=== PATIENT | female | born 1950 | race Caucasian/White ===

== ENCOUNTER → 2016-11-25 | Outpatient (REF) | payer MEDICARE, OTHER ==
[~2016-11-25] MED LIST: ASPI1TAB24 PO; CEFT500T PO; CELE20TA PO; COUM2.5T11 PO; DULC10SU2 PR; FLEEENE4 PR; GLIM2TAB PO; HYDR25TAB PO; INSUH10VL SC; LIPI20TA PO; LISI-538 PO; METRONIDAZOLE; MILKSUS PO; MIRA3350 PO; SENO8.6T10 PO; TRAM50TA2 PO; TYLE325T5 PO; VIMP200T PO; ZOFR20TA PO; acetaminophen OR; lotrimin TOP; multivitamin OR; mycostatin powder TOP
[2016-11-25 13:06] LABS: MEAN CORPUSCULAR HEMOGLOBIN 31.1 pg (27.0-33.0); MEAN CORPUSCULAR HGB CONC 34.8 g/dl (32.0-36.5); MEAN CORPUSCULAR VOLUME 89.2 fl (80.0-96.0); RED CELL DISTRIBUTION WIDTH 13.8 % (11.5-14.5); WHITE BLOOD COUNT 8.5 K/mm3 (4.0-10.0)
[2016-11-25 13:30] LABS: CALCIUM LEVEL 9.2 MG/DL (8.8-10.2); CREATININE FOR GFR 1.47 MG/DL (0.55-1.02); GLOMERULAR FILTRATION RATE 37.7 (>45); POTASSIUM SERUM 5.1 MEQ/L (3.5-5.1)
== END ==
LOC: SKLAB2 11:48
PROVIDERS: ATTEND Family Medicine
DX: F22 Delusional disorders (principal); Z79.899 Other long term (current) drug therapy

== ENCOUNTER → 2016-12-04 | Outpatient (REF) | payer MEDICARE, OTHER ==
[~2016-12-04] MED LIST changes: -CEFT500T PO; +CEFT500T3 PO
[2016-12-04 08:46] LABS: CALCIUM LEVEL 9.6 MG/DL (8.8-10.2); CREATININE FOR GFR 1.96 MG/DL (0.55-1.02); GLOMERULAR FILTRATION RATE 27.1 (>45)
== END ==
LOC: SKLAB2 09:37
PROVIDERS: ATTEND Family Medicine
DX: N39.0 Urinary tract infection, site not specified (principal)

== ENCOUNTER → 2016-12-05 | Outpatient (REF) | payer MEDICARE, OTHER ==
[2016-12-05 12:57] LABS: CALCIUM LEVEL 9.1 MG/DL (8.8-10.2); CREATININE FOR GFR 2.16 MG/DL (0.55-1.02); GLOMERULAR FILTRATION RATE 24.2 (>45)
[2016-12-05 13:00] LABS: POTASSIUM SERUM 5.5 MEQ/L (3.5-5.1)
== END | disposition home or self-care (01) ==
LOC: SKLAB2 08:00
PROVIDERS: ATTEND Family Medicine
DX: E87.5 Hyperkalemia (principal)

== ENCOUNTER → 2016-12-06 | Outpatient (REF) | payer MEDICARE, OTHER ==
[2016-12-06 09:43] LABS: CALCIUM LEVEL 9.2 MG/DL (8.8-10.2); CREATININE FOR GFR 2.6 MG/DL (0.55-1.02); GLOMERULAR FILTRATION RATE 19.5 (>45)
== END ==
LOC: SKLAB2 07:00
PROVIDERS: ATTEND Family Medicine
DX: E87.5 Hyperkalemia (principal)

== ENCOUNTER → 2016-12-28 | Outpatient (REF) | payer MEDICARE, OTHER ==
[2016-12-28 09:29] LABS: ALBUMIN 3.4 GM/DL (3.2-5.2); ALBUMIN/GLOBULIN RATIO 0.81 (1.00-1.93); BILIRUBIN,TOTAL 0.5 MG/DL (0.2-1.0); CALCIUM LEVEL 9.3 MG/DL (8.8-10.2); CREATININE FOR GFR 1.49 MG/DL (0.55-1.02); GLOMERULAR FILTRATION RATE 37.2 (>45); POTASSIUM SERUM 5.1 MEQ/L (3.5-5.1); TOTAL PROTEIN 7.6 GM/DL (6.4-8.2)
== END | disposition home or self-care (01) ==
LOC: SKLAB2 07:00
PROVIDERS: ATTEND Family Medicine
DX: E11.9 Type 2 diabetes mellitus without complications (principal); E78.00 Pure hypercholesterolemia, unspecified; I10 Essential (primary) hypertension

== ENCOUNTER → 2016-12-28 | Outpatient (REF) | payer MEDICARE, OTHER | END | disposition home or self-care (01) | LOC: SKLAB2 08:33 | PROVIDERS: ATTEND Family Medicine | DX: R09.89 Other specified symptoms and signs involving the circulatory and respiratory systems (principal); E11.9 Type 2 diabetes mellitus without complications; E78.00 Pure hypercholesterolemia, unspecified; I10 Essential (primary) hypertension ==

== ENCOUNTER → 2017-01-06 | Outpatient (REF) | payer MEDICARE, OTHER ==
[2017-01-06 15:27] LABS: BASO % 0.7 % (0.0-1.0); EOS # 0.6 K/mm3 (0.0-0.50); EOS % 7.6 % (0.0-3.0); LARGE UNSTAINED CELL # 0.2 K/mm3 (0.0-0.4); LARGE UNSTAINED CELL % 1.9 % (0.0-4.0); LYMPH # 1.8 K/mm3 (1.5-4.5); LYMPH % 22.4 % (24.0-44.0); MEAN CORPUSCULAR HEMOGLOBIN 29.5 pg (27.0-33.0); MEAN CORPUSCULAR HGB CONC 33.7 g/dl (32.0-36.5); MEAN CORPUSCULAR VOLUME 87.6 fl (80.0-96.0); MONO # 0.3 K/mm3 (0.0-0.8); MONO % 3.3 % (0.0-5.0); NEUTROPHILS # 5.1 K/mm3 (1.8-7.7); PLATELET COUNT, AUTOMATED 329 k/mm3 (150-450); RED CELL DISTRIBUTION WIDTH 13.1 % (11.5-14.5); WHITE BLOOD COUNT 7.9 K/mm3 (4.0-10.0)
[2017-01-06 16:03] LABS: ALBUMIN 3.2 GM/DL (3.2-5.2); ALBUMIN/GLOBULIN RATIO 0.84 (1.00-1.93); BILIRUBIN,TOTAL 0.3 MG/DL (0.2-1.0); CALCIUM LEVEL 8.9 MG/DL (8.8-10.2); CREATININE FOR GFR 1.44 MG/DL (0.55-1.02); GLOMERULAR FILTRATION RATE 38.7 (>45); POTASSIUM SERUM 4.6 MEQ/L (3.5-5.1)
== END ==
LOC: SKLAB2 14:56
PROVIDERS: ATTEND Family Medicine
DX: F29 Unspecified psychosis not due to a substance or known physiological condition (principal); Z79.899 Other long term (current) drug therapy

== ENCOUNTER → 2017-01-25 | Outpatient (REF) | payer MEDICARE, OTHER ==
[2017-01-25 09:04] LABS: ALBUMIN 3.4 GM/DL (3.2-5.2); ALBUMIN/GLOBULIN RATIO 0.92 (1.00-1.93); BILIRUBIN,TOTAL 0.4 MG/DL (0.2-1.0); CREATININE FOR GFR 1.39 MG/DL (0.55-1.02); GLOMERULAR FILTRATION RATE 40.3 (>45); POTASSIUM SERUM 4.8 MEQ/L (3.5-5.1); TOTAL PROTEIN 7.1 GM/DL (6.4-8.2)
== END ==
LOC: SKLAB2 07:30
PROVIDERS: ATTEND Family Medicine
DX: E11.9 Type 2 diabetes mellitus without complications (principal); E78.00 Pure hypercholesterolemia, unspecified; I10 Essential (primary) hypertension

== ENCOUNTER → 2017-02-11 | Outpatient (CLI) | payer MEDICARE, OTHER ==
[~2017-02-11] MED LIST changes: +ALBU83IN INH; +ARIC5TAB PO; +ARTI99.0 OU; +BUSP5TA PO; +CUTI0.05 TOP; +FURO20TA2 PO; +GLIM2TA PO; +GLUC1INJ11 SC; +GLUC4CHW PO; +HYDR10T PO; +LEXA1TAB2 PO; +MULT1TAB9 PO; +NYST100024 TOP; +VITATAB11 PO; +ZEST1TAB7 PO
[2017-02-11 12:36] LABS: INR 1.04
--- NOTE | 2017-02-11 12:37 | REP ---
Clinical: Hypertension. Technique: PA and lateral. Comparison: 11/05/2016. Findings: Stable cardiomegaly and chronic left lower lobe changes again noted. No acute consolidation, effusion, or pneumothorax. Skeletal structures demonstrate age-related degenerative change. Impression: Chronic stable changes. No acute cardiopulmonary process. Signed by Srinath Rain MD 02/11/2017 12:28 P
[2017-02-11 12:54] LABS: MEAN CORPUSCULAR HEMOGLOBIN 30.6 pg (27.0-33.0); MEAN CORPUSCULAR HGB CONC 33.4 g/dl (32.0-36.5); MEAN CORPUSCULAR VOLUME 91.4 fl (80.0-96.0); RED CELL DISTRIBUTION WIDTH 13.6 % (11.5-14.5)
[2017-02-11 12:59] LABS: ALBUMIN 3.7 GM/DL (3.2-5.2); ALBUMIN/GLOBULIN RATIO 0.86 (1.00-1.93); BILIRUBIN,TOTAL 0.3 MG/DL (0.2-1.0); CALCIUM LEVEL 9.7 MG/DL (8.8-10.2); CREATININE FOR GFR 1.48 MG/DL (0.55-1.02); GLOMERULAR FILTRATION RATE 37.4 (>45); POTASSIUM SERUM 4.3 MEQ/L (3.5-5.1)
--- NOTE | 2017-02-12 22:15 | ECGEPIP ---
Stationary ECG Study [facility] Test Date: 2017-02-11 Pat Name: ROBINA DYE Department: Room: - Gender: F Viscosity Inspector: YENI : 1950 Requested By: Jane Barnes Order Number: [id number] Reading MD: Prosper Roland Measurements Intervals [place] Rate: 57 P: 52 WY: 193 QRS: -15 QRSD: 90 T: 70 QT: 435 QTc: 424 Interpretive Statements Sinus bradycardia Leftward axis Low QRS complex voltage in the limb leads Compared to prior tracing of 12/24/2015, precordial voltage and anterior R wave progression have improved Electronically Signed On 02-12-2017 22:14:44 EDT by Prosper Roland
--- NOTE | 2017-02-17 16:36 | HPE ---
DATE OF ADMISSION: 02/24/2017 CHIEF COMPLAINT: Left knee pain and stiffness. HISTORY OF PRESENT ILLNESS: This Is a pleasant 66-year-old female who suffers from progressively worsening left knee pain and stiffness. It should be noted she also has some mild dementia. She has failed to improve with conservative treatment. She has elected for surgery for her continued symptoms. She has pain with weightbearing activities and her activities of daily living. X-rays of her knee are notable for advanced osteoarthritis of the left knee joint. She has consented for a left total knee arthroplasty by Dr. Cameron Meléndez. Medical optimization was performed by Dr. Sagastume. ALLERGIES: MORPHINE CURRENT MEDICATIONS: - Tylenol Arthritis 650 mg as needed - baby aspirin once a day - Celexa 20 mg a day - Dulcolax [address] of rectum every morning as needed - glimepiride 2 mg every day - glucagon emergency 1 mg as needed - hydrochlorothiazide 25 mg a day - Lipitor 40 mg a day - lisinopril 20 mg a day - Lotrimin AF 1%, apply to affected area twice a day - metronidazole 0.75% - milk of magnesia concentrate 2400 mg/10 mL as needed - multivitamin and mineral supplement - nystatin statin powder, apply twice a day as needed to affected areas - tramadol HCL 50 mg every 4-6 hours as needed - Vimpat 200 mg - Tylenol 325 mg one or two every 4 hours as needed for pain PAST MEDICAL HISTORY: Includes: 1. Diabetes. 2. High blood pressure. 3. History of stroke. 4. Mild dementia. 5. Constipation. PAST SURGICAL HISTORY: Includes: 1. Hysterectomy. 2. Cholecystectomy. 3. Right total knee arthroplasty. SOCIAL HISTORY: This patient is retired. She does not smoke or drink alcohol. FAMILY HISTORY: Noncontributory. REVIEW OF SYSTEMS: She denies chest pain, heart palpitations, cough, wheezing, difficulty breathing, and shortness of breath. She denies abdominal pain, nausea, vomiting, diarrhea, or constipation. She denies recent upper respiratory infection or urinary tract infection symptoms. She does complain of persistent pain in her left knee and pain with weightbearing activities in her left knee. PHYSICAL EXAMINATION: GENERAL: She is well-nourished, well-developed in no acute distress, alert female patient. She ambulates with a significant limp, favoring the left lower extremity. She uses a walker. VITAL SIGNS: She is 5 feet 8 inches, weighs 305 pounds with a temperature of 97.4, blood pressure 138/76, respirations of 17, and pulse of 88. NECK: Supple without adenopathy or jugular venous distension. There were no carotid bruits appreciated upon auscultation. LUNGS: Clear to auscultation without rales or wheeze throughout. HEART: Regular rate and rhythm. ABDOMEN: Bowel sounds were present. EXTREMITIES: Examination of the knee revealed intact skin. She had decreased range of motion secondary to pain and stiffness. The limb is neurovascularly intact. LABORATORY DATA: Chest x-ray showed chronic stable changes. No acute cardiopulmonary disease processes. EKG showed sinus bradycardia at 57 beats per minute. UA was within normal limits with a specific gravity of 1.004. Urine culture showed no growth. Nasal and sinus culture showed normal seema. Protime was 13.7, INR 1.04. Glucose 85, BUN 39, creatinine 1.48 for a GFR 37.4, sodium 141, potassium 4.3. CBC showed a red count of 3.99, otherwise within normal limits. Sedimentation rate was 86. IMPRESSION: Symptomatic osteoarthritis of the left knee joint. PLAN: Consented for a left total knee arthroplasty by Dr. Cameron Meléndez.
== END ==
LOC: M ADMPAT 10:15
PROVIDERS: ATTEND Orthopaedic Surgery
DX: Z01.818 Encounter for other preprocedural examination (principal); M25.562 Pain in left knee; E11.9 Type 2 diabetes mellitus without complications; I10 Essential (primary) hypertension; Z86.73 Personal history of transient ischemic attack (TIA), and cerebral infarction without residual deficits; F03.90 Unspecified dementia, unspecified severity, without behavioral disturbance, psychotic disturbance, mood disturbance, and anxiety; Z79.899 Other long term (current) drug therapy

== ENCOUNTER → 2017-02-24 | Outpatient (CLI) | payer MEDICARE, OTHER ==
--- NOTE | 2017-02-23 10:26 | CR ---
DATE OF VISIT: 02/23/2017 The resident is seen today for preoperative medical assessment prior to planned knee surgery on 02/24/2017 at [facility]. The patient had a right knee replacement 14 months ago and seems to have done pretty well with that. Her major clinical problems during the last year have been some depressive symptoms which seem to have responded well to treatment and also a problem with persistent dermatitis on her lower extremities which also seems to have responded to the treatment that she is on. She is anxious to have the left knee surgery because pain in her knee interferes with her ambulation. PAST HISTORY: She had a stroke in April 2015 with right middle cerebral artery territory infarction. She did have some carotid stenosis noted on the opposite carotid artery. Persistent issues seem to be with her speech and perhaps her cognition. She has good arm strength and good leg strength. She has hypertension, hypercholesterolemia, seizure prophylaxis, depression, diabetes, obstructive sleep apnea, osteoarthritis. She has not had any evidence of symptomatic cardiac disease, tachyarrhythmia, heart failure. The current medication regimen: aspirin 81 mg daily which was stopped on 02/16/2017, hydroxyzine 10 mg at bedtime, Aricept 5 mg in the evening, multivitamin with minerals daily, glimepiride 2 mg daily, artificial tears one drop four times a day in both eyes, lisinopril 20 mg daily, tramadol 50 mg three times a day, Lipitor 40 mg daily, Vimpat 200 mg twice a day, Lexapro 20 mg daily , vitamin B complex daily, Nystatin powder in skin folds for intertriginous rashes , furosemide 20 mg daily, buspirone 5 mg twice a day. She has as needed acetaminophen for pain, as needed Dulcolax enemas and milk of magnesia for bowel care. She also has a as needed dose of MiraLAX for bowel care and tramadol for pain. She has as needed fluticasone ointment to red itchy areas and a as needed albuterol for pain. She also has scheduled betamethasone cream to her right leg. She is also using janice wraps to her legs in lieu of thromboembolic deterrent (MELLO ) hose for control of edema. Allergies are noted to METFORMIN and MORPHINE. FAMILY HISTORY: Is not obtainable from the resident. SOCIAL HISTORY: Prior to her entering [facility], where she has been residing since 2014, she lived in [place] with her . Her children live in [place]. She is a nonsmoker and a nondrinker. I am her regular medical physician. REVIEW OF SYSTEMS: No fevers, chills, sweats, or weight loss. No headache or dizziness. She has some blurry vision but no double vision. She thinks that some cataract surgery may be in her future. Denies chewing or swallowing problems. Denies cough, shortness of breath, chest pains, palpitations. Denies nausea, vomiting, abdominal pains, diarrhea, constipation, or blood in the stool. Denies dysuria or incontinence. Denies back pain. She has pain in the left knee. The right knee is doing good after her surgery last year. Not having any edema problems at this time. Does have itching at times. Not having any rashes at times. No focal weakness. No paresthesias. Has anxiety and depression, which seems to be well controlled at this time. No bruising or bleeding problems. On examination, her weight is 300 pounds, which is down 4 pounds from the previous week. Blood pressure 128/84. Pulse is 62 and regular. Oxygen (O2) saturation on room air is 96%. Fasting blood sugar yesterday morning was 110. She is alert, pleasant, and cooperative. Not in any distress. Her eyes are clear. Pupils are equal, round, regular, and react to light and accommodation. Extraocular movements are full. She has minimal facial weakness. She does have partial expressive aphasia. Mouth and throat are unremarkable. Tongue is midline and without any deviation. There are no neck masses, tenderness, or adenopathy. There are no carotid bruits. Her lungs are clear. Heart: Has a regular rhythm. There is no murmur, click, or gallop. Abdomen is soft, obese, and nontender without any masses or organomegaly. Bowel sounds are active. There is no edema. No calf tenderness. She has good pedal pulses. Her legs are wrapped with janice wraps, but looking underneath, I am not seeing any erythema, scaling, open areas. Knees are hypertrophic. There is some stiffness and crepitus on the left, as well as discomfort on extension. She has a scar over her right knee. Cranial nerves III-XII show some mild left facial weakness. 3Rd Mate are symmetric. Deep tendon reflexes are diminished. Babinski signs are negative. She seems to be in good spirits. Her recent laboratory work showed a hemoglobin of 12.2, hematocrit 36.5, WBC is 10,000, platelet count 377,000, BUN of 39, creatinine 1.5, hemoglobin A1c 7%, cholesterol of 110, potassium 4.2, blood sugar of 85. Urine culture was negative. Nose and sinus culture was negative. Electrocardiogram (EKG) done on 02/11/2017 showed sinus bradycardia, rate of 57, left axis deviation with axis of minus 15 degrees. Low voltage in the limb leads. Unremarkable precordial leads and ST-T segments. Chest x-ray showed chronic stable changes with stable cardiomegaly, clear lung oconnor. ASSESSMENT: This is a 66-year-old woman with symptomatic arthritis of left knee. She has had previous right knee arthroplasty 14 months ago. The left knee pain interferes with her ambulation. She is diabetic, hypertensive. Has depression. Has obstructive sleep apnea. Has chronic renal insufficiency. Her medical problems are certainly stable at this time. PLAN: The resident has stable risks that unlikely to be altered by additional testing. She is diabetic and hypertensive. Had a stroke in the past. She has obstructive sleep apnea. Her aspirin has been held. She will be going on Coumadin prophylaxis, although I think her aspirin should be resumed when it seems to be safe to do so. On the morning of her surgery, she is going to take buspirone, donepezil, tramadol, Lexapro, Lipitor with a small sip of water. There is an order for her to bring her continuous positive airway pressure (CPAP ) with her and to receive Coumadin for deep venous thrombosis (DVT) prophylaxis with her first dose the night before surgery. [facility] physicians will follow her medically in the hospital, and I will resume her care along with the [facility] nurse practitioner when she returns. . NILTON
[~2017-02-24] VITALS: Ht 172.7 cm; Wt 138.3 kg
[~2017-02-24] MED LIST changes: +ACETAMINOPHEN 500 MG TAB PO ONE; +BUPIVACAINE HCL 0.5% 10 ML VIAL As Ordered ONE; +EPINEPHrine INJ 1 MG/ML 1ML VIAL/AMP As Ordered ONE; +LIDOCAINE 2% INJ 100 MG/5 ML SDV (FOR ANES.) As Ordered ONE; +LR 1,000 ML IV SCH; +MIDAZOLAM INJ 2 MG/2 ML VIAL (J2250) As Ordered ONE; +MIDAZOLAM INJ 2 MG/2 ML VIAL (J2250) IV ONE; +PROPOFOL 200 MG/20 ML VIAL As Ordered ONE; +ROPIvacaine 0.5% 30 ML INJECTION (J2795) As Ordered ONE; +TRANEXAMIC ACID 100 MG/ML 10ML VIAL As Ordered ONE; +ceFAZolin 1GM INJ (J0690) As Ordered ONE; +fentaNYL 100 MCG/2 ML INJECTION (J3010) As Ordered ONE; +fentaNYL 100 MCG/2 ML INJECTION (J3010) IV ONE
[2017-02-24 12:46] VITALS: BP 100/52
== END ==
LOC: M LAB 08:00 → UNDOADMIN 09:17 → M OR 09:17 → EDSTATUS 15:30
PROVIDERS: ATTEND Orthopaedic Surgery
DX: M25.562 Pain in left knee (principal); I10 Essential (primary) hypertension; E11.9 Type 2 diabetes mellitus without complications
CPT/HCPCS: 36415; 82947; 86850; 86900; 86901; J0690; J2250; J3010

== ENCOUNTER → 2017-04-02 | Outpatient (REF) | payer MEDICARE, OTHER ==
[~2017-04-02] MED LIST changes: -ACETAMINOPHEN 500 MG TAB PO ONE; +ARIC1TAB PO; -ARIC5TAB PO; +ASPI-161 PO; -ASPI1TAB24 PO; +ATOR40TA75 PO; -BUPIVACAINE HCL 0.5% 10 ML VIAL As Ordered ONE; -COUM2.5T11 PO; +COUM2.5T17 PO; -EPINEPHrine INJ 1 MG/ML 1ML VIAL/AMP As Ordered ONE; +HYDR-643 PO; -HYDR10T PO; -LIDOCAINE 2% INJ 100 MG/5 ML SDV (FOR ANES.) As Ordered ONE; -LR 1,000 ML IV SCH; -MIDAZOLAM INJ 2 MG/2 ML VIAL (J2250) As Ordered ONE; -MIDAZOLAM INJ 2 MG/2 ML VIAL (J2250) IV ONE; -NYST100024 TOP; +NYST1POW9 TOP; +ONDA4TAB5 PO; -PROPOFOL 200 MG/20 ML VIAL As Ordered ONE; -ROPIvacaine 0.5% 30 ML INJECTION (J2795) As Ordered ONE; +SENN8.6T7 PO; -TRANEXAMIC ACID 100 MG/ML 10ML VIAL As Ordered ONE; +TYLE325C PO; -ceFAZolin 1GM INJ (J0690) As Ordered ONE; -fentaNYL 100 MCG/2 ML INJECTION (J3010) As Ordered ONE; -fentaNYL 100 MCG/2 ML INJECTION (J3010) IV ONE
--- NOTE | 2017-04-02 14:54 | ECGEPIP ---
Stationary ECG Study [facility] Test Date: 2017-04-02 Pat Name: ROBINA DYE Department: Room: - Gender: F Manager Revenue: LUANN : 1950 Requested By: Jaylan Sagastume Order Number: [id number] Reading MD: Martha Read Measurements Intervals [place] Rate: 63 P: 79 [place]: 206 QRS: -28 QRSD: 100 T: 75 QT: 422 QTc: 434 Interpretive Statements SINUS RHYTHM FIRST DEGREE BLOCK NEW POSSIBLE SEPTAL MYOCARDIAL INFARCTION IMPLIED BY WORSENING R WAVE PROGRESSION C/W 02/11/17 NEW LOW VOLTAGE nonspecific t abn Electronically Signed On 04-02-2017 14:54:45 EDT by Martha Read
== END ==
LOC: SKLAB2 10:47
PROVIDERS: ATTEND Family Medicine
DX: Z01.818 Encounter for other preprocedural examination (principal); Z13.9 Encounter for screening, unspecified

== ENCOUNTER → 2017-04-06 | Outpatient (REF) | payer MEDICARE, OTHER ==
[~2017-04-06] MED LIST changes: -ARIC1TAB PO; +ARIC5TAB PO; -ASPI-161 PO; +ASPI1TAB24 PO; +ATOR40TA PO; -ATOR40TA75 PO; +COUM2.5T11 PO; -COUM2.5T17 PO; -HYDR-643 PO; +HYDR10T PO; +NYST100024 TOP; -NYST1POW9 TOP; -ONDA4TAB5 PO; -SENN8.6T7 PO; -TYLE325C PO
[2017-04-06 10:49] LABS: BASO % 0.5 % (0.0-1.0); EOS # 0.3 K/mm3 (0.0-0.50); EOS % 3.3 % (0.0-3.0); LARGE UNSTAINED CELL # 0.1 K/mm3 (0.0-0.4); LARGE UNSTAINED CELL % 1.1 % (0.0-4.0); LYMPH # 2.3 K/mm3 (1.5-4.5); LYMPH % 22.2 % (24.0-44.0); MEAN CORPUSCULAR HEMOGLOBIN 30.9 pg (27.0-33.0); MEAN CORPUSCULAR VOLUME 90.8 fl (80.0-96.0); MONO # 0.3 K/mm3 (0.0-0.8); MONO % 3.5 % (0.0-5.0); NEUTROPHILS # 6.8 K/mm3 (1.8-7.7); NEUTROPHILS % 69.5 % (36.0-66.0); PLATELET COUNT, AUTOMATED 401 k/mm3 (150-450); RED CELL DISTRIBUTION WIDTH 13.3 % (11.5-14.5); WHITE BLOOD COUNT 9.8 K/mm3 (4.0-10.0)
[2017-04-06 11:05] LABS: CREATININE FOR GFR 1.49 MG/DL (0.55-1.02); GLOMERULAR FILTRATION RATE 37.2 (>45); POTASSIUM SERUM 4.5 MEQ/L (3.5-5.1)
== END ==
LOC: SKLAB2 10:21
PROVIDERS: ATTEND Family Medicine
DX: Z01.818 Encounter for other preprocedural examination (principal)

== ENCOUNTER → 2017-04-26 | Outpatient (REF) | payer MEDICARE, OTHER ==
[2017-04-26 08:54] LABS: ALBUMIN 3.2 GM/DL (3.2-5.2); ALBUMIN/GLOBULIN RATIO 0.73 (1.00-1.93); BILIRUBIN,TOTAL 0.4 MG/DL (0.2-1.0); CALCIUM LEVEL 9.6 MG/DL (8.8-10.2); CREATININE FOR GFR 1.51 MG/DL (0.55-1.02); GLOMERULAR FILTRATION RATE 36.6 (>45); TOTAL PROTEIN 7.6 GM/DL (6.4-8.2)
[2017-04-26 09:02] LABS: POTASSIUM SERUM 5.2 MEQ/L (3.5-5.1)
== END ==
LOC: SKLAB2 07:00
PROVIDERS: ATTEND Family Medicine
DX: E78.00 Pure hypercholesterolemia, unspecified (principal); I10 Essential (primary) hypertension; E11.9 Type 2 diabetes mellitus without complications

== ENCOUNTER → 2017-05-03 | Outpatient (REF) | payer MEDICARE, OTHER | LOC: SKLAB2 08:00 | PROVIDERS: ATTEND Family Medicine | DX: E05.90 Thyrotoxicosis, unspecified without thyrotoxic crisis or storm (principal) ==

== ENCOUNTER → 2017-05-20 | Outpatient (CLI) | payer MEDICARE, OTHER ==
[~2017-05-20] MED LIST changes: +ARIC1TAB PO; -ARIC5TAB PO; +ASPI-161 PO; -ASPI1TAB24 PO; -ATOR40TA PO; +ATOR40TA75 PO; -COUM2.5T11 PO; +COUM2.5T17 PO; +HYDR-643 PO; -HYDR10T PO; -NYST100024 TOP; +NYST1POW9 TOP; +ONDA4TAB5 PO; +SENN8.6T7 PO; +TYLE325C PO
--- NOTE | 2017-05-20 11:20 | REP ---
Thyroid ultrasound: The right and left lobes are enlarged. The right lobe measures 5.9 x 2.1 x 2.2 cm. Left lobe measures 5.0 x 1.7 x 2.3 cm. The isthmus is thickened measuring up to 9 mm. The thyroid parenchyma is mildly heterogeneous diffusely. No focal nodules, cysts or masses are identified. Impression: Diffusely enlarged thyroid with mildly heterogeneous parenchymal echotexture. No focal masses or nodules or cysts are identified. Signed by Melchor Garcia MD 05/20/2017 11:11 A
== END ==
LOC: M RAD 10:13
PROVIDERS: ATTEND Nurse Practitioner Adult Health
DX: E04.9 Nontoxic goiter, unspecified (principal)

== ENCOUNTER → 2017-05-31 | Outpatient (REF) | payer MEDICARE, OTHER ==
[2017-05-31 08:58] LABS: MEAN CORPUSCULAR HEMOGLOBIN 31.3 pg (27.0-33.0); MEAN CORPUSCULAR HGB CONC 33.8 g/dl (32.0-36.5); MEAN CORPUSCULAR VOLUME 92.7 fl (80.0-96.0); RED CELL DISTRIBUTION WIDTH 13.5 % (11.5-14.5); WHITE BLOOD COUNT 21.1 K/mm3 (4.0-10.0)
[2017-05-31 09:11] LABS: INR 1.04
== END ==
LOC: SKLAB2 07:00
PROVIDERS: ATTEND Family Medicine
DX: Z01.818 Encounter for other preprocedural examination (principal); Z79.899 Other long term (current) drug therapy; Z79.01 Long term (current) use of anticoagulants

== ENCOUNTER → 2017-06-02 | Outpatient (REF) | payer MEDICARE, OTHER ==
[2017-06-02 07:01] LABS: BASO # 0.1 K/mm3 (0.0-0.2); BASO % 0.7 % (0.0-1.0); EOS # 0.4 K/mm3 (0.0-0.50); EOS % 5.3 % (0.0-3.0); LARGE UNSTAINED CELL # 0.1 K/mm3 (0.0-0.4); LARGE UNSTAINED CELL % 1.5 % (0.0-4.0); LYMPH # 2.4 K/mm3 (1.5-4.5); LYMPH % 27.5 % (24.0-44.0); MEAN CORPUSCULAR VOLUME 91.1 fl (80.0-96.0); MONO # 0.4 K/mm3 (0.0-0.8); MONO % 4.2 % (0.0-5.0); NEUTROPHILS # 5.1 K/mm3 (1.8-7.7); NEUTROPHILS % 60.7 % (36.0-66.0); PLATELET COUNT, AUTOMATED 371 k/mm3 (150-450); RED CELL DISTRIBUTION WIDTH 13.8 % (11.5-14.5); WHITE BLOOD COUNT 8.4 K/mm3 (4.0-10.0)
[2017-06-02 07:56] LABS: ERYTHROCYTE SEDIMENTATION RATE 70 mm/hr (0-30)
== END ==
LOC: SKLAB2 07:00
PROVIDERS: ATTEND Family Medicine
DX: R50.9 Fever, unspecified (principal)

== ENCOUNTER → 2017-06-03 | Outpatient (REF) | payer MEDICARE, OTHER ==
--- NOTE | 2017-06-03 11:25 | REP ---
CHEST, TWO VIEWS: HISTORY: Leukocytosis. COMPARISON: 02/11/2017. There is elevation of the right hemidiaphragm. Linear density is present in the left lower lobe consistent with scar. The right lung is clear. The cardiac silhouette is enlarged. The pulmonary vasculature is normal in appearance. Degenerative change is present in the thoracic spine. IMPRESSION: 1. Left lower lobe scarring. 2. Cardiomegaly. Signed by Juan Carlos Dukes MD 06/03/2017 11:27 A
== END ==
LOC: SKLAB2 10:01
PROVIDERS: ATTEND Family Medicine
DX: D72.829 Elevated white blood cell count, unspecified (principal)

== ENCOUNTER → 2017-06-03 | Outpatient (REF) | payer MEDICARE, OTHER | LOC: SKLAB2 09:39 | PROVIDERS: ATTEND Family Medicine | DX: D72.829 Elevated white blood cell count, unspecified (principal) ==

== ENCOUNTER → 2017-06-03 | Outpatient (REF) | payer MEDICARE, OTHER ==
[2017-06-03 08:35] LABS: BASO # 0.1 K/mm3 (0.0-0.2); BASO % 0.7 % (0.0-1.0); EOS # 0.4 K/mm3 (0.0-0.50); EOS % 4.8 % (0.0-3.0); LARGE UNSTAINED CELL # 0.1 K/mm3 (0.0-0.4); LARGE UNSTAINED CELL % 1.6 % (0.0-4.0); LYMPH # 2.2 K/mm3 (1.5-4.5); LYMPH % 23.3 % (24.0-44.0); MEAN CORPUSCULAR HEMOGLOBIN 32.3 pg (27.0-33.0); MEAN CORPUSCULAR HGB CONC 35.4 g/dl (32.0-36.5); MEAN CORPUSCULAR VOLUME 91.4 fl (80.0-96.0); MONO # 0.4 K/mm3 (0.0-0.8); MONO % 4.1 % (0.0-5.0); NEUTROPHILS # 5.9 K/mm3 (1.8-7.7); NEUTROPHILS % 65.5 % (36.0-66.0); PLATELET COUNT, AUTOMATED 335 k/mm3 (150-450); RED CELL DISTRIBUTION WIDTH 13.8 % (11.5-14.5)
[2017-06-03 13:58] LABS: CALCIUM LEVEL 9.8 MG/DL (8.8-10.2); CREATININE FOR GFR 1.49 MG/DL (0.55-1.02); GLOMERULAR FILTRATION RATE 37.2 (>45); POTASSIUM SERUM 4.5 MEQ/L (3.5-5.1)
== END ==
LOC: SKLAB2 07:00
PROVIDERS: ATTEND Family Medicine
DX: Z01.818 Encounter for other preprocedural examination (principal); Z12.11 Encounter for screening for malignant neoplasm of colon; D72.829 Elevated white blood cell count, unspecified

== ENCOUNTER → 2017-06-04 | Outpatient (REF) | payer MEDICARE, OTHER | LOC: SKLAB2 15:12 | PROVIDERS: ATTEND Family Medicine | DX: D72.829 Elevated white blood cell count, unspecified (principal); Z11.2 Encounter for screening for other bacterial diseases ==

== ENCOUNTER 2017-06-07 11:58 | Inpatient (IN) | payer MEDICARE, OTHER ==
--- NOTE | 2017-06-03 21:39 | CR ---
DATE: 06/03/2017 Resident is seen today for preoperative medical assessment prior to planned left total knee arthroplasty on 06/06/2017, at [facility]. She has had this scheduled twice before, it was postponed in February because of a candidal rash in the right groin and under her abdominal pannus. When she was rescheduled it was again postponed because of poor R-wave progression on her EKG across the precordium. I had indicated in my preoperative evaluation that in the absence of cardiac symptoms that this was not a concern, however she was referred to maintenance welder for assessment and after their assessment they feel that she can successfully undergo the planned surgery from a cardiac point of view. She underwent a stress nuclear heart scan and an echocardiogram as well as a history and clinical examination. This week on the patient's preoperative evaluation, she had an elevated white count 21,100. She had no fever and no symptoms. We checked her urine and it was completely normal. We looked at her legs and skin and found no issues. When the white count was repeated it was approximately 8600 and when it was checked today it was 9000. We did monitor her for temperatures the last few days and these were negative. PAST HISTORY: The most important past history is a stroke occurring in April 2015 with right middle cerebral artery occlusion. She has been in the longterm ever since her discharge from hospital. She does have good arm and leg strength but does have some issues with her speech and somewhat with her cognition. She is being treated for hypertension, hypercholesterolemia, seizure prophylaxis , depression, diabetes, obstructive sleep apnea, and osteoarthritis. She had a successful right total knee replacement last year due to symptomatic degenerative joint disease and the knee. She has not had any history of cardiac disease. Has not had any chest pains, palpitations. No known tachyarrhythmias or episodes of heart failure. CURRENT MEDICATIONS: Include a multivitamin with minerals, glimepiride 2 mg daily, artificial tears one drop four times a day, Zestril 20 mg daily, tramadol 50 mg scheduled three times a day, Lexapro 20 mg daily, vitamin B complex one daily, furosemide 20 mg daily, buspirone 5 mg daily, hydroxyzine 10 mg daily, Vimpat 100 mg twice a day, Lipitor 40 mg Wednesday, Wednesday, Wednesday, Aricept 5 mg daily. She has as needed medications for bowel care and for skin care, for nausea and does take as needed tramadol additionally for pain. ALLERGIES: Are stated to METFORMIN and MORPHINE. FAMILY HISTORY: Is not obtainable from the patient. SOCIAL HISTORY: She has been a resident of [facility] since May 2015. Prior to that she lived in [place] with her . She has children who live in [place]. She is a nonsmoker and a nondrinker. I have been her regular medical physician since she has come to [facility]. REVIEW OF SYSTEMS: She has not had any fevers, chills, sweats or weight loss. She denies headache or dizziness. She says she has blurry vision at times. Denies double vision. Cataract surgery has been talked about in the past for her. She denies any chewing or swallowing issues. She has an occasional dry cough. Denies shortness of breath, chest pains or palpitations. Has had some edema issues in the past, but under control. She has no nausea, vomiting, abdominal pain, no diarrhea or constipation or blood in the stool currently. She denies dysuria or urinary incontinence. She denies back pain. She has pain in both knees but more so on the left and her left leg may even throb at rest. Overall she is happy with the result that she got after her right knee replacement last year. She does have itching at times. No rashes currently. No focal weakness. No paresthesias. She is treated for anxiety and depression and this seems to be under good control at this time. Not having any bruising or bleeding issues. On examination, her will weight currently is 312 pounds, blood pressure 120/70, pulse 61 and regular. Last temperature recorded was 98. Most recent blood sugar was 146. She is alert, pleasant and cooperative, not in any distress. Her eyes are clear. Pupils equal, round, regular and react to light and accommodation. Extraocular movements are full. She has some minimal facial weakness. She has a partial expressive aphasia. Mouth and throat are unremarkable other than for some missing teeth. Tongue is midline without any deviation. There is no neck masses, tenderness or adenopathy. No carotid bruits. Her lungs are clear. Heart has a regular rhythm. There is no murmur, click or gallop. Abdomen is soft, obese and nontender without any masses or organomegaly. Bowel sounds are active. There is no edema. No calf tenderness. She has good pedal pulses. She has a surgical scar over the right knee which is well-healed. She has good range of motion of her right knee, lacking perhaps a few degrees of flexion. No evidence of any erythema, tenderness or effusion. Her left knee shows fairly good range of motion without any crepitus but it is uncomfortable and she does have tenderness across the front of the knee, again no evidence of effusion or erythema. Cranial nerves III-XII, she has some mild left facial weakness. Breastfeeding Peer Counselor are symmetric. Deep tendon reflexes are diminished. Babinski signs are negative. She is in good spirits. Labs today shows a white count of 9000, hemoglobin of 12, platelet count of 335,000. Urinalysis done this week was completely negative with a negative urine culture. TSH last month was 2.31. Her chemistry profile done last month showed BUN of 33 , creatinine 1.5, which is her baseline, potassium was 5.2. Liver functions were normal. Cholesterol was 156. ASSESSMENT: 1. Preoperative medical assessment. 2. Symptomatic osteoarthritis in the left knee. 3. History of stroke with minimal left hemiparesis and expressive aphasia. 4. Diabetes, well-controlled. 5. Hypertension, well-controlled. Recent cardiac evaluation negative. 6. Obesity. 7. Depression. 8. Obstructive sleep apnea. 9. Chronic renal insufficiency. PLAN: I am going to order a repeat chemistry profile just to bring us up to date and am going to order a chest x-ray given her recent leukocytosis, although her lungs are perfectly clear and she is not having any pulmonary symptoms, I would just like not to be second guessed and have her surgery postponed again. She will be going on Coumadin prophylaxis. Note should be made of her MORPHINE allergies so that she gets an alternative pain medication postoperatively. Her regular medications can be given with a small sip of water with the exception of the glimepiride, Zestril and Lasix. She is compliant with her CPAP management and she should be using this in the hospital. The [facility] physicians will follow her medically in the hospital and I will be resuming her care when she returns to the [facility] along with the [facility] nurse practitioner. Please contact me if you have any questions regarding this resident. I should note that last month even prior to her cardiac evaluation, we put her data into the [employer] Surgical Risk Calculator and they found that she had a slightly increased risk of serious complications, or any complication, and slightly increased risk of readmission to the hospital after surgery, above average risk of being discharged to nursing rehabilitation facility which is somewhat moot since she already resides at the long term facility. NOTE: x-ray shows some LLL scarring only. Repeat BMP is stable. Patient may proceed with planned surgery without further workup. CC: [facility] surgical intake [facility] MTDD
[~2017-06-07] VITALS: Ht 147.3 cm; Wt 142.0 kg
[~2017-06-07 11:58] MED LIST changes: +BUPIVACAINE LIPOSOME/PF 1.3% 20 ML VIAL (13.3MG/ML)(EXPAREL) As Ordered ONE; +EPINEPHrine INJ 1 MG/ML 1ML AMP As Ordered ONE; -ONDA4TAB5 PO; -SENN8.6T7 PO; +TRANEXAMIC ACID 100 MG/ML 10ML VIAL As Ordered ONE; -TYLE325C PO; +ceFAZolin 1GM INJ (J0690) As Ordered ONE
[2017-06-07] MEDS ORDERED: LR 1,000 ML IV SCH ×3 (12:15→17:15)
[2017-06-07] MEDS ORDERED: ACETAMINOPHEN 500 MG TAB PO ONE (12:15)
[2017-06-07] MEDS ORDERED: fentaNYL 100 MCG/2 ML INJECTION (J3010) As Ordered ONE ×2 (13:45→15:47)
[2017-06-07] MEDS ORDERED: MIDAZOLAM INJ 2 MG/2 ML VIAL (J2250) As Ordered ONE ×2 (13:45→15:47)
[2017-06-07] MEDS ORDERED: fentaNYL 100 MCG/2 ML INJECTION (J3010) IV PRN ×2 (14:30→17:15)
[2017-06-07] MEDS ORDERED: fentaNYL 100 MCG/2 ML INJECTION (J3010) IV ONE (14:30)
[2017-06-07] MEDS ORDERED: MIDAZOLAM INJ 2 MG/2 ML VIAL (J2250) IV ONE (14:30)
[2017-06-07] MEDS ORDERED: MIDAZOLAM INJ 2 MG/2 ML VIAL (J2250) IV PRN (14:30)
[2017-06-07] MEDS ORDERED: EPINEPHrine 1MG/10ML SYRINGE 1.5IN ONE (14:45)
[2017-06-07] MEDS ORDERED: ROPIvacaine 0.5% 30 ML INJECTION (J2795) ONE (14:45)
[2017-06-07] MEDS ORDERED: PROPOFOL 500 MG/50 ML VIAL As Ordered ONE (15:47)
[2017-06-07] MEDS ORDERED: LIDOCAINE 2% INJ 100 MG/5 ML SDV (FOR ANES.) As Ordered ONE ×2 (15:47→16:34)
[2017-06-07] MEDS ORDERED: ONDANSETRON 4MG/2ML VIAL (J2405) As Ordered ONE (15:53)
[2017-06-07] MEDS ORDERED: ePHEDrine SULFATE 25 MG/5 ML(5MG/ML) SYRINGE As Ordered ONE (15:53)
[2017-06-07] MEDS ORDERED: PHENYLephrine HCL 500 MCG/5 ML (100MCG/ML) SYRINGE (J2370) As Ordered ONE ×2 (15:53→16:36)
[2017-06-07] MEDS ORDERED: WARFARIN SOD 5 MG TAB PO SCH (17:00)
[2017-06-07] MEDS ORDERED: MORPHINE 1MG/ML IN 0.9% NACL 100ML IV BAG As Ordered ONE (17:08)
[2017-06-07] MEDS ORDERED: ONDANSETRON 4MG/2ML VIAL (J2405) IV PRN ×2 (17:15→17:30)
[2017-06-07] MEDS ORDERED: NALOXONE INJ 0.4 MG/1 ML VIAL (J2310) IV PRN (17:30)
[2017-06-07] MEDS ORDERED: EPIDURAL/PCA KEYS XX PRN (17:30)
[2017-06-07] MEDS ORDERED: NALBUPHINE HCL 10 MG/ML AMP (J2300) IV PRN (17:30)
[2017-06-07] MEDS ORDERED: diphenhydrAMINE INJ 50MG/ML VIAL (J1200) IV PRN (17:30)
[2017-06-07] MEDS ORDERED: MORPHINE 1MG/ML IN 0.9% NACL 100ML IV BAG IV PRN (17:30)
[2017-06-07] MEDS ORDERED: FLEET ENEMA PR PRN (17:30)
--- NOTE | 2017-06-07 18:19 | HPE ---
DATE OF ADMISSION: 06/07/2017 PREOPERATIVE DIAGNOSIS: Osteoarthritis of the left knee. HISTORY OF THE PRESENT ILLNESS: She is a 66-year-old female with end-stage arthritis of the left knee secondary to osteoarthritis and here now to have her left total knee arthroplasty performed. The initial history and physical was outdated by a few days, so I had to redictate this. She has been seen by Dr. Sagastume, her regular medical doctor, has felt to be cleared and optimized for surgery. She has undergone right total knee arthroplasty successfully in the past with Dr. Fleming, but her symptoms on the left knee are persisting and now desires the same for the left side. Other past medical history is significant for a history of stroke with peripheral vascular disease, early dementia, diabetes, hypertension, hypercholesterolemia, depression, sleep apnea. MEDICATIONS: - glimepiride - multivitamin - artificial tears - Zestril - Lexapro - vitamin B - furosemide - buspirone - hydroxyzine - Vimpat - Lipitor - Aricept ALLERGIES: METFORMIN and MORPHINE. SOCIAL HISTORY: She does not smoke or drink alcohol excessively. She is . She is here with her , who now resides at the [facility]. She has children who live out in [place]. Dr. Sagastume saw her and reviewed her notes. REVIEW OF SYSTEMS: Per his note. She has seen Dr. Griffith also recently who felt that she is optimized for this procedure. PHYSICAL EXAMINATION: She is an alert, pleasant female lying on a stretcher. She is moderately obese. VITAL SIGNS: Temperature is 98, her blood pressure is 101/56, pulse is 69, respirations 18. HEENT Exam: Benign. LUNGS: Clear. HEART: Regular. EXTREMITIES: Her right knee has a healed scar, left knee has good extension and flexes easily to 120 degrees. It is mild basically anatomic valgus alignment. She has a good pulse in her foot distally. Distal neurovascular exam is grossly unremarkable. She has good stability to the knee to varus/valgus, abduction (AB) stress testing. LABORATORY STUDIES: Urine culture is no growth. Nasal sinus cultures were normal. Chest x-ray: No acute disease was seen. Some cardiomegaly noted. Some left lower lobe scarring was noted. EKG: Sinus bradycardia with a left axis with a low QRS complex. Hematocrit is 33.9, white count 9, platelets of 335, sedimentation rate of 70. Sodium 139, potassium 4.5, chloride 103, bicarbonate 30, BUN 34, creatinine 1.49. Uric acid 6.8. GGT was 283, AST 21, ALT 37, alkaline phosphatase was 93. CRP was 1.1. Beta natriuretic peptide was 96.5. X-rays show arthritis of the left knee. IMPRESSION: End-stage osteoarthritis of the left knee. She has been optimized. According to Dr. Sagastume and Dr. Griffith, her assembler surgical garment, they feel that she is okay to proceed with knee replacement, which the patient desires. The risks have been discussed in the office, the risk of infection, damage to nerves, blood vessels, anesthetic complications, phlebitis, embolism, heart attack, , amongst others. They understand this and so she updated the consent today here in the preoperative holding area, and we plan to proceed to the operating room this afternoon.
[2017-06-07] MEDS ORDERED: METOCLOPRAMIDE INJ 10MG/2ML VIAL (J2765) As Ordered ONE (18:44)
[2017-06-07] MEDS ORDERED: METOCLOPRAMIDE INJ 10MG/2ML VIAL (J2765) IV ONE (19:00)
[2017-06-07] MEDS ORDERED: KETOROLAC 30 MG/ML VIAL (J1885) As Ordered ONE (19:25)
[2017-06-07] MEDS ORDERED: PERCOCET 5MG/325MG TAB PO PRN (19:45)
[2017-06-07] MEDS: LR 1,000 ML IV SCH (20:22)
[2017-06-07 20:30] VITALS: BP 126/60
[2017-06-07 21:00] VITALS: BP 137/63
[2017-06-07] MEDS ORDERED: WARFARIN SOD 5 MG TAB PO ONE (21:00)
[2017-06-07 22:00] VITALS: BP 138/64
[2017-06-07 23:00] VITALS: BP 124/62
[2017-06-08] VITALS: BP 112/56
[2017-06-08 01:00] VITALS: BP 117/55
[2017-06-08] MEDS ORDERED: KETOROLAC 30 MG/ML VIAL (J1885) IV SCH (04:00)
[2017-06-08 05:00] VITALS: BP 147/71
[2017-06-08] MEDS: PERCOCET 5MG/325MG TAB PO PRN ×3 (05:19→10:58)
[2017-06-08] MEDS: LR 1,000 ML IV SCH (05:43)
[2017-06-08] MEDS ORDERED: ONDANSETRON 4 MG TAB (S0181) PO PRN (06:45)
[2017-06-08 07:08] LABS: MEAN CORPUSCULAR HEMOGLOBIN 31.7 pg (27.0-33.0); MEAN CORPUSCULAR HGB CONC 33.9 g/dl (32.0-36.5); MEAN CORPUSCULAR VOLUME 93.5 fl (80.0-96.0); RED CELL DISTRIBUTION WIDTH 13.9 % (11.5-14.5); WHITE BLOOD COUNT 8.1 K/mm3 (4.0-10.0)
[2017-06-08 07:10] LABS: INR 1.15
[2017-06-08 07:32] LABS: CALCIUM LEVEL 8.9 MG/DL (8.8-10.2); CREATININE FOR GFR 1.74 MG/DL (0.55-1.02); GLOMERULAR FILTRATION RATE 31.1 (>45)
[2017-06-08] MEDS: MOM 30ML SUSPENSION UDC PO SCH (08:38)
[2017-06-08] MEDS: MIRALAX *UNIT DOSE* 17GM PACKET PO SCH (08:39)
[2017-06-08] MEDS: SENOKOT S TAB PO SCH ×2 (08:39→19:37)
[2017-06-08 10:00] VITALS: BP 152/69
--- NOTE | 2017-06-08 11:37 | REP ---
Left hip two views postoperative study: There is a total hip arthroplasty with the components tightly applied and in satisfactory positions alignment. Skin jaison are incidentally noted. Signed by Melchor Garcia MD 06/08/2017 11:29 A
--- NOTE | 2017-06-08 12:48 | RO ---
DATE OF PROCEDURE: 06/07/2017 PREPROCEDURE DIAGNOSIS: Left knee degenerative arthritis. POSTPROCEDURE DIAGNOSIS: Left knee degenerative arthritis. PROCEDURE: Left total knee arthroplasty using a size 4 narrow cruciate retaining femoral component with a size 3 tibial tray with a 10 mm rotating platform polyethylene insert and a 35 mm patellar button. All components were cemented. Prosthesis was made by [employer]. It was a PFC knee. SURGEON: Jane Meléndez MD MOBILE BATTERY TECHNICIAN: Junior Melissa PA-C ANESTHESIA: Spinal with left femoral nerve block. COMPLICATIONS: None. ESTIMATED BLOOD LOSS: Less than 20 mL. SPECIMENS: Joint surface. DESCRIPTION OF PROCEDURE: Antibiotics were given intravenously preoperatively successfully, and then a spinal and left femoral nerve block anesthetic had been established. The tourniquet was placed on the left upper thigh and not inflated. The left lower extremity was then prepped and draped in the usual sterile fashion. The leg was elevated. Then, after the appropriate time-out, the tourniquet was inflated. A longitudinal incision was made for a medial parapatellar approach to the knee. Bovie cautery was used to coagulate the crossing vessels. The medial parapatellar arthrotomy was then performed. Subperiosteal dissected along the proximal medial portion of the tibia and the proximal lateral portion of the tibia was performed, and then we everted the patella and flexed the knee. The drill was then placed down the center of the femoral canal, followed by the intramedullary lisa with the distal femoral jig set at 10-mm resection level at 5 degree valgus cut for a left knee. The jig was pinned into position. Distal femoral cut performed. The AP sizing jig measured for a size 4. The 3-degree external rotation block was pinned into position and then the 4-in-1 block applied and the anterior and posterior chamfer cuts were then performed, taking great care to protect the surrounding soft tissues. We then placed the laminar lighting technician laterally and performed a completion medial meniscectomy and debridement of the posterior medial osteophytes and placed a laminar lighting technician medially and performed a completion lateral meniscectomy with debridement of posterior lateral osteophytes. Then we placed the spacer blocks and a 10 mm actually fit very well with good symmetry between flexion and extension gaps and there is good stability of varus and valgus stress testing, both in flexion and extension. Then we exposed the proximal tibial, sized for a #3 tibial tray, which was pinned, reamed and broached into position, followed by the polyethylene trial and then the trial femoral narrow component, which fit the best. The normal #4 was a bit too wide. We then brought the knee out into extension and everted the patella, performed patellar osteotomy, sized for a #35 mm button. The lug holes were drilled. The trial was placed and patellofemoral tracking was anatomic. We drilled the lug holes for the femur, removed the trial components. We copiously pulsatile lavage irrigated out the bony surfaces and I then instilled some Exparel into the posterior capsule in the periosteum as well as the capsular edges. Mr. Junior Melissa then mixed the cement on the back table, as I further prepared the bony surfaces for cementing. Mr. Melissa was also critical to the success of the procedure by helping to manipulate the knee, helping with appropriate soft tissue retraction, helping to close the wound, helping to prepare the patient for surgery, amongst many other tasks. Once all the bony surfaces were thoroughly dried, we cemented the tibial tray, removed excess cement, placed the polyethylene and then cemented the femoral component, removed excess cement, brought the knee into extension, cemented the patellar button in position and removed the excess cement and held it in position in extension until the cement had hardened with the clamp in place. While we were waiting, we copiously lavage irrigated out the knee joint once again and placed the remaining Exparel in the capsular tissues. We then placed the tranexamic acid and then began closing the arthrotomy at the apex with two #1 polydioxanone suture (PDS) sutures, and then a medial parapatellar was closed with a single #1 PDS stitch and then the double armed #1 PDS Stratafix was used to close the capsule and then the tourniquet was released. We irrigated again and closed the deep subdermal tissues with interrupted #2-0 PDS sutures. The skin was closed with jaison covered by Adaptic dry sterile bulky dressing. She was then transferred to the recovery room in stable condition. There were no intraoperative complications.
[2017-06-08 14:00] VITALS: BP 145/74
[2017-06-08] MEDS ORDERED: WARFARIN SOD 5 MG TAB PO ONE (17:00)
[2017-06-08] MEDS: ACETAMINOPHEN TAB 650MG DOSE (2X325MG) PO PRN (17:52)
--- NOTE | 2017-06-08 17:57 | REP ---
A CT of the brain without IV contrast: Comparisons are 06/08/2079 01/08/2016. There is no hemorrhage, edema, mass effect or midline shift. There is an old left basal ganglia infarct, unchanged. The cortical stripe is unremarkable. There are focal zones of decreased attenuation in the subcortical white matter compatible with chronic microvascular ischemia, unchanged. Impression: There is no hemorrhage, acute infarct or mass. There is an old left basal ganglia infarct, unchanged. Signed by Melchor Garcia MD 06/08/2017 05:48 P
--- NOTE | 2017-06-08 18:22 | IPNPDOC ---
Subjective Date Seen The patient was seen on 06/08/17. Subjective Chief Complaint/HPI The patient is a 66-year-old female admitted with a reason for visit of Left Knee Arthritis. General: Denies: Chills, Fatigue ENT: Denies: Head Aches, Dysphagia Pulmonary: Denies: Dyspnea, Pleuritic Chest Pain Cardiovascular: Denies: Chest Pain, Orthopnea Gastrointestinal: Denies: Nausea, Vomiting, Abdominal Pain Genitourinary: Denies: Dysuria Neurological: Reports: Confusion (after getting up with PT this afternoon, she experienced a change in alertness, she was flushed transiently then was not oriented to place or name. no weakness or change in speech) Objective Physical Examination General Exam: Positive: Alert Eye Exam: Positive: PERRLA, Negative: Ptosis ENT Exam: Positive: Tongue Midline Neck Exam: Positive: Supple, Negative: thyromegaly, Lymphadenopathy Chest Exam: Positive: Clear to auscultation, Normal air movement, Negative: Rales, Rhonchi Heart Exam: Positive: Rate Normal, Regular Rhythm, Negative: Murmurs Abdomen Exam: Positive: Normal bowel sounds, Soft, Negative: Tenderness Extremity Exam: Negative: Clubbing, Edema Skin Exam: Positive: Nl turgor and temperature, Negative: Rash Neuro Exam: Positive: Normal Speech, Strength at 5/5 X4 ext, Normal Tone, Other (not able to state her name. not able to state that she is in hospital. speech is clear. no facial asymmetry. moves all extremities spontaneously and on command.) Assessment /Plan Problems (1) Osteoarthritis of right knee Status: Chronic Response to Treatment: Improving Problem Text: s/p left Total knee replacement. (2) CVA (cerebrovascular accident) Status: Chronic Response to Treatment: Stable Problem Text: patient with history of CVA with some residual speech difficulties and weakness per Dr. Sagastume's preop note. notes that this afternoon's difficulties are worse than her usual state. Not clear at this point whether this phenomenon is a residual of narcotic effect or perhaps represents new UNDERWRITING SPECIALIST insult. CT ordered. May need additional investigations (3) Diabetes mellitus type 2 in obese Status: Chronic Problem Specific Plan: Monitor Clinically Plan/VTE VTE Prophylaxis Ordered?: Yes Plan Diagnostics: CT VS, I&O, 24H, Fishbone Vital Signs/I&O Vital Signs Date Time Temp Pulse Resp B/P (MAP) Pulse Ox O2 Delivery O2 Flow Rate FiO2 06/08/17 14:00 97.5 98 16 145/74 (97) 92 Nasal Cannula 1.5 I&O- Last 24 Hours up to 6 AM 06/08/17 06:00 Intake Total 2450 ml Output Total 575 ml Balance 1875 ml Laboratory Data 24H LABS Laboratory Tests 2 06/08/17 06:44: Prothrombin Time 14.9H, Prothromb Time International Ratio 1.15, Anion Gap 6L, Glomerular Filtration Rate 31.1L, Blood Urea Nitrogen 39H, Creatinine 1.74H, Sodium Level 136, Potassium Level 5.0, Chloride Level 101, Carbon Dioxide Level 29, Calcium Level 8.9 06/08/17 16:53: Bedside Glucose (Misc Panel) 212H CBC/BMP Laboratory Tests 06/08/17 06:44 Red Blood Count 3.42 L, Mean Corpuscular Volume 93.5, Mean Corpuscular Hemoglobin 31.7, Mean Corpuscular Hemoglobin Concent 33.9, Red Cell Distribution Width 13.9, Calcium Level 8.9 Vladimir Botello MD Jun 08, 2017 18:22
[2017-06-08] MEDS: traMADol 50 MG TAB PO PRN (19:38)
[2017-06-08 22:00] VITALS: BP 161/76
[2017-06-09] MEDS: traMADol 50 MG TAB PO PRN (01:23)
[2017-06-09] MEDS: ACETAMINOPHEN TAB 650MG DOSE (2X325MG) PO PRN ×2 (01:24→05:03)
[2017-06-09 06:00] VITALS: BP 170/85
[2017-06-09 06:42] LABS: MEAN CORPUSCULAR HEMOGLOBIN 31.5 pg (27.0-33.0); MEAN CORPUSCULAR VOLUME 92.7 fl (80.0-96.0); RED CELL DISTRIBUTION WIDTH 13.9 % (11.5-14.5); WHITE BLOOD COUNT 10.3 K/mm3 (4.0-10.0)
[2017-06-09 06:45] LABS: INR 1.34
[2017-06-09] MEDS ORDERED: traMADol 50 MG TAB PO PRN (06:45)
[2017-06-09 07:03] LABS: CREATININE FOR GFR 1.29 MG/DL (0.55-1.02); GLOMERULAR FILTRATION RATE 43.9 (>45); POTASSIUM SERUM 4.5 MEQ/L (3.5-5.1)
--- NOTE | 2017-06-09 08:10 | IPNPDOC ---
Subjective Date Seen The patient was seen on 06/09/17. Subjective Chief Complaint/HPI The patient is a 66-year-old female admitted with a reason for visit of Left Knee Arthritis. Events since last encounter speech and mental status seem back to baseline this am per nursing. Constitutional: Denies: Chills, Fever Pulmonary: Denies: Dyspnea, Cough Cardiovascular: Denies: Chest Pain, Palpitations, Orthopnea Gastrointestinal: Denies: Nausea, Vomiting, Abdominal Pain, Diarrhea, Constipation Objective Physical Examination General Exam: Positive: Alert (speech clear, bright and alert.), No Acute Distress Chest Exam: Positive: Clear to auscultation, Normal air movement Heart Exam: Positive: Rate Normal, Regular Rhythm, Negative: Murmurs Abdomen Exam: Positive: Normal bowel sounds, Soft, Negative: Tenderness Extremity Exam: Negative: Clubbing, Edema Skin Exam: Positive: Nl turgor and temperature, Negative: Rash Neuro Exam: Positive: Normal Speech, Strength at 5/5 X4 ext, Normal Tone, Other (not able to state her name. not able to state that she is in hospital. speech is clear. no facial asymmetry. moves all extremities spontaneously and on command.) Assessment /Plan Problems (1) Osteoarthritis of right knee Status: Chronic Response to Treatment: Improving Problem Text: s/p left Total knee replacement. Per ortho (2) CVA (cerebrovascular accident) Status: Chronic Response to Treatment: Stable Problem Text: patient with history of CVA with some residual speech difficulties and weakness per Dr. Sagastume's preop note. Seems to be at baseline this am CT without acute findings. stable for transfer back to [facility] today (3) Diabetes mellitus type 2 in obese Status: Chronic Problem Specific Plan: Monitor Clinically Plan/VTE VTE Prophylaxis Ordered?: Yes Plan Diagnostics: CT Disposition stable for d/c back to [facility] from medical perspective on usual meds. VS, I&O, 24H, Fishbone Vital Signs/I&O Vital Signs Date Time Temp Pulse Resp B/P (MAP) Pulse Ox O2 Delivery O2 Flow Rate FiO2 06/09/17 06:00 97.8 83 16 170/85 (113) 95 Nasal Cannula 2.0 I&O- Last 24 Hours up to 6 AM 06/09/17 06:00 Intake Total 780 ml Output Total 350 ml Balance 430 ml Laboratory Data 24H LABS Laboratory Tests 2 06/08/17 12:23: Bedside Glucose (Misc Panel) 142H 06/08/17 16:53: Bedside Glucose (Misc Panel) 212H 06/08/17 20:16: Bedside Glucose (Misc Panel) 177H 06/09/17 06:17: Prothrombin Time 16.9H, Prothromb Time International Ratio 1.34, Anion Gap 7L, Glomerular Filtration Rate 43.9L, Blood Urea Nitrogen 26H, Creatinine 1.29H, Sodium Level 138, Potassium Level 4.5, Chloride Level 102, Carbon Dioxide Level 29, Calcium Level 9.0 CBC/BMP Laboratory Tests 06/09/17 06:17 Red Blood Count 3.62 L, Mean Corpuscular Volume 92.7, Mean Corpuscular Hemoglobin 31.5, Mean Corpuscular Hemoglobin Concent 34.0, Red Cell Distribution Width 13.9, Calcium Level 9.0 MAHAD JARA PA-C Jun 09, 2017 08:10
[2017-06-09] MEDS: SENOKOT S TAB PO SCH (09:41)
[2017-06-09] MEDS: MOM 30ML SUSPENSION UDC PO SCH (09:41)
[2017-06-09] MEDS: MIRALAX *UNIT DOSE* 17GM PACKET PO SCH (09:42)
[2017-06-09] MEDS ORDERED: WARFARIN SOD 7.5 MG TAB PO ONE (17:00)
--- NOTE | 2017-06-15 11:11 | DSES ---
DATE OF ADMISSION: 06/07/2017 DATE OF DISCHARGE: 06/09/2017 ATTENDING PHYSICIAN: Cameron Meléndez M.D. ADMISSION DIAGNOSIS: 1. Osteoarthritis left knee. OTHER DIAGNOSES: 1. History of a cerebrovascular accident (CVA) 2. Diabetes type 2. DISCHARGE DIAGNOSIS: 1. Osteoarthritis left knee status post left total knee arthroplasty. HISTORY: This is a pleasant 67-year-old female with progressively worsening left knee pain and stiffness. She failed to improve with conservative management. She was admitted for elective knee replacement on the left side. OPERATION PERFORMED: Left total knee arthroplasty. HOSPITAL COURSE: The patient was admitted on day of surgery underwent a left total knee arthroplasty which was uneventful. She did well in the postoperative period and hospital course was without complications. She was up with therapy per their protocol and her pain was controlled on day of discharge. She was moved to a assisted facility for further rehabilitation and she is weightbearing as tolerated on her left lower extremity. She is to move her left knee to prevent stiffness. She will use adjusted-dose Coumadin and MELLO stockings for 30 days postoperative for deep vein thrombosis (DVT) prophylaxis. She will resume her preoperative medications and diet. She was given instructions to include but not limited to wound monitoring and activity limitations. She will follow up in our office 10-14 days. She will use oral pain medications for pain control. Please refer to the medical record for further details.
[2017-08-05] MEDS ORDERED: TYLE325C PO (09:41)
[2017-08-05] MEDS ORDERED: SENN8.6T7 PO (09:41)
[2017-08-05] MEDS ORDERED: ONDA4TAB5 PO (09:41)
== END 2017-06-09 13:00 | DRG 470 ==
LOC: M OR 11:58 → M MS5PR 19:45
PROVIDERS: ADMIT Orthopaedic Surgery; ATTEND Orthopaedic Surgery
PROC: 0SRD0J9 Replacement of Left Knee Joint with Synthetic Substitute, Cemented, Open Approach (ICD-10-PCS; principal; 2017-06-07 16:15)
DX: M17.12 Unilateral primary osteoarthritis, left knee (principal); I69.352 Hemiplegia and hemiparesis following cerebral infarction affecting left dominant side; Z68.44 Body mass index [BMI] 60.0-69.9, adult; E11.9 Type 2 diabetes mellitus without complications; I12.9 Hypertensive chronic kidney disease with stage 1 through stage 4 chronic kidney disease, or unspecified chronic kidney disease; E66.9 Obesity, unspecified; F32.9 Major depressive disorder, single episode, unspecified; R41.82 Altered mental status, unspecified; G47.33 Obstructive sleep apnea (adult) (pediatric); N18.9 Chronic kidney disease, unspecified; I69.320 Aphasia following cerebral infarction; Z79.84 Long term (current) use of oral hypoglycemic drugs; Z79.891 Long term (current) use of opiate analgesic; Z96.651 Presence of right artificial knee joint

== ENCOUNTER → 2017-06-11 | Outpatient (REF) | payer MEDICARE, OTHER ==
[~2017-06-11] MED LIST changes: -BUPIVACAINE LIPOSOME/PF 1.3% 20 ML VIAL (13.3MG/ML)(EXPAREL) As Ordered ONE; -EPINEPHrine INJ 1 MG/ML 1ML AMP As Ordered ONE; +ONDA4TAB5 PO; +SENN8.6T7 PO; -TRANEXAMIC ACID 100 MG/ML 10ML VIAL As Ordered ONE; +TYLE325C PO; -ceFAZolin 1GM INJ (J0690) As Ordered ONE
[2017-06-11 07:11] LABS: INR 1.57
== END ==
LOC: SKLAB2 09:37
PROVIDERS: ATTEND Family Medicine
DX: I48.91 Unspecified atrial fibrillation (principal)

== ENCOUNTER → 2017-06-14 | Outpatient (REF) | payer MEDICARE, OTHER ==
[2017-06-14 07:49] LABS: MEAN CORPUSCULAR HEMOGLOBIN 31.7 pg (27.0-33.0); MEAN CORPUSCULAR HGB CONC 34.6 g/dl (32.0-36.5); MEAN CORPUSCULAR VOLUME 91.7 fl (80.0-96.0); RED CELL DISTRIBUTION WIDTH 13.9 % (11.5-14.5); WHITE BLOOD COUNT 8.9 K/mm3 (4.0-10.0)
[2017-06-14 07:55] LABS: INR 1.96
[2017-06-14 08:12] LABS: CALCIUM LEVEL 8.9 MG/DL (8.8-10.2); CREATININE FOR GFR 1.21 MG/DL (0.55-1.02); GLOMERULAR FILTRATION RATE 47.1 (>45); POTASSIUM SERUM 4.5 MEQ/L (3.5-5.1)
== END ==
LOC: SKLAB2 07:00
PROVIDERS: ATTEND Family Medicine
DX: Z79.01 Long term (current) use of anticoagulants (principal)

== ENCOUNTER → 2017-06-17 | Outpatient (REF) | payer MEDICARE, OTHER ==
[2017-06-17 08:44] LABS: INR 1.82
== END ==
LOC: SKLAB2 07:00
PROVIDERS: ATTEND Family Medicine
DX: Z01.818 Encounter for other preprocedural examination (principal); Z79.01 Long term (current) use of anticoagulants

== ENCOUNTER → 2017-06-21 | Outpatient (REF) | payer MEDICARE, OTHER ==
[2017-06-21 08:44] LABS: INR 2.29
== END ==
LOC: SKLAB2 07:00
PROVIDERS: ATTEND Family Medicine
DX: Z79.01 Long term (current) use of anticoagulants (principal)

== ENCOUNTER → 2017-06-28 | Outpatient (REF) | payer MEDICARE, OTHER ==
[2017-06-28 10:27] LABS: INR 4.03
== END ==
LOC: SKLAB2 07:00
PROVIDERS: ATTEND Family Medicine
DX: Z79.01 Long term (current) use of anticoagulants (principal)

== ENCOUNTER → 2017-07-01 | Outpatient (REF) | payer MEDICARE, OTHER ==
[2017-07-01 09:20] LABS: INR 2.15
== END ==
LOC: SKLAB2 08:00
PROVIDERS: ATTEND Family Medicine
DX: I48.91 Unspecified atrial fibrillation (principal)

== ENCOUNTER → 2017-07-05 | Outpatient (REF) | payer MEDICARE, OTHER ==
[2017-07-05 08:58] LABS: INR 2.37
== END ==
LOC: SKLAB2 07:30
PROVIDERS: ATTEND Family Medicine
DX: I82.91 Chronic embolism and thrombosis of unspecified vein (principal)

== ENCOUNTER → 2017-07-12 | Outpatient (REF) | payer MEDICARE, OTHER ==
[2017-07-12 09:04] LABS: INR 2.55
== END ==
LOC: SKLAB2 09:00
PROVIDERS: ATTEND Family Medicine
DX: Z79.01 Long term (current) use of anticoagulants (principal)

== ENCOUNTER → 2017-07-12 | Outpatient (CLI) | payer MEDICARE, OTHER ==
--- NOTE | 2017-07-12 15:41 | REP ---
Duplex extremity venous ultrasound: Left lower extremity. History: Status post total knee replacement with edema. Findings: The deep veins are anechoic and fully compressible from the groin to the popliteal fossa in the left lower extremity. Color flow imaging is homogeneous. Spectral Doppler interrogation demonstrates intact respiratory variation in flow and normal manual augmentation of flow. There is no evidence of deep vein thrombosis. There is a Aleman's cyst in the left posterior popliteal soft tissues measuring 2.8 x 1.6 x 2.5 cm. Impression: Negative left lower extremity duplex venous ultrasound. No evidence of deep vein thrombosis. 2.8 cm Aleman's cyst. Signed by Reginald Lira MD 07/12/2017 03:32 P
== END ==
LOC: M RAD 14:20
PROVIDERS: ATTEND Family Medicine
DX: R60.0 Localized edema (principal)

== ENCOUNTER → 2017-07-26 | Outpatient (REF) | payer MEDICARE, OTHER ==
[2017-07-26 08:47] LABS: MEAN CORPUSCULAR HEMOGLOBIN 30.9 pg (27.0-33.0); MEAN CORPUSCULAR VOLUME 93.6 fl (80.0-96.0); RED CELL DISTRIBUTION WIDTH 13.7 % (11.5-14.5); WHITE BLOOD COUNT 10.6 K/mm3 (4.0-10.0)
[2017-07-26 09:15] LABS: ALBUMIN 3.2 GM/DL (3.2-5.2); ALBUMIN/GLOBULIN RATIO 0.71 (1.00-1.93); BILIRUBIN,TOTAL 0.2 MG/DL (0.2-1.0); CALCIUM LEVEL 9.4 MG/DL (8.8-10.2); CREATININE FOR GFR 1.5 MG/DL (0.55-1.02); GLOMERULAR FILTRATION RATE 36.8 (>45); POTASSIUM SERUM 4.8 MEQ/L (3.5-5.1); TOTAL PROTEIN 7.7 GM/DL (6.4-8.2)
== END ==
LOC: SKLAB2 07:30
PROVIDERS: ATTEND Family Medicine
DX: E78.00 Pure hypercholesterolemia, unspecified (principal); I10 Essential (primary) hypertension; E11.9 Type 2 diabetes mellitus without complications

== ENCOUNTER → 2017-08-02 | Outpatient (CLI) | payer MEDICARE, OTHER ==
--- NOTE | 2017-08-02 15:31 | REP ---
Left knee four views: Comparison 06/08/2017. There is a total knee arthroplasty with the components tightly applied and in satisfactory positions alignment on all views, unchanged. There is no acute fracture or dislocation. There is no effusion. No foreign bodies or calcifications. Signed by Melchor Garcia MD 08/02/2017 03:23 P
--- NOTE | 2017-08-02 15:32 | REP ---
Left femur five views: Comparison is a left knee study dated 08/02/2017. There is a total left knee arthroplasty. There is no acute fracture or dislocation. Mineralization joint spaces are otherwise unremarkable. There are no calcifications or foreign bodies. Impression: Left knee arthroplasty, otherwise negative left femur Signed by Melchor Garcia MD 08/02/2017 03:24 P
== END ==
LOC: M RAD 13:47
PROVIDERS: ATTEND Nurse Practitioner Adult Health
DX: M79.605 Pain in left leg (principal); Z91.81 History of falling

== ENCOUNTER → 2017-08-02 | Outpatient (REF) | payer MEDICARE, OTHER | LOC: SKLAB2 10:45 | PROVIDERS: ATTEND Family Medicine | DX: M79.605 Pain in left leg (principal); Z91.81 History of falling ==

== ENCOUNTER → 2017-08-03 | Outpatient (REF) | payer MEDICARE, OTHER ==
[2017-08-03 13:09] LABS: MEAN CORPUSCULAR HGB CONC 33.9 g/dl (32.0-36.5); MEAN CORPUSCULAR VOLUME 91.4 fl (80.0-96.0); RED CELL DISTRIBUTION WIDTH 13.5 % (11.5-14.5); WHITE BLOOD COUNT 16.2 K/mm3 (4.0-10.0)
[2017-08-03 13:32] LABS: CALCIUM LEVEL 9.2 MG/DL (8.8-10.2); CREATININE FOR GFR 1.72 MG/DL (0.55-1.02); GLOMERULAR FILTRATION RATE 31.4 (>45); POTASSIUM SERUM 3.9 MEQ/L (3.5-5.1)
== END ==
LOC: SKLAB2 10:38
PROVIDERS: ATTEND Family Medicine
DX: Z01.818 Encounter for other preprocedural examination (principal)

== ENCOUNTER 2017-08-12 11:34 | Day surgery (SDC) | payer MEDICARE, OTHER ==
[~2017-08-12] VITALS: Ht 172.7 cm; Wt 141.1 kg
[~2017-08-12 11:34] MED LIST changes: +ACETYLCHOLINE OPHTH SOLN 1% 2ML (MIOCHOL-E) As Ordered ONE; +BALANCED SALT IRRIGATION SOLUTION 500ML BAG (FOR OR EYE MACHINE) As Ordered ONE; +CEFUROXIME 1MG/0.1ML INTRACAMERAL INJ As Ordered ONE; +DUOVISC (0.50ML VISCOAT/0.55ML PROVISC) OPHTH KIT As Ordered ONE; +LIDOCAINE 0.75%/EPINEPHRINE 0.025% IN BSS 1ML SYR INTRACAMERAL (OR ONLY) As Ordered ONE; +OFLOXACIN 0.3 % (OCUFLOX) OPTH SOL 5ML OS ONE; +PHENYLEPHRINE 2.5% OPHTH SOL 2ML OS ONE; +POVIDONE-IODINE 5% OPHTH PREP SOL 30ML As Ordered ONE; +PROPARACAINE 0.5% OPHTH SOL 15ML OS ONE; +TROPICAMIDE 1% OPHTH SOLN 2ML OS ONE
[2017-08-12] MEDS ORDERED: MIDAZOLAM INJ 2 MG/2 ML VIAL (J2250) As Ordered ONE (12:25)
[2017-08-12] MEDS ORDERED: fentaNYL 100 MCG/2 ML INJECTION (J3010) As Ordered ONE (12:26)
[2017-08-12] MEDS ORDERED: LR 1,000 ML IV ONE (12:30)
[2017-08-12] MEDS ORDERED: LIDOCAINE 1% MDV 20ML VIAL SC PRN (12:30)
[2017-08-12 14:30] VITALS: BP 114/65
--- NOTE | 2017-08-12 15:39 | RO ---
DATE OF SURGERY: 08/12/2017 PREOPERATIVE DIAGNOSIS: Visually significant nuclear sclerotic cataract. POSTOPERATIVE DIAGNOSIS: Visually significant nuclear sclerotic cataract. PROCEDURE: Cataract extraction with use of phacoemulsification, and placement of intraocular lens, AU00T0 19.5 SURGEON: Maxwell Montgomery DO STEAMING MACHINE OPERATOR: ANESTHESIA: Local with monitored anesthesia care (MAC). COMPLICATIONS: None. POSTOPERATIVE CONDITION: Stable. INDICATION FOR SURGERY: Blurred vision, right eye, affecting patient's activities of daily living. DESCRIPTION OF PROCEDURE: The patient was seen in the preoperative area and properly identified. The correct operative eye was identified and marked. Attention was turned to that eye. The patient received topical antibiotics in the preoperative area. The patient then received topical dilating drops consisting of Tropicamide and Phenylephrine. The patient was then transferred to the operating room. The correct side was re-identified. The patient received topical anesthetics and antibiotics on the surface of the eye. The eye was prepped and draped in a sterile fashion. The upper and lower eyelids were isolated with Tegaderm tape, and the lids were held open with an adjustable speculum. Using a sideport blade, a paracentesis incision was made. Intraocular preservative-free lidocaine was then injected into the anterior chamber. Viscoelastic was then injected into the anterior chamber through the paracentesis. Using a 2.4 mm sharp-tipped keratome, the anterior chamber was entered via a temporal clear corneal incision. A continuous curvilinear capsulorrhexis was created with the aid of a 26g cystotome and Utrata forceps. Hydrodissection was performed with balanced salt solution (BSS) on a blunt cannula until the nucleus was freely mobile. The crystalline lens was phacoemulsified and aspirated. Additional cohesive viscoelastic was placed into the capsular bag to deepen it. AU00T0, 19.5 lens D was placed into the capsular bag and confirmed by visualizing the continuous curvilinear capsulorrhexis. Additional irrigation and aspiration was used to remove cortical material and remaining viscoelastic. The clear corneal incision was hydrated with BSS on a blunt cannula. The lens was well positioned. The incisions were then tested for leaks and found to be negative. The eye was then palpated for appropriate pressure and adjusted accordingly with BSS. The eyelid speculum was carefully removed. A shield was placed. The patient tolerated the procedure well and was discharged to the recovery unit in a stable condition. [facility] H[facility]PITALSivakumar
== END 2017-08-12 14:47 | disposition home or self-care (01) ==
LOC: M SDC 11:34
PROVIDERS: ATTEND Ophthalmology
DX: H25.11 Age-related nuclear cataract, right eye (principal); I69.954 Hemiplegia and hemiparesis following unspecified cerebrovascular disease affecting left non-dominant side; I69.920 Aphasia following unspecified cerebrovascular disease; E11.9 Type 2 diabetes mellitus without complications; I11.9 Hypertensive heart disease without heart failure; N18.9 Chronic kidney disease, unspecified; E66.9 Obesity, unspecified; F32.9 Major depressive disorder, single episode, unspecified; G47.33 Obstructive sleep apnea (adult) (pediatric); I25.10 Atherosclerotic heart disease of native coronary artery without angina pectoris; E78.00 Pure hypercholesterolemia, unspecified; E03.9 Hypothyroidism, unspecified; M06.9 Rheumatoid arthritis, unspecified; I69.911 Memory deficit following unspecified cerebrovascular disease; G43.909 Migraine, unspecified, not intractable, without status migrainosus; Z88.5 Allergy status to narcotic agent; Z88.8 Allergy status to other drugs, medicaments and biological substances; Z79.899 Other long term (current) drug therapy; Z96.653 Presence of artificial knee joint, bilateral; Z90.710 Acquired absence of both cervix and uterus
CPT/HCPCS: 66984; J2250; J3010; V2632

== ENCOUNTER → 2017-08-17 | Outpatient (REF) | payer MEDICARE, OTHER ==
[~2017-08-17] MED LIST changes: -ACETYLCHOLINE OPHTH SOLN 1% 2ML (MIOCHOL-E) As Ordered ONE; -BALANCED SALT IRRIGATION SOLUTION 500ML BAG (FOR OR EYE MACHINE) As Ordered ONE; -CEFUROXIME 1MG/0.1ML INTRACAMERAL INJ As Ordered ONE; -DUOVISC (0.50ML VISCOAT/0.55ML PROVISC) OPHTH KIT As Ordered ONE; -LIDOCAINE 0.75%/EPINEPHRINE 0.025% IN BSS 1ML SYR INTRACAMERAL (OR ONLY) As Ordered ONE; -OFLOXACIN 0.3 % (OCUFLOX) OPTH SOL 5ML OS ONE; -PHENYLEPHRINE 2.5% OPHTH SOL 2ML OS ONE; -POVIDONE-IODINE 5% OPHTH PREP SOL 30ML As Ordered ONE; -PROPARACAINE 0.5% OPHTH SOL 15ML OS ONE; -TROPICAMIDE 1% OPHTH SOLN 2ML OS ONE
[2017-08-17 15:51] LABS: MEAN CORPUSCULAR HEMOGLOBIN 30.1 pg (27.0-33.0); MEAN CORPUSCULAR HGB CONC 32.2 g/dl (32.0-36.5); MEAN CORPUSCULAR VOLUME 93.5 fl (80.0-96.0); PLATELET COUNT, AUTOMATED 292 10^3/uL (150-450); RED CELL DISTRIBUTION WIDTH 13.8 % (11.5-14.5)
[2017-08-17 16:12] LABS: CALCIUM LEVEL 8.6 MG/DL (8.8-10.2); CREATININE FOR GFR 1.3 MG/DL (0.55-1.02); GLOMERULAR FILTRATION RATE 43.4 (>45); POTASSIUM SERUM 4.8 MEQ/L (3.5-5.1)
[2017-08-18 13:01] LABS: BANDS 1 % (< 11); EOSINOPHILS 2 % (0-5)
[2017-08-18 13:03] LABS: DIFF SLIDE NUMBER 294
== END ==
LOC: SKLAB2 14:15
PROVIDERS: ATTEND Family Medicine
DX: R22.1 Localized swelling, mass and lump, neck (principal)

== ENCOUNTER → 2017-08-18 | Outpatient (CLI) | payer MEDICARE, OTHER ==
[~2017-08-18] MED LIST changes: +ISOVUE-370 76% 100ML VIAL (Q9967) As Ordered ONE
--- NOTE | 2017-08-18 12:17 | REP ---
CT NECK WITH CONTRAST: HISTORY: Edema. CONTRAST: Isovue 370, 100 mL. There is minimal prominence of the tonsils with minimal mass effect on the upper oropharynx. The naso-, hardeep- and hypopharynx, larynx and subglottic trachea are otherwise normal in appearance. The salivary and thyroid glands are normal in size and density. Small lymph nodes less than 1 cm in size are present in the internal jugular chains, posterior triangles and submandibular areas. Atherosclerotic calcification is present at the carotid bifurcations. Degenerative change is present in the cervical spine. The lung apices are clear. The visualized sinuses are clear. A 6 mm calcification is present in the subcutaneous tissue anterior to the right parotid gland. IMPRESSION: There is minimal prominence of the tonsils with minimal mass effect on the upper oropharynx. Signed by Juan Carlos Dukes MD 08/18/2017 12:20 P
--- NOTE | 2017-08-18 12:19 | REP ---
CT of the chest with IV contrast: There are no comparison studies. There is no mediastinal mass or adenopathy. The superior vena cava is patent. There are no intraluminal filling defects. There is no hilar or axillary adenopathy or mass. The thoracic aorta is unremarkable. Cardiac size is normal. There is no pericardial effusion. There is no pleural effusion. There is a subpleural fat deposition posteriorly in the left kevin thoraces. There is dependent atelectasis in the posterior lung oconnor with the patient supine on the scanning table. Respiratory motion artifact is also noted. There are no infiltrates, otherwise. There are no masses. Impression: There is no mediastinal mass or adenopathy. There are no filling defects in the superior vena cava. No hilar mass. No lung masses. No pleural effusions. There are subpleural fat deposition. No pericardial effusion. There is dependent atelectasis in the posterior lung oconnor. Signed by Melchor Garcia MD 08/18/2017 12:11 P
== END ==
LOC: M RAD 11:01
PROVIDERS: ATTEND Nurse Practitioner Adult Health
DX: R22.1 Localized swelling, mass and lump, neck (principal); R07.0 Pain in throat; J98.11 Atelectasis
CPT/HCPCS: 70491; 71260; 87070; 87077; Q9967

== ENCOUNTER → 2017-08-18 | Outpatient (REF) | payer MEDICARE, OTHER ==
[~2017-08-18] MED LIST changes: -ISOVUE-370 76% 100ML VIAL (Q9967) As Ordered ONE
== END ==
LOC: SKLAB2 10:38
PROVIDERS: ATTEND Family Medicine
DX: R07.0 Pain in throat (principal)

== ENCOUNTER → 2017-10-03 | Outpatient (REF) | payer MEDICARE, OTHER ==
[2017-10-03 21:17] LABS: BASO # 0.1 10^3/uL (0.0-0.2); BASO % 0.6 % (0.0-1.0); EOS # 0.4 10^3/uL (0.0-0.50); IMMATURE GRANULOCYTE % 0.4 % (0-0); LYMPH # 3.1 10^3/uL (1.5-4.5); LYMPH % 32.7 % (24.0-44.0); MEAN CORPUSCULAR HEMOGLOBIN 30.8 pg (27.0-33.0); MEAN CORPUSCULAR HGB CONC 33.4 g/dl (32.0-36.5); MEAN CORPUSCULAR VOLUME 92.1 fl (80.0-96.0); MONO # 0.6 10^3/uL (0.0-0.8); MONO % 6.6 % (0.0-5.0); NEUTROPHILS # 5.3 10^3/uL (1.8-7.7); NEUTROPHILS % 55.7 % (36.0-66.0); PLATELET COUNT, AUTOMATED 343 10^3/uL (150-450); RED CELL DISTRIBUTION WIDTH 14.4 % (11.5-14.5); WHITE BLOOD COUNT 9.5 10^3/uL (4.0-10.0)
[2017-10-03 21:43] LABS: ANION GAP 7 MEQ/L (8-16); BLOOD UREA NITROGEN 23 MG/DL (7-18); CALCIUM LEVEL 8.7 MG/DL (8.8-10.2); CARBON DIOXIDE LEVEL 27 MEQ/L (21-32); CHLORIDE LEVEL 107 MEQ/L (98-107); CREATININE FOR GFR 1.24 MG/DL (0.55-1.02); GLOMERULAR FILTRATION RATE 45.8 (>45); GLUCOSE, FASTING 166 MG/DL (80-110); POTASSIUM SERUM 4.3 MEQ/L (3.5-5.1); SODIUM LEVEL 141 MEQ/L (136-145)
== END ==
LOC: SKLAB3 20:58
PROVIDERS: ATTEND Family Medicine
DX: R07.9 Chest pain, unspecified (principal)

== ENCOUNTER → 2017-10-03 | Outpatient (REF) | payer MEDICARE, OTHER ==
--- NOTE | 2017-10-03 22:20 | REPUSA ---
Clinical history: Shortness of breath. Comparison: None. Findings: The mediastinum is within normal limits. The heart is enlarged. The lungs are clear. No ple ural effusion or pneumothorax is seen. The osseous structures and soft tissues are unremarkable. Impression: No acute disease. Cardiomegaly.
== END ==
LOC: SKLAB3 21:02
PROVIDERS: ATTEND Family Medicine
DX: R07.9 Chest pain, unspecified (principal); I51.7 Cardiomegaly

== ENCOUNTER → 2017-10-04 | Outpatient (REF) | payer MEDICARE, OTHER ==
--- NOTE | 2017-10-04 21:08 | ECGEPIP ---
Stationary ECG Study [facility] Test Date: 2017-10-04 Pat Name: ROBINA DYE Department: Room: - Gender: F Orderlies Teacher: JARED : 1950 Requested By: Jaylan Sagastume Order Number: [id number] Reading MD: Prosper Roland Measurements Intervals [place] Rate: 75 P: 29 TN: 206 QRS: -34 QRSD: 81 T: 64 QT: 381 QTc: 428 Interpretive Statements Normal sinus rhythm with first degree AV block Diffusely low QRS voltage Inferior wall OH, age indeterminate Anterior OH, age indeterminate Further delay in anterior R wave progression, otherwise no significant change when compared to prior tracing of 04/02/2017 Electronically Signed On 10-04-2017 21:08:22 EST by Prosper Roland
== END ==
LOC: SKLAB2 06:58
PROVIDERS: ATTEND Family Medicine
DX: R07.89 Other chest pain (principal)

== ENCOUNTER → 2017-10-11 | Outpatient (REF) | payer MEDICARE, OTHER ==
[2017-10-11 10:18] LABS: FERRITIN 265 NG/ML (8-252); PERCENT SATURATION 23.4 % (13.2-45.0); TOTAL IRON BINDING CAPACITY 214 UG/DL (250-450)
[2017-10-11 13:16] LABS: VITAMIN B12 LEVEL 728 PG/ML (247-911)
[2017-10-11 13:17] LABS: FOLATE > 24.0 NG/ML (>5.4)
== END ==
LOC: SKLAB2 08:00
PROVIDERS: ATTEND Family Medicine
DX: D64.9 Anemia, unspecified (principal)

== ENCOUNTER → 2017-10-25 | Outpatient (REF) | payer MEDICARE, OTHER ==
[~2017-10-25] MED LIST changes: +ACET50TAOT PO; +MULT1TAB10 PO; +PRIL20CA9 PO
[2017-10-25 08:48] LABS: MEAN CORPUSCULAR HEMOGLOBIN 30.8 pg (27.0-33.0); MEAN CORPUSCULAR HGB CONC 32.5 g/dl (32.0-36.5); MEAN CORPUSCULAR VOLUME 94.7 fl (80.0-96.0); PLATELET COUNT, AUTOMATED 347 10^3/uL (150-450); RED CELL DISTRIBUTION WIDTH 14.1 % (11.5-14.5); WHITE BLOOD COUNT 8.1 10^3/uL (4.0-10.0)
[2017-10-25 09:17] LABS: ALBUMIN/GLOBULIN RATIO 0.67 (1.00-1.93); BILIRUBIN,TOTAL 0.3 MG/DL (0.2-1.0); CREATININE FOR GFR 1.2 MG/DL (0.55-1.02); GLOMERULAR FILTRATION RATE 47.6 (>45); POTASSIUM SERUM 4.9 MEQ/L (3.5-5.1); TOTAL PROTEIN 7.5 GM/DL (6.4-8.2)
== END ==
LOC: SKLAB2 07:30
PROVIDERS: ATTEND Family Medicine
DX: E07.9 Disorder of thyroid, unspecified (principal); I10 Essential (primary) hypertension; E11.9 Type 2 diabetes mellitus without complications; E78.00 Pure hypercholesterolemia, unspecified

== ENCOUNTER → 2017-11-04 | Day surgery (SDC) | payer MEDICARE, OTHER ==
[~2017-11-04] VITALS: Ht 172.7 cm; Wt 144.2 kg
[~2017-11-04] MED LIST changes: +ACETYLCHOLINE OPHTH SOLN 1% 2ML (MIOCHOL-E) As Ordered ONE; +BALANCED SALT IRRIGATION SOLUTION 500ML BAG (FOR OR EYE MACHINE) As Ordered ONE; +CEFUROXIME 1MG/0.1ML INTRACAMERAL INJ As Ordered ONE; +DUOVISC (0.50ML VISCOAT/0.55ML PROVISC) OPHTH KIT As Ordered ONE; +LIDOCAINE 0.75%/EPINEPHRINE 0.025% IN BSS 1ML SYR INTRACAMERAL (OR ONLY) As Ordered ONE; +LIDOCAINE 1% SDV 5 ML VIAL As Ordered ONE; +MIDAZOLAM INJ 2 MG/2 ML VIAL (J2250) As Ordered ONE; +OFLOXACIN 0.3 % (OCUFLOX) OPTH SOL 5ML OD ONE; +ONDANSETRON 4MG/2ML VIAL (J2405) IV PRN; +PHENYLEPHRINE 2.5% OPHTH SOL 2ML OD ONE; +POVIDONE-IODINE 5% OPHTH PREP SOL 30ML As Ordered ONE; +PROPARACAINE 0.5% OPHTH SOL 15ML OD ONE; +TROPICAMIDE 1% OPHTH SOLN 2ML OD ONE; +fentaNYL 100 MCG/2 ML INJECTION (J3010) As Ordered ONE
[2017-11-04 09:45] VITALS: BP 119/59
--- NOTE | 2017-11-09 14:00 | RO ---
DATE OF PROCEDURE: 11/04/2017 PREOPERATIVE DIAGNOSIS: Visually significant nuclear sclerotic cataract right eye. POSTOPERATIVE DIAGNOSIS: Visually significant nuclear sclerotic cataract right eye. PROCEDURE: Cataract extraction with use of phacoemulsification and placement of intraocular lens, AU00T0 20.5, right eye. SURGEON: Maxwell Montgomery DO TELEPHONE RECORDER: ANESTHESIA: Local with monitored anesthesia care (MAC). COMPLICATIONS: None. POSTOPERATIVE CONDITION: Stable. INDICATION FOR SURGERY: Blurred vision right eye affecting patient's activities of daily living. DESCRIPTION OF PROCEDURE: The patient was seen in the preoperative area and properly identified. The correct operative eye was identified and marked. Attention was turned to that eye. The patient received topical antibiotics in the preoperative area. The patient then received topical dilating drops consisting of tropicamide and phenylephrine. The patient was then transferred to the operating room. The correct side was re-identified. The patient received topical anesthetics and antibiotics on the surface of the eye. The eye was prepped and draped in a sterile fashion. The upper and lower eyelids were isolated with Tegaderm tape, and the lids were held open with an adjustable speculum. Using a sideport blade, a paracentesis incision was made. Intraocular preservative-free lidocaine was then injected into the anterior chamber. Viscoelastic was then injected into the anterior chamber through the paracentesis. Using a 2.4 mm sharp-tipped keratome, the anterior chamber was entered via a temporal clear corneal incision. A continuous curvilinear capsulorrhexis was created with the aid of a 26-gauge cystotome and Utrata forceps. Hydrodissection was performed with balanced salt solution (BSS) on a blunt cannula until the nucleus was freely mobile. The crystalline lens was phacoemulsified and aspirated. Additional cohesive viscoelastic was placed into the capsular bag to deepen it. An AU00T0 20.5 lens was placed into the capsular bag and confirmed by visualizing the continuous curvilinear capsulorrhexis. Additional irrigation and aspiration was used to remove cortical material and remaining viscoelastic. The clear corneal incision was hydrated with BSS on a blunt cannula. The lens was well positioned. The incisions were then tested for leaks and found to be negative. The eye was then palpated for appropriate pressure and adjusted accordingly with BSS. The eyelid speculum was carefully removed. A shield was placed over the eye. The patient tolerated the procedure well and was discharged to the recovery unit in a stable condition. [facility]
== END | disposition home or self-care (01) ==
LOC: M SDC 07:01
PROVIDERS: ATTEND Ophthalmology
DX: H25.11 Age-related nuclear cataract, right eye (principal); I11.9 Hypertensive heart disease without heart failure; M06.9 Rheumatoid arthritis, unspecified; J45.909 Unspecified asthma, uncomplicated; I25.10 Atherosclerotic heart disease of native coronary artery without angina pectoris; E78.00 Pure hypercholesterolemia, unspecified; E11.9 Type 2 diabetes mellitus without complications; E03.9 Hypothyroidism, unspecified; I51.7 Cardiomegaly; F41.9 Anxiety disorder, unspecified; I69.311 Memory deficit following cerebral infarction; I69.318 Other symptoms and signs involving cognitive functions following cerebral infarction; F32.9 Major depressive disorder, single episode, unspecified; G43.909 Migraine, unspecified, not intractable, without status migrainosus; R06.83 Snoring; G47.33 Obstructive sleep apnea (adult) (pediatric); R32 Unspecified urinary incontinence; Z88.5 Allergy status to narcotic agent; Z88.8 Allergy status to other drugs, medicaments and biological substances; Z79.899 Other long term (current) drug therapy; Z79.82 Long term (current) use of aspirin; Z90.710 Acquired absence of both cervix and uterus; Z78.0 Asymptomatic menopausal state; Z96.653 Presence of artificial knee joint, bilateral
CPT/HCPCS: 66984; J2250; J3010; V2632

== ENCOUNTER → 2017-11-19 | Outpatient (REF) | payer MEDICARE, OTHER ==
[2017-11-19 09:11] LABS: APPEARANCE, URINE CLEAR (CLEAR); BACTERIA, URINE AUTO NEGATIVE (NEGATIVE); BILIRUBIN, URINE AUTO NEGATIVE (NEGATIVE); BLOOD, URINE BLOOD NEGATIVE (NEGATIVE); COLOR, URINE YELLOW (YELLOW); GLUCOSE, URINE (UA) AUTO NEGATIVE (NEGATIVE); KETONE, URINE AUTO NEGATIVE (NEGATIVE); LEUKOCYTE ESTERASE, URINE AUTO NEGATIVE (NEGATIVE); MUCUS, URINE SMALL (NEGATIVE); NITRITE, URINE AUTO NEGATIVE (NEGATIVE); PROTEIN, URINE AUTO NEGATIVE (NEGATIVE); RBC, URINE AUTO 0 /HPF (0-3); SPECIFIC GRAVITY URINE AUTO 1.012 (1.002-1.035); SQUAMOUS EPITHELIAL CELL UR AU 0 /HPF (0-6); UROBILINOGEN, URINE AUTO 0.2 mg/dL (0.0-2.0); WBC, URINE AUTO 1 /HPF (0-3)
== END ==
LOC: SKLAB2 08:36
DX: R41.82 Altered mental status, unspecified (principal); I10 Essential (primary) hypertension
CPT/HCPCS: 36415

== ENCOUNTER → 2017-11-19 | Outpatient (REF) | payer MEDICARE, OTHER ==
[2017-11-19 07:57] LABS: ANION GAP 7 MEQ/L (8-16); BLOOD UREA NITROGEN 35 MG/DL (7-18); CARBON DIOXIDE LEVEL 30 MEQ/L (21-32); CHLORIDE LEVEL 105 MEQ/L (98-107); CREATININE FOR GFR 1.41 MG/DL (0.55-1.02); GLOMERULAR FILTRATION RATE 39.5 (>45); GLUCOSE, FASTING 118 MG/DL (80-110); POTASSIUM SERUM 4.5 MEQ/L (3.5-5.1); SODIUM LEVEL 142 MEQ/L (136-145)
== END ==
LOC: SKLAB2 08:00
DX: I10 Essential (primary) hypertension (principal)

== ENCOUNTER → 2017-11-22 | Outpatient (REF) | payer MEDICARE, OTHER | LOC: SKLAB2 13:59 | DX: R10.9 Unspecified abdominal pain (principal) | CPT/HCPCS: 74018 ==

== ENCOUNTER → 2017-11-23 | Outpatient (REF) | payer MEDICARE, OTHER ==
[2017-11-23 08:23] LABS: ANION GAP 9 MEQ/L (8-16); BLOOD UREA NITROGEN 43 MG/DL (7-18); CARBON DIOXIDE LEVEL 28 MEQ/L (21-32); CHLORIDE LEVEL 104 MEQ/L (98-107); GLOMERULAR FILTRATION RATE 26.4 (>45); GLUCOSE, FASTING 150 MG/DL (80-110); POTASSIUM SERUM 4.8 MEQ/L (3.5-5.1); SODIUM LEVEL 141 MEQ/L (136-145)
== END ==
LOC: SKLAB2 08:00
DX: I10 Essential (primary) hypertension (principal)
CPT/HCPCS: 36415

== ENCOUNTER → 2017-11-25 | Outpatient (REF) | payer MEDICARE, OTHER ==
[2017-11-25 09:42] LABS: HEMATOCRIT 34.1 % (36.0-47.0); MEAN CORPUSCULAR HEMOGLOBIN 30.6 pg (27.0-33.0); MEAN CORPUSCULAR HGB CONC 32.3 g/dl (32.0-36.5); PLATELET COUNT, AUTOMATED 341 10^3/uL (150-450); RED BLOOD COUNT 3.59 10^6/uL (4.00-5.40); RED CELL DISTRIBUTION WIDTH 13.1 % (11.5-14.5); WHITE BLOOD COUNT 8.2 10^3/uL (4.0-10.0)
[2017-11-25 10:23] LABS: ALBUMIN 3.2 GM/DL (3.2-5.2); ALBUMIN/GLOBULIN RATIO 0.89 (1.00-1.93); ALKALINE PHOSPHATASE 83 U/L (45-117); ALT/SGPT 22 U/L (12-78); ANION GAP 8 MEQ/L (8-16); AST/SGOT 18 U/L (7-37); BILIRUBIN,TOTAL 0.3 MG/DL (0.2-1.0); BLOOD UREA NITROGEN 45 MG/DL (7-18); CALCIUM LEVEL 8.9 MG/DL (8.8-10.2); CARBON DIOXIDE LEVEL 28 MEQ/L (21-32); CHLORIDE LEVEL 105 MEQ/L (98-107); CREATININE FOR GFR 1.89 MG/DL (0.55-1.02); GLOMERULAR FILTRATION RATE 28.2 (>45); GLUCOSE, FASTING 198 MG/DL (80-110); SODIUM LEVEL 141 MEQ/L (136-145); TOTAL PROTEIN 6.8 GM/DL (6.4-8.2)
== END ==
LOC: SKLAB2 09:00
DX: I10 Essential (primary) hypertension (principal)
CPT/HCPCS: 80053

== ENCOUNTER → 2017-12-02 | Outpatient (REF) | payer MEDICARE, OTHER ==
[2017-12-02 09:59] LABS: HEMATOCRIT 36.3 % (36.0-47.0); HEMOGLOBIN 11.7 g/dl (12.0-16.0); MEAN CORPUSCULAR HEMOGLOBIN 30.5 pg (27.0-33.0); MEAN CORPUSCULAR HGB CONC 32.2 g/dl (32.0-36.5); MEAN CORPUSCULAR VOLUME 94.5 fl (80.0-96.0); PLATELET COUNT, AUTOMATED 346 10^3/uL (150-450); RED BLOOD COUNT 3.84 10^6/uL (4.00-5.40); RED CELL DISTRIBUTION WIDTH 12.9 % (11.5-14.5); WHITE BLOOD COUNT 8.8 10^3/uL (4.0-10.0)
[2017-12-02 10:27] LABS: ANION GAP 6 MEQ/L (8-16); BLOOD UREA NITROGEN 31 MG/DL (7-18); CALCIUM LEVEL 9.2 MG/DL (8.8-10.2); CARBON DIOXIDE LEVEL 30 MEQ/L (21-32); CHLORIDE LEVEL 103 MEQ/L (98-107); CREATININE FOR GFR 1.68 MG/DL (0.55-1.02); GLOMERULAR FILTRATION RATE 32.3 (>45); GLUCOSE, FASTING 131 MG/DL (80-110); SODIUM LEVEL 139 MEQ/L (136-145)
== END ==
LOC: SKLAB2 07:30
DX: I10 Essential (primary) hypertension (principal)
CPT/HCPCS: 36415

== ENCOUNTER → 2017-12-27 | Outpatient (REF) | payer MEDICARE, OTHER ==
[2017-12-27 15:38] LABS: NT-PRO BNP 114 PG/ML (<125)
== END ==
LOC: SKLAB2 13:08
DX: R60.9 Edema, unspecified (principal); R06.09 Other forms of dyspnea
CPT/HCPCS: 83880

== ENCOUNTER → 2017-12-29 | Outpatient (REF) | payer MEDICARE, OTHER ==
[2017-12-29 12:36] LABS: INFLUENZA A AMPLIFICATION NEGATIVE (NEGATIVE); INFLUENZA B AMPLIFICATION NEGATIVE (NEGATIVE)
== END ==
LOC: SKLAB2 11:38
DX: R05 Cough (principal); R06.02 Shortness of breath; I51.7 Cardiomegaly
CPT/HCPCS: 71045

== ENCOUNTER → 2017-12-31 | Outpatient (REF) | payer MEDICARE, OTHER ==
[2017-12-31 07:46] LABS: ANION GAP 7 MEQ/L (8-16); BLOOD UREA NITROGEN 35 MG/DL (7-18); CALCIUM LEVEL 8.9 MG/DL (8.8-10.2); CARBON DIOXIDE LEVEL 30 MEQ/L (21-32); CHLORIDE LEVEL 107 MEQ/L (98-107); GLOMERULAR FILTRATION RATE 34.1 (>45); GLUCOSE, FASTING 114 MG/DL (70-100); POTASSIUM SERUM 4.8 MEQ/L (3.5-5.1); SODIUM LEVEL 144 MEQ/L (136-145)
== END ==
LOC: SKLAB2 07:00
DX: R60.9 Edema, unspecified (principal)
CPT/HCPCS: 83735

== ENCOUNTER → 2018-01-24 | Outpatient (REF) | payer MEDICARE, OTHER ==
[2018-01-24 08:21] LABS: HEMATOCRIT 34.5 % (36.0-47.0); HEMOGLOBIN 11.2 g/dl (12.0-16.0); MEAN CORPUSCULAR HEMOGLOBIN 29.8 pg (27.0-33.0); MEAN CORPUSCULAR HGB CONC 32.5 g/dl (32.0-36.5); MEAN CORPUSCULAR VOLUME 91.8 fl (80.0-96.0); PLATELET COUNT, AUTOMATED 327 10^3/uL (150-450); RED BLOOD COUNT 3.76 10^6/uL (4.00-5.40); RED CELL DISTRIBUTION WIDTH 13.3 % (11.5-14.5); WHITE BLOOD COUNT 11.6 10^3/uL (4.0-10.0)
[2018-01-24 08:56] LABS: ALKALINE PHOSPHATASE 96 U/L (45-117); ALT/SGPT 22 U/L (12-78); ANION GAP 7 MEQ/L (8-16); AST/SGOT 15 U/L (7-37); BLOOD UREA NITROGEN 48 MG/DL (7-18); CALCIUM LEVEL 8.9 MG/DL (8.8-10.2); CARBON DIOXIDE LEVEL 29 MEQ/L (21-32); CHLORIDE LEVEL 105 MEQ/L (98-107); CREATININE FOR GFR 1.94 MG/DL (0.55-1.30); GLOMERULAR FILTRATION RATE 27.3 (>45); GLUCOSE, FASTING 171 MG/DL (70-100); POTASSIUM SERUM 4.8 MEQ/L (3.5-5.1); SODIUM LEVEL 141 MEQ/L (136-145)
[2018-01-24 08:57] LABS: ALBUMIN 3.3 GM/DL (3.2-5.2); ALBUMIN/GLOBULIN RATIO 0.83 (1.00-1.93); BILIRUBIN,TOTAL 0.4 MG/DL (0.2-1.0); CHOLESTEROL LEVEL 129 MG/DL (<200); CHOLESTEROL RISK RATIO 3.225 (<5); HDL CHOLESTEROL 40 MG/DL (>40); LDL CHOLESTEROL 60.6 MG/DL (<100); NON-HDL-C 89 MG/DL; TOTAL PROTEIN 7.3 GM/DL (6.4-8.2); TRIGLYCERIDES LEVEL 142 MG/DL (<150)
[2018-01-24 11:12] LABS: ESTIMATED AVERAGE GLUCOSE 154 MG/DL (60-110)
== END ==
LOC: SKLAB2 07:30
DX: E78.00 Pure hypercholesterolemia, unspecified (principal); I10 Essential (primary) hypertension; E11.9 Type 2 diabetes mellitus without complications
CPT/HCPCS: 80053

== ENCOUNTER → 2018-01-26 | Outpatient (REF) | payer MEDICARE, OTHER ==
[2018-01-26 07:43] LABS: HEMATOCRIT 33.7 % (36.0-47.0); MEAN CORPUSCULAR HEMOGLOBIN 29.9 pg (27.0-33.0); MEAN CORPUSCULAR HGB CONC 32.6 g/dl (32.0-36.5); MEAN CORPUSCULAR VOLUME 91.6 fl (80.0-96.0); PLATELET COUNT, AUTOMATED 335 10^3/uL (150-450); RED BLOOD COUNT 3.68 10^6/uL (4.00-5.40); RED CELL DISTRIBUTION WIDTH 13.2 % (11.5-14.5); WHITE BLOOD COUNT 9.9 10^3/uL (4.0-10.0)
== END ==
LOC: SKLAB2 08:00
DX: I50.9 Heart failure, unspecified (principal)
CPT/HCPCS: 36415

== ENCOUNTER → 2018-04-20 | Outpatient (REF) | payer MEDICARE, OTHER ==
[2018-04-20 14:37] LABS: ANION GAP 6 MEQ/L (8-16); BLOOD UREA NITROGEN 37 MG/DL (7-18); CARBON DIOXIDE LEVEL 31 MEQ/L (21-32); CHLORIDE LEVEL 105 MEQ/L (98-107); CREATININE FOR GFR 1.69 MG/DL (0.55-1.30); GLUCOSE, FASTING 142 MG/DL (70-100); PHOSPHORUS LEVEL 3.6 MG/DL (2.5-4.9); POTASSIUM SERUM 4.5 MEQ/L (3.5-5.1); SODIUM LEVEL 142 MEQ/L (136-145)
[2018-04-20 14:42] LABS: TOTAL 25(OH) VITAMIN D 14.5 NG/ML (30.0-100.0)
== END ==
LOC: SKLAB2 12:16
DX: E55.9 Vitamin D deficiency, unspecified (principal)
CPT/HCPCS: 84100

== ENCOUNTER → 2018-04-25 | Outpatient (REF) | payer MEDICARE, OTHER ==
[2018-04-25 08:54] LABS: HEMOGLOBIN 11.2 g/dl (12.0-15.5); MEAN CORPUSCULAR HEMOGLOBIN 30.5 pg (27.0-33.0); MEAN CORPUSCULAR HGB CONC 32.9 g/dl (32.0-36.5); MEAN CORPUSCULAR VOLUME 92.6 fl (80.0-96.0); PLATELET COUNT, AUTOMATED 332 10^3/uL (150-450); RED BLOOD COUNT 3.67 10^6/uL (4.00-5.40); RED CELL DISTRIBUTION WIDTH 13.3 % (11.5-14.5)
[2018-04-25 09:08] LABS: ESTIMATED AVERAGE GLUCOSE 126 MG/DL (60-110)
[2018-04-25 09:22] LABS: ALBUMIN 3.2 GM/DL (3.2-5.2); ALBUMIN/GLOBULIN RATIO 0.71 (1.00-1.93); ALKALINE PHOSPHATASE 93 U/L (45-117); ALT/SGPT 23 U/L (12-78); ANION GAP 8 MEQ/L (8-16); AST/SGOT 16 U/L (7-37); BILIRUBIN,TOTAL 0.3 MG/DL (0.2-1.0); BLOOD UREA NITROGEN 41 MG/DL (7-18); CALCIUM LEVEL 8.7 MG/DL (8.8-10.2); CARBON DIOXIDE LEVEL 29 MEQ/L (21-32); CHLORIDE LEVEL 103 MEQ/L (98-107); CHOLESTEROL LEVEL 125 MG/DL (<200); CHOLESTEROL RISK RATIO 3.048 (<5); CREATININE FOR GFR 1.64 MG/DL (0.55-1.30); GLOMERULAR FILTRATION RATE 33.2 (>45); GLUCOSE, FASTING 121 MG/DL (70-100); HDL CHOLESTEROL 41 MG/DL (>40); LDL CHOLESTEROL 54.6 MG/DL (<100); NON-HDL-C 84 MG/DL; POTASSIUM SERUM 4.7 MEQ/L (3.5-5.1); SODIUM LEVEL 140 MEQ/L (136-145); TOTAL PROTEIN 7.7 GM/DL (6.4-8.2); TRIGLYCERIDES LEVEL 147 MG/DL (<150)
== END ==
LOC: SKLAB2 07:30
DX: E07.9 Disorder of thyroid, unspecified (principal); Z79.899 Other long term (current) drug therapy
CPT/HCPCS: 84443

== ENCOUNTER → 2018-06-22 | Outpatient (REF) | payer MEDICARE, OTHER ==
[2018-06-22 07:43] LABS: BASO % 0.5 % (0.0-1.0); EOS # 0.3 10^3/uL (0.0-0.50); EOS % 3.6 % (0.0-3.0); HEMATOCRIT 37.7 % (36.0-47.0); HEMOGLOBIN 12.3 g/dl (12.0-15.5); IMMATURE GRANULOCYTE % 0.2 % (0-3.0); LYMPH # 2.7 10^3/uL (1.5-4.5); LYMPH % 32.5 % (24.0-44.0); MEAN CORPUSCULAR HEMOGLOBIN 30.2 pg (27.0-33.0); MEAN CORPUSCULAR HGB CONC 32.6 g/dl (32.0-36.5); MEAN CORPUSCULAR VOLUME 92.6 fl (80.0-96.0); MONO # 0.7 10^3/uL (0.0-0.8); NEUTROPHILS # 4.5 10^3/uL (1.8-7.7); NEUTROPHILS % 55.2 % (36.0-66.0); PLATELET COUNT, AUTOMATED 340 10^3/uL (150-450); RED BLOOD COUNT 4.07 10^6/uL (4.00-5.40); RED CELL DISTRIBUTION WIDTH 13.2 % (11.5-14.5); WHITE BLOOD COUNT 8.2 10^3/uL (4.0-10.0)
[2018-06-22 07:58] LABS: ANION GAP 5 MEQ/L (8-16); BLOOD UREA NITROGEN 38 MG/DL (7-18); CALCIUM LEVEL 9.2 MG/DL (8.8-10.2); CARBON DIOXIDE LEVEL 32 MEQ/L (21-32); CHLORIDE LEVEL 105 MEQ/L (98-107); CREATININE FOR GFR 1.67 MG/DL (0.55-1.30); GLOMERULAR FILTRATION RATE 32.4 (>45); GLUCOSE, FASTING 118 MG/DL (70-100); POTASSIUM SERUM 4.7 MEQ/L (3.5-5.1); SODIUM LEVEL 142 MEQ/L (136-145)
== END ==
LOC: SKLAB2 07:00
DX: B00.9 Herpesviral infection, unspecified (principal)
CPT/HCPCS: 36415

== ENCOUNTER → 2018-07-06 | Outpatient (REF) | payer MEDICARE, OTHER ==
[2018-07-06 09:41] LABS: BASO # 0.1 10^3/uL (0.0-0.2); BASO % 0.5 % (0.0-1.0); EOS # 0.4 10^3/uL (0.0-0.50); EOS % 3.9 % (0.0-3.0); HEMATOCRIT 36.1 % (36.0-47.0); HEMOGLOBIN 11.7 g/dl (12.0-15.5); IMMATURE GRANULOCYTE % 0.4 % (0-3.0); LYMPH # 2.3 10^3/uL (1.5-4.5); LYMPH % 25.3 % (24.0-44.0); MEAN CORPUSCULAR HEMOGLOBIN 30.2 pg (27.0-33.0); MEAN CORPUSCULAR HGB CONC 32.4 g/dl (32.0-36.5); MEAN CORPUSCULAR VOLUME 93.3 fl (80.0-96.0); MONO # 0.5 10^3/uL (0.0-0.8); MONO % 5.9 % (0.0-5.0); NEUTROPHILS # 5.8 10^3/uL (1.8-7.7); PLATELET COUNT, AUTOMATED 323 10^3/uL (150-450); RED BLOOD COUNT 3.87 10^6/uL (4.00-5.40); RED CELL DISTRIBUTION WIDTH 13.6 % (11.5-14.5); WHITE BLOOD COUNT 9.1 10^3/uL (4.0-10.0)
[2018-07-06 10:03] LABS: ERYTHROCYTE SEDIMENTATION RATE 63 mm/hr (0-30)
[2018-07-06 10:06] LABS: C REACTIVE PROTEIN QUANTITATIV 1.24 MG/DL (0.00-0.30)
== END ==
LOC: SKLAB2 07:00
DX: E78.5 Hyperlipidemia, unspecified (principal); E11.9 Type 2 diabetes mellitus without complications; E07.9 Disorder of thyroid, unspecified
CPT/HCPCS: 36415

== ENCOUNTER → 2018-07-21 | Outpatient (CLI) | payer MEDICARE, OTHER | LOC: M RAD 09:37 | DX: M25.562 Pain in left knee (principal) | CPT/HCPCS: 78315 ==

== ENCOUNTER → 2018-08-01 | Outpatient (REF) | payer MEDICARE, OTHER ==
[2018-08-01 15:35] LABS: BASO # 0.1 10^3/uL (0.0-0.2); BASO % 0.5 % (0.0-1.0); EOS # 0.3 10^3/uL (0.0-0.50); EOS % 3.2 % (0.0-3.0); HEMATOCRIT 36.1 % (36.0-47.0); HEMOGLOBIN 11.7 g/dl (12.0-15.5); IMMATURE GRANULOCYTE % 0.3 % (0-3.0); LYMPH # 2.3 10^3/uL (1.5-4.5); LYMPH % 22.7 % (24.0-44.0); MEAN CORPUSCULAR HGB CONC 32.4 g/dl (32.0-36.5); MEAN CORPUSCULAR VOLUME 92.6 fl (80.0-96.0); MONO # 0.7 10^3/uL (0.0-0.8); MONO % 6.5 % (0.0-5.0); NEUTROPHILS # 6.9 10^3/uL (1.8-7.7); NEUTROPHILS % 66.8 % (36.0-66.0); PLATELET COUNT, AUTOMATED 413 10^3/uL (150-450); RED CELL DISTRIBUTION WIDTH 13.7 % (11.5-14.5); WHITE BLOOD COUNT 10.3 10^3/uL (4.0-10.0)
[2018-08-01 15:53] LABS: C REACTIVE PROTEIN QUANTITATIV 1.15 MG/DL (0.00-0.30)
[2018-08-01 16:03] LABS: ERYTHROCYTE SEDIMENTATION RATE 73 mm/hr (0-30)
== END ==
LOC: M LABDRAW1 11:17
DX: M25.562 Pain in left knee (principal)
CPT/HCPCS: 86140

== ENCOUNTER → 2018-08-18 | Outpatient (REF) | payer MEDICARE, OTHER ==
[2018-08-18 13:48] LABS: BASO % 0.4 % (0.0-1.0); EOS # 0.4 10^3/uL (0.0-0.50); EOS % 3.9 % (0.0-3.0); HEMATOCRIT 35.3 % (36.0-47.0); HEMOGLOBIN 11.2 g/dl (12.0-15.5); IMMATURE GRANULOCYTE % 0.5 % (0-3.0); LYMPH # 2.4 10^3/uL (1.5-4.5); LYMPH % 26.2 % (24.0-44.0); MEAN CORPUSCULAR HEMOGLOBIN 29.6 pg (27.0-33.0); MEAN CORPUSCULAR HGB CONC 31.7 g/dl (32.0-36.5); MEAN CORPUSCULAR VOLUME 93.1 fl (80.0-96.0); MONO # 0.9 10^3/uL (0.0-0.8); NEUTROPHILS # 5.5 10^3/uL (1.8-7.7); PLATELET COUNT, AUTOMATED 365 10^3/uL (150-450); RED BLOOD COUNT 3.79 10^6/uL (4.00-5.40); RED CELL DISTRIBUTION WIDTH 13.6 % (11.5-14.5); WHITE BLOOD COUNT 9.2 10^3/uL (4.0-10.0)
[2018-08-18 13:59] LABS: C REACTIVE PROTEIN QUANTITATIV 5.46 MG/DL (0.00-0.30)
[2018-08-18 14:16] LABS: ERYTHROCYTE SEDIMENTATION RATE 86 mm/hr (0-30)
== END ==
LOC: SKLAB2 12:46
DX: Z79.899 Other long term (current) drug therapy (principal)
CPT/HCPCS: 86140

== ENCOUNTER → 2018-08-20 | Outpatient (CLI) | payer MEDICARE, OTHER | LOC: M RAD 11:19 | DX: M51.26 Other intervertebral disc displacement, lumbar region (principal); M51.27 Other intervertebral disc displacement, lumbosacral region; M12.88 Other specific arthropathies, not elsewhere classified, other specified site; M48.061 Spinal stenosis, lumbar region without neurogenic claudication | CPT/HCPCS: 72148 ==

== ENCOUNTER → 2018-09-12 | Outpatient (REF) | payer MEDICARE, OTHER, MEDICAID ==
[2018-09-12 18:34] LABS: C REACTIVE PROTEIN QUANTITATIV 1.17 MG/DL (0.00-0.30)
[2018-09-12 18:43] LABS: BASO # 0.1 10^3/uL (0.0-0.2); BASO % 0.5 % (0.0-1.0); EOS # 0.6 10^3/uL (0.0-0.50); EOS % 5.5 % (0.0-3.0); HEMATOCRIT 34.5 % (36.0-47.0); IMMATURE GRANULOCYTE % 0.3 % (0-3.0); LYMPH # 3.3 10^3/uL (1.5-4.5); LYMPH % 33.5 % (24.0-44.0); MEAN CORPUSCULAR HEMOGLOBIN 29.5 pg (27.0-33.0); MEAN CORPUSCULAR HGB CONC 31.9 g/dl (32.0-36.5); MEAN CORPUSCULAR VOLUME 92.5 fl (80.0-96.0); MONO # 0.7 10^3/uL (0.0-0.8); MONO % 6.7 % (0.0-5.0); NEUTROPHILS # 5.3 10^3/uL (1.8-7.7); NEUTROPHILS % 53.5 % (36.0-66.0); PLATELET COUNT, AUTOMATED 374 10^3/uL (150-450); RED BLOOD COUNT 3.73 10^6/uL (4.00-5.40); RED CELL DISTRIBUTION WIDTH 14.2 % (11.5-14.5)
[2018-09-12 19:23] LABS: ERYTHROCYTE SEDIMENTATION RATE 82 mm/hr (0-30)
== END ==
LOC: M LAB REF 17:13
DX: M47.896 Other spondylosis, lumbar region (principal)
CPT/HCPCS: 86140

== ENCOUNTER → 2018-09-22 | Outpatient (REF) | payer MEDICARE, OTHER, MEDICAID ==
[2018-09-22 09:16] LABS: ANION GAP 6 MEQ/L (8-16); BLOOD UREA NITROGEN 37 MG/DL (7-18); CALCIUM LEVEL 9.3 MG/DL (8.8-10.2); CARBON DIOXIDE LEVEL 27 MEQ/L (21-32); CHLORIDE LEVEL 106 MEQ/L (98-107); CREATININE FOR GFR 1.66 MG/DL (0.55-1.30); GLOMERULAR FILTRATION RATE 32.6 (>45); GLUCOSE, FASTING 224 MG/DL (70-100); POTASSIUM SERUM 4.4 MEQ/L (3.5-5.1); SODIUM LEVEL 139 MEQ/L (136-145)
== END ==
LOC: SKLAB2 08:23
DX: M48.061 Spinal stenosis, lumbar region without neurogenic claudication (principal)
CPT/HCPCS: 80048

== ENCOUNTER → 2018-09-28 | Outpatient (CLI) | payer MEDICARE, OTHER, MEDICAID | LOC: M RAD 08:28 | DX: M19.072 Primary osteoarthritis, left ankle and foot (principal); Z96.653 Presence of artificial knee joint, bilateral; M77.32 Calcaneal spur, left foot | CPT/HCPCS: 73721 ==

== ENCOUNTER → 2018-10-24 | Outpatient (REF) | payer MEDICARE, OTHER, MEDICAID ==
[2018-10-24 08:21] LABS: HEMATOCRIT 35.9 % (36.0-47.0); HEMOGLOBIN 11.8 g/dl (12.0-15.5); MEAN CORPUSCULAR HEMOGLOBIN 30.7 pg (27.0-33.0); MEAN CORPUSCULAR HGB CONC 32.9 g/dl (32.0-36.5); MEAN CORPUSCULAR VOLUME 93.5 fl (80.0-96.0); PLATELET COUNT, AUTOMATED 345 10^3/uL (150-450); RED BLOOD COUNT 3.84 10^6/uL (4.00-5.40); RED CELL DISTRIBUTION WIDTH 14.3 % (11.5-14.5); WHITE BLOOD COUNT 8.6 10^3/uL (4.0-10.0)
[2018-10-24 09:00] LABS: ALBUMIN 3.2 GM/DL (3.2-5.2); ALKALINE PHOSPHATASE 92 U/L (45-117); ALT/SGPT 21 U/L (12-78); ANION GAP 7 MEQ/L (8-16); AST/SGOT 15 U/L (7-37); BILIRUBIN,TOTAL 0.3 MG/DL (0.2-1.0); BLOOD UREA NITROGEN 35 MG/DL (7-18); CARBON DIOXIDE LEVEL 28 MEQ/L (21-32); CHLORIDE LEVEL 104 MEQ/L (98-107); CHOLESTEROL LEVEL 149 MG/DL (<200); CHOLESTEROL RISK RATIO 3.386 (<5); CREATININE FOR GFR 1.58 MG/DL (0.55-1.30); GLOMERULAR FILTRATION RATE 34.5 (>45); GLUCOSE, FASTING 165 MG/DL (70-100); HDL CHOLESTEROL 44 MG/DL (>40); LDL CHOLESTEROL 72 MG/DL (<100); NON-HDL-C 105 MG/DL; POTASSIUM SERUM 5.1 MEQ/L (3.5-5.1); SODIUM LEVEL 139 MEQ/L (136-145); TOTAL PROTEIN 7.2 GM/DL (6.4-8.2); TRIGLYCERIDES LEVEL 163 MG/DL (<150)
[2018-10-24 10:29] LABS: TOTAL 25(OH) VITAMIN D 24.2 NG/ML (30.0-100.0)
[2018-10-24 10:40] LABS: ESTIMATED AVERAGE GLUCOSE 171 MG/DL (60-110); HEMOGLOBIN A1c 7.6 %
== END ==
LOC: SKLAB2 08:00
DX: E78.00 Pure hypercholesterolemia, unspecified (principal); I10 Essential (primary) hypertension; E11.9 Type 2 diabetes mellitus without complications; E07.9 Disorder of thyroid, unspecified
CPT/HCPCS: 84443

== ENCOUNTER → 2018-11-16 | Outpatient (REF) | payer MEDICARE, OTHER, MEDICAID ==
[~2018-11-16] MED LIST changes: +ACET500T15 PO; -ACET50TAOT PO; -ACETYLCHOLINE OPHTH SOLN 1% 2ML (MIOCHOL-E) As Ordered ONE; -BALANCED SALT IRRIGATION SOLUTION 500ML BAG (FOR OR EYE MACHINE) As Ordered ONE; -CEFUROXIME 1MG/0.1ML INTRACAMERAL INJ As Ordered ONE; -DUOVISC (0.50ML VISCOAT/0.55ML PROVISC) OPHTH KIT As Ordered ONE; -GLUC4CHW PO; +GLUC4CHW19 PO; -LIDOCAINE 0.75%/EPINEPHRINE 0.025% IN BSS 1ML SYR INTRACAMERAL (OR ONLY) As Ordered ONE; -LIDOCAINE 1% SDV 5 ML VIAL As Ordered ONE; -MIDAZOLAM INJ 2 MG/2 ML VIAL (J2250) As Ordered ONE; +MILK12002 PO; -MILKSUS PO; -OFLOXACIN 0.3 % (OCUFLOX) OPTH SOL 5ML OD ONE; -ONDANSETRON 4MG/2ML VIAL (J2405) IV PRN; -PHENYLEPHRINE 2.5% OPHTH SOL 2ML OD ONE; -POVIDONE-IODINE 5% OPHTH PREP SOL 30ML As Ordered ONE; -PROPARACAINE 0.5% OPHTH SOL 15ML OD ONE; -TROPICAMIDE 1% OPHTH SOLN 2ML OD ONE; -ZOFR20TA PO; +ZOFR4TAB16 PO; -fentaNYL 100 MCG/2 ML INJECTION (J3010) As Ordered ONE
[2018-11-16 13:56] LABS: HEMATOCRIT 35.5 % (36.0-47.0); HEMOGLOBIN 11.6 g/dl (12.0-15.5); MEAN CORPUSCULAR HEMOGLOBIN 30.4 pg (27.0-33.0); MEAN CORPUSCULAR HGB CONC 32.7 g/dl (32.0-36.5); MEAN CORPUSCULAR VOLUME 92.9 fl (80.0-96.0); PLATELET COUNT, AUTOMATED 327 10^3/uL (150-450); RED BLOOD COUNT 3.82 10^6/uL (4.00-5.40); WHITE BLOOD COUNT 10.2 10^3/uL (4.0-10.0)
== END ==
LOC: SKLAB2 13:13
PROVIDERS: ATTEND Family Medicine
DX: R59.0 Localized enlarged lymph nodes (principal); J02.9 Acute pharyngitis, unspecified

== ENCOUNTER → 2019-01-13 | Outpatient (CLI) | payer MEDICARE, OTHER ==
[~2019-01-13] MED LIST changes: +MILK120011 PO; -MILK12002 PO
--- NOTE | 2019-01-23 00:41 | ECWPNPC ---
PATIENT NAME: ROBINA DYE : 1950 GENDER: FEMALE VISIT DATE: 01/13/2019 DISCHARGE DATE: 01/13/19 1223 VISIT LOCKED DATE TIME: PHYSICIAN: SNEHAL BESS MD PHYSICIAN PAGER NO: [phone] RESOURCE: SNEHAL BESS MD REASON FOR APPOINTMENT 1. STENOSIS/ L.ANKLE AND FOOT HISTORY OF PRESENT ILLNESS FALL RISK SCREENING: SCREENING : NO FALLS IN THE PAST YEAR. PAIN SCREENING: PATIENT HAS A COMPLAINT OF ACUTE OR CHRONIC PAIN :YES 68 YEAR OLD FEMALE PATIENT WITH A HISTORY OF CHRONIC LOW BACK PAIN. THE PATIENT DESCRIBES THE PAIN ACHING AND CONTINUOUS WITH A PAIN SCORE OF 7-10/10 DEPENDING ON PHYSICAL ACTIVITY. THE PATIENT SAYS HER PAIN STARTS IN HER LOW BACK AREA AND RADIATES DOWN INTO HER LEFT LEG. THE PATIENT SAYS THAT SHE HAS LOST HER ABILITY TO AMBULATE DUE TO THE SEVERE PAIN IN HER BACK. THE PATIENT ALSO HAS A HISTORY OF A BILATERAL KNEE REPLACEMENT. PATIENT DENIES UNEXPLAINABLE WEIGHT LOSS, FEVER, CHILLS, NEW CHANGES ON HER URINARY OR BOWEL CONTROL. CURRENT MEDICATIONS TAKING LISINOPRIL 40 MG TABLET 1 TABLET ORALLY ONCE A DAY TAKING GLUCOSTIX -- 1 STRIP CONTOUR NEXT TEST STRIP -- BID TAKING VIMPAT 200 MG TABLET 1 TABLET ORALLY TWICE A DAY, MDD=TWO TAKING NORCO 5-325 MG TABLET 1 TABLET ORALLY Q6H SCHEDULED AND Q3HRS PRN PAIN MDD=8 TAKING ABILIFY 2 MG TABLET 1 TABLET ORALLY ONCE A DAY TAKING VITAMIN D3 400 UNIT TABLET 2 TABLETS ORALLY ONCE A DAY TAKING HYDROXYZINE HCL 10 MG TABLET ORALLY NEEDED FOR ITCHIHNG TAKING TUMS 500 MG TABLET CHEWABLE 1 TABLET ORALLY ONCE A DAY TAKING BENGAY GREASELESS 10-15 % CREAM EXTERNALLY , NOTES: NEEDED FOR BACK PAIN TAKING ZYRTEC 10 MG TABLET 1 TABLET ORALLY ONCE A DAY, NOTES: NEEDED FOR ALLERGIC RHINITIS TAKING FUROSEMIDE 20 MG TABLET 1 TABLET ORALLY ONCE A DAY FOR EDEMA TAKING GABAPENTIN 100 MG TABLET ORALLY BEFORE BEDTIME TAKING NITROGLYCERIN 0.4 MG TABLET SUBLINGUAL SUBLINGUAL TAKING OMEPRAZOLE 40 MG CAPSULE DELAYED RELEASE 1 CAPSULE ORALLY ONCE A DAY TAKING ALBUTEROL SULFATE (5 MG/ML) 0.5% NEBULIZATION SOLUTION 1 ML NEEDED INHALATION EVERY 6 HRS NOT-TAKING LANTUS SOLO STAR PEN NEEDLES /2 IN OR 03/30 IN NEEDLE NEEDLE SQ IN ABD DAILY NOT-TAKING ZEBETA 10 MG TABLET 1 TABLET ORALLY 2 TIMES A DAY NOT-TAKING AMLODIPINE 2.5MG TABLET 1 TAB P.O. DAILY NOT-TAKING HYDROCHLOROTHIAZIDE 25 25 MG TABLET DIRECTED ORAL DAILY NOT-TAKING ASPIR-81 81 MG TABLET DELAYED RELEASE 1 TABLET ORALLY ONCE A DAY NOT-TAKING CRESTOR 40 MG TABLET 1 TABLET ORALLY ONCE A DAY NOT-TAKING LANTUS SOLOSTAR 100 UNIT/ML SOLUTION 40 UNITS SUBCUTANEOUS ONCE A DAYAFTER SUPPER NOT-TAKING HUMALOG KWIKPEN 100 UNIT/ML SOLUTION 20 UNITS AC MEALS SUBCUTANEOUS DAILY(IF NOT EATING DO NOT TAKE) NOT-TAKING PLAQUENIL 200 MG TABLET 2 TABLET WITH FOOD OR MILK ORALLY ONCE A DAY NOT-TAKING MELOXICAM 7.5 MG TABLET 1 TABLET ORALLY BID MEDICATION LIST REVIEWED AND RECONCILED WITH THE PATIENT PAST MEDICAL HISTORY DIABETES HYPERTENSION SLEEP APNEA ELEVATED TRIGLYCERIDES HISTORY OF SEXUAL ABUSE DEPRESSION ALLERGIES ASTHMA (MILD INTERMITTENT) ASTHMA, UNSPECIFIED, UNSPECIFIED STATUS ASTHMA, UNSPECIFIED, UNSPECIFIED STATUS ALLERGIC RHINITIS, CAUSE UNSPECIFIED DEPRESSIVE DISORDER, NOT ELSEWHERE CLASSIFIED SLEEP RELATED HYPOVENTILATION/HYPOXEMIA IN CONDITIONS CLASSIFIABLE ELSEWHERE RASH AND OTHER NONSPECIFIC SKIN ERUPTION UNSPECIFIED DIFFUSE CONNECTIVE TISSUE DISEASE ACUTE SINUSITIS, UNSPECIFIED OTHER AND UNSPECIFIED PERIPHERAL VERTIGO COUGH URGENCY INCONTINENCE STENOSIS ALLERGIES MORPHINE: VOMITING: ALLERGY METFORMIN: ITCHING: ALLERGY TRAZODONE 100: HOSPTIALIZED WITH DELERIUM SURGICAL HISTORY HYSTERECTOMY ABDOMINAL GALL BLADDER REMOVAL RIGHT KNEE REPLACEMENT 2016 LEFT KNEE REPLACEMENT 2016 RIGHT/LEFT CATARACT FAMILY HISTORY FATHER: , DIAGNOSED WITH HYPERTENSION, HEART DISEASE MOTHER: , DIAGNOSED WITH HEART DISEASE SIBLINGS: ALIVE, LEUKEMIA (SISTER 2011, DIAGNOSED WITH HEART DISEASE 2 BROTHER(S) , 1 SISTER(S) . 1 SON(S) , 2 DAUGHTER(S) . ++HEART ISSUES IN FAMILY. SOCIAL HISTORY GENERAL: TOBACCO USE ARE YOU A:: NEVER SMOKER . ALCOHOL SCREENING POINTS: 0, INTERPRETATION: NEGATIVE. RECREATIONAL DRUG USE DENIES. CAFFEINE 1-2/DAY. RESTORATION NO SHINTO BELIEFS THAT WOULD IMPACT HEALTH CARE. LANGUAGE BRAZILIAN. EDUCATION QUIT IN 10TH GRADE. 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 DIET: LOW FAT, LOW CHOLESTEROL. EXERCISE: WALKS. OTHERS AT HOME: SPOUSE. PAIN CLINIC PFS, CLERGY, PUBLIC HEALTH REFERRALS HAS THE PATIENT BEEN EDUCATED REGARDING HIS/HER PLAN OF CARE?YES HAS THE PATIENT BEEN EDUCATED REGARDING PAIN, THE RISK FOR PAIN, THE IMPORTANCE OF EFFECTIVE PAIN MANAGEMENT, AND THE PAIN ASSESSMENT PROCESS?YES ADVANCE DIRECTIVE ADVANCE DIRECTIVE DISCUSSED WITH PATIENT:YES HCP IS KATERIN DYE [phone] REVIEWED WITH PT 01/13/19 1100 BV. HOSPITALIZATION/MAJOR DIAGNOSTIC PROCEDURE ALTERED MENTAL STATUS 05/22/13-05/24/13 REVIEW OF SYSTEMS REVIEWED BY: PROVIDER: SNEHAL BESS MD . CONSTITUTIONAL: ANY CHANGE IN YOUR MEDICAL CONDITION? NO . CHILLS NO . FEVER NO . INFECTION: DO YOU HAVE NEW INFECTIONS? NO . DO YOU HAVE HISTORY OF MRSA? NO . MUSCULOSKELETAL: ANY NEW PATTERNS OF PAIN OR NUMBNESS? NO . SYTEMIC LUPUS NO . GASTROENTEROLOGY: ANY NEW CHANGE IN BOWEL CONTROL? NO . BARRETTS ESOPHAGUS NO . CIRRHOSIS NO . HEPATITIS NO . LIVER FAILURE NO . ACID REFLUX YES, ON MEDICATION . UNEXPLAINED WEIGHT LOSS NO . GENITOURINARY: ANY NEW CHANGE IN BLADDER CONTROL? NO . IS THERE A CHANCE YOU COULD BE ? NO . HEMATOLOGY/LYMPH: DO YOU TAKE ANY BLOOD THINNERS? (FOR EXAMPLE- COUMADIN, PLAVIX, AGGRENOX, PLATEL, PRADAXA, OR XARELTO) NO . WHEN WAS YOUR LAST DOSE? DATE: TIME: . LOW PLATELET COUNT NO . SICKLE CELL DISEASE NO . VON WILLIEBRANDS NO . FACTOR V LEIDEN NO . THALLASEMIA NO . ANEMIA NO . EASY BRUISING NO . NEUROLOGY: HAVE YOU FALLEN IN THE PAST 12 MONTHS? NO . ANY NEW EXTREMITY NUMBNESS OR WEAKNESS? NO . HEAD INJURY NO . DEMENTIA NO . CEREBRAL PALSY NO . MULTIPLE SCLEROSIS NO . DIZZINESS NO . HEADACHE NO . STROKES YES, HISTORY OF STROKE IN April, . VERTIGO NO . CARDIOLOGY: DO YOU HAVE A PACEMAKER OR DEFIBRILLATOR? NO . ANGINA YES . HEART ATTACK NO . HEART SURGERY NO . CONGESTIVE HEART FAILURE/FLUID OVERLOAD NO . CHEST PAIN NO, PATIENT ADMITS, OCCASIONAL . HIGH BLOOD PRESSURE NO . IRREGULAR HEART BEAT NO . RESPIRATORY: HAVE YOU BEEN SICK IN THE PAST WEEK? NO . FEVER NO . FLU LIKE SYMPTOMS? NO . CPAP NO . BYPAP YES . ASTHMA NO . EMPHYSEMA NO . CHRONIC LUNG DISEASES NO . SHORTNESS OF BREATH ON EXERTION NO . COUGH NO . SNORING NO . INTEGUMENTARY: DO YOU HAVE ANY RASHES OR OPEN SORES? YES, UNDER BILATERAL BREASTS. USING NYSTATIN CREME . ALLERGIC/IMMUNO: ARE YOU ALLERGIC TO IV DYE? NO . ANY NEW ALLERGIES? NO . PSYCHIATRIC: DO YOU HAVE THOUGHTS OF HURTING YOURSELF OR SOMEONE ELSE? NO . ARE YOU ABUSED, NEGLECTED, OR IN AN UNSAFE ENVIRONMENT? NO . ENDOCRINOLOGY: ARE YOU DIABETIC? YES . THYROID DISORDER NO . OTHER: DO YOU NEED ANY PRESCRIPTIONS? NO . IF YES, PLEASE LIST: ____ . ANY NEW PROBLEMS WITH YOUR MEDICATIONS? NO . WHEN DID YOU LAST EAT? ____ . WHEN DID YOU LAST DRINK? ____ . WHAT DID YOU LAST DRINK? ____ . NAME OF PERSON DRIVING YOU HOME? ____ . DO YOU HAVE ANY OTHER QUESTIONS OR CONCERNS NO . VITAL SIGNS WT 364 LBS, HT 66 IN, BMI 58.74 INDEX, BP 147/64 MM HG, HR 72 /MIN, RR 20 /MIN, TEMP 97.7 F, OXYGEN SAT % 93%, BLOOD GLUCOSE LEVEL AW 1036, REVIEWED BY: BV. EXAMINATION GENERAL EXAMINATION: PATIENT IS ALERT O X 3 AND COOPERATIVE. LUNGS CLEAR, TO AUSCULTATION. HEART: NO MURMURS OR GALLOPS; FACIAL CRANIAL NERVES ARE GROSSLY NORMAL. GOOD SYMMETRY OF FACIAL MUSCLE MOVEMENT. NORMAL VISUAL MO. PATIENT IS IN A WHEELCHAIR. LEFT LEG IS WEAKER AT EXTENSION AND FLEXION. STRAIGHT LEG RAISE OF THE LEFT LEG IS POSITIVE AT 30 DEGREES FOR RADICULOPATHY. MRI OF THE LUMBAR SPINE DONE ON 08/20/2018 SHOWS BULGING DISCS AT MULTIPLE LEVELS AND SEVERE STENOSIS AT L5-S1. ASSESSMENTS INTERVERTEBRAL DISC DISORDER WITH RADICULOPATHY OF LUMBOSACRAL REGION - M51.17 (PRIMARY) TREATMENT INTERVERTEBRAL DISC DISORDER WITH RADICULOPATHY OF LUMBOSACRAL REGION CLINICAL NOTES: WE DISCUSSED SEVERAL ISSUES WITH MRS. DYE'S PAIN MANAGEMENT CASE. DUE TO THE LUMBOSACRAL RADICULOPATHY, I WOULD LIKE TO MOVE FORWARD WITH A LUMBAR EPIDURAL STEROID INJECTION AT THIS TIME. WE DISCUSSED THE BENEFITS, RISKS, AND ALTERNATIVES OF THE INJECTION AND THE PATIENT WOULD LIKE TO PROCEED. THE PATIENT WILL FOLLOW UP 3 WEEKS AFTER THE INJECTION. INSTRUCTIONS WERE GIVEN, QUESTIONS WERE ANSWERED, PATIENT REPORTS UNDERSTANDING AND AGREES WITH THE PLAN. IGUANAKITO, DOCUMENTED THE ABOVE INFORMATION ACTING A SCRIBE FOR DR. BESS. I HAVE REVIEWED THE ABOVE DOCUMENT, WRITTEN BY GUANAKITO RAMÍREZ AND I VERIFY THAT IT IS ACCURATE. DEAR DR. ALLEN:THANK YOU FOR YOUR KIND REFERRAL OF MRS. DYE. IF YOU WANT TO DISCUSS HER CASE WITH ME PLEASE CALL ME AT THE PAIN CENTER AT [phone]. SINCERELY,SNEHAL BESS, [facility]. OTHERS NOTES: LUMBAR EPIDURAL INJECTION: YOUR PROCEDURE MATERIAL WAS PRINTED. PROCEDURE CODES FA211 ESTABILISHED PATIENT [facility] CHARGE G8427 CURRENT MEDS W/DOSAGES DOCUMENTED G8730 PAIN ASSESS POS TOOL F/U PLAN DOC DISPOSITION & COMMUNICATION FOLLOW UP LESI & F/U 3 WEEKS AFTER ELECTRONICALLY SIGNED BY SNEHAL BESS MD, MD ON 01/22/2019 AT 08:46 AM EDT DISCLAIMER : THIS IS A VISIT SUMMARY EXTRACTED FROM THE [facility] CHART. IT IS NOT A COPY OF THE [employer] PROGRESS NOTE. MTDD
== END ==
LOC: M PAIN 10:45
PROVIDERS: ATTEND Anesthesiology
DX: M51.17 Intervertebral disc disorders with radiculopathy, lumbosacral region (principal); G89.29 Other chronic pain; E11.9 Type 2 diabetes mellitus without complications; I10 Essential (primary) hypertension; G47.30 Sleep apnea, unspecified; E78.00 Pure hypercholesterolemia, unspecified; Z86.59 Personal history of other mental and behavioral disorders; J45.20 Mild intermittent asthma, uncomplicated; E66.01 Morbid (severe) obesity due to excess calories; Z68.43 Body mass index [BMI] 50.0-59.9, adult; Z86.73 Personal history of transient ischemic attack (TIA), and cerebral infarction without residual deficits; Z96.653 Presence of artificial knee joint, bilateral; Z88.5 Allergy status to narcotic agent; Z88.8 Allergy status to other drugs, medicaments and biological substances; Z79.899 Other long term (current) drug therapy

== ENCOUNTER → 2019-01-23 | Outpatient (REF) | payer MEDICARE, OTHER, MEDICAID ==
[2019-01-23 08:59] LABS: HEMATOCRIT 35.9 % (36.0-47.0); HEMOGLOBIN 11.3 g/dl (12.0-15.5); MEAN CORPUSCULAR HEMOGLOBIN 29.6 pg (27.0-33.0); MEAN CORPUSCULAR HGB CONC 31.5 g/dl (32.0-36.5); PLATELET COUNT, AUTOMATED 323 10^3/uL (150-450); RED BLOOD COUNT 3.82 10^6/uL (4.00-5.40); WHITE BLOOD COUNT 7.3 10^3/uL (4.0-10.0)
[2019-01-23 09:25] LABS: ALBUMIN 3.2 GM/DL (3.2-5.2); BILIRUBIN,TOTAL 0.3 MG/DL (0.2-1.0); CALCIUM LEVEL 9.2 MG/DL (8.8-10.2); CHOLESTEROL RISK RATIO 3.534 (<5); CREATININE FOR GFR 1.65 MG/DL (0.55-1.30); GLOMERULAR FILTRATION RATE 32.8 (>45); POTASSIUM SERUM 5.4 MEQ/L (3.5-5.1); TOTAL PROTEIN 7.1 GM/DL (6.4-8.2)
[2019-01-23 10:25] LABS: TOTAL 25(OH) VITAMIN D 24.9 NG/ML (30.0-100.0)
[2019-01-23 12:38] LABS: HEMOGLOBIN A1c 7.6 %
== END ==
LOC: SKLAB2 07:30
PROVIDERS: ATTEND Family Medicine
DX: I10 Essential (primary) hypertension (principal); E11.9 Type 2 diabetes mellitus without complications; E78.5 Hyperlipidemia, unspecified; Z79.899 Other long term (current) drug therapy

== ENCOUNTER → 2019-01-26 | Outpatient (CLI) | payer MEDICARE, OTHER ==
[~2019-01-26] MED LIST changes: +ISOVUE-M 300 61% 15ML VIAL (Q9967) As Ordered ONE; +LIDOCAINE 1% SDV INJ 30 ML VIAL As Ordered ONE; +diazePAM 5 MG TAB As Ordered ONE; +methylPREDNISolone SUSP 40 MG/ML (DEPO-medrol) VIAL (J1030) As Ordered ONE
--- NOTE | 2019-01-26 14:47 | REP ---
FLUOROSCOPIC GUIDANCE FOR LUMBAR EPIDURAL STEROID INJECTION: 01/26/2019 CLINICAL HISTORY: Low back pain. Two images from C-arm fluoroscopy provided to Dr. Arauz of the pain clinic are reviewed. Needle just to the left of midline at L5-S1 shows epidural contrast adjacent to it. The second image shows a needle removed. Fluoroscopy time: 8 seconds. Electronically Signed by Fermín Whyte MD 01/26/2019 07:51 P
--- NOTE | 2019-02-08 00:21 | ECWPNPC ---
PATIENT NAME: ROBINA DYE : 1950 GENDER: FEMALE VISIT DATE: 01/26/2019 DISCHARGE DATE: 01/26/19 1423 VISIT LOCKED DATE TIME: PHYSICIAN: SNEHAL BESS MD PHYSICIAN PAGER NO: [phone] RESOURCE: SNEHAL BESS MD REASON FOR APPOINTMENT 1. LESI HISTORY OF PRESENT ILLNESS HISTORY OF PRESENT ILLNESS: PAIN THE PATIENT DESCRIBES THE PAIN... FALL RISK SCREENING: SCREENING : NO FALLS IN THE PAST YEAR. CURRENT MEDICATIONS TAKING LISINOPRIL 40 MG TABLET 1 TABLET ORALLY ONCE A DAY, NOTES: 01/25 8AM TAKING GLUCOSTIX -- 1 STRIP CONTOUR NEXT TEST STRIP -- BID TAKING VIMPAT 200 MG TABLET 1 TABLET ORALLY TWICE A DAY, MDD=TWO, NOTES: 01/25 8PM TAKING NORCO 5-325 MG TABLET 1 TABLET ORALLY Q6H SCHEDULED AND Q3HRS PRN PAIN MDD=8, NOTES: 01/26 6AM TAKING ABILIFY 2 MG TABLET 1 TABLET ORALLY ONCE A DAY, NOTES: 01/25 8PM TAKING VITAMIN D3 400 UNIT TABLET 2 TABLETS ORALLY ONCE A DAY, NOTES: 01/25 8AM TAKING HYDROXYZINE HCL 10 MG TABLET ORALLY NEEDED FOR ITCHIHNG, NOTES: NONE RECENTLY TAKING TUMS 500 MG TABLET CHEWABLE 1 TABLET ORALLY ONCE A DAY TAKING BENGAY GREASELESS 10-15 % CREAM EXTERNALLY , NOTES: NEEDED FOR BACK PAIN TAKING ZYRTEC 10 MG TABLET 1 TABLET ORALLY ONCE A DAY, NOTES: NEEDED FOR ALLERGIC RHINITIS TAKING FUROSEMIDE 20 MG TABLET 1 TABLET ORALLY ONCE A DAY FOR EDEMA, NOTES: 01/25 8AM, TAKING GABAPENTIN 100 MG TABLET ORALLY BEFORE BEDTIME, NOTES: 01/25 8PM TAKING NITROGLYCERIN 0.4 MG TABLET SUBLINGUAL SUBLINGUAL , NOTES: NONE LATELY TAKING OMEPRAZOLE 40 MG CAPSULE DELAYED RELEASE 1 CAPSULE ORALLY ONCE A DAY, NOTES: 01/26 6AM TAKING ALBUTEROL SULFATE (5 MG/ML) 0.5% NEBULIZATION SOLUTION 1 ML NEEDED INHALATION EVERY 6 HRS, NOTES: NONE LATELY TAKING GLIMEPIRIDE 2 MG TABLET 1 TABLET WITH BREAKFAST OR THE FIRST MAIN MEAL OF THE DAY ORALLY ONCE A DAY, NOTES: 01/25 8AM TAKING LEXAPRO 20 MG TABLET 1 TABLET ORALLY ONCE A DAY, NOTES: 01/25 8PM TAKING ATORVASTATIN CALCIUM 40 MG TABLET 1 TABLET ORALLY ONCE A DAY, NOTES: 01/25 8PM TAKING VITAMIN B1 100 MG TABLET 1 TABLET ORALLY ONCE A DAY, NOTES: 01/25 8AM TAKING CALAZIME SKIN PROTECTANT - PASTE EXTERNALLY , NOTES: 01/26 8AM NOT-TAKING LANTUS SOLO STAR PEN NEEDLES 1/2 IN OR 03/30 IN NEEDLE NEEDLE SQ IN ABD DAILY NOT-TAKING ZEBETA 10 MG TABLET 1 TABLET ORALLY 2 TIMES A DAY NOT-TAKING AMLODIPINE 2.5MG TABLET 1 TAB P.O. DAILY NOT-TAKING HYDROCHLOROTHIAZIDE 25 25 MG TABLET DIRECTED ORAL DAILY NOT-TAKING ASPIR-81 81 MG TABLET DELAYED RELEASE 1 TABLET ORALLY ONCE A DAY NOT-TAKING CRESTOR 40 MG TABLET 1 TABLET ORALLY ONCE A DAY NOT-TAKING LANTUS SOLOSTAR 100 UNIT/ML SOLUTION 40 UNITS SUBCUTANEOUS ONCE A DAYAFTER SUPPER NOT-TAKING HUMALOG KWIKPEN 100 UNIT/ML SOLUTION 20 UNITS AC MEALS SUBCUTANEOUS DAILY(IF NOT EATING DO NOT TAKE) NOT-TAKING PLAQUENIL 200 MG TABLET 2 TABLET WITH FOOD OR MILK ORALLY ONCE A DAY NOT-TAKING MELOXICAM 7.5 MG TABLET 1 TABLET ORALLY BID MEDICATION LIST REVIEWED AND RECONCILED WITH THE PATIENT PAST MEDICAL HISTORY DIABETES HYPERTENSION SLEEP APNEA ELEVATED TRIGLYCERIDES HISTORY OF SEXUAL ABUSE DEPRESSION ALLERGIES ASTHMA (MILD INTERMITTENT) ASTHMA, UNSPECIFIED, UNSPECIFIED STATUS ASTHMA, UNSPECIFIED, UNSPECIFIED STATUS ALLERGIC RHINITIS, CAUSE UNSPECIFIED DEPRESSIVE DISORDER, NOT ELSEWHERE CLASSIFIED SLEEP RELATED HYPOVENTILATION/HYPOXEMIA IN CONDITIONS CLASSIFIABLE ELSEWHERE RASH AND OTHER NONSPECIFIC SKIN ERUPTION UNSPECIFIED DIFFUSE CONNECTIVE TISSUE DISEASE ACUTE SINUSITIS, UNSPECIFIED OTHER AND UNSPECIFIED PERIPHERAL VERTIGO COUGH URGENCY INCONTINENCE STENOSIS ALLERGIES MORPHINE: VOMITING - ALLERGY METFORMIN: ITCHING - ALLERGY TRAZODONE 100: HOSPTIALIZED WITH DELERIUM SURGICAL HISTORY HYSTERECTOMY ABDOMINAL GALL BLADDER REMOVAL RIGHT KNEE REPLACEMENT 2016 LEFT KNEE REPLACEMENT 2016 RIGHT/LEFT CATARACT FAMILY HISTORY FATHER: , DIAGNOSED WITH HYPERTENSION, HEART DISEASE MOTHER: , HEART DISEASE SIBLINGS: ALIVE, LEUKEMIA (SISTER 2012, HEART DISEASE 2 BROTHER(S) , 1 SISTER(S) . 1 SON(S) , 2 DAUGHTER(S) . ++HEART ISSUES IN FAMILY. SOCIAL HISTORY GENERAL: TOBACCO USE ARE YOU A:: NEVER SMOKER . LATEX QUESTIONNAIRE LATEX ALLERGY : HAVE YOU EVER DEVELOPED ANY TYPE OF REACTION AFTER HANDLING LATEX PRODUCTS SUCH RUBBER GLOVES, CONDOMS, DIAPHRAGMS, BALLOONS, SOCKS, OR UNDERWEAR?NO LATEX ALLERGY : HAVE YOU EVER DEVELOPED ANY TYPE OF REACTION DURING OR AFTER DENTAL APPOINTMENT, VAGINAL/RECTAL EXAMINATION, SURGICAL PROCEDURE, OR ANY OTHER EXPOSURE?NO LATEX RISK : HAVE YOU EVER HAD ANY DIFFICULTY BREATHING OR HIVES AFTER EATING OR HANDLING ANY FRUITS, OR VEGETABLES; SUCH KIWI, BANANAS, STONE FRUITS, OR CHESTNUTSNO LATEX RISK : DO YOU HAVE A PREVIOUS PERSONAL HISTORY OF MORE THAN NINE SURGERIES, SPINA BIFIDA, OR REPEATED CATHERTIZATIONS? NO LATEX RISK : ARE YOU FREQUENTLY EXPOSED TO LATEX PRODUCTS IN YOUR OCCUPATION?NO DATE ASKED : 01/26/2019 ALCOHOL SCREENING POINTS: 0, INTERPRETATION: NEGATIVE. RECREATIONAL DRUG USE DENIES. CAFFEINE 1-2/DAY. SABIANISM NO EPISCOPAL BELIEFS THAT WOULD IMPACT HEALTH CARE. LANGUAGE UPPER SORBIAN. EDUCATION QUIT IN 10TH GRADE. 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 DIET: LOW FAT, LOW CHOLESTEROL. EXERCISE: WALKS. OTHERS AT HOME: SPOUSE. PAIN CLINIC PFS, CLERGY, PUBLIC HEALTH REFERRALS WAS THE PROVIDER NOTIFIED OF ANY PERTINENT INFO?YES HAS THE PATIENT BEEN EDUCATED REGARDING HIS/HER PLAN OF CARE?YES HAS THE PATIENT BEEN EDUCATED REGARDING PAIN, THE RISK FOR PAIN, THE IMPORTANCE OF EFFECTIVE PAIN MANAGEMENT, AND THE PAIN ASSESSMENT PROCESS?YES PROCEDURE TEACHING, LUMBAR EPIDURAL ADVANCE DIRECTIVE ADVANCE DIRECTIVE DISCUSSED WITH PATIENT:YES HCP IS KATERIN DYE [phone] REVIEWED WITH PT 01/13/19 1100 BV. HOSPITALIZATION/MAJOR DIAGNOSTIC PROCEDURE ALTERED MENTAL STATUS 05/22/13-05/24/13 REVIEW OF SYSTEMS REVIEWED BY: PROVIDER: . CONSTITUTIONAL: ANY CHANGE IN YOUR MEDICAL CONDITION? NO . CHILLS NO . FEVER NO . INFECTION: DO YOU HAVE NEW INFECTIONS? NO . DO YOU HAVE HISTORY OF MRSA? NO . MUSCULOSKELETAL: ANY NEW PATTERNS OF PAIN OR NUMBNESS? NO . GASTROENTEROLOGY: ANY NEW CHANGE IN BOWEL CONTROL? NO . GENITOURINARY: ANY NEW CHANGE IN BLADDER CONTROL? NO . IS THERE A CHANCE YOU COULD BE ? NO . HEMATOLOGY/LYMPH: DO YOU TAKE ANY BLOOD THINNERS? (FOR EXAMPLE- COUMADIN, PLAVIX, AGGRENOX, PLATEL, PRADAXA, OR XARELTO) NO . WHEN WAS YOUR LAST DOSE? DATE: TIME: . NEUROLOGY: HAVE YOU FALLEN IN THE PAST 12 MONTHS? NO . ANY NEW EXTREMITY NUMBNESS OR WEAKNESS? NO . CARDIOLOGY: DO YOU HAVE A PACEMAKER OR DEFIBRILLATOR? NO . RESPIRATORY: HAVE YOU BEEN SICK IN THE PAST WEEK? NO . FEVER NO . FLU LIKE SYMPTOMS? NO . COUGH NO . INTEGUMENTARY: DO YOU HAVE ANY RASHES OR OPEN SORES? YES, UNDER BREAT AND UNDER GROIN . ALLERGIC/IMMUNO: ARE YOU ALLERGIC TO IV DYE? NO . ANY NEW ALLERGIES? NO . PSYCHIATRIC: DO YOU HAVE THOUGHTS OF HURTING YOURSELF OR SOMEONE ELSE? NO . ARE YOU ABUSED, NEGLECTED, OR IN AN UNSAFE ENVIRONMENT? NO . ENDOCRINOLOGY: ARE YOU DIABETIC? YES, FSBS 211 01/26 AM . OTHER: DO YOU NEED ANY PRESCRIPTIONS? NO . IF YES, PLEASE LIST: ____ . ANY NEW PROBLEMS WITH YOUR MEDICATIONS? NO . WHEN DID YOU LAST EAT? 01/25 6PM . WHEN DID YOU LAST DRINK? 01/26 9:30AM . WHAT DID YOU LAST DRINK? WATER . NAME OF PERSON DRIVING YOU HOME? SAURABH DYE . DO YOU HAVE ANY OTHER QUESTIONS OR CONCERNS NO . VITAL SIGNS WT 364 LBS, HT 66 IN, BMI 58.74 INDEX, BP 140/78 MM HG, HR 63 /MIN, RR 18 /MIN, TEMP 97.3 F, OXYGEN SAT % 93%, SAFE IN ENV? (Y/N) Y, NA INITIALS VA 11:47, REVIEWED BY: LILI. ASSESSMENTS LUMBOSACRAL SPINAL STENOSIS - M48.07 (PRIMARY) INTERVERTEBRAL DISC DISORDER WITH RADICULOPATHY OF LUMBOSACRAL REGION - M51.17 TREATMENT INTERVERTEBRAL DISC DISORDER WITH RADICULOPATHY OF LUMBOSACRAL REGION [facility] FLUORO GUIDE SPINE INJECTION (PAIN)1975710 PROCEDURES PRE PROCEDURE DIAGNOSIS LUMBOSACRAL SPINAL STENOSIS, LUMBOSACRAL DISC DISORDER WITH RADICULOPATHY POST PROCEDURE DIAGNOSIS LUMBOSACRAL SPINAL STENOSIS , LUMBOSACRAL DISC DISORDER WITH RADICULOPATHY PROCEDURE LUMBAR EPIDURAL STEROID INJECTION UNDER FLUOROSCOPIC GUIDANCE SURGEON DR. SNEHAL BESS RAILROAD COOK NONE ANESTHESIA LOCAL PRE PROCEDURE NOTE THE PATIENT HAS A HISTORY OF CHRONIC LOW BACK PAIN. I EVALUATE THE PATIENT AND REVIEWED THE CHART. I WENT OVER THE RISKS, ALTERNATIVES, AND BENEFITS ASSOCIATED WITH THIS PROCEDURE. THE PATIENT WOULD LIKE TO PROCEED AND GIVE CONSENT TO PERFORMED THE PROCEDURE. THE PATIENT DENIES UNEXPLAINABLE WEIGHT LOSS, FEVER, CHILLS, OR NEW CHANGES IN URINARY OR BOWEL CONTROL. DESCRIPTION OF PROCEDURE THE PATIENT WAS BROUGHT TO THE PROCEDURE ROOM AND PLACED IN THE PRONE POSITION. THE LUMBOSACRAL AREA WAS CLEANED WITH BETADINE SOLUTION AND DRAPED ASEPTICALLY. THE PROCEDURE WAS DONE UNDER STERILE CONDITIONS. I CHECKED LATERALITY AND THE LEVEL WHERE THE PROCEDURE WAS GOING TO BE PERFORMED WITH THE PATIENT AND THE SUPPORTING STAFF AT THE MOMENT OF THE TIME OUT IN THE PROCEDURE ROOM. UNDER FLUOROSCOPIC GUIDANCE, THE TARGET POINT WAS SELECTED AT THE INTERLAMINAR LEVEL OF L5-S1. LIDOCAINE WAS USED TO NUMB THE SKIN AND THE SUBCUTANEOUS TISSUE BELOW IT. EPIDURAL TUOHY NEEDLE, 17-GAUGE, WAS ADVANCED UNDER FLUOROSCOPIC GUIDANCE AND FOLLOWING PATIENT FEEDBACK UNTIL THE EPIDURAL SPACE WAS REACHED, 7 CM DEEP INTO THE SKIN BY THE LOSS OF RESISTANCE TECHNIQUE. ISOVUE M DYE 30%, 0.25 ML, WAS INJECTED SHOWING ADEQUATE SPREAD OF THE DYE. THEN, A SOLUTION OF 3 ML OF NORMAL SALINE WITH DEPO-MEDROL 60 MG WAS INJECTED SLOWLY FOLLOWING PATIENT FEEDBACK. THERE WAS NO EVIDENCE OF BLOOD, PARESTHESIA OR CEREBROSPINAL FLUID DURING THE PROCEDURE. THE PATIENT WAS SENT TO THE RECOVERY ROOM. THE PATIENT WAS MOVING THE EXTREMITIES AND DOING WELL. THERE WAS NO COMPLICATION DURING THE PROCEDURE. FLUOROSCOPY TIME WAS 8 SECONDS. POST PROCEDURE NOTE THE PATIENT WILL BE SEEN IN A FOLLOW UP IN THE NEXT FEW WEEKS. INSTRUCTIONS WERE GIVEN, QUESTIONS WERE ANSWERED, AND THE PATIENT EXPRESSED UNDERSTANDING AND AGREES WITH THE PLAN. I, GUANAKITO MILLARD, DOCUMENTED THE ABOVE INFORMATION ACTING A SCRIBE FOR DR. BESS. I HAVE REVIEWED THE ABOVE DOCUMENT, WRITTEN BY GUANAKITO RAMÍREZ AND I VERIFY THAT IT IS ACCURATE. PROCEDURE CODES 6045F RADXPS IN END [id number] PXD [id number] LUMBAR/SACRAL W/ IMAGING DISPOSITION & COMMUNICATION FOLLOW UP 2 WEEKS ELECTRONICALLY SIGNED BY SNEHAL BESS MD, MD ON 02/07/2019 AT 11:27 AM EDT DISCLAIMER : THIS IS A VISIT SUMMARY EXTRACTED FROM THE [facility] CHART. IT IS NOT A COPY OF THE [facility] PROGRESS NOTE. MTDD
== END ==
LOC: M PAIN 11:45
PROVIDERS: ATTEND Anesthesiology
DX: M48.07 Spinal stenosis, lumbosacral region (principal); M51.17 Intervertebral disc disorders with radiculopathy, lumbosacral region; E11.9 Type 2 diabetes mellitus without complications; I10 Essential (primary) hypertension; E78.1 Pure hyperglyceridemia; F32.9 Major depressive disorder, single episode, unspecified; J45.20 Mild intermittent asthma, uncomplicated; N39.41 Urge incontinence; M35.9 Systemic involvement of connective tissue, unspecified; G47.36 Sleep related hypoventilation in conditions classified elsewhere; Z96.653 Presence of artificial knee joint, bilateral; Z98.41 Cataract extraction status, right eye; Z98.42 Cataract extraction status, left eye; Z90.49 Acquired absence of other specified parts of digestive tract; Z90.710 Acquired absence of both cervix and uterus; Z79.899 Other long term (current) drug therapy; Z88.5 Allergy status to narcotic agent; Z88.8 Allergy status to other drugs, medicaments and biological substances
CPT/HCPCS: 62323; J1030; Q9967

== ENCOUNTER → 2019-01-26 | Outpatient (REF) | payer MEDICARE, OTHER, MEDICAID ==
[~2019-01-26] MED LIST changes: -ISOVUE-M 300 61% 15ML VIAL (Q9967) As Ordered ONE; -LIDOCAINE 1% SDV INJ 30 ML VIAL As Ordered ONE; -diazePAM 5 MG TAB As Ordered ONE; -methylPREDNISolone SUSP 40 MG/ML (DEPO-medrol) VIAL (J1030) As Ordered ONE
[2019-01-26 09:00] LABS: INR 1.06; PROTHROMBIN TIME 13.9 SECONDS (12.1-14.4)
== END ==
LOC: SKLAB2 07:30
PROVIDERS: ATTEND Family Medicine
DX: I63.9 Cerebral infarction, unspecified (principal); M51.17 Intervertebral disc disorders with radiculopathy, lumbosacral region; E11.9 Type 2 diabetes mellitus without complications; Z79.899 Other long term (current) drug therapy

== ENCOUNTER → 2019-02-11 | Outpatient (CLI) | payer MEDICARE, OTHER ==
[2019-02-11 20:48] LABS: APPEARANCE, URINE TURBID (CLEAR); BACTERIA, URINE AUTO 3+ (NEGATIVE); BILIRUBIN, URINE AUTO NEGATIVE (NEGATIVE); BLOOD, URINE BLOOD 1+ (NEGATIVE); COLOR, URINE YELLOW (YELLOW); GLUCOSE, URINE (UA) AUTO NEGATIVE (NEGATIVE); KETONE, URINE AUTO NEGATIVE (NEGATIVE); LEUKOCYTE ESTERASE, URINE AUTO 3+ (NEGATIVE); NITRITE, URINE AUTO NEGATIVE (NEGATIVE); PROTEIN, URINE AUTO 1+ mg/dL (NEGATIVE); RBC, URINE AUTO 6 /HPF (0-3); SPECIFIC GRAVITY URINE AUTO 1.012 (1.002-1.035); SQUAMOUS EPITHELIAL CELL UR AU 0 /HPF (0-6); UROBILINOGEN, URINE AUTO 0.2 mg/dL (0.0-2.0); WBC, URINE AUTO TNTC /HPF (0-3)
== END ==
LOC: SKLAB2 20:09
PROVIDERS: ATTEND Family Medicine
DX: R41.0 Disorientation, unspecified (principal)

== ENCOUNTER → 2019-03-30 | Outpatient (REF) | payer MEDICARE, OTHER ==
[~2019-03-30] MED LIST changes: -GLIM2TA PO; +GLIM2TAB29 PO; +HYDR-2541 PO; -HYDR25TAB PO; +SENN1TAB41 PO; -SENN8.6T7 PO
== END ==
LOC: SKLAB2 11:12
PROVIDERS: ATTEND Family Medicine
DX: R22.1 Localized swelling, mass and lump, neck (principal); Z53.8 Procedure and treatment not carried out for other reasons

== ENCOUNTER → 2019-03-30 | Outpatient (CLI) | payer MEDICARE, OTHER ==
--- NOTE | 2019-03-31 15:39 | REP ---
Clinical: Pain. Technique: PA and lateral. Comparison: 12/29/2017. Findings: Mediastinum and cardiac silhouette are stable. Lung oconnor demonstrate chronic interstitial changes and stable, similar opacity involving the left lower lung zone. No obvious acute consolidation, effusion, or pneumothorax identified. Skeletal structures demonstrate age-related degenerative changes. Impression: Chronic stable changes. If the patient remains symptomatic consider chest CT for further investigation in the underlying chronic changes and presumed chronic left lower lobe opacity. Electronically Signed by Srinath Rain MD 03/31/2019 03:31 P
== END ==
LOC: M RAD 11:52
PROVIDERS: ATTEND Nurse Practitioner Family
DX: R22.1 Localized swelling, mass and lump, neck (principal)

== ENCOUNTER → 2019-03-31 | Outpatient (CLI) | payer MEDICARE, OTHER ==
--- NOTE | 2019-03-31 15:02 | REP ---
Soft tissue ultrasound bilateral neck: History: Bilateral neck lumps for a few weeks. Findings: Soft tissue sonography in the region of the supraclavicular area bilaterally shows a normal sized 10 mm lymph node with a fatty hilus on the right. There are subtle areas of subcutaneous fat hypertrophy in each region. No encapsulated lipoma is seen. Nonencapsulated lipoma is difficult to exclude. No other mass or cyst is seen. No evidence of adenopathy. Impression: No evidence of adenopathy or cysts. No definite mass lesion. Nonencapsulated lipoma may be a possibility. Otherwise negative. Electronically Signed by Reginald Lira MD 03/31/2019 06:32 P
== END ==
LOC: M RAD 07:46
PROVIDERS: ATTEND Clinical Nurse Specialist Adult Health
DX: R22.1 Localized swelling, mass and lump, neck (principal)

== ENCOUNTER → 2019-04-03 | Outpatient (CLI) | payer MEDICARE, OTHER ==
--- NOTE | 2019-04-15 01:33 | ECWPNPC ---
PATIENT NAME: ROBINA DYE : 1950 GENDER: FEMALE VISIT DATE: 04/03/2019 DISCHARGE DATE: 04/03/19 1420 VISIT LOCKED DATE TIME: PHYSICIAN: SNEHAL BESS MD PHYSICIAN PAGER NO: [phone] RESOURCE: SNEHAL BESS MD REASON FOR APPOINTMENT 1. POST PROC HISTORY OF PRESENT ILLNESS HISTORY OF PRESENT ILLNESS: PAIN THE PATIENT DESCRIBES THE PAIN... 68 YEAR OLD FEMALE PATIENT WITH A HISTORY OF CHRONIC LOW BACK PAIN. THE PATIENT DESCRIBES THE PAIN ACHING, SHARP, AND CONTINUOUS WITH A PAIN SCORE OF 0-8/10 DEPENDING ON PHYSICAL ACTIVITY. THE PATIENT SAYS HER PAIN STARTS IN HER LOW BACK AND RADIATES DOWN HER LEFT LEG. THE PATIENT RECEIVED A LUMBAR EPIDURAL STEROID INJECTION ON 01/26/2019 AND REPORTS HAVING EXCELLENT PAIN RELIEF FOR SEVERAL WEEKS, BUT SAYS HER PAIN HAS STARTED TO RETURN. PATIENT DENIES UNEXPLAINABLE WEIGHT LOSS, FEVER, CHILLS, NEW CHANGES ON HER URINARY OR BOWEL CONTROL. FALL RISK SCREENING: SCREENING :NO FALLS REPORTED IN THE LAST YEAR CURRENT MEDICATIONS TAKING LISINOPRIL 10 MG TABLET 1 TABLET ORALLY ONCE A DAY TAKING GLUCOSTIX -- 1 STRIP CONTOUR NEXT TEST STRIP -- BID TAKING VIMPAT 100 MG TABLET 1 TABLET ORALLY TWICE A DAY, MDD=TWO TAKING NORCO 5-325 MG TABLET 1 TABLET ORALLY Q6H SCHEDULED AND Q3HRS PRN PAIN MDD=8 TAKING BENGAY GREASELESS 10-15 % CREAM EXTERNALLY , NOTES: NEEDED FOR BACK PAIN TAKING ABILIFY 2 MG TABLET 1 TABLET ORALLY ONCE A DAY TAKING VITAMIN D3 400 UNIT TABLET 2 TABLETS ORALLY ONCE A DAY TAKING HYDROXYZINE HCL 10 MG TABLET ORALLY NEEDED FOR ITCHIHNG TAKING TUMS 500 MG TABLET CHEWABLE 1 TABLET ORALLY ONCE A DAY TAKING ZYRTEC 10 MG TABLET 1 TABLET ORALLY ONCE A DAY, NOTES: NEEDED FOR ALLERGIC RHINITIS TAKING FUROSEMIDE 20 MG TABLET 1 TABLET ORALLY ONCE A DAY FOR EDEMA TAKING GABAPENTIN 100 MG TABLET ORALLY BEFORE BEDTIME TAKING NITROGLYCERIN 0.4 MG TABLET SUBLINGUAL SUBLINGUAL , NOTES: NONE LATELY TAKING OMEPRAZOLE 40 MG CAPSULE DELAYED RELEASE 1 CAPSULE ORALLY ONCE A DAY TAKING ALBUTEROL SULFATE (5 MG/ML) 0.5% NEBULIZATION SOLUTION 1 ML NEEDED INHALATION EVERY 6 HRS TAKING GLIMEPIRIDE 2 MG TABLET 1 TABLET WITH BREAKFAST OR THE FIRST MAIN MEAL OF THE DAY ORALLY ONCE A DAY TAKING LEXAPRO 20 MG TABLET 1 TABLET ORALLY ONCE A DAY TAKING ATORVASTATIN CALCIUM 40 MG TABLET 1 TABLET ORALLY ONCE A DAY TAKING VITAMIN B1 100 MG TABLET 1 TABLET ORALLY ONCE A DAY TAKING CALAZIME SKIN PROTECTANT - PASTE EXTERNALLY TAKING GUAIFENESIN 100 MG/5ML SYRUP 10 ML NEEDED ORALLY EVERY 4 HRS TAKING LOPERAMIDE HCL 2 MG CAPSULE 1 CAPSULE NEEDED ORALLY FOUR TIMES A DAY TAKING TYLENOL 325 MG TABLET 1 TABLET NEEDED ORALLY EVERY 4 HRS TAKING BUSPIRONE HCL 5 MG TABLET 1 TABLET ORALLY BID NOT-TAKING LANTUS SOLO STAR PEN NEEDLES / IN OR 03/30 IN NEEDLE NEEDLE SQ IN ABD DAILY NOT-TAKING ZEBETA 10 MG TABLET 1 TABLET ORALLY 2 TIMES A DAY NOT-TAKING AMLODIPINE 2.5MG TABLET 1 TAB P.O. DAILY NOT-TAKING HYDROCHLOROTHIAZIDE 25 25 MG TABLET DIRECTED ORAL DAILY NOT-TAKING ASPIR-81 81 MG TABLET DELAYED RELEASE 1 TABLET ORALLY ONCE A DAY NOT-TAKING CRESTOR 40 MG TABLET 1 TABLET ORALLY ONCE A DAY NOT-TAKING LANTUS SOLOSTAR 100 UNIT/ML SOLUTION 40 UNITS SUBCUTANEOUS ONCE A DAYAFTER SUPPER NOT-TAKING HUMALOG KWIKPEN 100 UNIT/ML SOLUTION 20 UNITS AC MEALS SUBCUTANEOUS DAILY(IF NOT EATING DO NOT TAKE) NOT-TAKING PLAQUENIL 200 MG TABLET 2 TABLET WITH FOOD OR MILK ORALLY ONCE A DAY NOT-TAKING MELOXICAM 7.5 MG TABLET 1 TABLET ORALLY BID MEDICATION LIST REVIEWED AND RECONCILED WITH THE PATIENT PAST MEDICAL HISTORY DIABETES HYPERTENSION SLEEP APNEA ELEVATED TRIGLYCERIDES HISTORY OF SEXUAL ABUSE DEPRESSION ALLERGIES ASTHMA (MILD INTERMITTENT) ASTHMA, UNSPECIFIED, UNSPECIFIED STATUS ASTHMA, UNSPECIFIED, UNSPECIFIED STATUS ALLERGIC RHINITIS, CAUSE UNSPECIFIED DEPRESSIVE DISORDER, NOT ELSEWHERE CLASSIFIED SLEEP RELATED HYPOVENTILATION/HYPOXEMIA IN CONDITIONS CLASSIFIABLE ELSEWHERE RASH AND OTHER NONSPECIFIC SKIN ERUPTION UNSPECIFIED DIFFUSE CONNECTIVE TISSUE DISEASE ACUTE SINUSITIS, UNSPECIFIED OTHER AND UNSPECIFIED PERIPHERAL VERTIGO COUGH URGENCY INCONTINENCE STENOSIS ALLERGIES MORPHINE: VOMITING - ALLERGY METFORMIN: ITCHING - ALLERGY TRAZODONE 100: HOSPTIALIZED WITH DELERIUM SURGICAL HISTORY HYSTERECTOMY ABDOMINAL GALL BLADDER REMOVAL RIGHT KNEE REPLACEMENT 2016 LEFT KNEE REPLACEMENT 2016 RIGHT/LEFT CATARACT FAMILY HISTORY FATHER: , DIAGNOSED WITH HYPERTENSION, HEART DISEASE MOTHER: , HEART DISEASE SIBLINGS: ALIVE, LEUKEMIA (SISTER 2012, HEART DISEASE 2 BROTHER(S) , 1 SISTER(S) . 1 SON(S) , 2 DAUGHTER(S) . ++HEART ISSUES IN FAMILY. SOCIAL HISTORY GENERAL: TOBACCO USE ARE YOU A:: NEVER SMOKER. OTHERS AT HOME: SPOUSE. EDUCATION QUIT IN 10TH GRADE. DIET: LOW FAT, LOW CHOLESTEROL. LANGUAGE JAMAICAN. DOMESTIC VIOLENCE DENIES. RECREATIONAL DRUG USE DENIES. EXERCISE: WALKS. 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 IMPAIRED?NO VISION IMPAIRED?NO READINESS TO LEARN?YES PAIN CLINIC PFS, CLERGY, PUBLIC HEALTH REFERRALS WAS THE PROVIDER NOTIFIED OF ANY PERTINENT INFO?YES HAS THE PATIENT BEEN EDUCATED REGARDING HIS/HER PLAN OF CARE?YES HAS THE PATIENT BEEN EDUCATED REGARDING PAIN, THE RISK FOR PAIN, THE IMPORTANCE OF EFFECTIVE PAIN MANAGEMENT, AND THE PAIN ASSESSMENT PROCESS?YES PROCEDURE TEACHING, LUMBAR EPIDURAL LATEX QUESTIONNAIRE LATEX ALLERGY : HAVE YOU EVER DEVELOPED ANY TYPE OF REACTION AFTER HANDLING LATEX PRODUCTS SUCH RUBBER GLOVES, CONDOMS, DIAPHRAGMS, BALLOONS, SOCKS, OR UNDERWEAR?NO LATEX ALLERGY : HAVE YOU EVER DEVELOPED ANY TYPE OF REACTION DURING OR AFTER DENTAL APPOINTMENT, VAGINAL/RECTAL EXAMINATION, SURGICAL PROCEDURE, OR ANY OTHER EXPOSURE?NO LATEX RISK : HAVE YOU EVER HAD ANY DIFFICULTY BREATHING OR HIVES AFTER EATING OR HANDLING ANY FRUITS, OR VEGETABLES; SUCH KIWI, BANANAS, STONE FRUITS, OR CHESTNUTSNO LATEX RISK : DO YOU HAVE A PREVIOUS PERSONAL HISTORY OF MORE THAN NINE SURGERIES, SPINA BIFIDA, OR REPEATED CATHERTIZATIONS? NO LATEX RISK : ARE YOU FREQUENTLY EXPOSED TO LATEX PRODUCTS IN YOUR OCCUPATION?NO DATE ASKED : 01/26/2019 [place] 1-2/DAY. ADVANCE DIRECTIVE ADVANCE DIRECTIVE DISCUSSED WITH PATIENT:YES HCP IS KATERIN DYE [phone] [place] NO UATSDIN BELIEFS THAT WOULD IMPACT HEALTH CARE. ALCOHOL SCREENING POINTS: 0, INTERPRETATION: NEGATIVE. REVIEWED WITH PT 01/13/19 1100 BV REVIEWED WITH PT 04/03/19 1246 BV. HOSPITALIZATION/MAJOR DIAGNOSTIC PROCEDURE ALTERED MENTAL STATUS 05/22/13-05/24/13 REVIEW OF SYSTEMS REVIEWED BY: PROVIDER: SNEHAL BESS MD . CONSTITUTIONAL: ANY CHANGE IN YOUR MEDICAL CONDITION? NO . CHILLS NO . FEVER NO . INFECTION: DO YOU HAVE NEW INFECTIONS? NO . DO YOU HAVE HISTORY OF MRSA? NO . MUSCULOSKELETAL: ANY NEW PATTERNS OF PAIN OR NUMBNESS? NO . GASTROENTEROLOGY: ANY NEW CHANGE IN BOWEL CONTROL? NO . GENITOURINARY: ANY NEW CHANGE IN BLADDER CONTROL? NO . IS THERE A CHANCE YOU COULD BE ? NO . HEMATOLOGY/LYMPH: DO YOU TAKE ANY BLOOD THINNERS? (FOR EXAMPLE- COUMADIN, PLAVIX, AGGRENOX, PLATEL, PRADAXA, OR XARELTO) NO . WHEN WAS YOUR LAST DOSE? DATE: TIME: . NEUROLOGY: HAVE YOU FALLEN IN THE PAST 12 MONTHS? NO . ANY NEW EXTREMITY NUMBNESS OR WEAKNESS? NO . CARDIOLOGY: DO YOU HAVE A PACEMAKER OR DEFIBRILLATOR? NO . RESPIRATORY: HAVE YOU BEEN SICK IN THE PAST WEEK? NO . FEVER NO . FLU LIKE SYMPTOMS? NO . COUGH NO . INTEGUMENTARY: DO YOU HAVE ANY RASHES OR OPEN SORES? YES, PT HAS CHRONIC RASH UNDER LEFT BREAST AND IN GROIN AREA THAT IS BEING TREATED AT [facility]. . ALLERGIC/IMMUNO: ARE YOU ALLERGIC TO IV DYE? NO . ANY NEW ALLERGIES? NO . PSYCHIATRIC: DO YOU HAVE THOUGHTS OF HURTING YOURSELF OR SOMEONE ELSE? NO . ARE YOU ABUSED, NEGLECTED, OR IN AN UNSAFE ENVIRONMENT? NO . ENDOCRINOLOGY: ARE YOU DIABETIC? YES, ON MEDICATION . OTHER: DO YOU NEED ANY PRESCRIPTIONS? NO . IF YES, PLEASE LIST: ____ . ANY NEW PROBLEMS WITH YOUR MEDICATIONS? NO . WHEN DID YOU LAST EAT? ____ . WHEN DID YOU LAST DRINK? ____ . WHAT DID YOU LAST DRINK? ____ . NAME OF PERSON DRIVING YOU HOME? ____ . DO YOU HAVE ANY OTHER QUESTIONS OR CONCERNS NO . VITAL SIGNS WT 360 LBS, HT 66 IN, BMI 58.10 INDEX, BP 128/67 MM HG, HR 72 /MIN, RR 18 /MIN, TEMP 98.4 F, OXYGEN SAT % 91%, NA INITIALS SC 12:19, REVIEWED BY: BV. EXAMINATION GENERAL EXAMINATION: PATIENT IS ALERT O X 3 AND COOPERATIVE. PATIENT IS IN A WHEELCHAIR. LEGS ARE WEAK, BUT LEFT LEG IS WEAKER AT EXTENSION AND FLEXION. MRI OF THE LUMBAR SPINE DONE ON 08/20/2018 SHOWS SEVERE STENOSIS AT L5-S1. ASSESSMENTS LUMBOSACRAL SPINAL STENOSIS - M48.07 (PRIMARY) INTERVERTEBRAL DISC DISORDER WITH RADICULOPATHY OF LUMBOSACRAL REGION - M51.17 TREATMENT LUMBOSACRAL SPINAL STENOSIS CLINICAL NOTES: WE DISCUSSED SEVERAL ISSUES WITH MRS. DYE'S PAIN MANAGEMENT CASE. DUE TO THE LUMBOSACRAL SPINAL STENOSIS, I WOULD LIKE TO MOVE FORWARD WITH A LUMBAR EPIDURAL STEROID INJECTION AT THIS TIME. WE DISCUSSED THE BENEFITS, RISKS, AND ALTERNATIVES OF THE INJECTION AND THE PATIENT WOULD LIKE TO PROCEED. THE PATIENT WILL FOLLOW UP A FEW WEEKS AFTER THE INJECTION. INSTRUCTIONS WERE GIVEN, QUESTIONS WERE ANSWERED, PATIENT REPORTS UNDERSTANDING AND AGREES WITH THE PLAN. I, GUANAKITO MILLARD, DOCUMENTED THE ABOVE INFORMATION ACTING A SCRIBE FOR DR. BESS. I HAVE REVIEWED THE ABOVE DOCUMENT, WRITTEN BY GUANAKITO HARPERIBPrince AND I VERIFY THAT IT IS ACCURATE. . PROCEDURE CODES FA211 ESTABILISHED PATIENT [facility] FACILITY CHARGE G8427 CURRENT MEDS W/DOSAGES DOCUMENTED G8730 PAIN ASSESS POS TOOL F/U PLAN DOC DISPOSITION & COMMUNICATION FOLLOW UP 3 WEEKS AFTER (REASON: LESI L5-S1) ELECTRONICALLY SIGNED BY SNEHAL BESS MD, ON 04/12/2019 AT 04:23 PM EDT DISCLAIMER : THIS IS A VISIT SUMMARY EXTRACTED FROM THE [employer] CHART. IT IS NOT A COPY OF THE [employer] PROGRESS NOTE. [place]
== END ==
LOC: M PAIN 12:30
PROVIDERS: ATTEND Anesthesiology
DX: M48.07 Spinal stenosis, lumbosacral region (principal); M51.17 Intervertebral disc disorders with radiculopathy, lumbosacral region; G89.29 Other chronic pain; E11.9 Type 2 diabetes mellitus without complications; I10 Essential (primary) hypertension; G47.30 Sleep apnea, unspecified; E78.1 Pure hyperglyceridemia; J45.20 Mild intermittent asthma, uncomplicated; F32.9 Major depressive disorder, single episode, unspecified; E66.01 Morbid (severe) obesity due to excess calories; Z68.43 Body mass index [BMI] 50.0-59.9, adult; Z79.84 Long term (current) use of oral hypoglycemic drugs; Z79.899 Other long term (current) drug therapy; Z88.5 Allergy status to narcotic agent; Z88.8 Allergy status to other drugs, medicaments and biological substances; Z86.69 Personal history of other diseases of the nervous system and sense organs; Z86.59 Personal history of other mental and behavioral disorders; Z96.653 Presence of artificial knee joint, bilateral

== ENCOUNTER → 2019-04-07 | Outpatient (REF) | payer MEDICARE, OTHER ==
[2019-04-07 08:20] LABS: CALCIUM LEVEL 9.3 MG/DL (8.8-10.2); CREATININE FOR GFR 1.71 MG/DL (0.55-1.30); GLOMERULAR FILTRATION RATE 31.5 (>45); POTASSIUM SERUM 4.4 MEQ/L (3.5-5.1)
== END ==
LOC: SKLAB2 13:00
PROVIDERS: ATTEND Family Medicine
DX: N18.9 Chronic kidney disease, unspecified (principal)

== ENCOUNTER → 2019-04-12 | Outpatient (REF) | payer MEDICARE, OTHER ==
[2019-04-12 07:55] LABS: CALCIUM LEVEL 8.6 MG/DL (8.8-10.2); CREATININE FOR GFR 1.63 MG/DL (0.55-1.30); GLOMERULAR FILTRATION RATE 33.3 (>45); POTASSIUM SERUM 4.7 MEQ/L (3.5-5.1)
== END ==
LOC: SKLAB2 07:00
PROVIDERS: ATTEND Family Medicine
DX: I50.9 Heart failure, unspecified (principal)

== ENCOUNTER → 2019-04-20 | Outpatient (REF) | payer MEDICARE, OTHER ==
[2019-04-20 13:54] LABS: CALCIUM LEVEL 9.3 MG/DL (8.8-10.2); CREATININE FOR GFR 1.85 MG/DL (0.55-1.30); GLOMERULAR FILTRATION RATE 28.8 (>45); POTASSIUM SERUM 4.5 MEQ/L (3.5-5.1)
== END ==
LOC: SKLAB2 10:57
PROVIDERS: ATTEND Family Medicine
DX: N18.9 Chronic kidney disease, unspecified (principal)

== ENCOUNTER → 2019-04-24 | Outpatient (REF) | payer MEDICARE, OTHER ==
[2019-04-24 07:26] LABS: HEMATOCRIT 33.1 % (36.0-47.0); HEMOGLOBIN 10.6 g/dl (12.0-15.5); MEAN CORPUSCULAR HEMOGLOBIN 30.2 pg (27.0-33.0); MEAN CORPUSCULAR VOLUME 94.3 fl (80.0-96.0); PLATELET COUNT, AUTOMATED 311 10^3/uL (150-450); RED BLOOD COUNT 3.51 10^6/uL (4.00-5.40); WHITE BLOOD COUNT 8.3 10^3/uL (4.0-10.0)
[2019-04-24 07:40] LABS: HEMOGLOBIN A1c 8.5 %
[2019-04-24 08:03] LABS: BILIRUBIN,TOTAL 0.3 MG/DL (0.2-1.0); CHOLESTEROL RISK RATIO 3.19 (<5); CREATININE FOR GFR 1.56 MG/DL (0.55-1.30); POTASSIUM SERUM 4.7 MEQ/L (3.5-5.1); THYROID STIMULATING HORMONE 2.41 uIU/ML (0.358-3.740); TOTAL PROTEIN 6.6 GM/DL (6.4-8.2)
[2019-04-24 10:42] LABS: TOTAL 25(OH) VITAMIN D 23.8 NG/ML (30.0-100.0)
== END ==
LOC: SKLAB2 07:00
PROVIDERS: ATTEND Family Medicine
DX: I10 Essential (primary) hypertension (principal); E78.00 Pure hypercholesterolemia, unspecified; E11.9 Type 2 diabetes mellitus without complications; E05.90 Thyrotoxicosis, unspecified without thyrotoxic crisis or storm; Z79.899 Other long term (current) drug therapy

== ENCOUNTER → 2019-05-05 | Outpatient (CLI) | payer MEDICARE, OTHER ==
--- NOTE | 2019-05-05 11:52 | REP ---
MRI RIGHT SHOULDER: TECHNIQUE: Axial T2 fat sat, gradient echo, sagittal oblique T2 fat sat, coronal oblique T1, T2 fat sat. There is ill-defined high signal involving the supraspinatus and subscapularis tendons compatible with tendinopathy. There is also a partial tear at the anterior leading edge of the supraspinatus tendon. Mild hypertrophic degenerative changes are seen of the acromioclavicular joint with fluid in the joints. There is a small cyst above the joint measuring 5 mm in diameter. Acromion is type 2. The biceps tendon is within the bicipital groove with no tenosynovitis. There is no Hill-Sachs deformity. The deltoid muscle demonstrates no abnormal signal. The biceps labral complex demonstrates fraying. The entire labrum also appears diffusely frayed. No paralabral cyst is seen. There is no bone marrow edema or occult fracture. There is a relatively normal amount of joint fluid. There is mild chondromalacia at the glenohumeral joint. IMPRESSION: Supraspinatus and subscapularis tendinopathy. There is a partial tear of the anterior leading edge of the distal supraspinatus tendon. There are mild to moderate hypertrophic degenerative changes of the acromioclavicular joint with fluid in the joint and an adjacent 5 mm cyst above the joint. Acromion is type 2. Fraying of the biceps labral complex and also diffusely of the entire labrum. Electronically Signed by Melchor De Jesus MD 05/05/2019 12:09 P
== END ==
LOC: M RAD 09:56
PROVIDERS: ATTEND Orthopaedic Surgery
DX: M75.41 Impingement syndrome of right shoulder (principal)

== ENCOUNTER → 2019-05-11 | Outpatient (CLI) | payer MEDICARE, OTHER ==
[~2019-05-11] MED LIST changes: +ISOVUE-M 300 61% 15ML VIAL (Q9967) As Ordered ONE; +LIDOCAINE 1% SDV INJ 30 ML VIAL As Ordered ONE; +diazePAM 5 MG TAB As Ordered ONE; +methylPREDNISolone SUSP 40 MG/ML (DEPO-medrol) VIAL (J1030) As Ordered ONE
--- NOTE | 2019-05-11 16:12 | REP ---
Partial lumbar spine series: Two views . History: Injection procedure for pain. 11 seconds of fluoroscopy time is reported. Findings: A sequence of two fluoroscopically obtained last image hold procedural spot radiographs of the lumbar spine document needle position and contrast injection associated with injection procedure. Electronically Signed by Reginald Lira MD 05/11/2019 04:04 P
--- NOTE | 2019-05-18 00:46 | ECWPNPC ---
PATIENT NAME: ROBINA DYE : 1950 GENDER: FEMALE VISIT DATE: 05/11/2019 DISCHARGE DATE: 05/11/19 1215 VISIT LOCKED DATE TIME: PHYSICIAN: SNEHAL BESS MD PHYSICIAN PAGER NO: [phone] RESOURCE: SNEHAL BESS MD REASON FOR APPOINTMENT 1. LESI HISTORY OF PRESENT ILLNESS HISTORY OF PRESENT ILLNESS: PAIN THE PATIENT DESCRIBES THE PAIN... FALL RISK SCREENING: SCREENING :NO FALLS REPORTED IN THE LAST YEAR CURRENT MEDICATIONS TAKING LISINOPRIL 10 MG TABLET 1 TABLET ORALLY ONCE A DAY, NOTES: 05/11/19729 TAKING GLUCOSTIX -- 1 STRIP CONTOUR NEXT TEST STRIP -- BID TAKING VIMPAT 100 MG TABLET 1 TABLET ORALLY TWICE A DAY, MDD=TWO, NOTES: 05/11/19729 TAKING NORCO 5-325 MG TABLET 1 TABLET ORALLY Q6H SCHEDULED AND Q3HRS PRN PAIN MDD=8, NOTES: 05/11/19729 TAKING BENGAY GREASELESS 10-15 % CREAM EXTERNALLY , NOTES: NEEDED FOR BACK PAIN TAKING ABILIFY 2 MG TABLET 1 TABLET ORALLY ONCE A DAY, NOTES: 05/10/191999 TAKING VITAMIN D3 400 UNIT TABLET 2 TABLETS ORALLY ONCE A DAY, NOTES: 05/11/19729 TAKING HYDROXYZINE HCL 10 MG TABLET ORALLY NEEDED FOR ITCHIHNG TAKING TUMS 500 MG TABLET CHEWABLE 1 TABLET ORALLY ONCE A DAY TAKING ZYRTEC 10 MG TABLET 1 TABLET ORALLY ONCE A DAY, NOTES: NEEDED FOR ALLERGIC RHINITIS TAKING FUROSEMIDE 20 MG TABLET 1 TABLET ORALLY ONCE A DAY FOR EDEMA, NOTES: 05/11/19729 TAKING GABAPENTIN 100 MG TABLET ORALLY BEFORE BEDTIME, NOTES: 05/10/191999 TAKING NITROGLYCERIN 0.4 MG TABLET SUBLINGUAL SUBLINGUAL , NOTES: 05/08/19 AM TAKING OMEPRAZOLE 40 MG CAPSULE DELAYED RELEASE 1 CAPSULE ORALLY ONCE A DAY, NOTES: 05/11/19729 TAKING ALBUTEROL SULFATE (5 MG/ML) 0.5% NEBULIZATION SOLUTION 1 ML NEEDED INHALATION EVERY 6 HRS, NOTES: > 2 MONTHS TAKING GLIMEPIRIDE 2 MG TABLET 1 TABLET WITH BREAKFAST OR THE FIRST MAIN MEAL OF THE DAY ORALLY ONCE A DAY, NOTES: 05/11/19729 TAKING LEXAPRO 20 MG TABLET 1 TABLET ORALLY ONCE A DAY, NOTES: 05/11/19729 TAKING ATORVASTATIN CALCIUM 40 MG TABLET 1 TABLET ORALLY ONCE A DAY, NOTES: 05/10/191999 TAKING VITAMIN B1 100 MG TABLET 1 TABLET ORALLY ONCE A DAY, NOTES: 05/11/19729 TAKING CALAZIME SKIN PROTECTANT - PASTE EXTERNALLY TAKING GUAIFENESIN 100 MG/5ML SYRUP 10 ML NEEDED ORALLY EVERY 4 HRS, NOTES: > 2 MONTHS TAKING LOPERAMIDE HCL 2 MG CAPSULE 1 CAPSULE NEEDED ORALLY FOUR TIMES A DAY, NOTES: > 1 MONTH TAKING TYLENOL 325 MG TABLET 1 TABLET NEEDED ORALLY EVERY 4 HRS, NOTES: > 1 WEEK TAKING BUSPIRONE HCL 5 MG TABLET 1 TABLET ORALLY BID, NOTES: 05/11/19729 TAKING ARICEPT 5 MG TABLET 1 TABLET AT BEDTIME ORALLY ONCE A DAY, NOTES: 05/11/19729 NOT-TAKING LANTUS SOLO STAR PEN NEEDLES 1/2 IN OR 03/30 IN NEEDLE NEEDLE SQ IN ABD DAILY NOT-TAKING ZEBETA 10 MG TABLET 1 TABLET ORALLY 2 TIMES A DAY NOT-TAKING AMLODIPINE 2.5MG TABLET 1 TAB P.O. DAILY NOT-TAKING HYDROCHLOROTHIAZIDE 25 25 MG TABLET DIRECTED ORAL DAILY NOT-TAKING ASPIR-81 81 MG TABLET DELAYED RELEASE 1 TABLET ORALLY ONCE A DAY NOT-TAKING CRESTOR 40 MG TABLET 1 TABLET ORALLY ONCE A DAY NOT-TAKING LANTUS SOLOSTAR 100 UNIT/ML SOLUTION 40 UNITS SUBCUTANEOUS ONCE A DAYAFTER SUPPER NOT-TAKING HUMALOG KWIKPEN 100 UNIT/ML SOLUTION 20 UNITS AC MEALS SUBCUTANEOUS DAILY(IF NOT EATING DO NOT TAKE) NOT-TAKING PLAQUENIL 200 MG TABLET 2 TABLET WITH FOOD OR MILK ORALLY ONCE A DAY NOT-TAKING MELOXICAM 7.5 MG TABLET 1 TABLET ORALLY BID MEDICATION LIST REVIEWED AND RECONCILED WITH THE PATIENT PAST MEDICAL HISTORY DIABETES HYPERTENSION SLEEP APNEA ELEVATED TRIGLYCERIDES HISTORY OF SEXUAL ABUSE DEPRESSION ALLERGIES ASTHMA (MILD INTERMITTENT) ASTHMA, UNSPECIFIED, UNSPECIFIED STATUS ASTHMA, UNSPECIFIED, UNSPECIFIED STATUS ALLERGIC RHINITIS, CAUSE UNSPECIFIED DEPRESSIVE DISORDER, NOT ELSEWHERE CLASSIFIED SLEEP RELATED HYPOVENTILATION/HYPOXEMIA IN CONDITIONS CLASSIFIABLE ELSEWHERE RASH AND OTHER NONSPECIFIC SKIN ERUPTION UNSPECIFIED DIFFUSE CONNECTIVE TISSUE DISEASE ACUTE SINUSITIS, UNSPECIFIED OTHER AND UNSPECIFIED PERIPHERAL VERTIGO COUGH URGENCY INCONTINENCE STENOSIS ALLERGIES MORPHINE: VOMITING - ALLERGY METFORMIN: ITCHING - ALLERGY TRAZODONE 100: HOSPTIALIZED WITH DELERIUM SURGICAL HISTORY HYSTERECTOMY ABDOMINAL GALL BLADDER REMOVAL RIGHT KNEE REPLACEMENT 2016 LEFT KNEE REPLACEMENT 2016 RIGHT/LEFT CATARACT FAMILY HISTORY FATHER: , DIAGNOSED WITH HYPERTENSION, HEART DISEASE MOTHER: , HEART DISEASE SIBLINGS: ALIVE, LEUKEMIA (SISTER 2012, HEART DISEASE 2 BROTHER(S) , 1 SISTER(S) . 1 SON(S) , 2 DAUGHTER(S) . ++HEART ISSUES IN FAMILY. SOCIAL HISTORY GENERAL: TOBACCO USE ARE YOU A:: NEVER SMOKER. OTHERS AT HOME: SPOUSE. EDUCATION QUIT IN 10TH GRADE. DIET: LOW FAT, LOW CHOLESTEROL. LANGUAGE [place]. DOMESTIC VIOLENCE DENIES. RECREATIONAL DRUG USE DENIES. EXERCISE: WALKS. 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 IMPAIRED?NO VISION IMPAIRED?NO READINESS TO LEARN?YES PAIN CLINIC PFS, CLERGY, PUBLIC HEALTH REFERRALS WAS THE PROVIDER NOTIFIED OF ANY PERTINENT INFO?YES HAS THE PATIENT BEEN EDUCATED REGARDING HIS/HER PLAN OF CARE?YES HAS THE PATIENT BEEN EDUCATED REGARDING PAIN, THE RISK FOR PAIN, THE IMPORTANCE OF EFFECTIVE PAIN MANAGEMENT, AND THE PAIN ASSESSMENT PROCESS?YES PROCEDURE TEACHING, LUMBAR EPIDURAL LATEX QUESTIONNAIRE LATEX ALLERGY : HAVE YOU EVER DEVELOPED ANY TYPE OF REACTION AFTER HANDLING LATEX PRODUCTS SUCH RUBBER GLOVES, CONDOMS, DIAPHRAGMS, BALLOONS, SOCKS, OR UNDERWEAR?NO LATEX ALLERGY : HAVE YOU EVER DEVELOPED ANY TYPE OF REACTION DURING OR AFTER DENTAL APPOINTMENT, VAGINAL/RECTAL EXAMINATION, SURGICAL PROCEDURE, OR ANY OTHER EXPOSURE?NO LATEX RISK : HAVE YOU EVER HAD ANY DIFFICULTY BREATHING OR HIVES AFTER EATING OR HANDLING ANY FRUITS, OR VEGETABLES; SUCH KIWI, BANANAS, STONE FRUITS, OR CHESTNUTSNO LATEX RISK : DO YOU HAVE A PREVIOUS PERSONAL HISTORY OF MORE THAN NINE SURGERIES, SPINA BIFIDA, OR REPEATED CATHERTIZATIONS? NO LATEX RISK : ARE YOU FREQUENTLY EXPOSED TO LATEX PRODUCTS IN YOUR OCCUPATION?NO DATE ASKED : 01/26/2019 [place] 1-2/DAY. ADVANCE DIRECTIVE ADVANCE DIRECTIVE DISCUSSED WITH PATIENT:YES HCP IS KATERIN DYE [phone] [employer] NO RESTORATION BELIEFS THAT WOULD IMPACT HEALTH CARE. ALCOHOL SCREENING POINTS: 0, INTERPRETATION: NEGATIVE. REVIEWED WITH PT 01/13/19 1100 BV REVIEWED WITH PT 04/03/19 1246 BVREVIEWED WITH PT AND (HCP) 05/11/19 1040 LAS. HOSPITALIZATION/MAJOR DIAGNOSTIC PROCEDURE ALTERED MENTAL STATUS 05/22/13-05/24/13 REVIEW OF SYSTEMS REVIEWED BY: PROVIDER: . CONSTITUTIONAL: ANY CHANGE IN YOUR MEDICAL CONDITION? NO . CHILLS NO . FEVER NO . INFECTION: DO YOU HAVE NEW INFECTIONS? NO . DO YOU HAVE HISTORY OF MRSA? NO . MUSCULOSKELETAL: ANY NEW PATTERNS OF PAIN OR NUMBNESS? NO . GASTROENTEROLOGY: ANY NEW CHANGE IN BOWEL CONTROL? NO . GENITOURINARY: ANY NEW CHANGE IN BLADDER CONTROL? NO . IS THERE A CHANCE YOU COULD BE ? NO . HEMATOLOGY/LYMPH: DO YOU TAKE ANY BLOOD THINNERS? (FOR EXAMPLE- COUMADIN, PLAVIX, AGGRENOX, PLATEL, PRADAXA, OR XARELTO) NO . WHEN WAS YOUR LAST DOSE? DATE: TIME: . NEUROLOGY: HAVE YOU FALLEN IN THE PAST 12 MONTHS? NO . ANY NEW EXTREMITY NUMBNESS OR WEAKNESS? NO . CARDIOLOGY: DO YOU HAVE A PACEMAKER OR DEFIBRILLATOR? NO . RESPIRATORY: HAVE YOU BEEN SICK IN THE PAST WEEK? NO . FEVER NO . FLU LIKE SYMPTOMS? NO . COUGH NO . INTEGUMENTARY: DO YOU HAVE ANY RASHES OR OPEN SORES? YES PT REPORTS OPEN AREA GLUTEAL FOLD AND UNDER BREASTS . ALLERGIC/IMMUNO: ARE YOU ALLERGIC TO IV DYE? NO . ANY NEW ALLERGIES? NO . PSYCHIATRIC: DO YOU HAVE THOUGHTS OF HURTING YOURSELF OR SOMEONE ELSE? NO . ARE YOU ABUSED, NEGLECTED, OR IN AN UNSAFE ENVIRONMENT? NO . ENDOCRINOLOGY: ARE YOU DIABETIC? NO . OTHER: DO YOU NEED ANY PRESCRIPTIONS? NO . IF YES, PLEASE LIST: ____ . ANY NEW PROBLEMS WITH YOUR MEDICATIONS? NO . WHEN DID YOU LAST EAT? ____05/10/19 1800 . WHEN DID YOU LAST DRINK? ____05/11/19 0730 . WHAT DID YOU LAST DRINK? ____WATER . NAME OF PERSON DRIVING YOU HOME? ____HUSBAND SAURABH . DO YOU HAVE ANY OTHER QUESTIONS OR CONCERNS NO . VITAL SIGNS WT 370 LBS, HT 66 IN, BMI 59.71 INDEX, BP 118/58 MM HG, HR 68 /MIN, RR 18 /MIN, TEMP 97.6 F, OXYGEN SAT % 93%, BLOOD GLUCOSE LEVEL 183 LAS, SAFE IN ENV? (Y/N) YES, NA INITIALS AW 0936, REVIEWED BY: BRY. ASSESSMENTS INTERVERTEBRAL DISC DISORDER WITH RADICULOPATHY OF LUMBAR REGION - M51.16 (PRIMARY) SPINAL STENOSIS OF LUMBAR REGION, UNSPECIFIED WHETHER NEUROGENIC CLAUDICATION PRESENT - M48.061 PROCEDURES PRE PROCEDURE DIAGNOSIS LUMBAR DISC DISORDER WITH RADICULOPATHY, LUMBAR SPINAL STENOSIS POST PROCEDURE DIAGNOSIS LUMBAR DISC DISORDER WITH RADICULOPATHY , LUMBAR SPINAL STENOSIS PROCEDURE LUMBAR EPIDURAL STEROID INJECTION UNDER FLUOROSCOPIC GUIDANCE SURGEON DR. SNEHAL BESS ENVIRONMENTAL HEALTH SPECIALIST NONE ANESTHESIA LOCAL PRE PROCEDURE NOTE THE PATIENT HAS A HISTORY OF CHRONIC LOW BACK PAIN. I EVALUATE THE PATIENT AND REVIEWED THE CHART. I WENT OVER THE RISKS, ALTERNATIVES, AND BENEFITS ASSOCIATED WITH THIS PROCEDURE. THE PATIENT WOULD LIKE TO PROCEED AND GIVE CONSENT TO PERFORMED THE PROCEDURE. THE PATIENT DENIES UNEXPLAINABLE WEIGHT LOSS, FEVER, CHILLS, OR NEW CHANGES IN URINARY OR BOWEL CONTROL. DESCRIPTION OF PROCEDURE THE PATIENT WAS BROUGHT TO THE PROCEDURE ROOM AND PLACED IN THE PRONE POSITION. THE LUMBOSACRAL AREA WAS CLEANED WITH BETADINE SOLUTION AND DRAPED ASEPTICALLY. THE PROCEDURE WAS DONE UNDER STERILE CONDITIONS. I CHECKED LATERALITY AND THE LEVEL WHERE THE PROCEDURE WAS GOING TO BE PERFORMED WITH THE PATIENT AND THE SUPPORTING STAFF AT THE MOMENT OF THE TIME OUT IN THE PROCEDURE ROOM. UNDER FLUOROSCOPIC GUIDANCE, THE TARGET POINT WAS SELECTED AT THE INTERLAMINAR LEVEL OF L4-L5. LIDOCAINE WAS USED TO NUMB THE SKIN AND THE SUBCUTANEOUS TISSUE BELOW IT. EPIDURAL TUOHY NEEDLE, 17-GAUGE, WAS ADVANCED UNDER FLUOROSCOPIC GUIDANCE AND FOLLOWING PATIENT FEEDBACK UNTIL THE EPIDURAL SPACE WAS REACHED, 7 CM DEEP INTO THE SKIN BY THE LOSS OF RESISTANCE TECHNIQUE. ISOVUE M DYE 30%, 0.25 ML, WAS INJECTED SHOWING ADEQUATE SPREAD OF THE DYE. THEN, A SOLUTION OF 3 ML OF NORMAL SALINE WITH DEPO-MEDROL 60 MG WAS INJECTED SLOWLY FOLLOWING PATIENT FEEDBACK. THERE WAS NO EVIDENCE OF BLOOD, PARESTHESIA OR CEREBROSPINAL FLUID DURING THE PROCEDURE. THE PATIENT WAS SENT TO THE RECOVERY ROOM. THE PATIENT WAS MOVING THE EXTREMITIES AND DOING WELL. THERE WAS NO COMPLICATION DURING THE PROCEDURE. FLUOROSCOPY TIME WAS 11 SECONDS. POST PROCEDURE NOTE THE PATIENT WILL BE SEEN IN A FOLLOW UP IN THE NEXT FEW WEEKS. INSTRUCTIONS WERE GIVEN, QUESTIONS WERE ANSWERED, AND THE PATIENT EXPRESSED UNDERSTANDING AND AGREES WITH THE PLAN. I, GUANAKITO MILLARD, DOCUMENTED THE ABOVE INFORMATION ACTING A SCRIBE FOR DR. BESS. I HAVE REVIEWED THE ABOVE DOCUMENT, WRITTEN BY GUANAKITO RAMÍREZ AND I VERIFY THAT IT IS ACCURATE. DIAGNOSTIC IMAGING [facility] GUIDE SPINE INJECTION (PAIN)[id number] PROCEDURE CODES 6045F RADXPS IN END [id number] PXD [id number] LUMBAR/SACRAL W/ IMAGING DISPOSITION & COMMUNICATION FOLLOW UP 2 WEEKS ELECTRONICALLY SIGNED BY SNEHAL BESS MD, MD ON 05/17/2019 AT 01:20 PM EDT DISCLAIMER : THIS IS A VISIT SUMMARY EXTRACTED FROM THE [employer] CHART. IT IS NOT A COPY OF THE [employer] PROGRESS NOTE. MTDD
== END ==
LOC: M PAIN 09:45
PROVIDERS: ATTEND Anesthesiology
DX: M51.16 Intervertebral disc disorders with radiculopathy, lumbar region (principal); M48.061 Spinal stenosis, lumbar region without neurogenic claudication; E11.9 Type 2 diabetes mellitus without complications; I10 Essential (primary) hypertension; G47.30 Sleep apnea, unspecified; E78.1 Pure hyperglyceridemia; F32.9 Major depressive disorder, single episode, unspecified; J45.20 Mild intermittent asthma, uncomplicated; R05 Cough; R42 Dizziness and giddiness; G47.36 Sleep related hypoventilation in conditions classified elsewhere; M35.9 Systemic involvement of connective tissue, unspecified; Z96.653 Presence of artificial knee joint, bilateral; N39.41 Urge incontinence; Z79.891 Long term (current) use of opiate analgesic
CPT/HCPCS: 62323; J1030; Q9967

== ENCOUNTER → 2019-06-01 | Outpatient (CLI) | payer MEDICARE, OTHER ==
[~2019-06-01] MED LIST changes: -ISOVUE-M 300 61% 15ML VIAL (Q9967) As Ordered ONE; -LIDOCAINE 1% SDV INJ 30 ML VIAL As Ordered ONE; -diazePAM 5 MG TAB As Ordered ONE; -methylPREDNISolone SUSP 40 MG/ML (DEPO-medrol) VIAL (J1030) As Ordered ONE
--- NOTE | 2019-06-03 00:47 | ECWPNPC ---
PATIENT NAME: ROBINA DYE : 1950 GENDER: FEMALE VISIT DATE: 06/01/2019 DISCHARGE DATE: 06/01/19 1341 VISIT LOCKED DATE TIME: PHYSICIAN: BRITTNEY STUART PHYSICIAN PAGER NO: [phone] RESOURCE: BRITTNEY STUART REASON FOR APPOINTMENT 1. POST PROCEDURE HISTORY OF PRESENT ILLNESS HISTORY OF PRESENT ILLNESS: PAIN THE PATIENT DESCRIBES THE PAIN... 68 YEAR OLD FEMALE IN FOR POST PROCEDURAL FOLLOW UP. SHE HAD AN EPIDURAL DONE RECENTLY AND ADMITS TO TWO WEEKS RELIEF OF SYMPTOMS. SHE CURRENTLY RATES HER PAIN AT A 5/10. SHE REPORTS TAKING HER PRN PAIN MEDICATION 3 X DAILY. FALL RISK SCREENING: SCREENING :NO FALLS REPORTED IN THE LAST YEAR CURRENT MEDICATIONS TAKING LISINOPRIL 10 MG TABLET 1 TABLET ORALLY ONCE A DAY TAKING GLUCOSTIX -- 1 STRIP CONTOUR NEXT TEST STRIP -- BID TAKING VIMPAT 100 MG TABLET 1 TABLET ORALLY TWICE A DAY, MDD=TWO TAKING NORCO 5-325 MG TABLET 1 TABLET ORALLY Q6H SCHEDULED AND Q3HRS PRN PAIN MDD=8 TAKING BENGAY GREASELESS 10-15 % CREAM EXTERNALLY , NOTES: NEEDED FOR BACK PAIN TAKING ABILIFY 2 MG TABLET 1 TABLET ORALLY ONCE A DAY TAKING VITAMIN D3 400 UNIT TABLET 2 TABLETS ORALLY ONCE A DAY TAKING HYDROXYZINE HCL 10 MG TABLET ORALLY NEEDED FOR ITCHIHNG TAKING TUMS 500 MG TABLET CHEWABLE 1 TABLET ORALLY ONCE A DAY TAKING ZYRTEC 10 MG TABLET 1 TABLET ORALLY ONCE A DAY, NOTES: NEEDED FOR ALLERGIC RHINITIS TAKING FUROSEMIDE 20 MG TABLET 1 TABLET ORALLY ONCE A DAY FOR EDEMA TAKING GABAPENTIN 100 MG TABLET ORALLY BEFORE BEDTIME, NOTES: 05/10/191999 TAKING NITROGLYCERIN 0.4 MG TABLET SUBLINGUAL SUBLINGUAL TAKING OMEPRAZOLE 40 MG CAPSULE DELAYED RELEASE 1 CAPSULE ORALLY ONCE A DAY TAKING GLIMEPIRIDE 2 MG TABLET 1 TABLET WITH BREAKFAST OR THE FIRST MAIN MEAL OF THE DAY ORALLY ONCE A DAY TAKING LEXAPRO 20 MG TABLET 1 TABLET ORALLY ONCE A DAY TAKING ATORVASTATIN CALCIUM 40 MG TABLET 1 TABLET ORALLY ONCE A DAY TAKING VITAMIN B1 100 MG TABLET 1 TABLET ORALLY ONCE A DAY TAKING CALAZIME SKIN PROTECTANT - PASTE EXTERNALLY TAKING GUAIFENESIN 100 MG/5ML SYRUP 10 ML NEEDED ORALLY EVERY 4 HRS, NOTES: > 2 MONTHS TAKING LOPERAMIDE HCL 2 MG CAPSULE 1 CAPSULE NEEDED ORALLY FOUR TIMES A DAY, NOTES: > 1 MONTH TAKING TYLENOL 325 MG TABLET 1 TABLET NEEDED ORALLY EVERY 4 HRS, NOTES: > 1 WEEK TAKING BUSPIRONE HCL 5 MG TABLET 1 TABLET ORALLY BID, NOTES: 05/11/19729 TAKING ARICEPT 5 MG TABLET 1 TABLET AT BEDTIME ORALLY ONCE A DAY, NOTES: 05/11/19729 UNKNOWN ALBUTEROL SULFATE (5 MG/ML) 0.5% NEBULIZATION SOLUTION 1 ML NEEDED INHALATION EVERY 6 HRS, NOTES: > 2 MONTHS UNKNOWN LANTUS SOLO STAR PEN NEEDLES /2 IN OR 03/30 IN NEEDLE NEEDLE SQ IN ABD DAILY UNKNOWN ZEBETA 10 MG TABLET 1 TABLET ORALLY 2 TIMES A DAY UNKNOWN AMLODIPINE 2.5MG TABLET 1 TAB P.O. DAILY UNKNOWN HYDROCHLOROTHIAZIDE 25 25 MG TABLET DIRECTED ORAL DAILY UNKNOWN ASPIR-81 81 MG TABLET DELAYED RELEASE 1 TABLET ORALLY ONCE A DAY UNKNOWN CRESTOR 40 MG TABLET 1 TABLET ORALLY ONCE A DAY UNKNOWN LANTUS SOLOSTAR 100 UNIT/ML SOLUTION 40 UNITS SUBCUTANEOUS ONCE A DAYAFTER SUPPER UNKNOWN HUMALOG KWIKPEN 100 UNIT/ML SOLUTION 20 UNITS AC MEALS SUBCUTANEOUS DAILY(IF NOT EATING DO NOT TAKE) UNKNOWN PLAQUENIL 200 MG TABLET 2 TABLET WITH FOOD OR MILK ORALLY ONCE A DAY UNKNOWN MELOXICAM 7.5 MG TABLET 1 TABLET ORALLY BID MEDICATION LIST REVIEWED AND RECONCILED WITH THE PATIENT PAST MEDICAL HISTORY DIABETES HYPERTENSION SLEEP APNEA ELEVATED TRIGLYCERIDES HISTORY OF SEXUAL ABUSE DEPRESSION ALLERGIES ASTHMA (MILD INTERMITTENT) ASTHMA, UNSPECIFIED, UNSPECIFIED STATUS ASTHMA, UNSPECIFIED, UNSPECIFIED STATUS ALLERGIC RHINITIS, CAUSE UNSPECIFIED DEPRESSIVE DISORDER, NOT ELSEWHERE CLASSIFIED SLEEP RELATED HYPOVENTILATION/HYPOXEMIA IN CONDITIONS CLASSIFIABLE ELSEWHERE RASH AND OTHER NONSPECIFIC SKIN ERUPTION UNSPECIFIED DIFFUSE CONNECTIVE TISSUE DISEASE ACUTE SINUSITIS, UNSPECIFIED OTHER AND UNSPECIFIED PERIPHERAL VERTIGO COUGH URGENCY INCONTINENCE STENOSIS ALLERGIES MORPHINE: VOMITING - ALLERGY METFORMIN: ITCHING - ALLERGY TRAZODONE 100: HOSPTIALIZED WITH DELERIUM SURGICAL HISTORY HYSTERECTOMY ABDOMINAL GALL BLADDER REMOVAL RIGHT KNEE REPLACEMENT 2016 LEFT KNEE REPLACEMENT 2016 RIGHT/LEFT CATARACT FAMILY HISTORY FATHER: , DIAGNOSED WITH HYPERTENSION, HEART DISEASE MOTHER: , HEART DISEASE SIBLINGS: ALIVE, LEUKEMIA (SISTER 2011, HEART DISEASE 2 BROTHER(S) , 1 SISTER(S) . 1 SON(S) , 2 DAUGHTER(S) . ++HEART ISSUES IN FAMILY. SOCIAL HISTORY GENERAL: TOBACCO USE ARE YOU A:: NEVER SMOKER. OTHERS AT HOME: SPOUSE. EDUCATION QUIT IN 10TH GRADE. DIET: LOW FAT, LOW CHOLESTEROL. LANGUAGE EGYPTIAN. DOMESTIC VIOLENCE DENIES. RECREATIONAL DRUG USE DENIES. EXERCISE: WALKS. 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 IMPAIRED?NO VISION IMPAIRED?NO READINESS TO LEARN?YES PAIN CLINIC PFS, CLERGY, PUBLIC HEALTH REFERRALS WAS THE PROVIDER NOTIFIED OF ANY PERTINENT INFO?YES HAS THE PATIENT BEEN EDUCATED REGARDING HIS/HER PLAN OF CARE?YES HAS THE PATIENT BEEN EDUCATED REGARDING PAIN, THE RISK FOR PAIN, THE IMPORTANCE OF EFFECTIVE PAIN MANAGEMENT, AND THE PAIN ASSESSMENT PROCESS?YES PROCEDURE TEACHING, LUMBAR EPIDURAL LATEX QUESTIONNAIRE LATEX ALLERGY : HAVE YOU EVER DEVELOPED ANY TYPE OF REACTION AFTER HANDLING LATEX PRODUCTS SUCH RUBBER GLOVES, CONDOMS, DIAPHRAGMS, BALLOONS, SOCKS, OR UNDERWEAR?NO LATEX ALLERGY : HAVE YOU EVER DEVELOPED ANY TYPE OF REACTION DURING OR AFTER DENTAL APPOINTMENT, VAGINAL/RECTAL EXAMINATION, SURGICAL PROCEDURE, OR ANY OTHER EXPOSURE?NO LATEX RISK : HAVE YOU EVER HAD ANY DIFFICULTY BREATHING OR HIVES AFTER EATING OR HANDLING ANY FRUITS, OR VEGETABLES; SUCH KIWI, BANANAS, STONE FRUITS, OR CHESTNUTSNO LATEX RISK : DO YOU HAVE A PREVIOUS PERSONAL HISTORY OF MORE THAN NINE SURGERIES, SPINA BIFIDA, OR REPEATED CATHERIZATIONS? NO LATEX RISK : ARE YOU FREQUENTLY EXPOSED TO LATEX PRODUCTS IN YOUR OCCUPATION?NO DATE ASKED : 01/26/2019 CAFFEINE 1-2/DAY. ADVANCE DIRECTIVE ADVANCE DIRECTIVE DISCUSSED WITH PATIENT:YES HCP IS KATERIN DYE [phone] AM[place] NO YAZDANISM BELIEFS THAT WOULD IMPACT HEALTH CARE. ALCOHOL SCREENING POINTS: 0, INTERPRETATION: NEGATIVE. REVIEWED WITH PT 01/13/19 1100 BV REVIEWED WITH PT 04/03/19 1246 BVREVIEWED WITH PT AND (HCP) 05/11/19 1040 LAS. HOSPITALIZATION/MAJOR DIAGNOSTIC PROCEDURE ALTERED MENTAL STATUS 05/22/13-05/24/13 REVIEW OF SYSTEMS REVIEWED BY: PROVIDER: SIDDHARTH KENDALL . CONSTITUTIONAL: ANY CHANGE IN YOUR MEDICAL CONDITION? NO . CHILLS NO . FEVER NO . INFECTION: DO YOU HAVE NEW INFECTIONS? NO . DO YOU HAVE HISTORY OF MRSA? NO . MUSCULOSKELETAL: ANY NEW PATTERNS OF PAIN OR NUMBNESS? NO . GASTROENTEROLOGY: ANY NEW CHANGE IN BOWEL CONTROL? NO . GENITOURINARY: ANY NEW CHANGE IN BLADDER CONTROL? NO . IS THERE A CHANCE YOU COULD BE ? NO . HEMATOLOGY/LYMPH: DO YOU TAKE ANY BLOOD THINNERS? (FOR EXAMPLE- COUMADIN, PLAVIX, AGGRENOX, PLATEL, PRADAXA, OR XARELTO) NO . WHEN WAS YOUR LAST DOSE? DATE: TIME: . NEUROLOGY: HAVE YOU FALLEN IN THE PAST 12 MONTHS? NO . ANY NEW EXTREMITY NUMBNESS OR WEAKNESS? NO . CARDIOLOGY: DO YOU HAVE A PACEMAKER OR DEFIBRILLATOR? NO . RESPIRATORY: HAVE YOU BEEN SICK IN THE PAST WEEK? NO . FEVER NO . FLU LIKE SYMPTOMS? NO . COUGH NO . INTEGUMENTARY: DO YOU HAVE ANY RASHES OR OPEN SORES? SOME RASH UNDER BREASTS "BEEN BATTLING THAT FOR A WHILE " STATES . ALLERGIC/IMMUNO: ARE YOU ALLERGIC TO IV DYE? NO . ANY NEW ALLERGIES? NO . PSYCHIATRIC: DO YOU HAVE THOUGHTS OF HURTING YOURSELF OR SOMEONE ELSE? NO . ARE YOU ABUSED, NEGLECTED, OR IN AN UNSAFE ENVIRONMENT? NO . ENDOCRINOLOGY: ARE YOU DIABETIC? NO . OTHER: DO YOU NEED ANY PRESCRIPTIONS? NO . IF YES, PLEASE LIST: ____ . ANY NEW PROBLEMS WITH YOUR MEDICATIONS? NO . WHEN DID YOU LAST EAT? ____ . WHEN DID YOU LAST DRINK? ____ . WHAT DID YOU LAST DRINK? ____ . NAME OF PERSON DRIVING YOU HOME? ____ . DO YOU HAVE ANY OTHER QUESTIONS OR CONCERNS NO . VITAL SIGNS WT 354 LBS, HT 66 IN, BMI 57.13 INDEX, BP 106/55 MM HG, HR 76 /MIN, RR 18 /MIN, TEMP 96.6 F, OXYGEN SAT % 93%, SAFE IN ENV? (Y/N) YES, REVIEWED BY: ESTEBAN. EXAMINATION GENERAL EXAMINATION: GENERALNO ACUTE DISTRESS, WELL NOURISHED AND HYDRATED. PSYCHAPPROPRIATE MOOD AND AFFECT . LUNGS:CLEAR TO AUSCULTATION BILATERALLY, NO WHEEZES, RHONCHI, RALES. HEART:NO MURMURS, REGULAR RATE AND RHYTHM. BACK:DENIES POINT TENDERNESS. MODIFIED SLR POSITIVE BILATERALLY.. ASSESSMENTS LUMBOSACRAL SPINAL STENOSIS - M48.07 (PRIMARY) TREATMENT LUMBOSACRAL SPINAL STENOSIS NOTES: EPIDURAL WITH CATHETER L4-L5, L5-S1. CLINICAL NOTES: 68 YEAR OLD FEMALE IN FOR POST PROCEDURAL FOLLOW UP. SHE RECENTLY HAD AN EPIDURAL PERFORMED AND ADMITS TO [facility] OF SYMPTOMS X [address] DISCUSS[address] CASE WITH [address]. BESS AND IT WAS DECIDED WE SHOULD TRY AN EPIDURAL WITH A CATHETER. POTENTIAL COMPLICATIONS FO CATHETER EPIDURAL DISCUSSED WITH PATIENT TO INCLUDE PARALYSIS. PATIENT AND HER EXPRESSED UNDERSTANDING OF AND WERE IN AGREEMENT WITH TX PLAN. GIVEN TIME TO ASK QUESTIONS AND EXPRESS CONCERNS. , ISTOP REGISTRY REVIEWED AND DEMONSTRATES COMPLLIANCE. (REF # [id number] ) BRINGS IN MEDICATIONS WHICH IS APPROPRIATE FOR WHAT WAS DISPENSED. RECENT URINE TOXICOLOGY REVIEWED. NO UNAUTHORIZED MEDICATIONS. NO ILLICIT SUBSTANCES AND PRESCRIBED MEDICATIONS WERE PRESENT. PROCEDURE CODES FA211 ESTABILISHED PATIENT [facility] CHARGE DISPOSITION & COMMUNICATION FOLLOW UP POST PROCEDURE (REASON: EPIDURAL WITH CATHETER L4-L5, L5-S1) ELECTRONICALLY SIGNED BY NELIDA GUTIERREZ ON 06/02/2019 AT 11:06 AM EDT DISCLAIMER : THIS IS A VISIT SUMMARY EXTRACTED FROM THE [employer] CHART. IT IS NOT A COPY OF THE [employer] PROGRESS NOTE. NILTON
== END ==
LOC: M PAIN 13:00
PROVIDERS: ATTEND Family Medicine
DX: M48.07 Spinal stenosis, lumbosacral region (principal); E11.9 Type 2 diabetes mellitus without complications; I10 Essential (primary) hypertension; G47.30 Sleep apnea, unspecified; E78.1 Pure hyperglyceridemia; F32.9 Major depressive disorder, single episode, unspecified; J45.20 Mild intermittent asthma, uncomplicated; R21 Rash and other nonspecific skin eruption; N39.41 Urge incontinence; H81.399 Other peripheral vertigo, unspecified ear; Z96.653 Presence of artificial knee joint, bilateral; Z90.710 Acquired absence of both cervix and uterus; Z98.41 Cataract extraction status, right eye; Z98.42 Cataract extraction status, left eye; Z90.49 Acquired absence of other specified parts of digestive tract; Z79.891 Long term (current) use of opiate analgesic; Z79.899 Other long term (current) drug therapy; Z88.5 Allergy status to narcotic agent; Z88.8 Allergy status to other drugs, medicaments and biological substances

== ENCOUNTER → 2019-07-05 | Outpatient (REF) | payer MEDICARE, OTHER ==
[~2019-07-05] MED LIST changes: -ARTI99.0 OU; +ARTIDRO2 OU
== END ==
LOC: SKLAB2 14:07
PROVIDERS: ATTEND Family Medicine
DX: R41.82 Altered mental status, unspecified (principal)

== ENCOUNTER → 2019-07-11 | Outpatient (REF) | payer MEDICARE, OTHER ==
[~2019-07-11] MED LIST changes: -GLIM2TAB PO; +GLIM2TAB4 PO; +ONDA-83 PO; -ONDA4TAB5 PO
[2019-07-11 14:39] LABS: HEMATOCRIT 33.9 % (36.0-47.0); HEMOGLOBIN 10.9 g/dl (12.0-15.5); MEAN CORPUSCULAR HEMOGLOBIN 29.9 pg (27.0-33.0); MEAN CORPUSCULAR HGB CONC 32.2 g/dl (32.0-36.5); MEAN CORPUSCULAR VOLUME 92.9 fl (80.0-96.0); PLATELET COUNT, AUTOMATED 323 10^3/uL (150-450); RED BLOOD COUNT 3.65 10^6/uL (4.00-5.40); WHITE BLOOD COUNT 9.5 10^3/uL (4.0-10.0)
[2019-07-11 15:06] LABS: CALCIUM LEVEL 8.7 MG/DL (8.8-10.2); CREATININE FOR GFR 2.18 MG/DL (0.55-1.30); GLOMERULAR FILTRATION RATE 23.7 (>39); POTASSIUM SERUM 4.7 MEQ/L (3.5-5.1)
[2019-07-11 20:38] LABS: APPEARANCE, URINE CLOUDY (CLEAR); BACTERIA, URINE AUTO 3+ (NEGATIVE); BILIRUBIN, URINE AUTO NEGATIVE (NEGATIVE); BLOOD, URINE BLOOD 1+ (NEGATIVE); COLOR, URINE YELLOW (YELLOW); GLUCOSE, URINE (UA) AUTO NEGATIVE (NEGATIVE); KETONE, URINE AUTO NEGATIVE (NEGATIVE); LEUKOCYTE ESTERASE, URINE AUTO 3+ (NEGATIVE); MUCUS, URINE SMALL (NEGATIVE); NITRITE, URINE AUTO NEGATIVE (NEGATIVE); PROTEIN, URINE AUTO NEGATIVE (NEGATIVE); RBC, URINE AUTO 5 /HPF (0-3); SPECIFIC GRAVITY URINE AUTO 1.013 (1.002-1.035); SQUAMOUS EPITHELIAL CELL UR AU 2 /HPF (0-6); UROBILINOGEN, URINE AUTO 0.2 mg/dL (0.0-2.0); WBC, URINE AUTO TNTC /HPF (0-3)
== END ==
LOC: SKLAB2 13:32
PROVIDERS: ATTEND Family Medicine
DX: R41.82 Altered mental status, unspecified (principal)

== ENCOUNTER → 2019-07-12 | Outpatient (REF) | payer MEDICARE, OTHER ==
[2019-07-12 08:11] LABS: CALCIUM LEVEL 8.9 MG/DL (8.8-10.2); CREATININE FOR GFR 1.81 MG/DL (0.55-1.30); GLOMERULAR FILTRATION RATE 29.4 (>39); POTASSIUM SERUM 4.8 MEQ/L (3.5-5.1)
== END ==
LOC: SKLAB2 07:05
PROVIDERS: ATTEND Family Medicine
DX: R53.83 Other fatigue (principal)

== ENCOUNTER → 2019-07-13 | Outpatient (REF) | payer MEDICARE, OTHER ==
[~2019-07-13] MED LIST changes: +GLIM2TAB PO; -GLIM2TAB4 PO; -ONDA-83 PO; +ONDA4TAB5 PO
[2019-07-13 11:31] LABS: CREATININE FOR GFR 1.76 MG/DL (0.55-1.30); GLOMERULAR FILTRATION RATE 30.4 (>39); POTASSIUM SERUM 4.7 MEQ/L (3.5-5.1)
== END ==
LOC: SKLAB2 10:32
PROVIDERS: ATTEND Family Medicine
DX: N39.0 Urinary tract infection, site not specified (principal)

== ENCOUNTER → 2019-07-24 | Outpatient (REF) | payer MEDICARE, OTHER ==
[~2019-07-24] MED LIST changes: -GLIM2TAB PO; +GLIM2TAB4 PO; +ONDA-83 PO; -ONDA4TAB5 PO
[2019-07-24 07:55] LABS: HEMATOCRIT 38.8 % (36.0-47.0); HEMOGLOBIN 12.6 g/dl (12.0-15.5); MEAN CORPUSCULAR HEMOGLOBIN 31.1 pg (27.0-33.0); MEAN CORPUSCULAR HGB CONC 32.5 g/dl (32.0-36.5); MEAN CORPUSCULAR VOLUME 95.8 fl (80.0-96.0); PLATELET COUNT, AUTOMATED 342 10^3/uL (150-450); RED BLOOD COUNT 4.05 10^6/uL (4.00-5.40); WHITE BLOOD COUNT 8.8 10^3/uL (4.0-10.0)
[2019-07-24 08:23] LABS: ALBUMIN 3.2 GM/DL (3.2-5.2); BILIRUBIN,TOTAL 0.3 MG/DL (0.2-1.0); CALCIUM LEVEL 9.6 MG/DL (8.8-10.2); CREATININE FOR GFR 1.47 MG/DL (0.55-1.30); GLOMERULAR FILTRATION RATE 37.4 (>39); POTASSIUM SERUM 4.7 MEQ/L (3.5-5.1); TOTAL PROTEIN 7.5 GM/DL (6.4-8.2)
[2019-07-24 10:12] LABS: HEMOGLOBIN A1c 8.5 %
[2019-07-24 14:26] LABS: TOTAL 25(OH) VITAMIN D 28.1 NG/ML (30.0-100.0)
== END ==
LOC: SKLAB2 07:00
PROVIDERS: ATTEND Family Medicine
DX: I10 Essential (primary) hypertension (principal); E11.9 Type 2 diabetes mellitus without complications; D55.9 Anemia due to enzyme disorder, unspecified; Z79.899 Other long term (current) drug therapy

== ENCOUNTER → 2019-08-15 | Outpatient (CLI) | payer MEDICARE, OTHER ==
[~2019-08-15] MED LIST changes: +GLIM2TAB PO; -GLIM2TAB4 PO; +ISOVUE-M 300 61% 15ML VIAL (Q9967) As Ordered ONE; +LIDOCAINE 1% SDV INJ 30 ML VIAL As Ordered ONE; -ONDA-83 PO; +ONDA4TAB5 PO; +diazePAM 5 MG TAB As Ordered ONE; +methylPREDNISolone SUSP 40 MG/ML (DEPO-medrol) VIAL (J1030) As Ordered ONE
--- NOTE | 2019-08-16 10:35 | REP ---
Partial lumbar spine series: Three views . History: Injection procedure for pain. 31 seconds of fluoroscopy time is reported. Findings: A sequence of three fluoroscopically obtained last image hold procedural spot radiographs of the lumbar spine document needle position and contrast injection associated with injection procedure. Electronically Signed by Reginald Lira MD 08/16/2019 07:49 A
== END ==
LOC: M PAIN 14:30
PROVIDERS: ATTEND Anesthesiology
DX: M51.16 Intervertebral disc disorders with radiculopathy, lumbar region (principal); M48.061 Spinal stenosis, lumbar region without neurogenic claudication; E11.9 Type 2 diabetes mellitus without complications; I10 Essential (primary) hypertension; E78.1 Pure hyperglyceridemia; F32.9 Major depressive disorder, single episode, unspecified; J45.20 Mild intermittent asthma, uncomplicated; M35.9 Systemic involvement of connective tissue, unspecified; G47.34 Idiopathic sleep related nonobstructive alveolar hypoventilation; H81.399 Other peripheral vertigo, unspecified ear; N39.41 Urge incontinence; Z96.653 Presence of artificial knee joint, bilateral; Z98.41 Cataract extraction status, right eye; Z98.42 Cataract extraction status, left eye; Z90.49 Acquired absence of other specified parts of digestive tract; Z79.891 Long term (current) use of opiate analgesic; Z79.899 Other long term (current) drug therapy; Z88.5 Allergy status to narcotic agent; Z88.8 Allergy status to other drugs, medicaments and biological substances
CPT/HCPCS: 62323; J1030; Q9967

== ENCOUNTER → 2019-08-29 | Outpatient (CLI) | payer MEDICARE, OTHER ==
[~2019-08-29] MED LIST changes: -ISOVUE-M 300 61% 15ML VIAL (Q9967) As Ordered ONE; -LIDOCAINE 1% SDV INJ 30 ML VIAL As Ordered ONE; -diazePAM 5 MG TAB As Ordered ONE; -methylPREDNISolone SUSP 40 MG/ML (DEPO-medrol) VIAL (J1030) As Ordered ONE
== END ==
LOC: M PAIN 10:15
PROVIDERS: ATTEND Family Medicine
DX: M51.17 Intervertebral disc disorders with radiculopathy, lumbosacral region (principal); E11.9 Type 2 diabetes mellitus without complications; I10 Essential (primary) hypertension; G47.30 Sleep apnea, unspecified; Z86.59 Personal history of other mental and behavioral disorders; J45.20 Mild intermittent asthma, uncomplicated; Z96.653 Presence of artificial knee joint, bilateral; Z88.5 Allergy status to narcotic agent; Z88.8 Allergy status to other drugs, medicaments and biological substances; E66.01 Morbid (severe) obesity due to excess calories; Z68.43 Body mass index [BMI] 50.0-59.9, adult; Z79.84 Long term (current) use of oral hypoglycemic drugs; Z79.891 Long term (current) use of opiate analgesic; Z79.899 Other long term (current) drug therapy

== ENCOUNTER → 2019-09-15 | Outpatient (REF) | payer MEDICARE, OTHER ==
[~2019-09-15] MED LIST changes: -GLIM2TAB PO; +GLIM2TAB2 PO
--- NOTE | 2019-09-18 21:27 | ECGEPIP ---
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
== END ==
LOC: SKLAB2 13:49
PROVIDERS: ATTEND Family Medicine
DX: R07.89 Other chest pain (principal)

== ENCOUNTER → 2019-10-23 | Outpatient (REF) | payer MEDICARE, OTHER ==
[2019-10-23 08:02] LABS: HEMATOCRIT 35.7 % (36.0-47.0); HEMOGLOBIN 11.4 g/dl (12.0-15.5); MEAN CORPUSCULAR HEMOGLOBIN 30.2 pg (27.0-33.0); MEAN CORPUSCULAR HGB CONC 31.9 g/dl (32.0-36.5); MEAN CORPUSCULAR VOLUME 94.7 fl (80.0-96.0); PLATELET COUNT, AUTOMATED 354 10^3/uL (150-450); RED BLOOD COUNT 3.77 10^6/uL (4.00-5.40)
[2019-10-23 10:03] LABS: ALBUMIN 3.1 GM/DL (3.2-5.2); BILIRUBIN,TOTAL 0.3 MG/DL (0.2-1.0); CALCIUM LEVEL 9.1 MG/DL (8.8-10.2); CHOLESTEROL RISK RATIO 3.39 (<5); CREATININE FOR GFR 1.52 MG/DL (0.55-1.30); POTASSIUM SERUM 4.8 MEQ/L (3.5-5.1); THYROID STIMULATING HORMONE 2.51 uIU/ML (0.358-3.740); TOTAL PROTEIN 7.3 GM/DL (6.4-8.2)
[2019-10-23 13:16] LABS: TOTAL 25(OH) VITAMIN D 35.2 NG/ML (30.0-100.0)
== END ==
LOC: SKLAB2 07:00
PROVIDERS: ATTEND Family Medicine
DX: E04.9 Nontoxic goiter, unspecified (principal); E55.9 Vitamin D deficiency, unspecified; Z79.899 Other long term (current) drug therapy

== ENCOUNTER → 2019-10-30 | Outpatient (CLI) | payer MEDICARE, OTHER ==
--- NOTE | 2019-11-02 04:42 | ECWPNPC ---
PATIENT NAME: ROBINA DYE : 1950 GENDER: FEMALE VISIT DATE: 10/30/2019 DISCHARGE DATE: 10/30/19 1126 VISIT LOCKED DATE TIME: PHYSICIAN: BRITTNEY STUART PHYSICIAN PAGER NO: [phone] RESOURCE: BRITTNEY STUART REASON FOR APPOINTMENT 1. LOWER BACK/LEGS HISTORY OF PRESENT ILLNESS HISTORY OF PRESENT ILLNESS: PAIN THE PATIENT DESCRIBES THE PAIN... 69-YEAR-OLD FEMALE IN FOR CHRONIC PAIN FOLLOW-UP. SHE RATES HER PAIN CURRENTLY AT A 9 OUT OF 10 AND DESCRIBES IT ACHING. FALL RISK SCREENING: SCREENING :NO FALLS REPORTED IN THE LAST YEAR CURRENT MEDICATIONS TAKING LISINOPRIL 10 MG TABLET 1 TABLET ORALLY ONCE A DAY TAKING GLUCOSTIX -- 1 STRIP CONTOUR NEXT TEST STRIP -- BID TAKING VIMPAT 100 MG TABLET 1 TABLET ORALLY TWICE A DAY, MDD=TWO TAKING NORCO 5-325 MG TABLET 1 TABLET ORALLY Q6H SCHEDULED AND Q3HRS PRN PAIN MDD=8 TAKING BENGAY GREASELESS 10-15 % CREAM EXTERNALLY , NOTES: NEEDED FOR BACK PAIN TAKING ABILIFY 2 MG TABLET 1 TABLET ORALLY ONCE A DAY TAKING VITAMIN D3 400 UNIT TABLET 2 TABLETS ORALLY ONCE A DAY TAKING HYDROXYZINE HCL 10 MG TABLET ORALLY NEEDED FOR ITCHIHNG TAKING TUMS 500 MG TABLET CHEWABLE 1 TABLET ORALLY ONCE A DAY TAKING ZYRTEC 10 MG TABLET 1 TABLET ORALLY ONCE A DAY, NOTES: NEEDED FOR ALLERGIC RHINITIS TAKING FUROSEMIDE 20 MG TABLET 1 TABLET ORALLY ONCE A DAY FOR EDEMA TAKING GABAPENTIN 100 MG TABLET ORALLY BEFORE BEDTIME, NOTES: 05/10/191999 TAKING NITROGLYCERIN 0.4 MG TABLET SUBLINGUAL SUBLINGUAL TAKING OMEPRAZOLE 40 MG CAPSULE DELAYED RELEASE 1 CAPSULE ORALLY ONCE A DAY TAKING GLIMEPIRIDE 2 MG TABLET 1 TABLET WITH BREAKFAST OR THE FIRST MAIN MEAL OF THE DAY ORALLY ONCE A DAY TAKING LEXAPRO 20 MG TABLET 1 TABLET ORALLY ONCE A DAY TAKING ATORVASTATIN CALCIUM 40 MG TABLET 1 TABLET ORALLY ONCE A DAY TAKING VITAMIN B1 100 MG TABLET 1 TABLET ORALLY ONCE A DAY TAKING CALAZIME SKIN PROTECTANT - PASTE EXTERNALLY TAKING GUAIFENESIN 100 MG/5ML SYRUP 10 ML NEEDED ORALLY EVERY 4 HRS, NOTES: > 2 MONTHS TAKING LOPERAMIDE HCL 2 MG CAPSULE 1 CAPSULE NEEDED ORALLY FOUR TIMES A DAY, NOTES: > 1 MONTH TAKING TYLENOL 325 MG TABLET 1 TABLET NEEDED ORALLY EVERY 4 HRS, NOTES: > 1 WEEK TAKING BUSPIRONE HCL 5 MG TABLET 1 TABLET ORALLY BID, NOTES: 05/11/19729 TAKING ARICEPT 5 MG TABLET 1 TABLET AT BEDTIME ORALLY ONCE A DAY, NOTES: 05/11/19729 TAKING GLUCAGON EMERGENCY 1 MG KIT DIRECTED INJECTION TAKING GLUCOSE 4 GM TABLET CHEWABLE DIRECTED ORALLY TAKING VENTOLIN HFA 108 (90 BASE) MCG/ACT AEROSOL SOLUTION 2 PUFFS NEEDED INHALATION EVERY 6 HRS TAKING MAY USE BIPAP ON AT HS TAKING ALBUTEROL SULFATE (5 MG/ML) 0.5% NEBULIZATION SOLUTION 1 ML NEEDED INHALATION EVERY 6 HRS, NOTES: > 2 MONTHS MEDICATION LIST REVIEWED AND RECONCILED WITH THE PATIENT PAST MEDICAL HISTORY DIABETES HYPERTENSION SLEEP APNEA ELEVATED TRIGLYCERIDES HISTORY OF SEXUAL ABUSE DEPRESSION ALLERGIES ASTHMA (MILD INTERMITTENT) ASTHMA, UNSPECIFIED, UNSPECIFIED STATUS ASTHMA, UNSPECIFIED, UNSPECIFIED STATUS ALLERGIC RHINITIS, CAUSE UNSPECIFIED DEPRESSIVE DISORDER, NOT ELSEWHERE CLASSIFIED SLEEP RELATED HYPOVENTILATION/HYPOXEMIA IN CONDITIONS CLASSIFIABLE ELSEWHERE RASH AND OTHER NONSPECIFIC SKIN ERUPTION UNSPECIFIED DIFFUSE CONNECTIVE TISSUE DISEASE ACUTE SINUSITIS, UNSPECIFIED OTHER AND UNSPECIFIED PERIPHERAL VERTIGO COUGH URGENCY INCONTINENCE STENOSIS ALLERGIES MORPHINE: VOMITING - ALLERGY METFORMIN: ITCHING - ALLERGY TRAZODONE 100: HOSPTIALIZED WITH DELERIUM SURGICAL HISTORY HYSTERECTOMY ABDOMINAL GALL BLADDER REMOVAL RIGHT KNEE REPLACEMENT 2016 LEFT KNEE REPLACEMENT 2016 RIGHT/LEFT CATARACT FAMILY HISTORY FATHER: , DIAGNOSED WITH HYPERTENSION, UNSPECIFIED HEART DISEASE MOTHER: , UNSPECIFIED HEART DISEASE SIBLINGS: ALIVE, LEUKEMIA (SISTER 2012, UNSPECIFIED HEART DISEASE 2 BROTHER(S) , 1 SISTER(S) . 1 SON(S) , 2 DAUGHTER(S) . ++HEART ISSUES IN FAMILY. SOCIAL HISTORY GENERAL: TOBACCO USE ARE YOU A:: NEVER SMOKER. OTHERS AT HOME: SPOUSE. EDUCATION QUIT IN 10TH GRADE. DIET: LOW FAT, LOW CHOLESTEROL. LANGUAGE CYPRIOT. DOMESTIC VIOLENCE DENIES. RECREATIONAL DRUG USE DENIES. EXERCISE: WALKS. 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 IMPAIRED?NO VISION IMPAIRED?NO READINESS TO LEARN?YES PAIN CLINIC PFS, CLERGY, PUBLIC HEALTH REFERRALS WAS THE PROVIDER NOTIFIED OF ANY PERTINENT INFO?YES HAS THE PATIENT BEEN EDUCATED REGARDING HIS/HER PLAN OF CARE?YES HAS THE PATIENT BEEN EDUCATED REGARDING PAIN, THE RISK FOR PAIN, THE IMPORTANCE OF EFFECTIVE PAIN MANAGEMENT, AND THE PAIN ASSESSMENT PROCESS?YES PROCEDURE TEACHING, LUMBAR EPIDURAL LATEX QUESTIONNAIRE LATEX ALLERGY : HAVE YOU EVER DEVELOPED ANY TYPE OF REACTION AFTER HANDLING LATEX PRODUCTS SUCH RUBBER GLOVES, CONDOMS, DIAPHRAGMS, BALLOONS, SOCKS, OR UNDERWEAR?NO LATEX ALLERGY : HAVE YOU EVER DEVELOPED ANY TYPE OF REACTION DURING OR AFTER DENTAL APPOINTMENT, VAGINAL/RECTAL EXAMINATION, SURGICAL PROCEDURE, OR ANY OTHER EXPOSURE?NO DATE ASKED : 08/29/2019 LATEX RISK : HAVE YOU EVER HAD ANY DIFFICULTY BREATHING OR HIVES AFTER EATING OR HANDLING ANY FRUITS, OR VEGETABLES; SUCH KIWI, BANANAS, STONE FRUITS, OR CHESTNUTSNO LATEX RISK : DO YOU HAVE A PREVIOUS PERSONAL HISTORY OF MORE THAN NINE SURGERIES, SPINA BIFIDA, OR REPEATED CATHERIZATIONS? NO LATEX RISK : ARE YOU FREQUENTLY EXPOSED TO LATEX PRODUCTS IN YOUR OCCUPATION?NO CAFFEINE 1-2/DAY. ADVANCE DIRECTIVE ADVANCE DIRECTIVE DISCUSSED WITH PATIENT:YES HCP IS KATERIN DYE [phone] PATIENT ALSO HAS A MOLST- DNR ORDER ATTACHED TO CHART [place] NO SPIRITISM BELIEFS THAT WOULD IMPACT HEALTH CARE. ALCOHOL SCREENING POINTS: 0, INTERPRETATION: NEGATIVE. REVIEWED WITH PT 01/13/19 1100 BV REVIEWED WITH PT 04/03/19 1246 BVREVIEWED WITH PT AND (HCP) 05/11/19 1040 LAS. HOSPITALIZATION/MAJOR DIAGNOSTIC PROCEDURE ALTERED MENTAL STATUS 05/22/13-05/24/13 REVIEW OF SYSTEMS REVIEWED BY: PROVIDER: SIDDHARTH KRAUSE-Moe . CONSTITUTIONAL: ANY CHANGE IN YOUR MEDICAL CONDITION? NO . CHILLS NO . FEVER NO . INFECTION: DO YOU HAVE NEW INFECTIONS? NO . DO YOU HAVE HISTORY OF MRSA? NO . MUSCULOSKELETAL: ANY NEW PATTERNS OF PAIN OR NUMBNESS? NO . GASTROENTEROLOGY: ANY NEW CHANGE IN BOWEL CONTROL? NO . GENITOURINARY: ANY NEW CHANGE IN BLADDER CONTROL? NO . IS THERE A CHANCE YOU COULD BE ? NO . HEMATOLOGY/LYMPH: DO YOU TAKE ANY BLOOD THINNERS? (FOR EXAMPLE- COUMADIN, PLAVIX, AGGRENOX, PLATEL, PRADAXA, OR XARELTO) NO . WHEN WAS YOUR LAST DOSE? DATE: TIME: . NEUROLOGY: HAVE YOU FALLEN IN THE PAST 12 MONTHS? YES . ANY NEW EXTREMITY NUMBNESS OR WEAKNESS? NO . CARDIOLOGY: DO YOU HAVE A PACEMAKER OR DEFIBRILLATOR? NO . RESPIRATORY: HAVE YOU BEEN SICK IN THE PAST WEEK? NO . FEVER NO . FLU LIKE SYMPTOMS? NO . COUGH NO . INTEGUMENTARY: DO YOU HAVE ANY RASHES OR OPEN SORES? YES . ALLERGIC/IMMUNO: ARE YOU ALLERGIC TO IV DYE? NO . ANY NEW ALLERGIES? NO . PSYCHIATRIC: DO YOU HAVE THOUGHTS OF HURTING YOURSELF OR SOMEONE ELSE? NO . ARE YOU ABUSED, NEGLECTED, OR IN AN UNSAFE ENVIRONMENT? NO . ENDOCRINOLOGY: ARE YOU DIABETIC? YES . OTHER: DO YOU NEED ANY PRESCRIPTIONS? NO . IF YES, PLEASE LIST: ____ . ANY NEW PROBLEMS WITH YOUR MEDICATIONS? NO . WHEN DID YOU LAST EAT? ____ . WHEN DID YOU LAST DRINK? ____ . WHAT DID YOU LAST DRINK? ____ . NAME OF PERSON DRIVING YOU HOME? ____ . DO YOU HAVE ANY OTHER QUESTIONS OR CONCERNS NO . VITAL SIGNS WT 352 LBS, HT 66 IN, BMI 56.81 INDEX, BP 131/76 MM HG, HR 72 /MIN, RR 16 /MIN, TEMP 97.9 F, OXYGEN SAT % 90%, REVIEWED BY: ROMEO. EXAMINATION GENERAL EXAMINATION: GENERALNO ACUTE DISTRESS, WELL NOURISHED AND HYDRATED. PSYCHAPPROPRIATE MOOD AND AFFECT . LUNGS:CLEAR TO AUSCULTATION BILATERALLY, NO WHEEZES, RHONCHI, RALES. HEART:NO MURMURS, REGULAR RATE AND RHYTHM. BACK:DENIES POINT TENDERNESS ALONG LUMBAR SPINE, SURROUNDING SKIN SHOWS NO ERYTHEMA, ECCHYMOSIS, INCREASED WARMTH, AND/OR SKIN ERUPTIONS NOTED. . ASSESSMENTS INTERVERTEBRAL DISC DISORDER WITH RADICULOPATHY OF LUMBOSACRAL REGION - M51.17 (PRIMARY) TREATMENT INTERVERTEBRAL DISC DISORDER WITH RADICULOPATHY OF LUMBOSACRAL REGION NOTES: TRANSFORAMINAL L4-L5 L5-S1. CLINICAL NOTES: 69-YEAR-OLD FEMALE IN FOR CHRONIC PAIN FOLLOW-UP. GIVEN PRESENTING SYMPTOMS AND RESULTS OF PHYSICAL EXAMINATION RECOMMEND TRANSFORAMINAL L4-L5 L5-S1 WITH POSTPROCEDURAL FOLLOW-UP. PATIENT AND HAVE EXPRESSED UNDERSTANDING OF AND WERE IN AGREEMENT WITH TREATMENT PLAN. GIVEN TIME TO ASK QUESTIONS AND EXPRESS CONCERNS. PREVENTIVE MEDICINE PAIN CLINIC TEACHING: PROCEDURE TEACHING PRE PROCEDURE INSTRUCTIONS REVIEWED WITH PT. VERBALIZED UNDERSTANDING.. PROCEDURE CODES FA211 ESTABILISHED PATIENT [facility] CHARGE DISPOSITION & COMMUNICATION FOLLOW UP POSTPROCEDURE (REASON: TRANSFORAMINAL L4-L5 L5-S1) ELECTRONICALLY SIGNED BY NELIDA GUTIERREZ ON 11/01/2019 AT 01:15 PM EST DISCLAIMER : THIS IS A VISIT SUMMARY EXTRACTED FROM THE [employer] CHART. IT IS NOT A COPY OF THE [employer] PROGRESS NOTE. NILTON
== END ==
LOC: M PAIN 10:30
PROVIDERS: ATTEND Family Medicine
DX: M51.17 Intervertebral disc disorders with radiculopathy, lumbosacral region (principal); G89.29 Other chronic pain; E11.9 Type 2 diabetes mellitus without complications; I10 Essential (primary) hypertension; G47.30 Sleep apnea, unspecified; Z86.59 Personal history of other mental and behavioral disorders; J45.20 Mild intermittent asthma, uncomplicated; Z96.653 Presence of artificial knee joint, bilateral; Z88.5 Allergy status to narcotic agent; Z88.8 Allergy status to other drugs, medicaments and biological substances; E66.01 Morbid (severe) obesity due to excess calories; Z68.43 Body mass index [BMI] 50.0-59.9, adult; Z79.84 Long term (current) use of oral hypoglycemic drugs; Z79.899 Other long term (current) drug therapy

== ENCOUNTER → 2019-12-20 | Outpatient (CLI) | payer MEDICARE, OTHER ==
[~2019-12-20] MED LIST changes: -ARTIDRO2 OU; +BUPIVACAINE HCL 0.25% 30 ML VIAL As Ordered ONE; -GLIM2TAB2 PO; +GLIM2TAB4 PO; +ISOVUE-M 300 61% 15ML VIAL (Q9967) As Ordered ONE; +LIDOCAINE 1% SDV INJ 30 ML VIAL As Ordered ONE; +ONDA-83 PO; -ONDA4TAB5 PO; +POLYOPD OU; +dexameTHASONE 10 MG/1 ML VIAL PRES.FREE (J1100) As Ordered ONE; +diazePAM 5 MG TAB As Ordered ONE
--- NOTE | 2019-12-20 14:41 | REP ---
Partial lumbar spine series: 118 . History: Injection procedure for pain. 2 minutes and seven seconds seconds of fluoroscopy time is reported. Findings: A sequence of 118 fluoroscopically obtained last image hold procedural spot radiographs of the lumbar spine document needle position and contrast injection associated with injection procedure. Electronically Signed by Reginald Lira MD 12/20/2019 02:32 P
--- NOTE | 2019-12-29 04:18 | ECWPNPC ---
PATIENT NAME: ROBINA DYE : 1950 GENDER: FEMALE VISIT DATE: 12/20/2019 DISCHARGE DATE: 12/20/19 1456 VISIT LOCKED DATE TIME: PHYSICIAN: SNEHAL BESS MD PHYSICIAN PAGER NO: [phone] RESOURCE: SNEHAL BESS MD REASON FOR APPOINTMENT 1. TRANSFORAMINAL L4-L5 L5-S1 HISTORY OF PRESENT ILLNESS HISTORY OF PRESENT ILLNESS: PAIN THE PATIENT DESCRIBES THE PAIN... FALL RISK SCREENING: SCREENING :NO FALLS REPORTED IN THE LAST YEAR CURRENT MEDICATIONS TAKING LISINOPRIL 10 MG TABLET 1 TABLET ORALLY ONCE A DAY, NOTES: 0800 12-20-19 TAKING GLUCOSTIX -- 1 STRIP CONTOUR NEXT TEST STRIP -- BID TAKING VIMPAT 100 MG TABLET 1 TABLET ORALLY TWICE A DAY, MDD=TWO, NOTES: 12-20-19 0800 TAKING NORCO 5-325 MG TABLET 1 TABLET ORALLY Q6H SCHEDULED AND Q3HRS PRN PAIN MDD=8, NOTES: 0600 12-20-19 TAKING BENGAY GREASELESS 10-15 % CREAM EXTERNALLY , NOTES: NEEDED FOR BACK PAIN TAKING GLIMEPIRIDE 2 MG TABLET 1 TABLET WITH BREAKFAST OR THE FIRST MAIN MEAL OF THE DAY ORALLY ONCE A DAY, NOTES: 12-19-19 TAKING CALAZIME SKIN PROTECTANT - PASTE EXTERNALLY , NOTES: NEEDS TAKING GUAIFENESIN 100 MG/5ML SYRUP 10 ML NEEDED ORALLY EVERY 4 HRS, NOTES: NOT LATELY TAKING LOPERAMIDE HCL 2 MG CAPSULE 1 CAPSULE NEEDED ORALLY FOUR TIMES A DAY, NOTES: NOT FOUND ON EMAR TAKING TYLENOL 325 MG TABLET 1 TABLET NEEDED ORALLY EVERY 4 HRS, NOTES: NOT LATELY TAKING BUSPIRONE HCL 5 MG TABLET 1 TABLET ORALLY BID, NOTES: 12-19-19 1600 TAKING GLUCAGON EMERGENCY 1 MG KIT DIRECTED INJECTION , NOTES: NOT LATELY TAKING GLUCOSE 4 GM TABLET CHEWABLE DIRECTED ORALLY , NOTES: NOT LATELY TAKING ZOLOFT 100 MG TABLET 1 1/2 TABLET ORALLY ONCE A DAY, NOTES: TAKES 150MG DAILY 12-20-19 NOT-TAKING VITAMIN D3 400 UNIT TABLET 2 TABLETS ORALLY ONCE A DAY NOT-TAKING HYDROXYZINE HCL 10 MG TABLET ORALLY NEEDED FOR ITCHIHNG NOT-TAKING TUMS 500 MG TABLET CHEWABLE 1 TABLET ORALLY ONCE A DAY NOT-TAKING ZYRTEC 10 MG TABLET 1 TABLET ORALLY ONCE A DAY, NOTES: NEEDED FOR ALLERGIC RHINITIS NOT-TAKING FUROSEMIDE 20 MG TABLET 1 TABLET ORALLY ONCE A DAY FOR EDEMA NOT-TAKING GABAPENTIN 100 MG TABLET ORALLY BID, NOTES: NOT FOUND ON EMAR NOT-TAKING NITROGLYCERIN 0.4 MG TABLET SUBLINGUAL SUBLINGUAL NOT-TAKING OMEPRAZOLE 40 MG CAPSULE DELAYED RELEASE 1 CAPSULE ORALLY ONCE A DAY NOT-TAKING VENTOLIN HFA 108 (90 BASE) MCG/ACT AEROSOL SOLUTION 2 PUFFS NEEDED INHALATION EVERY 6 HRS NOT-TAKING MAY USE BIPAP ON AT HS UNKNOWN ABILIFY 2 MG TABLET 1 TABLET ORALLY ONCE A DAY, NOTES: DID NOT SEE ON EMAR UNKNOWN ATORVASTATIN CALCIUM 40 MG TABLET 1 TABLET ORALLY ONCE A DAY ON M,W,F, NOTES: DID NOT SEE ON EMAR UNKNOWN VITAMIN B1 100 MG TABLET 1 TABLET ORALLY ONCE A DAY UNKNOWN ALBUTEROL SULFATE (5 MG/ML) 0.5% NEBULIZATION SOLUTION 1 ML NEEDED INHALATION EVERY 6 HRS UNKNOWN LEXAPRO 20 MG TABLET 1 TABLET ORALLY ONCE A DAY UNKNOWN ARICEPT 5 MG TABLET 1 TABLET AT BEDTIME ORALLY ONCE A DAY MEDICATION LIST REVIEWED AND RECONCILED WITH THE PATIENT PAST MEDICAL HISTORY DIABETES HYPERTENSION SLEEP APNEA ELEVATED TRIGLYCERIDES HISTORY OF SEXUAL ABUSE DEPRESSION ALLERGIES ASTHMA (MILD INTERMITTENT) ASTHMA, UNSPECIFIED, UNSPECIFIED STATUS ASTHMA, UNSPECIFIED, UNSPECIFIED STATUS ALLERGIC RHINITIS, CAUSE UNSPECIFIED DEPRESSIVE DISORDER, NOT ELSEWHERE CLASSIFIED SLEEP RELATED HYPOVENTILATION/HYPOXEMIA IN CONDITIONS CLASSIFIABLE ELSEWHERE RASH AND OTHER NONSPECIFIC SKIN ERUPTION UNSPECIFIED DIFFUSE CONNECTIVE TISSUE DISEASE ACUTE SINUSITIS, UNSPECIFIED OTHER AND UNSPECIFIED PERIPHERAL VERTIGO COUGH URGENCY INCONTINENCE STENOSIS ALLERGIES MORPHINE: VOMITING - ALLERGY METFORMIN: ITCHING - ALLERGY TRAZODONE 100: HOSPTIALIZED WITH DELERIUM SURGICAL HISTORY HYSTERECTOMY ABDOMINAL GALL BLADDER REMOVAL RIGHT KNEE REPLACEMENT 2016 LEFT KNEE REPLACEMENT 2016 RIGHT/LEFT CATARACT FAMILY HISTORY FATHER: , DIAGNOSED WITH HYPERTENSION, UNSPECIFIED HEART DISEASE MOTHER: , UNSPECIFIED HEART DISEASE SIBLINGS: ALIVE, LEUKEMIA (SISTER 2012, UNSPECIFIED HEART DISEASE 2 BROTHER(S) , 1 SISTER(S) . 1 SON(S) , 2 DAUGHTER(S) . ++HEART ISSUES IN FAMILY. SOCIAL HISTORY GENERAL: TOBACCO USE ARE YOU A:: NEVER SMOKER. OTHERS AT HOME: SPOUSE. EDUCATION QUIT IN 10TH GRADE. DIET: LOW FAT, LOW CHOLESTEROL. LANGUAGE MACANESE. DOMESTIC VIOLENCE DENIES. RECREATIONAL DRUG USE DENIES. EXERCISE: WALKS. 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 IMPAIRED?NO VISION IMPAIRED?NO READINESS TO LEARN?YES PAIN CLINIC PFS, CLERGY, PUBLIC HEALTH REFERRALS WAS THE PROVIDER NOTIFIED OF ANY PERTINENT INFO?YES HAS THE PATIENT BEEN EDUCATED REGARDING HIS/HER PLAN OF CARE?YES HAS THE PATIENT BEEN EDUCATED REGARDING PAIN, THE RISK FOR PAIN, THE IMPORTANCE OF EFFECTIVE PAIN MANAGEMENT, AND THE PAIN ASSESSMENT PROCESS?YES PROCEDURE TEACHING, LUMBAR EPIDURAL LATEX QUESTIONNAIRE LATEX ALLERGY : HAVE YOU EVER DEVELOPED ANY TYPE OF REACTION AFTER HANDLING LATEX PRODUCTS SUCH RUBBER GLOVES, CONDOMS, DIAPHRAGMS, BALLOONS, SOCKS, OR UNDERWEAR?NO LATEX ALLERGY : HAVE YOU EVER DEVELOPED ANY TYPE OF REACTION DURING OR AFTER DENTAL APPOINTMENT, VAGINAL/RECTAL EXAMINATION, SURGICAL PROCEDURE, OR ANY OTHER EXPOSURE?NO DATE ASKED : 08/29/2019 LATEX RISK : HAVE YOU EVER HAD ANY DIFFICULTY BREATHING OR HIVES AFTER EATING OR HANDLING ANY FRUITS, OR VEGETABLES; SUCH KIWI, BANANAS, STONE FRUITS, OR CHESTNUTSNO LATEX RISK : DO YOU HAVE A PREVIOUS PERSONAL HISTORY OF MORE THAN NINE SURGERIES, SPINA BIFIDA, OR REPEATED CATHERIZATIONS? NO LATEX RISK : ARE YOU FREQUENTLY EXPOSED TO LATEX PRODUCTS IN YOUR OCCUPATION?NO CAFFEINE 1-2/DAY. ADVANCE DIRECTIVE ADVANCE DIRECTIVE DISCUSSED WITH PATIENT:YES HCP IS KATERIN DYE [phone] PATIENT ALSO HAS A MOLST- DNR ORDER ATTACHED TO CHART VOODOO NO EVANGELICAL BELIEFS THAT WOULD IMPACT HEALTH CARE. ALCOHOL SCREENING POINTS: 0, INTERPRETATION: NEGATIVE. REVIEWED WITH PT 01/13/19 1100 BV REVIEWED WITH PT 04/03/19 1246 BVREVIEWED WITH PT AND (HCP) 05/11/19 1040 LAS PRE SCREENING PHONE CALL DONE WITH SHAMPOO ASSISTANT AT [facility] 2ND FLOOR 12/19/19 1125 BV. HOSPITALIZATION/MAJOR DIAGNOSTIC PROCEDURE ALTERED MENTAL STATUS 05/22/13-05/24/13 REVIEW OF SYSTEMS REVIEWED BY: PROVIDER: . CONSTITUTIONAL: ANY CHANGE IN YOUR MEDICAL CONDITION? NO . CHILLS NO . FEVER NO . INFECTION: DO YOU HAVE NEW INFECTIONS? NO . DO YOU HAVE HISTORY OF MRSA? NO . MUSCULOSKELETAL: ANY NEW PATTERNS OF PAIN OR NUMBNESS? NO . GASTROENTEROLOGY: ANY NEW CHANGE IN BOWEL CONTROL? NO . GENITOURINARY: ANY NEW CHANGE IN BLADDER CONTROL? NO . IS THERE A CHANCE YOU COULD BE ? NO . HEMATOLOGY/LYMPH: DO YOU TAKE ANY BLOOD THINNERS? (FOR EXAMPLE- COUMADIN, PLAVIX, AGGRENOX, PLATEL, PRADAXA, OR XARELTO) NO . WHEN WAS YOUR LAST DOSE? DATE: TIME: . NEUROLOGY: HAVE YOU FALLEN IN THE PAST 12 MONTHS? YES . ANY NEW EXTREMITY NUMBNESS OR WEAKNESS? NO . CARDIOLOGY: DO YOU HAVE A PACEMAKER OR DEFIBRILLATOR? NO . RESPIRATORY: HAVE YOU BEEN SICK IN THE PAST WEEK? NO . FEVER NO . FLU LIKE SYMPTOMS? NO . COUGH NO . INTEGUMENTARY: DO YOU HAVE ANY RASHES OR OPEN SORES? YES, RASH AND REDNESS NOTED TO LOW BACK. [facility] IS AWARE AND HAS BEEN PUTTING BARRIER CREAM ON THIS. DR. BESS AWARE OF THIS REDNESS AND OKAY TO PROCEDE WITH INJECTION . ALLERGIC/IMMUNO: ARE YOU ALLERGIC TO IV DYE? NO . ANY NEW ALLERGIES? NO . PSYCHIATRIC: DO YOU HAVE THOUGHTS OF HURTING YOURSELF OR SOMEONE ELSE? NO . ARE YOU ABUSED, NEGLECTED, OR IN AN UNSAFE ENVIRONMENT? NO . ENDOCRINOLOGY: ARE YOU DIABETIC? YES BEDSIDE BLOOD GLUCOSE WAS 167 THIS AM . OTHER: DO YOU NEED ANY PRESCRIPTIONS? NO . IF YES, PLEASE LIST: ____ . ANY NEW PROBLEMS WITH YOUR MEDICATIONS? NO . WHEN DID YOU LAST EAT? ____1800 LAST NIGHT . WHEN DID YOU LAST DRINK? ____1800 LAST NIGHT . WHAT DID YOU LAST DRINK? WATER . NAME OF PERSON DRIVING YOU HOME? 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 DO YOU HAVE ANY OTHER QUESTIONS OR CONCERNS NO . VITAL SIGNS WT 350 LBS, HT 66 IN, BMI 56.49 INDEX, BP 130/84 MM HG, HR 70 /MIN, RR 16 /MIN, TEMP 97.0 F, OXYGEN SAT % 92, SAFE IN ENV? (Y/N) YES, NA INITIALS AW 1144, REVIEWED BY: KG. ASSESSMENTS INTERVERTEBRAL DISC DISORDERS WITH RADICULOPATHY, LUMBAR REGION - M51.16 (PRIMARY) INTERVERTEBRAL DISC DISORDER WITH RADICULOPATHY OF LUMBOSACRAL REGION - M51.17 TREATMENT INTERVERTEBRAL DISC DISORDER WITH RADICULOPATHY OF LUMBOSACRAL REGION [facility] FLUORO GUIDE SPINE INJECTION (PAIN)[id number] PROCEDURES PN LUMBAR TRANSFORAMINAL BLOCKS PRE PROCEDURE DIAGNOSIS LUMBAR DISC DISORDER WITH RADICULOPATHY, LUMBAR SPINAL STENOSIS POST PROCEDURE DIAGNOSIS LUMBAR DISC DISORDER WITH RADICULOPATHY, LUMBAR SPINAL STENOSIS PROCEDURE LEFT L4, LEFT L5, AND LEFT S1 TRANSFORAMINAL EPIDURAL STEROID INJECTION UNDER FLUOROSCOPIC GUIDANCE SURGEON DR SNEHAL BESS FELLER BUNCHER OPERATOR NONE ANESTHESIA LOCAL PRE PROCEDURE NOTE PATIENT WITH HISTORY OF CHRONIC LOW BACK PAIN. I EVALUATED THE PATIENT AND REVIEWED THE CHART. I WENT OVER THE RISKS, ALTERNATIVES, AND BENEFITS ASSOCIATED WITH THIS PROCEDURE. THE PATIENT WOULD LIKE TO PROCEED AND GIVES CONSENT TO PERFORM THE PROCEDURE. THE PATIENT DENIES UNEXPLAINABLE WEIGHT LOSS, FEVER, CHILLS, OR CHANGES IN URINARY OR BOWEL CONTROL DESCRIPTION OF PROCEDURE THE PATIENT WAS BROUGHT TO THE PROCEDURE ROOM AND PLACED IN THE PRONE POSITION. THE LUMBOSACRAL AREA WAS CLEANED WITH BETADINE SOLUTION AND DRAPED ASEPTICALLY. THE PROCEDURE WAS DONE UNDER STERILE CONDITIONS. I CHECKED LATERALITY AND THE LEVEL WHERE THE PROCEDURE WAS GOING TO BE PERFORMED WITH THE PATIENT AND THE SUPPORTING STAFF AT THE MOMENT OF THE TIME OUT IN THE PROCEDURE ROOM. UNDER FLUOROSCOPIC GUIDANCE, TARGETS WERE SELECTED AT THE LEFT TRANSFORAMINAL OPENING OF L4, L5, AND S1. TARGET POINT WAS SELECTED AFTER LATERAL ROTATION AND TILT OF THE MAGNIFIER OF THE C-ARM. LIDOCAINE 0.5% WAS USED TO NUMB THE SKIN AND THE SUBCUTANEOUS TISSUE BELOW IT. AN EPIMED INTRODUCER 18-GAUGE WAS ADVANCED UNTIL WE WENT CLOSE TO THE SELECTED TRANSFORAMINAL OPENINGS. AFTER PROPER POSITION OF THE NEEDLES WAS ACHIEVED, A 22-GAUGE EPIMED NEEDLE WAS PLACED INSIDE OF THE INTRODUCER AND ADVANCED TO THE TRANSFORAMINAL OPENING OF THE SELECTED SITES. WHEN PROPER POSITION OF THE NEEDLE WAS ACHIEVED, ISOVUE M DYE 30%, 0.25 ML, WAS INJECTED SHOWING ADEQUATE SPREAD OF THE DYE. THIS WAS DONE UNDER DIGITAL SUBTRACTION AND ANGIOGRAPHY. THERE WAS NO VASCULAR UPDATE. THEN, A SOLUTION OF 2 ML OF BUPIVACAINE 0.25% AND DEXAMETHASONE 10 MG WAS INJECTED AT EACH SITE. THERE WAS NO EVIDENCE OF BLOOD, PARESTHESIA OR CEREBROSPINAL FLUID DURING THE PROCEDURE. THE PATIENT WAS SENT TO THE RECOVERY ROOM. THE PATIENT WAS MOVING THE EXTREMITIES AND DOING WELL. THERE WAS NO COMPLICATION DURING THE PROCEDURE. FLUOROSCOPY TIME WAS 2 MINUTES 7 SECONDS POST PROCEDURE NOTE THE PROCEDURE DONE WAS DISCUSSED WITH THE PATIENT. THE PATIENT WILL BE SEEN IN A FOLLOW UP IN THE NEXT FEW WEEKS. INSTRUCTIONS WERE GIVEN, QUESTIONS WERE ANSWERED, AND THE PATIENT EXPRESSED UNDERSTANDING AND AGREES WITH THE PLAN. I, ALEXANDRIA HURTADO, DOCUMENTED THE ABOVE INFORMATION ACTING A SCRIBE FOR DR. BESS. I HAVE REVIEWED THE ABOVE DOCUMENT, WRITTEN BY ALEXANDRIA HURTADO SCRIBE AND I VERIFY THAT IT IS ACCURATE. PROCEDURE CODES 48563 INJ FORAMEN EPIDURAL L/S, [place]: [place] [address] INJ FORAMEN EPIDURAL ADD-ON, UNITS: 2.00 , MODIFIERS: LT 6045F RADXPS IN END [id number] PXD DISPOSITION & COMMUNICATION FOLLOW UP 3 WEEKS ELECTRONICALLY SIGNED BY SNEHAL BESS MD, MD ON 12/28/2019 AT 01:47 PM EST DISCLAIMER : THIS IS A VISIT SUMMARY EXTRACTED FROM THE [employer] CHART. IT IS NOT A COPY OF THE [employer] PROGRESS NOTE. MTDD
== END ==
LOC: M PAIN 11:15
PROVIDERS: ATTEND Anesthesiology
DX: M51.16 Intervertebral disc disorders with radiculopathy, lumbar region (principal); M51.17 Intervertebral disc disorders with radiculopathy, lumbosacral region; E11.9 Type 2 diabetes mellitus without complications; I10 Essential (primary) hypertension; G47.30 Sleep apnea, unspecified; Z86.59 Personal history of other mental and behavioral disorders; J45.909 Unspecified asthma, uncomplicated; Z96.653 Presence of artificial knee joint, bilateral; Z88.5 Allergy status to narcotic agent; Z88.8 Allergy status to other drugs, medicaments and biological substances; E66.01 Morbid (severe) obesity due to excess calories; Z68.43 Body mass index [BMI] 50.0-59.9, adult; Z79.891 Long term (current) use of opiate analgesic; Z79.84 Long term (current) use of oral hypoglycemic drugs; Z79.899 Other long term (current) drug therapy
CPT/HCPCS: 64483; 64484; J1100; Q9967

== ENCOUNTER → 2020-01-08 | Outpatient (CLI) | payer MEDICARE, OTHER ==
[~2020-01-08] MED LIST changes: -BUPIVACAINE HCL 0.25% 30 ML VIAL As Ordered ONE; -ISOVUE-M 300 61% 15ML VIAL (Q9967) As Ordered ONE; -LIDOCAINE 1% SDV INJ 30 ML VIAL As Ordered ONE; -dexameTHASONE 10 MG/1 ML VIAL PRES.FREE (J1100) As Ordered ONE; -diazePAM 5 MG TAB As Ordered ONE
--- NOTE | 2020-01-12 06:03 | ECWPNPC ---
PATIENT NAME: ROBINA DYE : 1950 GENDER: FEMALE VISIT DATE: 01/08/2020 DISCHARGE DATE: 01/08/20 1132 VISIT LOCKED DATE TIME: PHYSICIAN: BRITTNEY STUART PHYSICIAN PAGER NO: [phone] RESOURCE: BRITTNEY STUART REASON FOR APPOINTMENT 1. POST PROCEDURE HISTORY OF PRESENT ILLNESS HISTORY OF PRESENT ILLNESS: PAIN THE PATIENT DESCRIBES THE PAIN... 69-YEAR-OLD FEMALE IN FOR POST TRANSFORAMINAL INJECTION. SHE FEELS THE PROCEDURE HELPED HER FOR APPROXIMATELY ONE WEEK. SHE RATES HER PAIN CURRENTLY AT A 6 OUT OF 10 AND DESCRIBES IT ACHING. FALL RISK SCREENING: SCREENING :NO FALLS REPORTED IN THE LAST YEAR CURRENT MEDICATIONS TAKING LISINOPRIL 10 MG TABLET 1 TABLET ORALLY ONCE A DAY TAKING GLUCOSTIX -- 1 STRIP CONTOUR NEXT TEST STRIP -- BID TAKING VIMPAT 100 MG TABLET 1 TABLET ORALLY TWICE A DAY, MDD=TWO TAKING NORCO 5-325 MG TABLET 1 TABLET ORALLY Q6H SCHEDULED AND Q3HRS PRN PAIN MDD=8 TAKING BENGAY GREASELESS 10-15 % CREAM EXTERNALLY , NOTES: NEEDED FOR BACK PAIN TAKING GLIMEPIRIDE 2 MG TABLET 1 TABLET WITH BREAKFAST OR THE FIRST MAIN MEAL OF THE DAY ORALLY ONCE A DAY TAKING CALAZIME SKIN PROTECTANT - PASTE EXTERNALLY , NOTES: NEEDS TAKING GUAIFENESIN 100 MG/5ML SYRUP 10 ML NEEDED ORALLY EVERY 4 HRS, NOTES: NOT LATELY TAKING LOPERAMIDE HCL 2 MG CAPSULE 1 CAPSULE NEEDED ORALLY FOUR TIMES A DAY, NOTES: NOT FOUND ON EMAR TAKING TYLENOL 325 MG TABLET 1 TABLET NEEDED ORALLY EVERY 4 HRS, NOTES: NOT LATELY TAKING BUSPIRONE HCL 5 MG TABLET 1 TABLET ORALLY BID TAKING GLUCAGON EMERGENCY 1 MG KIT DIRECTED INJECTION , NOTES: NOT LATELY TAKING GLUCOSE 4 GM TABLET CHEWABLE DIRECTED ORALLY , NOTES: NOT LATELY TAKING ZOLOFT 100 MG TABLET 1 1/2 TABLET ORALLY ONCE A DAY TAKING VITAMIN D3 400 UNIT TABLET 2 TABLETS ORALLY ONCE A DAY TAKING HYDROXYZINE HCL 10 MG TABLET ORALLY NEEDED FOR ITCHIHNG TAKING TUMS 500 MG TABLET CHEWABLE 1 TABLET ORALLY ONCE A DAY TAKING FUROSEMIDE 20 MG TABLET 1 TABLET ORALLY ONCE A DAY FOR EDEMA TAKING GABAPENTIN 100 MG TABLET ORALLY BID, NOTES: NOT FOUND ON EMAR TAKING NITROGLYCERIN 0.4 MG TABLET SUBLINGUAL SUBLINGUAL TAKING OMEPRAZOLE 40 MG CAPSULE DELAYED RELEASE 1 CAPSULE ORALLY ONCE A DAY TAKING VENTOLIN HFA 108 (90 BASE) MCG/ACT AEROSOL SOLUTION 2 PUFFS NEEDED INHALATION EVERY 6 HRS TAKING MAY USE BIPAP ON AT HS TAKING ABILIFY 2 MG TABLET 1 TABLET ORALLY ONCE A DAY TAKING ATORVASTATIN CALCIUM 40 MG TABLET 1 TABLET ORALLY ONCE A DAY ON M,W,F TAKING VITAMIN B1 100 MG TABLET 1 TABLET ORALLY ONCE A DAY TAKING ALBUTEROL SULFATE (5 MG/ML) 0.5% NEBULIZATION SOLUTION 1 ML NEEDED INHALATION EVERY 6 HRS TAKING LEXAPRO 20 MG TABLET 1 TABLET ORALLY ONCE A DAY TAKING ARICEPT 5 MG TABLET 1 TABLET AT BEDTIME ORALLY ONCE A DAY NOT-TAKING ZYRTEC 10 MG TABLET 1 TABLET ORALLY ONCE A DAY, NOTES: NEEDED FOR ALLERGIC RHINITIS MEDICATION LIST REVIEWED AND RECONCILED WITH THE PATIENT PAST MEDICAL HISTORY DIABETES HYPERTENSION SLEEP APNEA ELEVATED TRIGLYCERIDES HISTORY OF SEXUAL ABUSE DEPRESSION ALLERGIES ASTHMA (MILD INTERMITTENT) ASTHMA, UNSPECIFIED, UNSPECIFIED STATUS ASTHMA, UNSPECIFIED, UNSPECIFIED STATUS ALLERGIC RHINITIS, CAUSE UNSPECIFIED DEPRESSIVE DISORDER, NOT ELSEWHERE CLASSIFIED SLEEP RELATED HYPOVENTILATION/HYPOXEMIA IN CONDITIONS CLASSIFIABLE ELSEWHERE RASH AND OTHER NONSPECIFIC SKIN ERUPTION UNSPECIFIED DIFFUSE CONNECTIVE TISSUE DISEASE ACUTE SINUSITIS, UNSPECIFIED OTHER AND UNSPECIFIED PERIPHERAL VERTIGO COUGH URGENCY INCONTINENCE STENOSIS ALLERGIES MORPHINE: VOMITING - ALLERGY METFORMIN: ITCHING - ALLERGY TRAZODONE 100: HOSPTIALIZED WITH DELERIUM SURGICAL HISTORY HYSTERECTOMY ABDOMINAL GALL BLADDER REMOVAL RIGHT KNEE REPLACEMENT 2016 LEFT KNEE REPLACEMENT 2016 RIGHT/LEFT CATARACT FAMILY HISTORY FATHER: , DIAGNOSED WITH HYPERTENSION, UNSPECIFIED HEART DISEASE MOTHER: , UNSPECIFIED HEART DISEASE SIBLINGS: ALIVE, LEUKEMIA (SISTER 2012, UNSPECIFIED HEART DISEASE 2 BROTHER(S) , 1 SISTER(S) . 1 SON(S) , 2 DAUGHTER(S) . ++HEART ISSUES IN FAMILY. SOCIAL HISTORY GENERAL: TOBACCO USE ARE YOU A:: NEVER SMOKER. OTHERS AT HOME: SPOUSE. EDUCATION QUIT IN 10TH GRADE. DIET: LOW FAT, LOW CHOLESTEROL. LANGUAGE CROATIAN. DOMESTIC VIOLENCE DENIES. RECREATIONAL DRUG USE DENIES. EXERCISE: WALKS. 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 IMPAIRED?NO VISION IMPAIRED?NO READINESS TO LEARN?YES PAIN CLINIC PFS, CLERGY, PUBLIC HEALTH REFERRALS WAS THE PROVIDER NOTIFIED OF ANY PERTINENT INFO?YES HAS THE PATIENT BEEN EDUCATED REGARDING HIS/HER PLAN OF CARE?YES HAS THE PATIENT BEEN EDUCATED REGARDING PAIN, THE RISK FOR PAIN, THE IMPORTANCE OF EFFECTIVE PAIN MANAGEMENT, AND THE PAIN ASSESSMENT PROCESS?YES PROCEDURE TEACHING, LUMBAR EPIDURAL LATEX QUESTIONNAIRE LATEX ALLERGY : HAVE YOU EVER DEVELOPED ANY TYPE OF REACTION AFTER HANDLING LATEX PRODUCTS SUCH RUBBER GLOVES, CONDOMS, DIAPHRAGMS, BALLOONS, SOCKS, OR UNDERWEAR?NO LATEX ALLERGY : HAVE YOU EVER DEVELOPED ANY TYPE OF REACTION DURING OR AFTER DENTAL APPOINTMENT, VAGINAL/RECTAL EXAMINATION, SURGICAL PROCEDURE, OR ANY OTHER EXPOSURE?NO DATE ASKED : 08/29/2019 LATEX RISK : HAVE YOU EVER HAD ANY DIFFICULTY BREATHING OR HIVES AFTER EATING OR HANDLING ANY FRUITS, OR VEGETABLES; SUCH KIWI, BANANAS, STONE FRUITS, OR CHESTNUTSNO LATEX RISK : DO YOU HAVE A PREVIOUS PERSONAL HISTORY OF MORE THAN NINE SURGERIES, SPINA BIFIDA, OR REPEATED CATHERIZATIONS? NO LATEX RISK : ARE YOU FREQUENTLY EXPOSED TO LATEX PRODUCTS IN YOUR OCCUPATION?NO CAFFEINE 1-2/DAY. ADVANCE DIRECTIVE ADVANCE DIRECTIVE DISCUSSED WITH PATIENT:YES HCP IS KATERIN DYE [phone] PATIENT ALSO HAS A MOLST- DNR ORDER ATTACHED TO CHART SABIANIST NO ANGLICAN BELIEFS THAT WOULD IMPACT HEALTH CARE. ALCOHOL SCREENING POINTS: 0, INTERPRETATION: NEGATIVE. REVIEWED WITH PT 01/13/19 1100 BV REVIEWED WITH PT 04/03/19 1246 BVREVIEWED WITH PT AND (HCP) 05/11/19 1040 LAS PRE SCREENING PHONE CALL DONE WITH MOLD CLAMPER AT [facility] 2ND FLOOR 12/19/19 1125 BV. HOSPITALIZATION/MAJOR DIAGNOSTIC PROCEDURE ALTERED MENTAL STATUS 05/22/13-05/24/13 REVIEW OF SYSTEMS REVIEWED BY: PROVIDER: SIDDHARTH KRAUSE-C . CONSTITUTIONAL: ANY CHANGE IN YOUR MEDICAL CONDITION? NO . CHILLS NO . FEVER NO . INFECTION: DO YOU HAVE NEW INFECTIONS? NO . DO YOU HAVE HISTORY OF MRSA? NO . MUSCULOSKELETAL: ANY NEW PATTERNS OF PAIN OR NUMBNESS? NO . GASTROENTEROLOGY: ANY NEW CHANGE IN BOWEL CONTROL? NO . GENITOURINARY: ANY NEW CHANGE IN BLADDER CONTROL? NO . IS THERE A CHANCE YOU COULD BE ? NO . HEMATOLOGY/LYMPH: DO YOU TAKE ANY BLOOD THINNERS? (FOR EXAMPLE- COUMADIN, PLAVIX, AGGRENOX, PLATEL, PRADAXA, OR XARELTO) NO . WHEN WAS YOUR LAST DOSE? DATE: TIME: . NEUROLOGY: HAVE YOU FALLEN IN THE PAST 12 MONTHS? YES, PRIOR TO LAST VISIT . ANY NEW EXTREMITY NUMBNESS OR WEAKNESS? NO . CARDIOLOGY: DO YOU HAVE A PACEMAKER OR DEFIBRILLATOR? NO . RESPIRATORY: HAVE YOU BEEN SICK IN THE PAST WEEK? NO . FEVER NO . FLU LIKE SYMPTOMS? NO . COUGH NO . INTEGUMENTARY: DO YOU HAVE ANY RASHES OR OPEN SORES? YES, TO BUTTOCKS . ALLERGIC/IMMUNO: ARE YOU ALLERGIC TO IV DYE? NO . ANY NEW ALLERGIES? NO . PSYCHIATRIC: DO YOU HAVE THOUGHTS OF HURTING YOURSELF OR SOMEONE ELSE? NO . ARE YOU ABUSED, NEGLECTED, OR IN AN UNSAFE ENVIRONMENT? NO . ENDOCRINOLOGY: ARE YOU DIABETIC? YES . OTHER: DO YOU NEED ANY PRESCRIPTIONS? NO . IF YES, PLEASE LIST: ____ . ANY NEW PROBLEMS WITH YOUR MEDICATIONS? NO . WHEN DID YOU LAST EAT? ____ . WHEN DID YOU LAST DRINK? ____ . WHAT DID YOU LAST DRINK? ____ . NAME OF PERSON DRIVING YOU HOME? ____ . DO YOU HAVE ANY OTHER QUESTIONS OR CONCERNS NO . VITAL SIGNS WT 348 LBS, HT 66 IN, BMI 56.16 INDEX, BP 137/67 MM HG, HR 77 /MIN, RR 16 /MIN, TEMP 97.9 F, OXYGEN SAT % 94, SAFE IN ENV? (Y/N) Y, REVIEWED BY: KARIS. EXAMINATION GENERAL EXAMINATION: GENERALNO ACUTE DISTRESS, WELL NOURISHED AND HYDRATED. PSYCHAPPROPRIATE MOOD AND AFFECT . LUNGS:CLEAR TO AUSCULTATION BILATERALLY, NO WHEEZES, RHONCHI, RALES. HEART:NO MURMURS, REGULAR RATE AND RHYTHM. ASSESSMENTS INTERVERTEBRAL DISC DISORDER WITH RADICULOPATHY OF LUMBOSACRAL REGION - M51.17 (PRIMARY) TREATMENT INTERVERTEBRAL DISC DISORDER WITH RADICULOPATHY OF LUMBOSACRAL REGION CLINICAL NOTES: 69-YEAR-OLD FEMALE IN FOR POST TRANSFEMORAL FOLLOW-UP. GIVEN PRESENTING SYMPTOMS AND RESULTS OF PHYSICAL EXAMINATION RECOMMEND FOLLOW-UP IN 2 MONTHS. PATIENT AND HAVE EXPRESSED UNDERSTANDING OF AND WAS IN AGREEMENT WITH TREATMENT PLAN. GIVEN TIME TO ASK QUESTIONS AND EXPRESS CONCERNS. PROCEDURE CODES FA211 ESTABILISHED PATIENT [facility] FACILITY CHARGE DISPOSITION & COMMUNICATION FOLLOW UP 2 MONTHS (REASON: BACK PAIN) ELECTRONICALLY SIGNED BY NELIDA GUTIERREZ ON 01/11/2020 AT 05:59 PM EST DISCLAIMER : THIS IS A VISIT SUMMARY EXTRACTED FROM THE [employer] CHART. IT IS NOT A COPY OF THE [employer] PROGRESS NOTE. [place]
== END ==
LOC: M PAIN 11:15
PROVIDERS: ATTEND Family Medicine
DX: M51.17 Intervertebral disc disorders with radiculopathy, lumbosacral region (principal)

== ENCOUNTER → 2020-01-17 | Outpatient (REF) | payer MEDICARE, OTHER ==
[~2020-01-17] MED LIST changes: +ABIL1TAB13 PO; +ACET-907 PO; +ACET65SU PR; +ANTI2TAB16 PO; +B-COTAB10 PO; +BENG1CRE3 EXT; +CEFT1INJ5 IM; +CEPA1LOZ2 MT; +D3400CAP PO; +DESI13CR2 EXT; +EUCECRE8 TOP; +FLEEENE12 PR; +FLUT0.003 EXT; +GABA-1171 PO; +GLUC1KIT SC; +GNPSOL OU; +GUAI5EL PO; +HYDR1CRE9 EXT; +KETO2CR EXT; +LISI10TA4 PO; +MIRA1POW3 PO; +MOM30SS PO; +NITR4TASL SL; +NORC1TAB7 PO; +OMEP-221 PO; +SERT-138 PO; +SERT50TA29 PO; +TUMS500C PO; +VENTAER INH; +VIMP100T PO; +[UNRECOGNIZED DRUG - CODE] PO
== END ==
LOC: SKLAB2 12:16
PROVIDERS: ATTEND Family Medicine
DX: R41.82 Altered mental status, unspecified (principal)

== ENCOUNTER 2020-01-18 19:57 | Inpatient (IN) | payer MEDICARE, OTHER ==
[~2020-01-18] VITALS: Ht 175.3 cm; Wt 157.9 kg
[2020-01-18] MEDS: ATORVASTATIN 20 MG TAB PO SCH (03:08)
[2020-01-18] MEDS: GABAPENTIN 100 MG CAP PO SCH (03:16)
[2020-01-18] MEDS: HumaLOG INSULIN (NovoLOG) PER UNIT SC SCH (03:16)
[2020-01-18] MEDS: LACOSAMIDE 50 MG TAB (VIMPAT) PO SCH (03:16)
[~2020-01-18 19:57] MED LIST changes: -ABIL1TAB13 PO; -ACET-907 PO; -ACET65SU PR; -ANTI2TAB16 PO; -B-COTAB10 PO; -BENG1CRE3 EXT; -CEFT1INJ5 IM; -CEPA1LOZ2 MT; -D3400CAP PO; -DESI13CR2 EXT; -EUCECRE8 TOP; -FLEEENE12 PR; -FLUT0.003 EXT; -GABA-1171 PO; -GLUC1KIT SC; -GNPSOL OU; -GUAI5EL PO; -HYDR1CRE9 EXT; -KETO2CR EXT; -LISI10TA4 PO; -MIRA1POW3 PO; -MOM30SS PO; -NITR4TASL SL; -NORC1TAB7 PO; -OMEP-221 PO; -SERT-138 PO; -SERT50TA29 PO; -TUMS500C PO; -VENTAER INH; -VIMP100T PO; -[UNRECOGNIZED DRUG - CODE] PO
[2020-01-18] MEDS ORDERED: ARIPiprazole 2 MG TAB PO SCH (21:00)
[2020-01-18] MEDS ORDERED: NS 2,100 ML in IV 1 EA IV ONE (21:15)
[2020-01-18] MEDS ORDERED: NS IV ONE (21:15)
[2020-01-18 21:35] LABS: VENOUS BASE EXCESS -2.2 (-2.0-2.0); VENOUS HCO3 25.1 MEQ/L (23.0-27.0); VENOUS O2 SATURATION 98.1 % (60.0-80.0); VENOUS PARTIAL PRESSURE CO2 54.5 mmHg (38.0-50.0); VENOUS PARTIAL PRESSURE O2 126.9 mmHg (30.0-50.0); VENOUS PH 7.281 UNITS (7.330-7.430); VENOUS STANDARD HCO3 22.6 MEQ/L; VENOUS TOTAL CO2 26.8 MEQ/L (24.0-28.0)
[2020-01-18 21:43] LABS: BASO % 0.3 % (0.0-1.0); EOS # 0.3 10^3/uL (0.0-0.5); HEMATOCRIT 36.1 % (36.0-47.0); HEMOGLOBIN 11.3 g/dl (12.0-15.5); LYMPH # 0.5 10^3/uL (1.5-5.0); LYMPH % 3.5 % (24.0-44.0); MEAN CORPUSCULAR HEMOGLOBIN 29.5 pg (27.0-33.0); MEAN CORPUSCULAR HGB CONC 31.3 g/dl (32.0-36.5); MEAN CORPUSCULAR VOLUME 94.3 fl (80.0-96.0); MONO # 0.9 10^3/uL (0.0-0.8); MONO % 6.7 % (0.0-5.0); NEUTROPHILS # 12.1 10^3/uL (1.5-8.5); NEUTROPHILS % 87.1 % (36.0-66.0); PLATELET COUNT, AUTOMATED 318 10^3/uL (150-450); RED BLOOD COUNT 3.83 10^6/uL (4.00-5.40); WHITE BLOOD COUNT 13.9 10^3/uL (4.0-10.0)
[2020-01-18 21:55] LABS: INR 1.23; PARTIAL THROMBOPLASTIN TIME 27.5 SECONDS (25.0-38.4); PROTHROMBIN TIME 15.2 SECONDS (11.8-14.0)
[2020-01-18] MEDS ORDERED: LISI10TA4 PO (21:59)
[2020-01-18] MEDS ORDERED: NORC1TAB7 PO ×2 (21:59)
[2020-01-18] MEDS ORDERED: KETO2CR EXT ×2 (21:59)
[2020-01-18] MEDS ORDERED: DESI13CR2 EXT (21:59)
[2020-01-18] MEDS ORDERED: SERT50TA29 PO (21:59)
[2020-01-18] MEDS ORDERED: EUCECRE8 TOP ×2 (21:59)
[2020-01-18] MEDS ORDERED: GABA-1171 PO (21:59)
[2020-01-18] MEDS ORDERED: VIMP100T PO (21:59)
[2020-01-18] MEDS ORDERED: OMEP-221 PO (21:59)
[2020-01-18] MEDS ORDERED: GNPSOL OU (21:59)
[2020-01-18] MEDS ORDERED: SERT-138 PO (21:59)
[2020-01-18] MEDS ORDERED: CEFT1INJ5 IM (21:59)
[2020-01-18] MEDS ORDERED: NYST1POW9 TOP (21:59)
[2020-01-18] MEDS ORDERED: B-COTAB10 PO (21:59)
[2020-01-18] MEDS ORDERED: D3400CAP PO (21:59)
[2020-01-18 22:08] LABS: INFLUENZA A AMPLIFICATION NEGATIVE (NEGATIVE); INFLUENZA B AMPLIFICATION NEGATIVE (NEGATIVE)
[2020-01-18] MEDS ORDERED: GLUC1KIT SC (22:09)
[2020-01-18] MEDS ORDERED: ABIL1TAB13 PO (22:09)
[2020-01-18] MEDS ORDERED: ACET-907 PO (22:09)
[2020-01-18] MEDS ORDERED: FLEEENE12 PR (22:09)
[2020-01-18] MEDS ORDERED: HYDR1CRE9 EXT (22:09)
[2020-01-18] MEDS ORDERED: MOM30SS PO (22:09)
[2020-01-18] MEDS ORDERED: ACET65SU PR (22:09)
[2020-01-18] MEDS ORDERED: MIRA1POW3 PO (22:09)
[2020-01-18 22:11] LABS: ALT/SGPT 22 U/L (12-78); AMYLASE 29 U/L (25-115); BILIRUBIN,DIRECT 0.1 MG/DL (0.0-0.2); BILIRUBIN,TOTAL 0.4 MG/DL (0.2-1.0); BLOOD UREA NITROGEN 43 MG/DL (7-18); CALCIUM LEVEL 8.3 MG/DL (8.8-10.2); CARBON DIOXIDE LEVEL 28 MEQ/L (21-32); CHLORIDE LEVEL 111 MEQ/L (98-107); CK-MB VALUE MASS < 1.0 NG/ML (<3.6); CPK CREATINE PHOSPHOKINASE 59 U/L (26-192); CREATININE FOR GFR 1.95 MG/DL (0.55-1.30); GLUCOSE, FASTING 270 MG/DL (70-100); MB/CK RELATIVE INDEX 1.69 (< OR =4); POTASSIUM SERUM 5.5 MEQ/L (3.5-5.1); SODIUM LEVEL 143 MEQ/L (136-145); TOTAL PROTEIN 6.6 GM/DL (6.4-8.2); TROPONIN I 0.02 NG/ML (< 0.10)
[2020-01-18] MEDS ORDERED: GUAI5EL PO (22:20)
[2020-01-18] MEDS ORDERED: BENG1CRE3 EXT (22:20)
[2020-01-18] MEDS ORDERED: TUMS500C PO (22:20)
[2020-01-18] MEDS ORDERED: CEPA1LOZ2 MT (22:20)
[2020-01-18] MEDS ORDERED: FLUT0.003 EXT (22:20)
[2020-01-18] MEDS ORDERED: VENTAER INH (22:20)
[2020-01-18] MEDS ORDERED: [UNRECOGNIZED DRUG - CODE] PO (22:20)
[2020-01-18] MEDS ORDERED: NITR4TASL SL (22:20)
[2020-01-18] MEDS ORDERED: ANTI2TAB16 PO (22:20)
[2020-01-18 22:39] LABS: APPEARANCE, URINE CLOUDY (CLEAR); BACTERIA, URINE AUTO 2+ (NEGATIVE); BILIRUBIN, URINE AUTO NEGATIVE (NEGATIVE); BLOOD, URINE BLOOD NEGATIVE (NEGATIVE); COLOR, URINE YELLOW (YELLOW); GLUCOSE, URINE (UA) AUTO NEGATIVE (NEGATIVE); KETONE, URINE AUTO NEGATIVE (NEGATIVE); LEUKOCYTE ESTERASE, URINE AUTO 3+ (NEGATIVE); MUCUS, URINE SMALL (NEGATIVE); NITRITE, URINE AUTO NEGATIVE (NEGATIVE); PROTEIN, URINE AUTO 1+ mg/dL (NEGATIVE); RBC, URINE AUTO 10 /HPF (0-3); SPECIFIC GRAVITY URINE AUTO 1.016 (1.002-1.035); SQUAMOUS EPITHELIAL CELL UR AU 0 /HPF (0-6); UROBILINOGEN, URINE AUTO 0.2 mg/dL (0.0-2.0); WBC, URINE AUTO TNTC /HPF (0-3)
[2020-01-18] MEDS ORDERED: cefTRIAXone SOD 2 GM in D5W MINI-BAG PLUS 50 ML IV ONE (23:15)
[2020-01-18] MEDS ORDERED: VANCOMYCIN HCL 1,000 MG, VIAL MATE ADAPTER 1 EACH in D5W 250 ML IV ONE (23:15)
[2020-01-19] VITALS (31 sets, daily range): BP systolic 78–171; BP diastolic 44–81
[2020-01-19] MEDS ORDERED: CEPACOL LOZENGE MT PRN
[2020-01-19] MEDS ORDERED: guaiFENesin SYRUP 200 MG/10 ML UDC PO PRN
[2020-01-19] MEDS ORDERED: GLUCAGON FOR INJ 1 MG VIAL (J1610) SC PRN
[2020-01-19] MEDS ORDERED: FLEET ENEMA PR PRN
[2020-01-19] MEDS ORDERED: ALBUTEROL SULFATE 2.5 MG/0.5 ML INH NEB SOLN INH PRN
[2020-01-19] MEDS ORDERED: NITROGLYCERIN 0.4 MG SUBL TABLET SL PRN
[2020-01-19] MEDS ORDERED: GLUCOSE 4 GM CHEW TABLET PO PRN
[2020-01-19] MEDS ORDERED: ACETAMINOPHEN TAB 650MG DOSE (2X325MG) PO PRN
[2020-01-19] MEDS ORDERED: SENOKOT S TAB PO PRN
[2020-01-19] MEDS ORDERED: CALCIUM CARBONATE 500 MG CHEW U/D PO PRN
[2020-01-19] MEDS ORDERED: hydrOXYzine 10 MG TAB PO PRN
[2020-01-19] MEDS ORDERED: MOM 30ML SUSPENSION UDC PO PRN
[2020-01-19] MEDS ORDERED: NORCO, ANEXSIA 5/325MG TABLET (HYDROcodone/ACETAMINOPHEN) PO PRN
[2020-01-19] MEDS ORDERED: MIRALAX *UNIT DOSE* 17GM PACKET PO PRN
[2020-01-19] MEDS ORDERED: BISACODYL 10 MG SUPP PR PRN
[2020-01-19] MEDS ORDERED: LOPERAMIDE 2 MG CAPLET PO PRN
[2020-01-19] MEDS ORDERED: DEXTROSE 50% 50 ML SYRINGE IV PRN
[2020-01-19] MEDS ORDERED: ONDANSETRON 4MG/2ML VIAL (J2405) As Ordered ONE (01:48)
[2020-01-19] MEDS ORDERED: ONDANSETRON 4MG/2ML VIAL (J2405) IV ONE (02:00)
--- NOTE | 2020-01-19 03:08 | HPEPDOC ---
[facility] Medical History & Physical Date of Admission Jan 18, 2020 Date of Service: Jan 18, 2020 Primary Care Physician: Jaylan Sagastume MD Attending Physician: EDOUARD HOFFMANN MD History and Physical CHIEF COMPLAINT: Worsening mental status, urinary tract infection HISTORY OF PRESENT ILLNESS: Patient is a 69-year-old female with past history of dementia who is a resident of [facility]. Patient was acting off her baseline over the last few days. Patient had a urinary analysis which showed evidence of a urinary tract infection. Patient was started on Macrobid on 01/17/2020. Patient was still acting off her baseline and was acting lethargic so the patient was brought to the emergency department. In the emergency department, was scheduled with the patient was tachycardic and tachypneic. Patient was found to have a urinary tract infection. Hospitalist team was called to admit the patient. In talking with patient, patient was unable to answer questions appropriately and did not provide any history. PAST MEDICAL HISTORY: 1. History of CVA. 2. Depression. 3. Diabetes mellitus. 4. Chronic kidney disease 5. Obstructive sleep apnea 6. Also arthritis 7. Chronic pain PAST SURGICAL HISTORY: 1. Bilateral knee replacements. SOCIAL HISTORY: Resident of [facility] since 2014. Patient is a nonsmoker and nondrinker FAMILY HISTORY: Unobtainable from the patient ALLERGIES: Please see below. REVIEW OF SYSTEMS: Unobtainable from the patient secondary to dementia and worsened altered mental status. HOME MEDICATIONS: Please see below. PHYSICAL EXAMINATION: VITAL SIGNS: Temperature 98.5, pulse 94, respiratory rate 20, blood pressure 122/56, pulse oximetry 94% 3 L via nasal cannula. General: Alert but not oriented female who is laying in bed when I walked in the room. Whenever asked the patient a question she was yes and when asked to elaborate she would said "because you're awake". Patient does not appear to be in any acute distress. HEENT: Normocephalic, atraumatic, moist mucous membranes Neck: No lymphadenopathy Cardiac: Regular rate and rhythm, no murmurs, normal S1, normal S2 Pulm: Bibasilar crackles. Of the lung oconnor clear to auscultation bilaterally Abd: Soft, nondistended, patient did not appear to be in discomfort while palpating the abdomen. Ext: 1+ pitting edema bilateral lower extremities Neuro: Patient was not oriented and was not able to follow commands for neurological exam. Skin: Skin of the arms, lower legs, abdomen, head and neck were examined did not show any evidence of rash or lesions. LABORATORY DATA: See below. IMAGING: Patient had a chest x-ray performed that is still pending official read from radiology however, there does appear to be an opacity in the left lower lobe however when compared to a previous chest x-ray on 03/30/2019, this appears unchanged. Patient may have some more vascular consolidation in the most recent x-ray however, I do not appreciate a definitive infiltrate MICROBIOLOGY: Please see below. ASSESSMENT: Patient is a 69-year-old female who presents to the hospital with worsening altered mental status from [facility]. Patient's altered mental status is most likely secondary to metabolic encephalopathy secondary to sepsis from urinary tract infection. PLAN: 1. Worsening altered mental status shunt top of dementia. This is most likely secondary to sepsis secondary to urinary tract infection. Patient was tachycardic and tachypneic upon arrival to the emergency department. Patient has received a fluid bolus and was started on ceftriaxone as she failed outpatient o ral antibiotic therapy. Patient did have a history of Klebsiella and Escherichia coli in her urine in the last year that was sensitive to ceftriaxone. 2. Sepsis from urinary tract infection. Patient urine culture is pending from both 01/17/2020 and the one done in the emergency department on 01/18/2020. Antibiotics can be changed pending the results of these cultures. 3. Urinary tract infection. Ceftriaxone will be given until cultures come back we're able to de-escalate therapy. 4. Acute kidney injury versus acute kidney injury on chronic kidney disease. Patient has a history of chronic kidney disease. We will follow-up on the patient's basic metabolic profile. 5. Diabetes mellitus. Patient without consistent carbohydrate diet and will be on sliding scale insulin. 6. Chronic kidney disease. Avoid nephrotoxic agents and will monitor the patient's renal function as she is hospitalized. 7. Hyperkalemia. Patient's potassium was 5.5 on admission. This may be secondary to an acute kidney injury. We will follow-up on the patient's metabolic profile. 8. Obesity complicating care. Patient has a history of diabetes and obstructive sleep apnea. 9. Obstructive sleep apnea. Patient may use her own home CPAP if it was brought with her. 10.DVT prophylaxis heparin 5000 units every 8 hours. 11. CODE STATUS DO NOT RESUSCITATE/DO NOT INTUBATE with a trial of noninvasive positive pressure ventilation Disposition: Patient will be admitted to the progressive care unit for further monitoring. Patient is suspected to have a greater than 2 midnights today. Vital Signs Vital Signs Date Time Temp Pulse Resp B/P (MAP) Pulse Ox O2 Delivery O2 Flow Rate FiO2 01/19/20 01:53 122/56 (78) 01/19/20 01:46 98.5 94 20 94 Nasal Cannula 3.0 Laboratory Data Labs 24H Laboratory Tests 2 01/18/20 21:19: Immature Granulocyte % (Auto) 0.4, Neutrophils (%) (Auto) 87.1H, Lymphocytes (%) (Auto) 3.5L, Monocytes (%) (Auto) 6.7H, Eosinophils (%) (Auto) 2.0, Basophils (%) (Auto) 0.3, Neutrophils # (Auto) 12.1H, Lymphocytes # (Auto) 0.5L, Monocytes # (Auto) 0.9H, Eosinophils # (Auto) 0.3, Basophils # (Auto) 0.0, Nucleated Red Blood Cells % (auto) 0.0, Prothrombin Time 15.2H, Prothromb Time International Ratio 1.23, Activated Partial Thromboplast Time 27.5, Urine Color YELLOW, Urine Appearance CLOUDYH, Urine pH 5.0, Urine Specific [place] 1.016, Urine Protein 1+H, Urine Glucose (Auto)(UA) NEGATIVE, Urine Ketones (Auto) NEGATIVE, Urine Blood NEGATIVE, Urine Nitrite NEGATIVE, Urine Bilirubin NEGATIVE, Urine Urobilinogen 0.2, Urine Leukocyte Esterase (Auto) 3+H, Urine WBC (Auto) TNTCH, Urine RBC (Auto) 10H, Urine Hyaline Casts (Auto) 2, Urine Bacteria (Auto) 2+H, Urine Squamous Epithelial Cells 0, Urine Mucus (Auto) SMALL, Urine Sperm (Auto) , Blood Gas Bicarbonate Standard 22.6, Venous Blood pH 7.281L, Venous Blood Partial Pressure CO2 54.5H, Venous Blood Partial Pressure O2 126.9H, Venous Blood Total Carbon Dioxide 26.8, Venous Blood HCO3 25.1, Venous Blood Oxygen Saturation 98.1H, Venous Blood Base Excess -2.2L, Anion Gap 4L, Glomerular Filtration Rate 27.0L, Lactic Acid Level 1.5, Calcium Level 8.3L, Total Bilirubin 0.4, Direct Bilirubin 0.1, Aspartate Amino Transf (AST/SGOT) 15, Alanine Aminotransferase (ALT/SGPT) 22, Alkaline Phosphatase 72, Total Creatine Kinase 59, Creatine Kinase MB < 1.0, Creatine Kinase MB Relative Index 1.69, Troponin I 0.02, C-Reactive Protein, Quantitative 3.60H, Total Protein 6.6, Albumin 3.0L, Albumin/Globulin Ratio 0.83L, Amylase Level 29, Influenza Type A (RT-PCR) NEGATIVE, Influenza Type B (RT-PCR) NEGATIVE CBC/BMP Laboratory Tests 01/18/20 21:19 Microbiology Microbiology 01/19/20 Gram Stain, Received Pending 01/19/20 Sputum Culture, Received Pending 01/18/20 Urine Culture, Received Pending 01/18/20 Respiratory Virus Panel (PCR) (DAGO), Received Pending 01/18/20 Blood Culture, Received Pending 01/18/20 Blood Culture, Received Pending Home Medications Scheduled Aripiprazole (Abilify) 2 Mg Tablet, 2 MG PO QHS Atorvastatin Calcium (Atorvastatin Calcium) 40 Mg Tab, 40 MG PO QHS Buspirone HCl (Buspirone HCl) 5 Mg Tab, 5 MG PO BID 0800, 1600 Ceftriaxone Sodium (Ceftriaxone) 1 Gm Vial, 1 GM IM DAILY MIX WITH LIDOCAINE 2%, GIVEN @ 1400 Cholecalciferol (Vitamin D3) (Vitamin D3) 10 Mcg Capsule, 20 MCG PO DAILY Furosemide (Furosemide) 20 Mg Tab, 20 MG PO DAILY Gabapentin (Gabapentin) 100 Mg Capsule, 100 MG PO BID Glimepiride (Glimepiride) 2 Mg Tab, 2 MG PO DAILY Hydrocodone/Acetaminophen (Redford 5-325 Tablet) 1 Each Tablet, 1 TAB PO QID 0600, 1200, 1600, 2000 Hydrocortisone (Hydrocortisone) 28 Gm Cream..g., 1 DOSE EXT QHS APPLY TO FACE Ketoconazole (Ketoconazole) 15 Gm Cream..g., 1 DOSE EXT BID LOWER BACK/GROIN AFFECTED CREASES, UNDER FOLDS AND UNDER BREASTS, GIVEN @ 0600 & 2000 Ketoconazole (Ketoconazole) 15 Gm Cream..g., 1 DOSE EXT DAILY APPLY TO FACE @ 0600 Lacosamide (Vimpat) 100 Mg Tablet, 100 MG PO BID Lanolin Alcohol/Mo/W.pet/Ararat (Eucerin Creme) 454 Gm Cream..g., 1 DOSE TOP DAILY APPLY TO BACK AFTER BATH/SHOWER Lisinopril (Lisinopril) 10 Mg Tablet, 10 MG PO DAILY Nystatin (Nystatin Powder) 15 Gm Powder, 1 DOSE TOP BID UNDER BOTH BREASTS Omeprazole (Omeprazole) 40 Mg Capsule.dr, 40 MG PO BID Polyvinyl Alcohol/Povidone (Artificial Tears Drops) 15 Ml Drops, 1 DROP OU QID 0600, 1200, 1600, 2000 Sertraline HCl (Sertraline HCl) 50 Mg Tablet, 50 MG PO DAILY TAKES WITH 100MG FOR 150MG TOTAL Sertraline HCl (Sertraline HCl) 100 Mg Tablet, 100 MG PO DAILY TAKES WITH 50MG FOR 150MG TOTAL Vitamin B Complex/Folic Acid (B-Complex Tablet) 0.4 Mg Tablet, 1 TAB PO DAILY Zinc Oxide (Desitin) 454 Gm Cream..g., 1 DOSE EXT TID APPLY TO AFFECTED AREAS FOR RASH Scheduled PRN Acetaminophen (Tylenol) 325 Mg Tablet, 650 MG PO Q4H PRN for PAIN / FEVER Acetaminophen (Acetaminophen) 650 Mg Supp.rect, 650 MG GA Q4H PRN for PAIN / FEVER Albuterol Sulf (Albuterol Sulfate) 2.5 Mg/3 Ml Nebu, 2.5 MG INH Q4H PRN for COUGH/CONGESTION/WHEEZING Albuterol Sulfate (Ventolin Hfa) 18 Gm Hfa.aer.ad, 2 PUFF INH Q4H PRN for SHORTNESS OF BREATH Benzocaine/Menthol (Cepacol Sore Throat Lozenge) 1 Each Lozenge, 1 SARABJIT MT Q4H PRN for SORE THROAT Bisacodyl (Dulcolax) 10 Mg Sup, 10 MG GA DAILY PRN for CONSTIPATION Calcium Carbonate (Tums) 200 Mg Tab.chew, 1,000 MG PO Q6H PRN for INDIGESTION Dextrose (Glucose) 4 Gm Chw, 16 GM PO ASDIRECTED PRN for LOW BLOOD SUGAR FOR BLOOD GLUCOSE LESS THAN 60MG/DL Fluticasone Propionate (Fluticasone Propionate 0.005%) 15 Gm Oint...g., 1 DOSE EXT BID PRN for DERMATITIS USES ON LOWER BACK Glucagon,Human Recombinant (Glucagon Emergency Kit) 1 Mg Vial, 1 MG SC ASDIRECTED PRN for LOW BLOOD SUGAR FOR FSBS<60 AND UNCONCIOUS Guaifenesin (Guaifenesin) 100 Mg/5 Ml Liquid, 10 ML PO Q6H PRN for COUGH Hydrocodone/Acetaminophen (Redford 5-325 Tablet) 1 Each Tablet, 1 TAB PO TID PRN for PAIN LEVEL 6-10 Hydroxyzine HCl (Hydroxyzine HCl) 10 Mg Tab, 10 MG PO QHS PRN for ITCHING Lanolin Alcohol/Mo/W.pet/Ararat (Eucerin Creme) 454 Gm Cream..g., 1 DOSE TOP ASDIRECTED PRN for DRY SKIN Loperamide HCl (Anti-Diarrheal) 2 Mg Tablet, 2 MG PO Q8H PRN for DIARRHEA Mag Hydrox/Aluminum Hyd/Simeth (Hm Antacid Anti-Gas Suspension) 355 Ml Oral.susp, 30 ML PO Q8H PRN for GERD Methyl Salicylate/Menthol (Bengay Greaseless Cream) 57 Gm Cream..g., 1 DOSE EXT QID PRN for BACK PAIN APPLY TO LOWER BACK Milk Of Magnesia (Milk of Magnesia) 2,400 Mg/10 Ml Oral.susp, 10 ML PO DAILY PRN for CONSTIPATION Nitroglycerin (Nitrostat) 0.4 Mg Tab.subl, 0.4 MG SL NITRO PRN for CHEST PAIN Polyethylene Glycol 3350 (Miralax) 17 Gm Powd.pack, 17 GM PO DAILY PRN for CONSTIPATION Sennosides/Docusate Sodium (Senna-S Tablet) 1 Tab Tab, 1 TAB PO DAILY PRN for CONSTIPATION Sodium Phosphate,Pope-Dibasic (Fleet Enema) 133 Ml Enema, 1 RUBI GA DAILY PRN for CONSTIPATION Allergies Coded Allergies: metformin (Verified Adverse Reaction, Unknown, 01/18/20) morphine (Verified Adverse Reaction, Unknown, 01/18/20) pregabalin (Verified Adverse Reaction, Unknown, ELEVATED LFTS, 01/18/20) A-FIB/CHADSVASC A-FIB History Current/History of A-Fib/PAF?: No GME ATTESTATION GME ATTESTATION My faculty preceptor for this patient encounter was physically present during the encounter and was fully available. All aspects of the patient interview, examination, medical decision making process, and medical care plan development were reviewed and approved by the faculty preceptor. The faculty preceptor is aware and concurs with the plan as stated in the body of this note and will attest to such by his/her cosignature. ATTENDING NOTE TIME OF SERVICE 1150PM Ms. Hobbs is a 69 yr old CVA, Depression, DM, CKD & OA who is admitted for management of sepsis 2/2 UTI. Rest per 's note MARIO ZAPIEN DO Jan 19, 2020 03:08 EDOUARD HOFFMANN MD Jan 19, 2020 05:27
--- NOTE | 2020-01-19 05:39 | ECGEPIP ---
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
[2020-01-19 05:50] LABS: HEMOGLOBIN 11.1 g/dl (12.0-15.5); MEAN CORPUSCULAR HEMOGLOBIN 29.5 pg (27.0-33.0); MEAN CORPUSCULAR HGB CONC 30.8 g/dl (32.0-36.5); MEAN CORPUSCULAR VOLUME 95.7 fl (80.0-96.0); PLATELET COUNT, AUTOMATED 314 10^3/uL (150-450); RED BLOOD COUNT 3.76 10^6/uL (4.00-5.40); WHITE BLOOD COUNT 14.4 10^3/uL (4.0-10.0)
[2020-01-19] MEDS: HEPARIN SOD (PORCINE) 5000 UNITS/ML VIAL (J1644 PER 1000UNITS) SC SCH ×3 (06:00→21:09)
[2020-01-19] MEDS: NORCO, ANEXSIA 5/325MG TABLET (HYDROcodone/ACETAMINOPHEN) PO SCH ×3 (06:00→15:55)
[2020-01-19 06:11] LABS: CALCIUM LEVEL 8.2 MG/DL (8.8-10.2); CREATININE FOR GFR 1.72 MG/DL (0.55-1.30); GLOMERULAR FILTRATION RATE 31.2 (>39); MAGNESIUM LEVEL 1.8 MG/DL (1.8-2.4); POTASSIUM SERUM 5.1 MEQ/L (3.5-5.1)
[2020-01-19] MEDS: HumaLOG INSULIN (NovoLOG) PER UNIT SC SCH ×4 (08:22→20:53)
--- NOTE | 2020-01-19 08:28 | REP ---
Portable chest x-ray: Single view. History: Septic shock. Comparison chest x-ray: March 30, 2019. Findings: EKG monitoring electrodes are seen. Cardiomegaly is observed. Pulmonary vasculature and interstitial markings are increased and congested consistent with mild interstitial edema. No didier pleural effusion is seen. There is chronic tenting of the left hemidiaphragm with adjacent pleural thickening. Impression: Chronic changes left base. Vascular congestion and mild interstitial edema pattern. Cardiomegaly. No definite infiltrate. Electronically Signed by Reginald Lira MD 01/19/2020 08:21 A
[2020-01-19] MEDS: GABAPENTIN 100 MG CAP PO SCH (08:34)
[2020-01-19] MEDS: LACOSAMIDE 50 MG TAB (VIMPAT) PO SCH ×2 (08:34→20:53)
[2020-01-19] MEDS: busPIRone 5 MG TAB PO SCH ×2 (08:34→15:52)
[2020-01-19] MEDS: NYSTATIN 100,000 UNITS/GM TOPICAL PWD 15 GM TOP SCH ×2 (08:35→21:10)
[2020-01-19] MEDS ORDERED: SERTRALINE HCL 50 MG TAB PO SCH (09:00)
[2020-01-19] MEDS ORDERED: SERTRALINE 100 MG TAB PO SCH (09:00)
[2020-01-19] MEDS ORDERED: FUROSEMIDE 20 MG TAB PO SCH (09:00)
[2020-01-19] MEDS: IPRATROPIUM 0.5MG/ALBUTEROL 2.5MG INH SOL UD 3ML (DUONEB)(J7620) NEB SCH ×3 (09:10→20:00)
[2020-01-19] MEDS ORDERED: SLF 3 ML SYR IV PRN (10:30)
[2020-01-19] MEDS ORDERED: cefTRIAXone SOD 2 GM in D5W MINI-BAG PLUS 50 ML IV SCH (12:00)
--- NOTE | 2020-01-19 13:53 | IPNPDOC ---
Text Note Date of Service The patient was seen on 01/19/20. NOTE Subjective: Patient is seen and examined at bedside in the progressive care unit. She is not really able to answer questions, repeating "I don't know" in response to inquiries. There have been no events on telemetry overnight. Objective: Vitals: See below General: Elderly, morbidly obese female, sitting up in bed. She does not appear to be in any acute distress. HEENT: She has purple hair. Eyes are clear. Mucous membranes are moist. Mallampati 4. Neck: Morbidly obese. JVD unable to be appreciated. Lungs: Diffusely wheezy, both inspiratory and expiratory. Breath sounds are tight. Wheezing is more pronounced in the bases. No rhonchi are noted Heart: Heart sounds are diminished; however I do not appreciate any murmurs, g allops, or rubs. She has a regular rate and rhythm. Abdomen: Morbidly obese with what looks to be a contact dermatitis in her intertriginous folds. Normoactive bowel sounds, no tenderness to palpation Extremities: 1+ pitting edema of the lower extremities bilaterally. Neuro: Not oriented, does follow some commands but loses attention easily. Assessment: Patient is a 69-year-old female who presents to the hospital with worsening altered mental status from [facility]. Patient's altered mental status may be secondary to metabolic encephalopathy in the context of sepsis from urinary tract infection. Plan: 1. Worsening altered mental status in the setting of dementia. Given the patient's tachypnea and tachycardia upon arrival to the emergency department, and a urinalysis concerning for infection she was given IV fluid bolus and IV a ntibiotics. Her mentation has not improved overnight, and her venous blood gas looks concerning for hypercarbic respiratory acidosis. Apparently she uses CPAP at the long term, however her machine has been at [facility] for the last several days getting serviced. The long term has put her on 2 L of oxygen at night to compensate. She is morbidly obese and at high risk for obstructive sleep apnea as well as obesity hypoventilation syndrome. Will obtain an ABG and an echocardiogram (diffuse interstitial opacities on chest x-ray noted). If her proBNP is severely elevated, we will aggressively diurese her. 2. Sepsis from urinary tract infection. Patient's urine culture is pending from both 01/17/2020 and the one done in the emergency department on 01/18/2020. Continue on ceftriaxone for now, antibiotics can be escalated pending the results of these cultures. 3. Urinary tract infection. Ceftriaxone will be given until cultures come back we're able to de-escalate therapy. 4. Acute kidney injury versus acute kidney injury on chronic kidney disease. Patient has a history of chronic kidney disease. We will follow-up on the patient's basic metabolic profile. She's been aggressively fluid resuscitated, and may need diuresis. 5. Diabetes mellitus. Patient without consistent carbohydrate diet and will be on sliding scale insulin. 6. Chronic kidney disease. Avoid nephrotoxic agents and will monitor the patient's renal function as she is hospitalized. 7. Hyperkalemia, resolved. Etiology unknown. Patient's potassium was 5.5 on admission. 8. Obesity complicating care. Patient has a history of diabetes and obstructive sleep apnea. 9. Obstructive sleep apnea. Patient's home CPAP is being serviced right now. Respiratory therapy is going to see if we can give her one. 10. DVT prophylaxis heparin 5000 units every 8 hours. 11. CODE STATUS DO NOT RESUSCITATE/DO NOT INTUBATE with a trial of noninvasive positive pressure ventilation Disposition: Pending clinical improvement. ADDENDUM: This afternoon, around 4 PM, the nursing staff noted worsening mental status. Patient was unable to respond in coherent words. CT scan of the head was negative for any acute bleed, however her systolic pressure dropped to 78 mmHg. She was transferred to the ICU, where she had minimal response to IV fluids. Dr. Moraes was consulted for central line placement and IV pressors were started. As her ABG showed respiratory acidosis, so Dr. Bruce was consulted for BiPAP management. VS,Fishbone, I+O VS, Fishbone, I+O Laboratory Tests 01/18/20 21:19 01/19/20 05:05 Vital Signs Date Time Temp Pulse Resp B/P (MAP) Pulse Ox O2 Delivery O2 Flow Rate FiO2 01/19/20 12:00 98.1 85 22 171/81 (111) 90 Nasal Cannula 3.0 I&O- Last 24 Hours up to 6 AM 01/19/20 06:00 Intake Total 2520 ml Output Total 650 ml Balance 1870 ml GME ATTESTATION GME ATTESTATION My faculty preceptor for this patient encounter was physically present during the encounter and was fully available. All aspects of the patient interview, examination, medical decision making process, and medical care plan development were reviewed and approved by the faculty preceptor. The faculty preceptor is aware and concurs with the plan as stated in the body of this note and will attest to such by his/her cosignature. BENJI CROWLEY D.O. Jan 19, 2020 13:53
[2020-01-19] MEDS: SLF 3 ML SYR IV SCH ×2 (14:29→21:10)
[2020-01-19 14:59] LABS: ABG BASE EXCESS -1.1 (-2.0-2.0); ABG HCO3 25.4 MEQ/L (22.0-26.0); ABG PARTIAL PRESSURE CO2 50.3 mmHg (35.0-45.0); ABG PARTIAL PRESSURE O2 82.3 mmHg (75.0-100.0); ABG STANDARD HCO3 23.6 MEQ/L (22.0-26.0); ABG TOTAL CO2 26.9 MEQ/L (23.0-31.0); ABG pH (ARTERIAL) 7.321 UNITS (7.350-7.450)
--- NOTE | 2020-01-19 15:00 | ECGEPIP ---
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
[2020-01-19 16:42] LABS: HEMATOCRIT 34.7 % (36.0-47.0); HEMOGLOBIN 10.9 g/dl (12.0-15.5); MEAN CORPUSCULAR HEMOGLOBIN 30.3 pg (27.0-33.0); MEAN CORPUSCULAR HGB CONC 31.4 g/dl (32.0-36.5); MEAN CORPUSCULAR VOLUME 96.4 fl (80.0-96.0); PLATELET COUNT, AUTOMATED 284 10^3/uL (150-450); WHITE BLOOD COUNT 11.9 10^3/uL (4.0-10.0)
[2020-01-19] MEDS ORDERED: FUROSEMIDE 100 MG/10 ML VIAL (J1940) IV ONE (17:00)
--- NOTE | 2020-01-19 17:06 | REPVR ---
PROCEDURE INFORMATION: Exam: CT Head Without Contrast Exam date and time: 01/19/2020 4:36 PM Age: 69 years old Clinical indication: Altered mental status/memory loss; Confusion or disorientation TECHNIQUE: Imaging protocol: Computed tomography of the head without contrast. Radiation optimization: All CT scans at this facility use at least one of these dose optimization techniques: automated exposure control; mA and/or kV adjustment per patient size (includes targeted exams where dose is matched to clinical indication); or iterative reconstruction. COMPARISON: CT Head without contrast 06/08/2017 5:24 PM FINDINGS: Brain: There is no acute intracranial hemorrhage, cerebral edema, or midline shift. 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 Chronic microvascular ischemic changes are seen in the periventricular white matter. Age-related cerebral and cerebellar volume loss is present. Ventricles: Mild ex vacuo dilation of the left lateral ventricle is noted. Bones/joints: No acute fracture. Sinuses: There is no acute sinusitis. Mastoid air cells: The mastoid air cells are clear. Orbits: The included orbital structures are unremarkable. Soft tissues: Unremarkable. Vasculature: Atherosclerotic calcifications are seen involving the cavernous carotid arteries. IMPRESSION: 1. No acute intracranial abnormality. 2. Chronic findings as discussed above. Electronically signed by: David Hampton On 01/19/2020 17:05:40 PM
[2020-01-19 17:13] LABS: CK-MB VALUE MASS < 1.0 NG/ML (<3.6); CPK CREATINE PHOSPHOKINASE 52 U/L (26-192); MB/CK RELATIVE INDEX 1.92 (< OR =4); THYROID STIMULATING HORMONE 0.991 uIU/ML (0.358-3.740); TROPONIN I 0.03 NG/ML (< 0.10)
[2020-01-19] MEDS ORDERED: NS 1,000 ML IV ONE (17:15)
[2020-01-19] MEDS: PIPERACILLIN/TAZOBACTAM SOD 3.375 GM in D5W MINI-BAG PLUS 50 ML IV SCH (18:07)
[2020-01-19 18:09] LABS: ALBUMIN 2.8 GM/DL (3.2-5.2); ALT/SGPT 23 U/L (12-78); BILIRUBIN,DIRECT 0.1 MG/DL (0.0-0.2); BILIRUBIN,TOTAL 0.2 MG/DL (0.2-1.0); TOTAL PROTEIN 6.6 GM/DL (6.4-8.2)
[2020-01-19 18:35] LABS: VITAMIN B12 LEVEL 598 PG/ML (247-911)
--- NOTE | 2020-01-19 18:57 | REP ---
Portable chest x-ray: Single view. History: Central line placement. Comparison chest x-ray: January 18, 2020. Findings: A right internal jugular central venous line is seen in place with its tip in the expected location of the superior vena cava. A there is no evidence of pneumothorax. There is pleuroparenchymal opacity in the left base which is unchanged from prior studies. Cardiomegaly is observed. Pulmonary vasculature is cephalized and congested. Impression: CHF pattern. Pleuroparenchymal opacity left base again noted. Right IJ line in place. No evidence of pneumothorax. Electronically Signed by Reginald Lira MD 01/19/2020 06:48 P
[2020-01-19] MEDS ORDERED: NOREPINEPHRINE BITARTRATE 8 MG in D5W 492 ML IV SCH (19:00)
--- NOTE | 2020-01-19 20:00 | IPNPDOC ---
Date Seen The patient was seen on 01/19/20. Progress Note INDICATION: Hypotension requiring vasopressors PROCEDURE CONDUCTOR SLEEPING CAR: Dr. Sandra CONSENT: The procedure was performed emergently and the permission was implied because of the emergent nature. PROCEDURE SUMMARY: A time out was performed. My hands were washed immediately prior to the procedure. I wore a surgical cap, mask with protective eyewear, full gown and sterile gloves throughout the procedure. The patient was placed in Trendelenburg position. Right chest region was prepped using chlorhexidine scrub and draped in sterile fashion using a full drape and sterile probe cover employed. The medial and lateral heads of the sternocleidomastoid muscle were identified as was the carotid pulse. The Internal Jugular vein was identified using the ultrasound. Anesthesia was achieved over the vein using 1% lidocaine. Using real-time out of plane guidance, the introducer needle was inserted into the Internal Jugular vein under direct ultrasound visualization. Venous blood was withdrawn. The syringe was removed and a guidewire was advanced into the introducer needle. The guidewire was visualized in the Internal Jugular Vein by ultrasound. A small incision was made at the skin surface with a scalpel and the introducer needle was exchanged for a dilator over the guidewire. After appropriate dilation was obtained, the dilator was exchanged over the wire for a 20 cm central venous catheter. The wire was removed and the catheter was sutured in place at 15 cm. A sterile sorbaview shield was placed over the catheter at the insertion site. The patient tolerated the procedure without any hemodynamic compromise. At time of procedure completion, all ports aspirated and flushed properly. Post-procedure chest x-ray shows adequate placement. Estimated blood loss is <5 ml. VS, I&O, 24H, Fishbone Vital Signs/I&O Vital Signs Date Time Temp Pulse Resp B/P (MAP) Pulse Ox O2 Delivery O2 Flow Rate FiO2 01/19/20 19:30 21 139/63 (88) 95 Nasal Cannula 2.0 01/19/20 19:00 73 01/19/20 18:55 98.5 I&O- Last 24 Hours up to 6 AM 01/19/20 06:00 Intake Total 2520 ml Output Total 650 ml Balance 1870 ml Laboratory Data 24H LABS Laboratory Tests 2 01/18/20 21:19: Immature Granulocyte % (Auto) 0.4, Neutrophils (%) (Auto) 87.1H, Lymphocytes (%) (Auto) 3.5L, Monocytes (%) (Auto) 6.7H, Eosinophils (%) (Auto) 2.0, Basophils (%) (Auto) 0.3, Neutrophils # (Auto) 12.1H, Lymphocytes # (Auto) 0.5L, Monocytes # (Auto) 0.9H, Eosinophils # (Auto) 0.3, Basophils # (Auto) 0.0, Nucleated Red Blood Cells % (auto) 0.0, Prothrombin Time 15.2H, Prothromb Time International Ratio 1.23, Activated Partial Thromboplast Time 27.5, Urine Color YELLOW, Urine Appearance CLOUDYH, Urine pH 5.0, Urine Specific Cal[place] 1.016, Urine Protein 1+H, Urine Glucose (Auto)(UA) NEGATIVE, Urine Ketones (Auto) NEGATIVE, Urine Blood NEGATIVE, Urine Nitrite NEGATIVE, Urine Bilirubin NEGATIVE, Urine Urobilinogen 0.2, Urine Leukocyte Esterase (Auto) 3+H, Urine WBC (Auto) TNTCH, Urine RBC (Auto) 10H, Urine Hyaline Casts (Auto) 2, Urine Bacteria (Auto) 2+H, Urine Squamous Epithelial Cells 0, Urine Mucus (Auto) SMALL, Urine Sperm (Auto) , Blood Gas Bicarbonate Standard 22.6, Venous Blood pH 7.281L, Venous Blood Partial Pressure CO2 54.5H, Venous Blood Partial Pressure O2 126.9H, Venous Blood Total Carbon Dioxide 26.8, Venous Blood HCO3 25.1, Venous Blood Oxygen Saturation 98.1H, Venous Blood Base Excess -2.2L, Anion Gap 4L, Glomerular Filtration Rate 27.0L, Lactic Acid Level 1.5, Calcium Level 8.3L, Total Bilirubin 0.4, Direct Bilirubin 0.1, Aspartate Amino Transf (AST/SGOT) 15, Alanine Aminotransferase (ALT/SGPT) 22, Alkaline Phosphatase 72, Total Creatine Kinase 59, Creatine Kinase MB < 1.0, Creatine Kinase MB Relative Index 1.69, Troponin I 0.02, C-Reactive Protein, Quantitative 3.60H, Total Protein 6.6, Albumin 3.0L, Albumin/Globulin Ratio 0.83L, Amylase Level 29, Influenza Type A (RT-PCR) NEGATIVE, Influenza Type B (RT-PCR) NEGATIVE 01/19/20 05:05: Nucleated Red Blood Cells % (auto) 0.0, Anion Gap 6L, Glomerular Filtration Rate 31.2L, Calcium Level 8.2L, Magnesium Level 1.8, PD-Qew-J-Type Natriuretic Peptide 1023H 01/19/20 12:22: Bedside Glucose (Misc Panel) 193H 01/19/20 14:50: Blood Gas Bicarbonate Standard 23.6, Arterial Blood pH 7.321L, Arterial Blood Partial Pressure CO2 50.3H, Arterial Blood Partial Pressure O2 82.3, Arterial Blood Total CO2 26.9, Arterial Blood HCO3 25.4, Arterial Blood Base Excess -1.1, Arterial Blood Oxygen Saturation 96.0 01/19/20 15:42: Methicillin-Resist S.aureus DNA PCR DETECTEDH 01/19/20 16:26: Nucleated Red Blood Cells % (auto) 0.0, Total Bilirubin 0.2, Direct Bilirubin 0.1, Aspartate Amino Transf (AST/SGOT) 18, Alanine Aminotransferase (ALT/SGPT) 23, Alkaline Phosphatase 63, Total Creatine Kinase 52, Creatine Kinase MB < 1.0, Creatine Kinase MB Relative Index 1.92, Troponin I 0.03#, Total Protein 6.6, Albumin 2.8L, Albumin/Globulin Ratio 0.74L, Thyroid Stimulating Hormone (TSH) 0.991 01/19/20 17:38: Lactic Acid Level 0.7, Ammonia 38H, Vitamin B12 Level 598, Syphilis Serology NONREACTIVE 01/19/20 18:04: Bedside Glucose (Misc Panel) 126H CBC/BMP Laboratory Tests 01/18/20 21:19 01/19/20 05:05 01/19/20 16:26 Microbiology Microbiology 01/19/20 Gram Stain - Final, Complete 01/19/20 Sputum Culture - Final, Complete 01/18/20 Urine Culture, Received Pending 01/18/20 Respiratory Virus Panel (PCR) (DAGO) - Final, Complete 01/18/20 Blood Culture, Received Pending 01/18/20 Blood Culture, Received Pending BALWINDER SANDRA MD Jan 19, 2020 20:00
[2020-01-19] MEDS: ATORVASTATIN 20 MG TAB PO SCH (20:51)
[2020-01-19] MEDS: LEVEMIR (INSULIN DETEMIR) 1 UNITS/0.01ML SC SCH (21:09)
[2020-01-19 21:23] LABS: VENOUS BASE EXCESS -2.3 (-2.0-2.0); VENOUS HCO3 25.5 MEQ/L (23.0-27.0); VENOUS PARTIAL PRESSURE CO2 58.2 mmHg (38.0-50.0); VENOUS PARTIAL PRESSURE O2 95.3 mmHg (30.0-50.0); VENOUS PH 7.259 UNITS (7.330-7.430); VENOUS STANDARD HCO3 22.5 MEQ/L; VENOUS TOTAL CO2 27.3 MEQ/L (24.0-28.0)
[2020-01-19] MEDS ORDERED: diphenhydrAMINE INJ 50MG/ML VIAL (J1200) IV PRN (21:30)
--- NOTE | 2020-01-19 22:17 | ECHO ---
DATE OF PROCEDURE: 01/19/2020 REFERRING PHYSICIAN: Dr. Maxine Marcial INDICATION: Cardiomegaly. HEIGHT: 175 cm WEIGHT: 156 kg 2D MEASUREMENTS: Left ventricle diastole: 4.8 cm Ventricular septum: 1.34 cm Posterior wall: 1.41 cm Aortic root: 2.9 cm Aortic annulus: 2.2 cm Left atrium: 3.9 cm Left atrial volume index: 13 Inferior vena cava: 2.0 cm DOPPLER MEASUREMENTS: Aortic valve velocity: 207 cm/s LVOT velocity: 105 cm/s LVOT VTI: 26.1 cm No aortic stenosis. No aortic regurgitation. No mitral regurgitation. No mitral stenosis. Mitral E velocity: 93.3 cm/s Mitral A velocity: 94.8 cm/s Mitral deceleration time: 356 ms Very mild tricuspid regurgitation. No pulmonic regurgitation. MITRAL ANNULAR TISSUE DOPPLER: E prime lateral: 4.8 cm/s E prime septal: 5.7 cm/s DESCRIPTION: Rhythm was sinus. This was a moderately technically difficult echocardiogram. No pericardial effusion. This was a 2D, M-mode, color flow Doppler and pulse wave Doppler examination and included mitral annular tissue Doppler. CONCLUSIONS: 1. Mild concentric left ventricular hypertrophy. No regional wall abnormalities of the left ventricle. Hyperdynamic left ventricular (LV) systolic function. Left ventricular ejection fraction (LVEF) 75% by visual estimate. Grade 1 LV diastolic dysfunction. 2. Severe focal thickening and focal calcific deposits of a 3-cusp aortic valve. Moderate reduction in aortic cusp mobility by visual estimate. No aortic stenosis. No aortic regurgitation. 3. Severe mitral annular calcification. No mitral regurgitation or stenosis. 4. Mild left atrial dilatation. 5. Moderately technically difficult echocardiogram. ADDITIONAL COMMENTS AND RECOMMENDATIONS: Recommend a followup echocardiogram Doppler in 1 year to reassess aortic valve disease.
[2020-01-20] VITALS (12 sets, daily range): BP systolic 96–150; BP diastolic 54–72
[2020-01-20] MEDS: PIPERACILLIN/TAZOBACTAM SOD 3.375 GM in D5W MINI-BAG PLUS 50 ML IV SCH ×5 (00:04→23:42)
[2020-01-20] MEDS: IPRATROPIUM 0.5MG/ALBUTEROL 2.5MG INH SOL UD 3ML (DUONEB)(J7620) NEB SCH ×4 (01:38→22:14)
[2020-01-20 04:56] LABS: HEMATOCRIT 35.1 % (36.0-47.0); HEMOGLOBIN 10.5 g/dl (12.0-15.5); MEAN CORPUSCULAR HEMOGLOBIN 28.9 pg (27.0-33.0); MEAN CORPUSCULAR HGB CONC 29.9 g/dl (32.0-36.5); MEAN CORPUSCULAR VOLUME 96.7 fl (80.0-96.0); PLATELET COUNT, AUTOMATED 288 10^3/uL (150-450); RED BLOOD COUNT 3.63 10^6/uL (4.00-5.40); WHITE BLOOD COUNT 11.7 10^3/uL (4.0-10.0)
[2020-01-20 05:16] LABS: CALCIUM LEVEL 8.1 MG/DL (8.8-10.2); CREATININE FOR GFR 1.89 MG/DL (0.55-1.30); MAGNESIUM LEVEL 1.8 MG/DL (1.8-2.4); POTASSIUM SERUM 4.8 MEQ/L (3.5-5.1)
[2020-01-20] MEDS: SLF 3 ML SYR IV SCH ×3 (06:31→20:07)
[2020-01-20] MEDS: HEPARIN SOD (PORCINE) 5000 UNITS/ML VIAL (J1644 PER 1000UNITS) SC SCH ×3 (06:31→20:07)
[2020-01-20] MEDS: NYSTATIN 100,000 UNITS/GM TOPICAL PWD 15 GM TOP SCH ×2 (08:36→20:08)
[2020-01-20] MEDS: LACOSAMIDE 50 MG TAB (VIMPAT) PO SCH ×2 (08:36→20:06)
[2020-01-20] MEDS: HumaLOG INSULIN (NovoLOG) PER UNIT SC SCH ×4 (08:36→20:00)
--- NOTE | 2020-01-20 10:25 | ECGEPIP ---
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
--- NOTE | 2020-01-20 10:26 | IPNPDOC ---
Subjective Date Seen The patient was seen on 01/20/20. Subjective Chief Complaint/HPI Seen and examined at bedside, patient is somnolent but arousable, oriented to name only. Overnight events noted. General: Reports: ROS Unobtainable (secondary to patient condition) Constitutional: Denies: Chills, Fever, Night Sweats Eyes: Denies: Pain, Vision change ENT: Denies: Head Aches, Ear Pain, Dysphagia Skin: Denies: Rash, Lesions, Breakdown Pulmonary: Denies: Dyspnea, Cough Cardiovascular: Denies: Chest Pain, Palpitations, Orthopnea, Paroxysmal Noc. Dyspnea, Lt Headedness Gastrointestinal: Denies: Nausea, Vomiting, Abdominal Pain, Diarrhea, Constipation Genitourinary: Denies: Dysuria, Frequency, Incontinence, Retention Hematologic: Denies: Bruising, Bleeding Excessively Musculoskeletal: Denies: Neck Pain, Back Pain, Joint Pain, Muscle Pain, Spasms Neurological: Denies: Weakness, Numbness, Change in speech, Confusion Psych: Reports: Mood Normal; Denies: Depression, Memory Issues Objective Physical Examination General Exam: Positive: Alert, No Acute Distress Eye Exam: Positive: PERRLA, Conjunctiva & lids normal, EOMI; Negative: Sclera icteric ENT Exam: Positive: Atraumatic, Mucous membr. moist/pink, Pharynx Normal Neck Exam: Positive: Supple; Negative: JVD, thyromegaly Chest Exam: Positive: Clear to auscultation, Normal air movement, Diminished Heart Exam: Positive: Rate Normal, Regular Rhythm, Normal S1, Normal S2; Negative: Murmurs, Rubs Telemetry: Positive: No significant arrhythmia Abdomen Exam: Positive: Normal bowel sounds, Soft; Negative: Tenderness, Hepatospenomegaly Female Exam: Positive: Nl Ext Genitalia; Negative: Lesions, Discharge, Odor, Tenderness Extremity Exam: Positive: Normal pulses; Negative: Clubbing, Cyanosis, Edema Skin Exam: Positive: Nl turgor and temperature; Negative: Rash, Breakdown Neuro Exam: Positive: Normal Gait, Normal Speech, Cranial Nerves 3-12 NL, Reflexes 2+ Psych Exam: Positive: Mental status NL, Mood NL, Oriented x 3 Assessment /Plan Assessment 1. altered mental status - worsening overnight, thought secondary to sepsis from UTI. - blood/urine cultures NGTD, will d/c antibiotics. - patient transferred to ICU overnight due to hypotension and acute worsening of mentation, central line place, started on IVF/pressors which have subsequently been titrated off. - ABG showing respiratory acidosis, started on BIPAP. Patient uses CPAP at the [facility], was placed on 2L NC as her own machine was being serviced. - ECHO with normal EF. 2. DM2 - FSBS/SSI coverage. - diabetic diet. 3. ALVIN - will continue BIPAP PRN/QHS. 4. CKD - monitor, avoid nephrotoxic agents. 5. DVT prophylaxis heparin 5000 units every 8 hours. CODE STATUS: DNR/DNI with a trial of noninvasive positive pressure ventilation Plan/VTE VTE Prophylaxis Ordered?: Yes VS, I&O, 24H, Fishbone Vital Signs/I&O Vital Signs Date Time Temp Pulse Resp B/P (MAP) Pulse Ox O2 Delivery O2 Flow Rate FiO2 01/20/20 09:00 88 22 95 Nasal Cannula 3.0 01/20/20 08:00 97.5 01/20/20 04:00 116/58 (77) I&O- Last 24 Hours up to 6 AM 01/20/20 06:00 Intake Total 1431 ml Output Total 1295 ml Balance 136 ml Laboratory Data 24H LABS Laboratory Tests 2 01/19/20 12:22: Bedside Glucose (Misc Panel) 193H 01/19/20 14:50: Blood Gas Bicarbonate Standard 23.6, Arterial Blood pH 7.321L, Arterial Blood Partial Pressure CO2 50.3H, Arterial Blood Partial Pressure O2 82.3, Arterial Blood Total CO2 26.9, Arterial Blood HCO3 25.4, Arterial Blood Base Excess -1.1, Arterial Blood Oxygen Saturation 96.0 01/19/20 15:42: Methicillin-Resist S.aureus DNA PCR DETECTEDH 01/19/20 16:26: Nucleated Red Blood Cells % (auto) 0.0, Total Bilirubin 0.2, Direct Bilirubin 0.1, Aspartate Amino Transf (AST/SGOT) 18, Alanine Aminotransferase (ALT/SGPT) 23, Alkaline Phosphatase 63, Total Creatine Kinase 52, Creatine Kinase MB < 1.0, Creatine Kinase MB Relative Index 1.92, Troponin I 0.03#, Total Protein 6.6, Albumin 2.8L, Albumin/Globulin Ratio 0.74L, Thyroid Stimulating Hormone (TSH) 0.991 01/19/20 17:38: Lactic Acid Level 0.7, Ammonia 38H, Vitamin B12 Level 598, Syphilis Serology NONREACTIVE 01/19/20 18:04: Bedside Glucose (Misc Panel) 126H 01/19/20 20:40: Bedside Glucose (Misc Panel) 152H 01/19/20 21:08: Blood Gas Bicarbonate Standard 22.5, Venous Blood pH 7.259L, Venous Blood Partial Pressure CO2 58.2H, Venous Blood Partial Pressure O2 95.3H, Venous Blood Total Carbon Dioxide 27.3, Venous Blood HCO3 25.5, Venous Blood Oxygen Saturation 97.0H, Venous Blood Base Excess -2.3L 01/20/20 04:40: Nucleated Red Blood Cells % (auto) 0.0, Anion Gap 4L, Glomerular Filtration Rate 28.0L, Calcium Level 8.1L, Magnesium Level 1.8 01/20/20 07:55: Bedside Glucose (Misc Panel) 180H CBC/BMP Laboratory Tests 01/19/20 16:26 01/20/20 04:40 Microbiology Microbiology 01/19/20 Gram Stain - Final, Complete 01/19/20 Sputum Culture - Final, Complete 01/18/20 Urine Culture - Final, Complete 01/18/20 Respiratory Virus Panel (PCR) (DAGO) - Final, Complete 01/18/20 Blood Culture - Preliminary, Resulted No growth after 24 hours . All specim... 01/18/20 Blood Culture - Preliminary, Resulted No growth after 24 hours . All specim... JUANITA HANCOCK MD Jan 20, 2020 10:26
[2020-01-20] MEDS: MAGNESIUM OXIDE 400 MG TAB (MAG-OX) PO SCH (10:44)
--- NOTE | 2020-01-20 15:06 | IPN ---
DATE: 01/20/2020 NOTE: I was asked by Dr. Marcial to consult on Ms. Hobbs' for mild acute hypercapnic respiratory failure. I spoke with Dr. Marcial and stated that if she wanted to use noninvasive mechanical ventilation, she could but, with a pH of 7.32 and a pCO2 of 50, that was not necessary. The decision was to at least support her while they were working up her mental status changes. Ms. Hobbs, at her baseline, is on bilevel device at 16/10. I ordered similar numbers for the noninvasive mechanical ventilation (NIMV) . However, Ms. Hobbs refused to wear the device. Per nursing, she is at her baseline mental status this morning and is moving out of the intensive care unit. At this point, there is no reason to do a formal consult as the intervention I was asked to assist with she declined. It should be known as an outpatient she is on bilevel therapy at 16 /10 and that her machine is broken. I entered similar orders. I spoke with the team and we will officially cancel the consultation. Please recontact the pulmonary service if there are further difficulties. NILTON
[2020-01-20] MEDS: LEVEMIR (INSULIN DETEMIR) 1 UNITS/0.01ML SC SCH (20:06)
[2020-01-20] MEDS: ATORVASTATIN 20 MG TAB PO SCH (20:06)
[2020-01-20] MEDS ORDERED: SODIUM CHLORIDE 0.9% INJ 10 ML SYR IV PRN (23:30)
[2020-01-21] VITALS (7 sets, daily range): BP systolic 127–182; BP diastolic 74–116
[2020-01-21] MEDS: IPRATROPIUM 0.5MG/ALBUTEROL 2.5MG INH SOL UD 3ML (DUONEB)(J7620) NEB SCH ×4 (03:11→20:59)
[2020-01-21] MEDS: SLF 3 ML SYR IV SCH ×3 (05:05→21:29)
[2020-01-21] MEDS: PIPERACILLIN/TAZOBACTAM SOD 3.375 GM in D5W MINI-BAG PLUS 50 ML IV SCH (05:25)
[2020-01-21] MEDS: HEPARIN SOD (PORCINE) 5000 UNITS/ML VIAL (J1644 PER 1000UNITS) SC SCH ×3 (05:25→21:28)
[2020-01-21] MEDS: SODIUM CHLORIDE 0.9% INJ 10 ML SYR IV SCH ×3 (05:25→21:29)
[2020-01-21 05:35] LABS: HEMOGLOBIN 10.5 g/dl (12.0-15.5); MEAN CORPUSCULAR HEMOGLOBIN 29.2 pg (27.0-33.0); MEAN CORPUSCULAR HGB CONC 30.9 g/dl (32.0-36.5); MEAN CORPUSCULAR VOLUME 94.4 fl (80.0-96.0); PLATELET COUNT, AUTOMATED 265 10^3/uL (150-450)
[2020-01-21 05:53] LABS: CALCIUM LEVEL 8.5 MG/DL (8.8-10.2); CREATININE FOR GFR 1.53 MG/DL (0.55-1.30); GLOMERULAR FILTRATION RATE 35.7 (>39); MAGNESIUM LEVEL 1.8 MG/DL (1.8-2.4); POTASSIUM SERUM 4.3 MEQ/L (3.5-5.1)
[2020-01-21] MEDS: LACOSAMIDE 50 MG TAB (VIMPAT) PO SCH ×2 (08:03→21:28)
[2020-01-21] MEDS: MAGNESIUM OXIDE 400 MG TAB (MAG-OX) PO SCH (08:03)
[2020-01-21] MEDS: HumaLOG INSULIN (NovoLOG) PER UNIT SC SCH ×4 (08:03→20:09)
[2020-01-21] MEDS: NYSTATIN 100,000 UNITS/GM TOPICAL PWD 15 GM TOP SCH ×2 (08:04→21:28)
--- NOTE | 2020-01-21 09:06 | IPNPDOC ---
Subjective Date Seen The patient was seen on 01/21/20. Subjective Chief Complaint/HPI Seen and examined at bedside, awake and alert, answering questions appropriately. Denies fever/chills, sob, chest pain, cough. General: Reports: Normal Appetite; Denies: Chills, Night Sweats, Fatigue, Malaise Constitutional: Denies: Chills, Fever, Night Sweats Eyes: Denies: Pain, Vision change ENT: Denies: Head Aches, Ear Pain, Dysphagia Skin: Denies: Rash, Lesions, Breakdown Pulmonary: Denies: Dyspnea, Cough Cardiovascular: Denies: Chest Pain, Palpitations, Orthopnea, Paroxysmal Noc. Dyspnea, Lt Headedness Gastrointestinal: Denies: Nausea, Vomiting, Abdominal Pain, Diarrhea, Constipation Genitourinary: Denies: Dysuria, Frequency, Incontinence, Retention Hematologic: Denies: Bruising, Bleeding Excessively Musculoskeletal: Denies: Neck Pain, Back Pain, Joint Pain, Muscle Pain, Spasms Neurological: Denies: Weakness, Numbness, Change in speech, Confusion Psych: Reports: Mood Normal; Denies: Depression, Memory Issues Objective Physical Examination General Exam: Positive: Alert, No Acute Distress Eye Exam: Positive: PERRLA, Conjunctiva & lids normal, EOMI; Negative: Sclera icteric ENT Exam: Positive: Atraumatic, Mucous membr. moist/pink, Pharynx Normal Neck Exam: Positive: Supple; Negative: JVD, thyromegaly Chest Exam: Positive: Clear to auscultation, Normal air movement, Diminished Heart Exam: Positive: Rate Normal, Regular Rhythm, Normal S1, Normal S2; Negative: Murmurs, Rubs Telemetry: Positive: No significant arrhythmia Abdomen Exam: Positive: Normal bowel sounds, Soft; Negative: Tenderness, Hepatospenomegaly Female Exam: Positive: Nl Ext Genitalia; Negative: Lesions, Discharge, Odor, Tenderness Extremity Exam: Positive: Normal pulses; Negative: Clubbing, Cyanosis, Edema Skin Exam: Positive: Nl turgor and temperature; Negative: Rash, Breakdown Neuro Exam: Positive: Normal Gait, Normal Speech, Cranial Nerves 3-12 NL, Refl exes 2+ Psych Exam: Positive: Mental status NL, Mood NL, Oriented x 3 Assessment /Plan Assessment 1. altered mental status - resolved, patient appears back at baseline mental status. - blood/urine cultures negative, ECHO normal EF. - antibiotics discontinued. - Continue BIPAP PRN/QHS. 2. DM2 - FSBS/SSI coverage. - diabetic diet. 3. ALVIN - will continue BIPAP PRN/QHS. 4. CKD - monitor, avoid nephrotoxic agents. 5. DVT prophylaxis heparin 5000 units every 8 hours. CODE STATUS: DNR/DNI with a trial of noninvasive positive pressure ventilation Plan/VTE VTE Prophylaxis Ordered?: Yes VS, I&O, 24H, Fishbone Vital Signs/I&O Vital Signs Date Time Temp Pulse Resp B/P (MAP) Pulse Ox O2 Delivery O2 Flow Rate FiO2 01/21/20 08:00 2.0 01/21/20 04:00 98.3 91 18 139/74 (95) 95 Nasal Cannula I&O- Last 24 Hours up to 6 AM0 01/21/20 06:00 Intake Total 2546 ml Output Total 770 ml Balance 1776 ml Laboratory Data 24H LABS Laboratory Tests 2 01/20/20 12:17: Bedside Glucose (Misc Panel) 172H 01/20/20 17:11: Bedside Glucose (Misc Panel) 151H 01/20/20 19:59: Bedside Glucose (Misc Panel) 178H 01/21/20 05:14: Nucleated Red Blood Cells % (auto) 0.0, Anion Gap 7L, Glomerular Filtration Rate 35.7L, Calcium Level 8.5L, Magnesium Level 1.8 CBC/BMP Laboratory Tests 01/21/20 05:14 Microbiology Microbiology 01/19/20 Gram Stain - Final, Complete 01/19/20 Sputum Culture - Final, Complete 01/18/20 Urine Culture - Final, Complete 01/18/20 Respiratory Virus Panel (PCR) (DAGO) - Final, Complete 01/18/20 Blood Culture - Preliminary, Resulted No Growth after 48 hours. All Specime... 01/18/20 Blood Culture - Preliminary, Resulted No Growth after 48 hours. All Specime... JUANITA HANCOCK MD Jan 21, 2020 09:06
[2020-01-21] MEDS: LEVEMIR (INSULIN DETEMIR) 1 UNITS/0.01ML SC SCH (21:28)
[2020-01-21] MEDS: ATORVASTATIN 20 MG TAB PO SCH (21:28)
[2020-01-22] VITALS: BP 156/77
[2020-01-22] MEDS: IPRATROPIUM 0.5MG/ALBUTEROL 2.5MG INH SOL UD 3ML (DUONEB)(J7620) NEB SCH ×3 (02:08→14:29)
[2020-01-22 04:00] VITALS: BP 152/82
[2020-01-22] MEDS: SLF 3 ML SYR IV SCH (05:05)
[2020-01-22] MEDS: SODIUM CHLORIDE 0.9% INJ 10 ML SYR IV SCH (05:29)
[2020-01-22] MEDS: HEPARIN SOD (PORCINE) 5000 UNITS/ML VIAL (J1644 PER 1000UNITS) SC SCH (05:29)
[2020-01-22 05:36] LABS: HEMATOCRIT 34.5 % (36.0-47.0); HEMOGLOBIN 10.7 g/dl (12.0-15.5); MEAN CORPUSCULAR VOLUME 93.5 fl (80.0-96.0); PLATELET COUNT, AUTOMATED 294 10^3/uL (150-450); RED BLOOD COUNT 3.69 10^6/uL (4.00-5.40); WHITE BLOOD COUNT 9.3 10^3/uL (4.0-10.0)
[2020-01-22 06:01] LABS: CALCIUM LEVEL 8.9 MG/DL (8.8-10.2); CREATININE FOR GFR 1.26 MG/DL (0.55-1.30); GLOMERULAR FILTRATION RATE 44.7 (>39); MAGNESIUM LEVEL 1.8 MG/DL (1.8-2.4); POTASSIUM SERUM 4.1 MEQ/L (3.5-5.1)
[2020-01-22 08:00] VITALS: BP 144/88
[2020-01-22] MEDS: NYSTATIN 100,000 UNITS/GM TOPICAL PWD 15 GM TOP SCH (08:35)
[2020-01-22] MEDS: LACOSAMIDE 50 MG TAB (VIMPAT) PO SCH (08:35)
[2020-01-22] MEDS: HumaLOG INSULIN (NovoLOG) PER UNIT SC SCH ×2 (08:35→12:03)
[2020-01-22] MEDS: MAGNESIUM OXIDE 400 MG TAB (MAG-OX) PO SCH (08:35)
[2020-01-22 12:00] VITALS: BP 158/86
--- NOTE | 2020-01-23 18:27 | DS.PDOC ---
Discharge Summary General Date of Admission Jan 18, 2020 at 22:51 Date of Discharge 01/22/2020 Primary Care Physician: Jaylan Sagastume M.D. Attending Physician: JOEL DUTTA MD Specialist/Consultants Involve: Cynthia SIMMONS MD Discharge Summary PROCEDURES PERFORMED DURING STAY: [None]. ADMITTING DIAGNOSES: 1. Worsening mental status 2. Urinary tract infection DISCHARGE DIAGNOSES: 1. Urinary tract infection COMPLICATIONS/CHIEF COMPLAINT: Sepsis. HISTORY OF PRESENT ILLNESS: "Patient is a 69-year-old female with past history of dementia who is a resident of [facility]. Patient was acting off her baseline over the last few days. Patient had a urinary analysis which showed evidence of a urinary tract infection. Patient was started on Macrobid on 01/17/2020. Patient was still acting off her baseline and was acting lethargic so the patient was brought to the emergency department. In the emergency department, was scheduled with the patient was tachycardic and tachypneic. Patient was found to have a urinary tract infection. Hospitalist team was called to admit the patient. In talking with patient, patient was unable to answer questions appropriately and did not provide any history." HOSPITAL COURSE: Patient was admitted and started on IV Ceftriaxone for history of Klebsiella and E. Coli urinary tract infection. , She was found to have el evated white blood cell count at 13.9. Her vitals remained stable throughout her hospitalization. Due to her worsening mental status. On hospital day 2. A venous blood gas was drawn and she was found to be in hypercarbic respiratory acidosis. It is noted that she is noncompliant with her CPAP. Pulmonary medicine was consulted, who recommended noninvasive mechanical ventilation which the patient refused. By hospital day 4 the patient appeared to be back at her baseline mental status. Blood and urine cultures were found to be negative. Antibiotics were discontinued. An echocardiogram was done and was found to be normal. There were no other events on this hospitalization. The patient was discharged back to [facility] in a stable condition. DISCHARGE MEDICATIONS: Please see below. ALLERGIES: Please see below. PHYSICAL EXAMINATION ON DISCHARGE: VITAL SIGNS: Please see below. GENERAL APPEARANCE: Laying in bed, appears stated age, no acute distress, calm, cooperative HEENT: EOMI, PERRLA, neck is supple with no thyromegaly or lymphadenopathy RESPIRATORY: Lungs are clear to auscultation bilaterally with no adventitious breath sounds appreciated CARDIOVASCULAR: no JVD, RRR, no murmurs/rubs/gallops ABDOMEN: Soft, nontender to palpation in all four quadrants, no masses/organomegaly EXTREMITIES: no clubbing, cyanosis or edema noted NEUROLOGICAL: Unable to assess due to the patient's dementia PSYCHIATRIC: dementia at baseline Skin: No rashes or ulcers. LN: No significant cervical or inguinal lymphadenopathy LABORATORY DATA: Please see below. IMAGING: CXR: Findings: EKG monitoring electrodes are seen. Cardiomegaly is observed. Pulmonary vasculature and interstitial markings are increased and congested consistent with mild interstitial edema. No didier pleural effusion is seen. There is chronic tenting of the left hemidiaphragm with adjacent pleural thickening. Impression: Chronic changes left base. Vascular congestion and mild interstitial edema pattern. Cardiomegaly. No definite infiltrate. CT HEAD WITHOUT CONTRAST: INDINGS: Brain: There is no acute intracranial hemorrhage, cerebral edema, or midline shift. 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 Chronic microvascular ischemic changes are seen in the periventricular white matter. Age-related cerebral and cerebellar volume loss is present. Ventricles: Mild ex vacuo dilation of the left lateral ventricle is noted. Bones/joints: No acute fracture. Sinuses: There is no acute sinusitis. Mastoid air cells: The mastoid air cells are clear. Orbits: The included orbital structures are unremarkable. Soft tissues: Unremarkable. Vasculature: Atherosclerotic calcifications are seen involving the cavernous carotid arteries. IMPRESSION: 1. No acute intracranial abnormality. 2. Chronic findings as discussed above. CXR: Impression: CHF pattern. Pleuroparenchymal opacity left base again noted. Right IJ line in place. No evidence of pneumothorax. PROGNOSIS: fair ACTIVITY: [As tolerated]. DIET: as tolerated DISCHARGE PLAN: return to [facility] DISPOSITION: [facility]. DISCHARGE INSTRUCTIONS: 1. follow up with PCP within 7 days ITEMS TO FOLLOWUP ON ON OUTPATIENT: 1. none DISCHARGE CONDITION: [Stable]. TIME SPENT ON DISCHARGE: Greater than 30 minutes. Vital Signs/I&Os Vital Signs Date Time Temp Pulse Resp B/P (MAP) Pulse Ox O2 Delivery O2 Flow Rate FiO2 01/22/20 12:00 2.0 01/22/20 12:00 98.1 87 17 158/86 (110) 95 Room Air I&O- Last 24 Hours up to 6 AM 01/23/20 05:59 Intake Total 120 ml Output Total 625 ml Balance -505 ml Microbiology Microbiology 01/19/20 Gram Stain - Final, Complete 01/19/20 Sputum Culture - Final, Complete 01/18/20 Urine Culture - Final, Complete 01/18/20 Respiratory Virus Panel (PCR) (DAGO) - Final, Complete 01/18/20 Blood Culture - Preliminary, Resulted No Growth after 72 hours. All specime... 01/18/20 Blood Culture - Preliminary, Resulted No Growth after 72 hours. All specime... Discharge Medications Scheduled Aripiprazole (Abilify) 2 Mg Tablet, 2 MG PO QHS, (Reported) Atorvastatin Calcium (Atorvastatin Calcium) 40 Mg Tab, 40 MG PO QHS, (Reported) Buspirone HCl (Buspirone HCl) 5 Mg Tab, 5 MG PO BID, (Reported) 0800, 1600 Cholecalciferol (Vitamin D3) (Vitamin D3) 10 Mcg Capsule, 20 MCG PO DAILY, (Reported) Furosemide (Furosemide) 20 Mg Tab, 20 MG PO DAILY, (Reported) Gabapentin (Gabapentin) 100 Mg Capsule, 100 MG PO BID, (Reported) Glimepiride (Glimepiride) 2 Mg Tab, 2 MG PO DAILY, (Reported) Hydrocodone/Acetaminophen (Bagley 5-325 Tablet) 1 Each Tablet, 1 TAB PO QID, (Reported) 0600, 1200, 1600, 2000 Hydrocortisone (Hydrocortisone) 28 Gm Cream..g., 1 DOSE EXT QHS, (Reported) APPLY TO FACE Ketoconazole (Ketoconazole) 15 Gm Cream..g., 1 DOSE EXT BID, (Reported) LOWER BACK/GROIN AFFECTED CREASES, UNDER FOLDS AND UNDER BREASTS, GIVEN @ 0600 & 2000 Ketoconazole (Ketoconazole) 15 Gm Cream..g., 1 DOSE EXT DAILY, (Reported) APPLY TO FACE @ 0600 Lacosamide (Vimpat) 100 Mg Tablet, 100 MG PO BID, (Reported) Lanolin Alcohol/Mo/W.pet/Tyner (Eucerin Creme) 454 Gm Cream..g., 1 DOSE TOP DAILY, (Reported) APPLY TO BACK AFTER BATH/SHOWER Lisinopril (Lisinopril) 10 Mg Tablet, 10 MG PO DAILY, (Reported) Nystatin (Nystatin Powder) 15 Gm Powder, 1 DOSE TOP BID, (Reported) UNDER BOTH BREASTS Omeprazole (Omeprazole) 40 Mg Capsule.dr, 40 MG PO BID, (Reported) Polyvinyl Alcohol/Povidone (Artificial Tears Drops) 15 Ml Drops, 1 DROP OU QID, (Reported) 0600, 1200, 1600, 2000 Sertraline HCl (Sertraline HCl) 50 Mg Tablet, 50 MG PO DAILY, (Reported) TAKES WITH 100MG FOR 150MG TOTAL Sertraline HCl (Sertraline HCl) 100 Mg Tablet, 100 MG PO DAILY, (Reported) TAKES WITH 50MG FOR 150MG TOTAL Vitamin B Complex/Folic Acid (B-Complex Tablet) 0.4 Mg Tablet, 1 TAB PO DAILY, (Reported) Zinc Oxide (Desitin) 454 Gm Cream..g., 1 DOSE EXT TID, (Reported) APPLY TO AFFECTED AREAS FOR RASH Scheduled PRN Acetaminophen (Tylenol) 325 Mg Tablet, 650 MG PO Q4H PRN for PAIN / FEVER, (Reported) Acetaminophen (Acetaminophen) 650 Mg Supp.rect, 650 MG MO Q4H PRN for PAIN / FEVER, (Reported) Albuterol Sulf (Albuterol Sulfate) 2.5 Mg/3 Ml Nebu, 2.5 MG INH Q4H PRN for COUGH/CONGESTION/WHEEZING, (Reported) Albuterol Sulfate (Ventolin Hfa) 18 Gm Hfa.aer.ad, 2 PUFF INH Q4H PRN for SHORTNESS OF BREATH, (Reported) Benzocaine/Menthol (Cepacol Sore Throat Lozenge) 1 Each Lozenge, 1 SARABJIT MT Q4H PRN for SORE THROAT, (Reported) Bisacodyl (Dulcolax) 10 Mg Sup, 10 MG MO DAILY PRN for CONSTIPATION, (Reported) Calcium Carbonate (Tums) 200 Mg Tab.chew, 1,000 MG PO Q6H PRN for INDIGESTION, (Reported) Dextrose (Glucose) 4 Gm Chw, 16 GM PO ASDIRECTED PRN for LOW BLOOD SUGAR, (Reported) FOR BLOOD GLUCOSE LESS THAN 60MG/DL Fluticasone Propionate (Fluticasone Propionate 0.005%) 15 Gm Oint...g., 1 DOSE EXT BID PRN for DERMATITIS, (Reported) USES ON LOWER BACK Glucagon,Human Recombinant (Glucagon Emergency Kit) 1 Mg Vial, 1 MG SC ASDIRECTED PRN for LOW BLOOD SUGAR, (Reported) FOR FSBS<60 AND UNCONCIOUS Guaifenesin (Guaifenesin) 100 Mg/5 Ml Liquid, 10 ML PO Q6H PRN for COUGH, (Reported) Hydrocodone/Acetaminophen (Bagley 5-325 Tablet) 1 Each Tablet, 1 TAB PO TID PRN for PAIN LEVEL 6-10, (Reported) Hydroxyzine HCl (Hydroxyzine HCl) 10 Mg Tab, 10 MG PO QHS PRN for ITCHING, (Reported) Lanolin Alcohol/Mo/W.pet/Tyner (Eucerin Creme) 454 Gm Cream..g., 1 DOSE TOP ASDIRECTED PRN for DRY SKIN, (Reported) Loperamide HCl (Anti-Diarrheal) 2 Mg Tablet, 2 MG PO Q8H PRN for DIARRHEA, (Reported) Mag Hydrox/Aluminum Hyd/Simeth (Hm Antacid Anti-Gas Suspension) 355 Ml Oral.susp, 30 ML PO Q8H PRN for GERD, (Reported) Methyl Salicylate/Menthol (Bengay Greaseless Cream) 57 Gm Cream..g., 1 DOSE EXT QID PRN for BACK PAIN, (Reported) APPLY TO LOWER BACK Milk Of Magnesia (Milk of Magnesia) 2,400 Mg/10 Ml Oral.susp, 10 ML PO DAILY PRN for CONSTIPATION, (Reported) Nitroglycerin (Nitrostat) 0.4 Mg Tab.subl, 0.4 MG SL NITRO PRN for CHEST PAIN, (Reported) Polyethylene Glycol 3350 (Miralax) 17 Gm Powd.pack, 17 GM PO DAILY PRN for CONSTIPATION, (Reported) Sennosides/Docusate Sodium (Senna-S Tablet) 1 Tab Tab, 1 TAB PO DAILY PRN for CONSTIPATION, (Reported) Sodium Phosphate,Saline-Dibasic (Fleet Enema) 133 Ml Enema, 1 RUBI MO DAILY PRN for CONSTIPATION, (Reported) Allergies Coded Allergies: metformin (Verified Adverse Reaction, Unknown, 01/18/20) morphine (Verified Adverse Reaction, Unknown, 01/18/20) pregabalin (Verified Adverse Reaction, Unknown, ELEVATED LFTS, 01/18/20) GME ATTESTATION GME ATTESTATION My faculty preceptor for this patient encounter was physically present during the encounter and was fully available. All aspects of the patient interview, examination, medical decision making process, and medical care plan development were reviewed and approved by the faculty preceptor. The faculty preceptor is aware and concurs with the plan as stated in the body of this note and will attest to such by his/her cosignature. ATTENDING NOTE Patient was seen and examined by me this morning with the residents. Agree with the above assessment and plan ASHA DELGADILLO MD Jan 23, 2020 18:27 JOEL DUTTA MD Jan 25, 2020 13:10
== END 2020-01-22 15:00 | DRG 690 ==
LOC: EDBD 19:57 → M ED 19:57 → M ED INP 22:51 → EEVIPCON 22:51 → ENRESERVDT 01-19 01:42 → ENRESERVTM 01-19 01:42 → M PCU 01-19 02:52 → M ICU 01-19 16:52 → M PCU 01-20 21:02
PROVIDERS: ADMIT Internal Medicine; ATTEND Internal Medicine
PROC: 02HV33Z Insertion of Infusion Device into Superior Vena Cava, Percutaneous Approach (ICD-10-PCS; principal; 2020-01-19)
DX: N39.0 Urinary tract infection, site not specified (principal); N17.9 Acute kidney failure, unspecified; Z68.43 Body mass index [BMI] 50.0-59.9, adult; E87.2 Acidosis; R41.82 Altered mental status, unspecified; R53.83 Other fatigue; F03.90 Unspecified dementia, unspecified severity, without behavioral disturbance, psychotic disturbance, mood disturbance, and anxiety; R00.0 Tachycardia, unspecified; R06.82 Tachypnea, not elsewhere classified; Z86.73 Personal history of transient ischemic attack (TIA), and cerebral infarction without residual deficits; F32.9 Major depressive disorder, single episode, unspecified; E11.22 Type 2 diabetes mellitus with diabetic chronic kidney disease; N18.9 Chronic kidney disease, unspecified; G47.33 Obstructive sleep apnea (adult) (pediatric); M06.9 Rheumatoid arthritis, unspecified; G89.29 Other chronic pain; Z96.653 Presence of artificial knee joint, bilateral; E87.5 Hyperkalemia; E66.9 Obesity, unspecified; Z66 Do not resuscitate; Z79.899 Other long term (current) drug therapy; Z88.5 Allergy status to narcotic agent; Z88.8 Allergy status to other drugs, medicaments and biological substances; I95.9 Hypotension, unspecified; Z91.19 Patient's noncompliance with other medical treatment and regimen

== ENCOUNTER → 2020-01-18 | Outpatient (REF) | payer MEDICARE, OTHER ==
[2020-01-18 19:04] LABS: HEMATOCRIT 39.3 % (36.0-47.0); HEMOGLOBIN 12.3 g/dl (12.0-15.5); MEAN CORPUSCULAR HEMOGLOBIN 29.4 pg (27.0-33.0); MEAN CORPUSCULAR HGB CONC 31.3 g/dl (32.0-36.5); PLATELET COUNT, AUTOMATED 326 10^3/uL (150-450); RED BLOOD COUNT 4.18 10^6/uL (4.00-5.40); WHITE BLOOD COUNT 14.4 10^3/uL (4.0-10.0)
[2020-01-18 19:30] LABS: ALBUMIN 3.3 GM/DL (3.2-5.2); BILIRUBIN,TOTAL 0.4 MG/DL (0.2-1.0); CREATININE FOR GFR 1.82 MG/DL (0.55-1.30); GLOMERULAR FILTRATION RATE 29.2 (>39); POTASSIUM SERUM 5.2 MEQ/L (3.5-5.1); TOTAL PROTEIN 7.6 GM/DL (6.4-8.2)
== END ==
LOC: SKLAB2 18:54
PROVIDERS: ATTEND Family Medicine
DX: R53.83 Other fatigue (principal)

== ENCOUNTER → 2020-02-27 | Outpatient (REF) | payer MEDICARE, OTHER ==
[~2020-02-27] MED LIST changes: +ABIL1TAB13 PO; +ACET-907 PO; +ACET65SU PR; +ANTI2TAB16 PO; +B-COTAB10 PO; +BENG1CRE3 EXT; +CEFT1INJ5 IM; +CEPA1LOZ2 MT; +D3400CAP PO; +DESI13CR2 EXT; +EUCECRE8 TOP; +FLEEENE12 PR; +FLUT0.003 EXT; +GABA-1171 PO; +GLUC1KIT SC; +GNPSOL OU; +GUAI5EL PO; +HYDR1CRE9 EXT; +KETO2CR EXT; +LISI10TA4 PO; +MIRA1POW3 PO; +MOM30SS PO; +NITR4TASL SL; +NORC1TAB7 PO; +OMEP-221 PO; +SERT-138 PO; +SERT50TA29 PO; +TUMS500C PO; +VENTAER INH; +VIMP100T PO; +[UNRECOGNIZED DRUG - CODE] PO
[2020-02-27 07:54] LABS: HEMOGLOBIN 11.4 g/dl (12.0-15.5); MEAN CORPUSCULAR HEMOGLOBIN 29.4 pg (27.0-33.0); MEAN CORPUSCULAR HGB CONC 31.7 g/dl (32.0-36.5); MEAN CORPUSCULAR VOLUME 92.8 fl (80.0-96.0); PLATELET COUNT, AUTOMATED 362 10^3/uL (150-450); RED BLOOD COUNT 3.88 10^6/uL (4.00-5.40); WHITE BLOOD COUNT 8.7 10^3/uL (4.0-10.0)
[2020-02-27 08:33] LABS: BILIRUBIN,TOTAL 0.3 MG/DL (0.2-1.0); CALCIUM LEVEL 8.9 MG/DL (8.8-10.2); CHOLESTEROL RISK RATIO 3.842 (<5); CREATININE FOR GFR 1.82 MG/DL (0.55-1.30); GLOMERULAR FILTRATION RATE 29.2 (>39); POTASSIUM SERUM 5.1 MEQ/L (3.5-5.1); THYROID STIMULATING HORMONE 3.05 uIU/ML (0.358-3.740); TOTAL 25(OH) VITAMIN D 33.3 NG/ML (30.0-100.0); TOTAL PROTEIN 7.3 GM/DL (6.4-8.2)
[2020-02-27 08:50] LABS: HEMOGLOBIN A1c 8.2 %
== END ==
LOC: SKLAB2 07:00
PROVIDERS: ATTEND Family Medicine
DX: E07.9 Disorder of thyroid, unspecified (principal); I10 Essential (primary) hypertension; E55.9 Vitamin D deficiency, unspecified; E11.9 Type 2 diabetes mellitus without complications; Z79.899 Other long term (current) drug therapy

== ENCOUNTER → 2020-03-26 | Outpatient (REF) | LOC: SKLAB2 07:00 | PROVIDERS: ATTEND Internal Medicine | DX: Z03.818 Encounter for observation for suspected exposure to other biological agents ruled out (principal) ==

== ENCOUNTER → 2020-04-18 | Outpatient (CLI) | payer MEDICARE, OTHER ==
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
== END ==
LOC: M PAIN 11:15
PROVIDERS: ATTEND Family Medicine
DX: M51.16 Intervertebral disc disorders with radiculopathy, lumbar region (principal)

== ENCOUNTER → 2020-06-18 | Outpatient (CLI) | payer MEDICARE, OTHER | LOC: M PAIN 09:30 | PROVIDERS: ATTEND Family Medicine | DX: M79.18 Myalgia, other site (principal) ==

== ENCOUNTER → 2020-06-25 | Outpatient (REF) | payer MEDICARE, OTHER ==
[2020-08-18 11:21] LABS: HEMATOCRIT 35.7 % (36.0-47.0); HEMOGLOBIN 11.3 g/dl (12.0-15.5); MEAN CORPUSCULAR HEMOGLOBIN 29.1 pg (27.0-33.0); MEAN CORPUSCULAR HGB CONC 31.7 g/dl (32.0-36.5); PLATELET COUNT, AUTOMATED 357 10^3/uL (150-450); RED BLOOD COUNT 3.88 10^6/uL (4.00-5.40); WHITE BLOOD COUNT 8.1 10^3/uL (4.0-10.0)
[2020-09-21 07:54] LABS: ALBUMIN 3.1 GM/DL (3.2-5.2); BILIRUBIN,TOTAL 0.3 MG/DL (0.2-1.0); CREATININE FOR GFR 1.34 MG/DL (0.55-1.30); GLOMERULAR FILTRATION RATE 41.5 (>39); HEMOGLOBIN A1c 6.9 %; POTASSIUM SERUM 4.7 MEQ/L (3.5-5.1); PTH INTACT 61.7 PG/ML (18.5-88.0); THYROID STIMULATING HORMONE 2.55 uIU/ML (0.358-3.740); TOTAL 25(OH) VITAMIN D 24.8 NG/ML (30.0-100.0); TOTAL PROTEIN 7.2 GM/DL (6.4-8.2)
== END ==
LOC: SKLAB2 11:48
DX: E07.9 Disorder of thyroid, unspecified (principal); Z79.899 Other long term (current) drug therapy

== ENCOUNTER → 2020-06-27 | Outpatient (REF) | LOC: SKLAB2 12:47 | PROVIDERS: ATTEND Nurse Practitioner Family | DX: Z11.59 Encounter for screening for other viral diseases (principal) ==

== ENCOUNTER → 2020-07-02 | Outpatient (POV) | payer MEDICARE, OTHER ==
[~2020-07-02] MED LIST changes: +BUPIVACAINE HCL 0.25% 10ML VIAL ONE; +BUPIVACAINE HCL 0.25% 30ML VIAL ONE; +TRIAMCINOLONE ACETONIDE SUSP 40 MG/ML VIAL (J3301) ONE
== END ==
LOC: M PAIN 09:00
PROVIDERS: ATTEND Anesthesiology
DX: M79.18 Myalgia, other site (principal)

== ENCOUNTER → 2020-07-15 | Outpatient (CLI) | payer MEDICARE, OTHER ==
[~2020-07-15] MED LIST changes: -BUPIVACAINE HCL 0.25% 10ML VIAL ONE; -BUPIVACAINE HCL 0.25% 30ML VIAL ONE; -TRIAMCINOLONE ACETONIDE SUSP 40 MG/ML VIAL (J3301) ONE
== END ==
LOC: M PAIN 13:10
PROVIDERS: ATTEND Family Medicine
DX: M79.18 Myalgia, other site (principal)

== ENCOUNTER → 2020-08-12 | Outpatient (REF) | payer MEDICARE, OTHER ==
[2020-08-12 11:09] LABS: CREATININE FOR GFR 1.52 MG/DL (0.55-1.30); GLOMERULAR FILTRATION RATE 35.9 (>39); PHOSPHORUS LEVEL 3.1 MG/DL (2.5-4.9); POTASSIUM SERUM 4.6 MEQ/L (3.5-5.1)
[2020-08-12 11:21] LABS: PTH INTACT 80.3 PG/ML (18.5-88.0)
== END ==
LOC: SKLAB2 10:08
DX: N19 Unspecified kidney failure (principal)

== ENCOUNTER → 2020-09-13 | Outpatient (CLI) | payer MEDICARE, OTHER | LOC: M PAIN 10:30 | PROVIDERS: ATTEND Family Medicine | DX: Z53.29 Procedure and treatment not carried out because of patient's decision for other reasons (principal) ==

== ENCOUNTER → 2020-09-24 | Outpatient (REF) | payer MEDICARE, OTHER ==
[2020-09-24 09:44] LABS: HEMATOCRIT 37.8 % (36.0-47.0); HEMOGLOBIN 11.4 g/dl (12.0-15.5); MEAN CORPUSCULAR HEMOGLOBIN 27.5 pg (27.0-33.0); MEAN CORPUSCULAR HGB CONC 30.2 g/dl (32.0-36.5); MEAN CORPUSCULAR VOLUME 91.1 fl (80.0-96.0); RED BLOOD COUNT 4.15 10^6/uL (4.00-5.40); WHITE BLOOD COUNT 8.6 10^3/uL (4.0-10.0)
[2020-09-24 09:45] LABS: PLATELET COUNT, AUTOMATED 233 10^3/uL (150-450)
[2020-09-24 10:05] LABS: HEMOGLOBIN A1c 6.5 %
[2020-09-24 10:09] LABS: ALBUMIN 3.1 GM/DL (3.2-5.2); BILIRUBIN,TOTAL 0.2 MG/DL (0.2-1.0); CALCIUM LEVEL 9.2 MG/DL (8.8-10.2); CREATININE FOR GFR 1.52 MG/DL (0.55-1.30); GLOMERULAR FILTRATION RATE 35.9 (>39); POTASSIUM SERUM 4.8 MEQ/L (3.5-5.1)
== END ==
LOC: SKLAB2 08:30
DX: E04.9 Nontoxic goiter, unspecified (principal); Z79.899 Other long term (current) drug therapy

== ENCOUNTER → 2020-09-24 | Outpatient (CLI) | payer MEDICARE, OTHER ==
--- NOTE | 2020-09-25 23:58 | ECWPNPC ---
PATIENT NAME: ROBINA DYE : 1950 GENDER: FEMALE VISIT DATE: 09/24/2020 DISCHARGE DATE: 09/24/20 1159 VISIT LOCKED DATE TIME: PHYSICIAN: BRITTNEY STUART PHYSICIAN PAGER NO: INACTIVE RESOURCE: BRITTNEY STUART REASON FOR APPOINTMENT 1. BACK PAIN HISTORY OF PRESENT ILLNESS GENERAL: - 70-YEAR-OLD FEMALE IN FOR CHRONIC PAIN FOLLOW-UP. SHE RATES HER PAIN CURRENTLY AT A 7 OUT OF 10 AND DESCRIBES IT STABBING. PATIENT HAS HAD TRIGGER POINT INJECTIONS IN THE PAST WITH GOOD RELIEF AND WE WILL DISCUSS REPEAT PROCEDURES TODAY. FALL RISK SCREENING: SCREENING :NO FALLS REPORTED IN THE LAST YEAR PAIN SCREENING: PATIENT HAS A COMPLAINT OF ACUTE OR CHRONIC PAIN :YES LOCATION OF PAIN:LOW BACK, RIGHT HIP INTENSITY OF PAIN (SCALE OF 1 TO 10):7 WHAT DOES YOUR PAIN FEEL LIKE:STABBING DURATION:CONTINOUS, CONSTANT PAIN IS INCREASED BY:ACTIVITIES PAIN IS DECREASED BY:USE OF PAIN MEDICATIONS TREATMENT/MEDICATIONS USED TO MANAGE PAIN:OPIOIDS LEVEL OF RELIEF FROM PAIN TREATMENTS IN THE PAST:25% PAIN HAS INTERFERED WITH THE FOLLOWING:BATHING/DRESSING, WALKING ABILITY, HOUSEWORK, SLEEP, TRANSPORTATION, TOILETING NURSING NOTE: -. PAIN CENTER INTAKE QUESTIONS: DO YOU HAVE A HISTORY OF MRSA? :NO DO YOU TAKE A BLOOD THINNERS? :NO DO YOU HAVE ANY BLEEDING DISORDERS? :NO ANY NEW NUMBNESS OR WEAKNESS IN YOUR LEGS OR ARMS? :NO ANY PACEMAKER,DEFIBRILLATOR, OR DORSAL COLUMN STIMULATOR? :NO DO YOU HAVE ANY RASHES OR OPEN SORES? :NO ARE YOU ALLERGIC TO IV DYE? :NO ARE YOU DIABETIC? :YES ANY NEW PROBLEMS WITH YOUR MEDICATIONS? :NO HAVE YOU RECEIVED A VACCINE IN THE PAST 30 DAYS? :YES IF SO WHAT VACCINE AND WHEN? FLU VACCINE 30 DAYS AGO DO YOU PLAN TO RECEIVE A VACCINE IN THE NEXT 21 DAYS? :NO DO YOU NEED ANY PRESCRIPTION? :NO DO YOU TAKE ANY IMMUNOSUPPRESSIVE MEDICATIONS? :NO IS THERE A CHANCE YOU COULD BE ? :NO ARE YOU BREAST FEEDING? :NO CURRENT MEDICATIONS TAKING GLUCOSTIX -- 1 STRIP CONTOUR NEXT TEST STRIP -- BID TAKING VIMPAT 100 MG TABLET 1 TABLET ORALLY TWICE A DAY, MDD=TWO TAKING NORCO 5-325 MG TABLET 1 TABLET ORALLY Q6H SCHEDULED AND Q3HRS PRN PAIN MDD=8 TAKING BENGAY GREASELESS 10-15 % CREAM EXTERNALLY , NOTES: NEEDED FOR BACK PAIN TAKING GLIMEPIRIDE 2 MG TABLET 1 TABLET WITH BREAKFAST OR THE FIRST MAIN MEAL OF THE DAY ORALLY ONCE A DAY TAKING CALAZIME SKIN PROTECTANT - PASTE EXTERNALLY , NOTES: NEEDS TAKING GUAIFENESIN 100 MG/5ML SYRUP 10 ML NEEDED ORALLY EVERY 4 HRS, NOTES: NOT LATELY TAKING LOPERAMIDE HCL 2 MG CAPSULE 1 CAPSULE NEEDED ORALLY FOUR TIMES A DAY, NOTES: NOT FOUND ON EMAR TAKING TYLENOL 325 MG TABLET 1 TABLET NEEDED ORALLY EVERY 4 HRS, NOTES: NOT LATELY TAKING BUSPIRONE HCL 5 MG TABLET 1 TABLET ORALLY BID TAKING GLUCAGON EMERGENCY 1 MG KIT DIRECTED INJECTION , NOTES: NOT LATELY TAKING GLUCOSE 4 GM TABLET CHEWABLE DIRECTED ORALLY , NOTES: NOT LATELY TAKING ZOLOFT 100 MG TABLET 1 1/2 TABLET ORALLY ONCE A DAY TAKING VITAMIN D3 400 UNIT TABLET 2 TABLETS ORALLY ONCE A DAY TAKING HYDROXYZINE HCL 10 MG TABLET ORALLY NEEDED FOR ITCHIHNG TAKING TUMS 500 MG TABLET CHEWABLE 1 TABLET ORALLY ONCE A DAY TAKING GABAPENTIN 100 MG TABLET ORALLY BID, NOTES: NOT FOUND ON EMAR TAKING NITROGLYCERIN 0.4 MG TABLET SUBLINGUAL SUBLINGUAL TAKING VENTOLIN HFA 108 (90 BASE) MCG/ACT AEROSOL SOLUTION 2 PUFFS NEEDED INHALATION EVERY 6 HRS TAKING MAY USE BIPAP ON AT HS TAKING ATORVASTATIN CALCIUM 40 MG TABLET 1 TABLET ORALLY ONCE A DAY ON M,W,F TAKING VITAMIN B1 100 MG TABLET 1 TABLET ORALLY ONCE A DAY TAKING ALBUTEROL SULFATE (5 MG/ML) 0.5% NEBULIZATION SOLUTION 1 ML NEEDED INHALATION EVERY 6 HRS NOT-TAKING LISINOPRIL 10 MG TABLET 1 TABLET ORALLY ONCE A DAY NOT-TAKING FUROSEMIDE 20 MG TABLET 1 TABLET ORALLY ONCE A DAY FOR EDEMA NOT-TAKING OMEPRAZOLE 40 MG CAPSULE DELAYED RELEASE 1 CAPSULE ORALLY ONCE A DAY NOT-TAKING ABILIFY 2 MG TABLET 1 TABLET ORALLY ONCE A DAY NOT-TAKING LEXAPRO 20 MG TABLET 1 TABLET ORALLY ONCE A DAY NOT-TAKING ARICEPT 5 MG TABLET 1 TABLET AT BEDTIME ORALLY ONCE A DAY NOT-TAKING ZYRTEC 10 MG TABLET 1 TABLET ORALLY ONCE A DAY, NOTES: NEEDED FOR ALLERGIC RHINITIS MEDICATION LIST REVIEWED AND RECONCILED WITH THE PATIENT PAST MEDICAL HISTORY DIABETES HYPERTENSION SLEEP APNEA ELEVATED TRIGLYCERIDES HISTORY OF SEXUAL ABUSE DEPRESSION ALLERGIES ASTHMA (MILD INTERMITTENT) ASTHMA, UNSPECIFIED, UNSPECIFIED STATUS ASTHMA, UNSPECIFIED, UNSPECIFIED STATUS ALLERGIC RHINITIS, CAUSE UNSPECIFIED DEPRESSIVE DISORDER, NOT ELSEWHERE CLASSIFIED SLEEP RELATED HYPOVENTILATION/HYPOXEMIA IN CONDITIONS CLASSIFIABLE ELSEWHERE RASH AND OTHER NONSPECIFIC SKIN ERUPTION UNSPECIFIED DIFFUSE CONNECTIVE TISSUE DISEASE ACUTE SINUSITIS, UNSPECIFIED OTHER AND UNSPECIFIED PERIPHERAL VERTIGO COUGH URGENCY INCONTINENCE STENOSIS ALLERGIES MORPHINE: VOMITING - ALLERGY METFORMIN: ITCHING - ALLERGY TRAZODONE 100: HOSPTIALIZED WITH DELERIUM SURGICAL HISTORY HYSTERECTOMY ABDOMINAL GALL BLADDER REMOVAL RIGHT KNEE REPLACEMENT 2015 LEFT KNEE REPLACEMENT 2016 RIGHT/LEFT CATARACT FAMILY HISTORY FATHER: , DIAGNOSED WITH UNSPECIFIED HEART DISEASE, HYPERTENSION MOTHER: , UNSPECIFIED HEART DISEASE SIBLINGS: ALIVE, LEUKEMIA (SISTER 2012, UNSPECIFIED HEART DISEASE 2 BROTHER(S) , 1 SISTER(S) . 1 SON(S) , 2 DAUGHTER(S) . ++HEART ISSUES IN FAMILY. SOCIAL HISTORY GENERAL: TOBACCO USE ARE YOU A:: NEVER SMOKER. LATEX QUESTIONNAIRE LATEX ALLERGY : HAVE YOU EVER DEVELOPED ANY TYPE OF REACTION AFTER HANDLING LATEX PRODUCTS SUCH RUBBER GLOVES, CONDOMS, DIAPHRAGMS, BALLOONS, SOCKS, OR UNDERWEAR?NO LATEX ALLERGY : HAVE YOU EVER DEVELOPED ANY TYPE OF REACTION DURING OR AFTER DENTAL APPOINTMENT, VAGINAL/RECTAL EXAMINATION, SURGICAL PROCEDURE, OR ANY OTHER EXPOSURE?NO DATE ASKED : 04/18/2020 LATEX RISK : HAVE YOU EVER HAD ANY DIFFICULTY BREATHING OR HIVES AFTER EATING OR HANDLING ANY FRUITS, OR VEGETABLES; SUCH KIWI, BANANAS, STONE FRUITS, OR CHESTNUTSNO LATEX RISK : DO YOU HAVE A PREVIOUS PERSONAL HISTORY OF MORE THAN NINE SURGERIES, SPINA BIFIDA, OR REPEATED CATHERIZATIONS? NO LATEX RISK : ARE YOU FREQUENTLY EXPOSED TO LATEX PRODUCTS IN YOUR OCCUPATION?NO ALCOHOL SCREENING POINTS: 0, INTERPRETATION: NEGATIVE. RECREATIONAL DRUG USE DENIES. CAFFEINE 1-2/DAY. WORSHIP NO YAZIDI BELIEFS THAT WOULD IMPACT HEALTH CARE. LANGUAGE [place]. EDUCATION QUIT IN 10TH GRADE. 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 DIET: LOW FAT, LOW CHOLESTEROL. EXERCISE: WALKS. OTHERS AT HOME: SPOUSE. PAIN CLINIC PFS, CLERGY, PUBLIC HEALTH REFERRALS WAS THE PROVIDER NOTIFIED OF ANY PERTINENT INFO?YES HAS THE PATIENT BEEN EDUCATED REGARDING HIS/HER PLAN OF CARE?YES HAS THE PATIENT BEEN EDUCATED REGARDING PAIN, THE RISK FOR PAIN, THE IMPORTANCE OF EFFECTIVE PAIN MANAGEMENT, AND THE PAIN ASSESSMENT PROCESS?YES PROCEDURE TEACHING, LUMBAR EPIDURAL ADVANCE DIRECTIVE ADVANCE DIRECTIVE DISCUSSED WITH PATIENT:YES HCP IS KATERIN DYE [phone] PATIENT ALSO HAS A MOLST- DNR ORDER ATTACHED TO CHART HOSPITALIZATION/MAJOR DIAGNOSTIC PROCEDURE ALTERED MENTAL STATUS 05/22/13-05/24/13 REVIEW OF SYSTEMS CONSTITUTIONAL: ANY RECENT FEVER NO . CHILLS NO . WEIGHT CHANGE OF UNKNOWN REASONS NO . GASTROENTEROLOGY: NEW UNEXPLAINABLE CHANGES IN BOWEL CONTROL NO . CONSTIPATION NO . GENITOURINARY: ANY NEW CHANGE IN BLADDER CONTROL? NO . NEUROLOGY: NEW ONSET DIZZINESS OR NEUROLOGICAL CHANGES NOT MENTIONED NO . NEW NUMBNESS OR PAIN PATTERNS NOT MENTIONED AND PERTINENT TO TODAY'S VISIT NO . CARDIOLOGY: NEW CHEST PRESSURE NO . NEW CHEST PAIN NO . RESPIRATORY: UNEXPLAINABLE COUGH NO . NEW SHORTNESS OF BREATH NO . VITAL SIGNS WT 339.4 LBS, HT 66 IN, BMI 54.77 INDEX, BP 160/83 MM HG, HR 74 /MIN, RR 16 /MIN, TEMP 97.6 F, OXYGEN SAT % 92%, SAFE IN ENV? (Y/N) Y, NA INITIALS LA 11:26, REVIEWED BY: EM. EXAMINATION GENERAL EXAMINATION: GENERALNO ACUTE DISTRESS, WELL NOURISHED AND HYDRATED. PSYCHAPPROPRIATE MOOD AND AFFECT . LUNGS:CLEAR TO AUSCULTATION BILATERALLY, NO WHEEZES, RHONCHI, RALES. HEART:NO MURMURS, REGULAR RATE AND RHYTHM. BACK:POINT TENDER BILATERAL LOW BACK, ERYTHEMATOUS SKIN NOTED ADJACENT TO POTENTIAL TRIGGER POINT SITE PRESENT YEAST. BANDS OF RESTRICTIVE TISSUE NOTED OVER TRIGGER POINT. . ASSESSMENTS MYALGIA, UNSPECIFIED SITE - M79.10 (PRIMARY) TREATMENT MYALGIA, UNSPECIFIED SITE NOTES: 70-YEAR-OLD FEMALE IN FOR CHRONIC PAIN FOLLOW-UP. GIVEN PRESENTING SYMPTOMS RECOMMEND BILATERAL LOW BACK TRIGGER POINT INJECTIONS WITH POSTPROCEDURAL FOLLOW-UP. PATIENT HAS EXPRESSED UNDERSTANDING OF AND WAS IN AGREEMENT WITH TREATMENT PLAN. GIVEN TIME TO ASK QUESTIONS AND EXPRESS CONCERNS. PROCEDURE CODES FA211 ESTABILISHED PATIENT [facility] FAC[facility] CHARGE DISPOSITION & COMMUNICATION FOLLOW UP POSTPROCEDURE (REASON: BILATERAL LOW BACK TRIGGER POINT INJECTIONS) ELECTRONICALLY SIGNED BY NELIDA GUTIERREZ ON 09/25/2020 AT 08:57 AM EST DISCLAIMER : THIS IS A VISIT SUMMARY EXTRACTED FROM THE [employer] CHART. IT IS NOT A COPY OF THE [facility] PROGRESS NOTE. MTDD
== END ==
LOC: M PAIN 11:30
PROVIDERS: ATTEND Family Medicine
DX: M79.10 Myalgia, unspecified site (principal); E11.9 Type 2 diabetes mellitus without complications; I10 Essential (primary) hypertension; G47.30 Sleep apnea, unspecified; J45.20 Mild intermittent asthma, uncomplicated; Z86.59 Personal history of other mental and behavioral disorders; Z96.653 Presence of artificial knee joint, bilateral; Z88.5 Allergy status to narcotic agent; Z88.8 Allergy status to other drugs, medicaments and biological substances; E66.01 Morbid (severe) obesity due to excess calories; Z68.43 Body mass index [BMI] 50.0-59.9, adult; Z79.84 Long term (current) use of oral hypoglycemic drugs; Z79.891 Long term (current) use of opiate analgesic; Z79.899 Other long term (current) drug therapy
CPT/HCPCS: 36415; 80053; 83036; 85027; G0463

== ENCOUNTER → 2020-09-26 | Outpatient (REF) | payer MEDICARE, OTHER | LOC: SKLAB2 11:45 | DX: Z20.828 Contact with and (suspected) exposure to other viral communicable diseases (principal) ==

== ENCOUNTER → 2020-09-29 | Outpatient (REF) ==
--- NOTE | 2020-09-29 21:48 | REPVR ---
PROCEDURE INFORMATION: Exam: XR Left Clavicle, Complete Exam date and time: 09/29/2020 9:32 PM Age: 70 years old Clinical indication: Pain; Other: Clavicle; Additional info: Fall TECHNIQUE: Imaging protocol: XR Left clavicle complete. Any number of views. COMPARISON: MN Chest, 1 view 01/19/2020 6:38 PM FINDINGS: Overall normal osseous alignment. No acute fracture. Mild degenerative joint space narrowing and osteophyte formation involving the AC joint. No proximal humeral fracture. Glenohumeral joint alignment is difficult to assess without an axillary view. Patient is able to internally and externally rotate the humerus apparently and this would make glenohumeral dislocation on likely. No abnormality of the imaged left upper ribs. IMPRESSION: No acute fracture. Mild AC joint degenerative osteoarthrosis Electronically signed by: Gerson Holman On 09/29/2020 21:47:55 PM
== END ==
LOC: M RAD 21:12
PROVIDERS: ATTEND Family Medicine
DX: Z00.00 Encounter for general adult medical examination without abnormal findings (principal)

== ENCOUNTER → 2020-09-30 | Outpatient (REF) | LOC: SKLAB2 10:00 | DX: Z20.828 Contact with and (suspected) exposure to other viral communicable diseases (principal) ==

== ENCOUNTER → 2020-10-02 | Outpatient (REF) | payer MEDICARE, OTHER | LOC: SKLAB2 10-01 10:54 → EDSTATUS 10-23 16:39 | PROVIDERS: ATTEND Internal Medicine | DX: Z20.828 Contact with and (suspected) exposure to other viral communicable diseases (principal) ==

== ENCOUNTER → 2020-10-04 | Outpatient (CLI) | payer MEDICARE, OTHER ==
[~2020-10-04] MED LIST changes: +BUPIVACAINE HCL 0.25% 10ML VIAL As Ordered ONE; +BUPIVACAINE HCL 0.25% 30ML VIAL As Ordered ONE; +TRIAMCINOLONE ACETONIDE SUSP 40 MG/ML VIAL (J3301) As Ordered ONE; +diazePAM 2 MG TAB As Ordered ONE
--- NOTE | 2020-10-17 01:20 | ECWPNPC ---
PATIENT NAME: ROBINA DYE : 1950 GENDER: FEMALE VISIT DATE: 10/04/2020 DISCHARGE DATE: 10/04/20 145 VISIT LOCKED DATE TIME: PHYSICIAN: SNEHAL BESS MD PHYSICIAN PAGER NO: INACTIVE RESOURCE: SNEHAL BESS MD REASON FOR APPOINTMENT 1. BILATERAL LOW BACK TRIGGER POINT INJECTIONS HISTORY OF PRESENT ILLNESS GENERAL: -. FALL RISK SCREENING: SCREENING :ONE FALL WITHOUT INJURY IN THE PAST YEAR PAIN SCREENING: PATIENT HAS A COMPLAINT OF ACUTE OR CHRONIC PAIN :YES LOCATION OF PAIN:LOW BACK INTENSITY OF PAIN (SCALE OF 1 TO 10):10 WHAT DOES YOUR PAIN FEEL LIKE:ACHING DURATION:CONTINOUS, CONSTANT PAIN IS INCREASED BY:ACTIVITIES PAIN IS DECREASED BY:USE OF PAIN MEDICATIONS, SITTING TREATMENT/MEDICATIONS USED TO MANAGE PAIN:OPIOIDS LEVEL OF RELIEF FROM PAIN TREATMENTS IN THE PAST:50% PAIN HAS INTERFERED WITH THE FOLLOWING:BATHING/DRESSING, WALKING ABILITY, SLEEP, TRANSPORTATION, TOILETING NURSING NOTE: -. PAIN CENTER INTAKE QUESTIONS: DO YOU HAVE A HISTORY OF MRSA? :NO DO YOU TAKE A BLOOD THINNERS? :NO DO YOU HAVE ANY BLEEDING DISORDERS? :NO ANY NEW NUMBNESS OR WEAKNESS IN YOUR LEGS OR ARMS? :NO ANY PACEMAKER,DEFIBRILLATOR, OR DORSAL COLUMN STIMULATOR? :NO DO YOU HAVE ANY RASHES OR OPEN SORES? :NO ARE YOU ALLERGIC TO IV DYE? :NO ARE YOU DIABETIC? :YES GLIPIZIDE THIS AM, DR BESS AWARE ANY NEW PROBLEMS WITH YOUR MEDICATIONS? :NO HAVE YOU RECEIVED A VACCINE IN THE PAST 30 DAYS? :NO DO YOU PLAN TO RECEIVE A VACCINE IN THE NEXT 21 DAYS? :NO DO YOU NEED ANY PRESCRIPTION? :NO DO YOU TAKE ANY IMMUNOSUPPRESSIVE MEDICATIONS? :NO ANY HISTORY OF SEIZURES? :NO ANY HISTORY OF CARDIAC ISSUES OR EVENTS? :NO DO YOU HAVE SLEEP APNEA? :NO ANY RECENT HEAD INJURY? :NO DO YOU HAVE ANY NEW INFECTIONS? :NO IS THERE A CHANCE YOU COULD BE ? :NO ARE YOU BREAST FEEDING? :NO WHEN DID YOU LAST EAT? : -10/04/20 0900 WHEN DID YOU LAST DRINK? : -TODAY, NOON WHAT DID YOU LAST DRINK? : -WATER NAME OF PERSON DRIVING YOU HOME? : -N/A PT IS JAYME KEEP PT DO YOU HAVE ANY OTHER QUESTIONS OR CONCERNS? : - CURRENT MEDICATIONS TAKING GLUCOSTIX -- 1 STRIP CONTOUR NEXT TEST STRIP -- BID TAKING VIMPAT 100 MG TABLET 1 TABLET ORALLY TWICE A DAY, MDD=TWO, NOTES: 10/04/20 TAKING NORCO 5-325 MG TABLET 1 TABLET ORALLY Q6H SCHEDULED AND Q3HRS PRN PAIN MDD=8, NOTES: 10/04/20 TAKING BENGAY GREASELESS 10-15 % CREAM EXTERNALLY , NOTES: 10/04/20 TAKING GLIMEPIRIDE 2 MG TABLET 1 TABLET WITH BREAKFAST OR THE FIRST MAIN MEAL OF THE DAY ORALLY ONCE A DAY, NOTES: 10/04/20 TAKING CALAZIME SKIN PROTECTANT - PASTE EXTERNALLY , NOTES: 10/04/20 TAKING GUAIFENESIN 100 MG/5ML SYRUP 10 ML NEEDED ORALLY EVERY 4 HRS, NOTES: NOT LATELY TAKING LOPERAMIDE HCL 2 MG CAPSULE 1 CAPSULE NEEDED ORALLY FOUR TIMES A DAY, NOTES: 10/04/20 TAKING TYLENOL 325 MG TABLET 1 TABLET NEEDED ORALLY EVERY 4 HRS, NOTES: NOT LATELY TAKING BUSPIRONE HCL 5 MG TABLET 1 TABLET ORALLY BID, NOTES: 10/04/20 TAKING GLUCAGON EMERGENCY 1 MG KIT DIRECTED INJECTION , NOTES: NOT LATELY TAKING GLUCOSE 4 GM TABLET CHEWABLE DIRECTED ORALLY , NOTES: NOT LATELY TAKING ZOLOFT 100 MG TABLET 1 1/2 TABLET ORALLY ONCE A DAY, NOTES: 10/04/20 TAKING VITAMIN D3 400 UNIT TABLET 2 TABLETS ORALLY ONCE A DAY, NOTES: 10/04/20 TAKING HYDROXYZINE HCL 10 MG TABLET ORALLY NEEDED FOR ITCHIHNG, NOTES: 10/04/20 TAKING TUMS 500 MG TABLET CHEWABLE 1 TABLET ORALLY ONCE A DAY, NOTES: 10/04/20 TAKING GABAPENTIN 100 MG TABLET ORALLY BID, NOTES: 10/04/20 TAKING NITROGLYCERIN 0.4 MG TABLET SUBLINGUAL SUBLINGUAL , NOTES: NONE LATELY TAKING VENTOLIN HFA 108 (90 BASE) MCG/ACT AEROSOL SOLUTION 2 PUFFS NEEDED INHALATION EVERY 6 HRS, NOTES: 10/04/20 TAKING MAY USE BIPAP ON AT HS, NOTES: 10/03/20 TAKING ATORVASTATIN CALCIUM 40 MG TABLET 1 TABLET ORALLY ONCE A DAY ON M,W,F, NOTES: 10/04/20 TAKING VITAMIN B1 100 MG TABLET 1 TABLET ORALLY ONCE A DAY, NOTES: 10/04/20 TAKING ALBUTEROL SULFATE (5 MG/ML) 0.5% NEBULIZATION SOLUTION 1 ML NEEDED INHALATION EVERY 6 HRS, NOTES: 10/04/20 NOT-TAKING LISINOPRIL 10 MG TABLET 1 TABLET ORALLY ONCE A DAY NOT-TAKING FUROSEMIDE 20 MG TABLET 1 TABLET ORALLY ONCE A DAY FOR EDEMA NOT-TAKING OMEPRAZOLE 40 MG CAPSULE DELAYED RELEASE 1 CAPSULE ORALLY ONCE A DAY NOT-TAKING ABILIFY 2 MG TABLET 1 TABLET ORALLY ONCE A DAY NOT-TAKING LEXAPRO 20 MG TABLET 1 TABLET ORALLY ONCE A DAY NOT-TAKING ARICEPT 5 MG TABLET 1 TABLET AT BEDTIME ORALLY ONCE A DAY NOT-TAKING ZYRTEC 10 MG TABLET 1 TABLET ORALLY ONCE A DAY, NOTES: NEEDED FOR ALLERGIC RHINITIS MEDICATION LIST REVIEWED AND RECONCILED WITH THE PATIENT PAST MEDICAL HISTORY DIABETES HYPERTENSION SLEEP APNEA ELEVATED TRIGLYCERIDES HISTORY OF SEXUAL ABUSE DEPRESSION ALLERGIES ASTHMA (MILD INTERMITTENT) ASTHMA, UNSPECIFIED, UNSPECIFIED STATUS ASTHMA, UNSPECIFIED, UNSPECIFIED STATUS ALLERGIC RHINITIS, CAUSE UNSPECIFIED DEPRESSIVE DISORDER, NOT ELSEWHERE CLASSIFIED SLEEP RELATED HYPOVENTILATION/HYPOXEMIA IN CONDITIONS CLASSIFIABLE ELSEWHERE RASH AND OTHER NONSPECIFIC SKIN ERUPTION UNSPECIFIED DIFFUSE CONNECTIVE TISSUE DISEASE ACUTE SINUSITIS, UNSPECIFIED OTHER AND UNSPECIFIED PERIPHERAL VERTIGO COUGH URGENCY INCONTINENCE STENOSIS ALLERGIES MORPHINE: VOMITING - ALLERGY METFORMIN: ITCHING - ALLERGY TRAZODONE 100: HOSPTIALIZED WITH DELERIUM SURGICAL HISTORY HYSTERECTOMY ABDOMINAL GALL BLADDER REMOVAL RIGHT KNEE REPLACEMENT 2016 LEFT KNEE REPLACEMENT 2016 RIGHT/LEFT CATARACT FAMILY HISTORY FATHER: , DIAGNOSED WITH HYPERTENSION, UNSPECIFIED HEART DISEASE MOTHER: , UNSPECIFIED HEART DISEASE SIBLINGS: ALIVE, LEUKEMIA (SISTER 2012, UNSPECIFIED HEART DISEASE 2 BROTHER(S) , 1 SISTER(S) . 1 SON(S) , 2 DAUGHTER(S) . ++HEART ISSUES IN FAMILY. SOCIAL HISTORY GENERAL: TOBACCO USE ARE YOU A:: NEVER SMOKER. LATEX QUESTIONNAIRE LATEX ALLERGY : HAVE YOU EVER DEVELOPED ANY TYPE OF REACTION AFTER HANDLING LATEX PRODUCTS SUCH RUBBER GLOVES, CONDOMS, DIAPHRAGMS, BALLOONS, SOCKS, OR UNDERWEAR?NO LATEX ALLERGY : HAVE YOU EVER DEVELOPED ANY TYPE OF REACTION DURING OR AFTER DENTAL APPOINTMENT, VAGINAL/RECTAL EXAMINATION, SURGICAL PROCEDURE, OR ANY OTHER EXPOSURE?NO DATE ASKED : 04/18/2020 LATEX RISK : HAVE YOU EVER HAD ANY DIFFICULTY BREATHING OR HIVES AFTER EATING OR HANDLING ANY FRUITS, OR VEGETABLES; SUCH KIWI, BANANAS, STONE FRUITS, OR CHESTNUTSNO LATEX RISK : DO YOU HAVE A PREVIOUS PERSONAL HISTORY OF MORE THAN NINE SURGERIES, SPINA BIFIDA, OR REPEATED CATHERIZATIONS? NO LATEX RISK : ARE YOU FREQUENTLY EXPOSED TO LATEX PRODUCTS IN YOUR OCCUPATION?NO ALCOHOL SCREENING POINTS: 0, INTERPRETATION: NEGATIVE. RECREATIONAL DRUG USE DENIES. CAFFEINE 1-2/DAY. ISLAM NO HOLINESS BELIEFS THAT WOULD IMPACT HEALTH CARE. LANGUAGE CHINESE. EDUCATION QUIT IN 10TH GRADE. 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 DIET: LOW FAT, LOW CHOLESTEROL. EXERCISE: WALKS. OTHERS AT HOME: SPOUSE. PAIN CLINIC PFS, CLERGY, PUBLIC HEALTH REFERRALS WAS THE PROVIDER NOTIFIED OF ANY PERTINENT INFO?YES HAS THE PATIENT BEEN EDUCATED REGARDING HIS/HER PLAN OF CARE?YES HAS THE PATIENT BEEN EDUCATED REGARDING PAIN, THE RISK FOR PAIN, THE IMPORTANCE OF EFFECTIVE PAIN MANAGEMENT, AND THE PAIN ASSESSMENT PROCESS?YES PROCEDURE TEACHING, LUMBAR EPIDURAL ADVANCE DIRECTIVE ADVANCE DIRECTIVE DISCUSSED WITH PATIENT:YES HCP IS KATERIN DYE [phone] PATIENT ALSO HAS A MOLST- DNR ORDER ATTACHED TO CHART HOSPITALIZATION/MAJOR DIAGNOSTIC PROCEDURE ALTERED MENTAL STATUS 05/22/13-05/24/13 VITAL SIGNS WT 339.4 LBS, HT 66 IN, BMI 54.77 INDEX, BP 114/55 MM HG, HR 69 /MIN, RR 18 /MIN, TEMP 98.1 F, OXYGEN SAT % 92%, SAFE IN ENV? (Y/N) Y, NA INITIALS AW 1301, REVIEWED BY: EM. EXAMINATION GENERAL EXAMINATION: THE PATIENT IS ALERT, ORIENTED TIMES THREE AND COOPERATIVE. HEART SHOWS REGULAR RHYTHM, NO MURMURS AND NO GALLOPS. LUNGS ARE CLEAR TO AUSCULTATION. ASSESSMENTS MYALGIA, OTHER SITE - M79.18 (PRIMARY) TREATMENT MYALGIA, OTHER SITE MEDICATION: VALIUM TAB 2MG ORALLY (DIAZEPAM)MARKIE GRAHAM 10/04/2020 1:39:47 PM > LOT [id number] EXP 11/2020 NICKY BUI 10/04/2020 1:40:23 PM > VERIFIED MARKIE GRAHAM 10/04/2020 1:42:38 PM > ADMINISTERED PROCEDURES PAIN NURSING RECORD PRE-PROCEDURE IV SITE N/A, PRE-PROCEDURE ORAL MEDICATIONS VALIUM 2MG PROCEDURE IN ROOM 1310, PHYSICIAN IN ROOM 1405, START 1407, FINISH 1409, PHYSICIAN OUT OF ROOM 1410, OUT OF ROOM 1441, STEROID KENALOG, O2 N/A, ECG N/A, PATIENT SHIELDED NO, SAFETY STRAP NO, PREP ALCOHOL, IV INFUSED N/A, DRESSING TEGADERM LOC: MARKIE GRAHAM 10/04/2020 2:07:56 PM > , 1. ALERT, ORIENTED RESP: FELICITY GRAHAMBETH 10/04/2020 2:08:02 PM > , 1. REGULAR, NO DYSPNEA COLOR: FELICITY GRAHAMBETH 10/04/2020 2:08:06 PM > , 1. PINK SKIN: FELICITY GRAHAMBETH 10/04/2020 2:08:12 PM > , 1. WARM, DRY POSITION: FELICITY GRAHAMBETH 10/04/2020 2:08:18 PM > , 3. 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 MYALGIA 2. PAIN AT BILATERAL LOWER BACK AREA POST PROCEDURE DIAGNOSIS 1. MYALGIA 2. PAIN AT BILATERAL LOWER BACK AREA PROCEDURE TRIGGER POINT INJECTION AT BILATERAL LOWER BACK AREA SURGEON DR. SNEHAL BESS PHOTOGRAPHY EDITOR NONE ANESTHESIA LOCAL PRE PROCEDURE NOTE THE PATIENT HAS A HISTORY OF CHRONIC PAIN AT THE RIGHT AND LEFT LOWER BACK AREA. I EVALUATED THE PATIENT AND REVIEWED THE CHART. THERE IS EVIDENCE OF BANDS OF TISSUE WITH RESTRICTION OF MOVEMENT AND PRESENCE OF TRIGGER POINT AT THE RIGHT AND LEFT LOWER BACK AREA. I WENT OVER THE RISKS, ALTERNATIVES, AND BENEFITS ASSOCIATED WITH THIS PROCEDURE. THE PATIENT WOULD LIKE TO PROCEED AND GIVE CONSENT TO PERFORMED THE PROCEDURE. THE PATIENT DENIES UNEXPLAINABLE WEIGHT LOSS, FEVER, CHILLS, OR NEW CHANGES IN URINARY OR BOWEL CONTROL. THE PATIENT IS COVID-19 NEGATIVE DESCRIPTION OF PROCEDURE THE PATIENT WAS BROUGHT TO THE PROCEDURE ROOM AND PLACED IN THE RIGHT LATERAL DECUBITUS POSITION. THE AREA WAS CLEANED WITH ALCOHOL. THE PROCEDURE WAS DONE USING ASEPTIC STERILE TECHNIQUE. A TIMEOUT WAS PERFORMED WHERE LATERALITY AND THE SITE OF THE PROCEDURE WERE CHECKED AND CONFIRMED WITH EVERYONE IN THE ROOM. USING A 25-GAUGE NEEDLE, TRIGGER POINTS WERE INJECTED AT THE RIGHT AND LEFT LOWER BACK AREA WITH A TOTAL OF 40 ML OF BUPIVACAINE 0.25% AND KENALOG 40 MG. THE MEDICATIONS WERE VERIFIED WITH THE NURSE. THERE WAS NO EVIDENCE OF BLOOD OR PARESTHESIA DURING THE PROCEDURE. THE PATIENT WAS SENT TO THE RECOVERY ROOM. THE PATIENT WAS MOVING THE EXTREMITIES AND DOING WELL. THERE WERE NO COMPLICATIONS DURING THE PROCEDURE. ESTIMATED BLOOD LOSS WAS LESS THAN 5 ML POST PROCEDURE NOTE THE PROCEDURE DONE WAS DISCUSSED WITH THE PATIENT. THE PATIENT WILL BE SEEN IN A FOLLOW UP IN THE NEXT FEW WEEKS. I AM LOOKING FOR LONG LASTING PAIN RELIEF FOR THE PATIENT WITH THIS INTERVENTION. INSTRUCTIONS WERE GIVEN, QUESTIONS WERE ANSWERED, AND THE PATIENT EXPRESSED UNDERSTANDING AND AGREES WITH THE PLAN. I, ROBBIN COOPER, DOCUMENTED THE ABOVE INFORMATION ACTING A SCRIBE FOR DR. BESS. I HAVE REVIEWED THE ABOVE DOCUMENT, WRITTEN BY ROBBIN COOPER, AUDIOLOGIST, AND I VERIFY THAT IT IS ACCURATE PROCEDURE CODES 82564 INJ TRIGGER POINT 11/16 [facility] DISPOSITION & COMMUNICATION FOLLOW UP FOLLOW UP WITH WELT EDGE ROUNDER (REASON: POST TPI BILATERAL LOWER BACK) ELECTRONICALLY SIGNED BY SNEHAL BESS MD, MD ON 10/16/2020 AT 01:52 PM EST DISCLAIMER : THIS IS A VISIT SUMMARY EXTRACTED FROM THE [employer] CHART. IT IS NOT A COPY OF THE [employer] PROGRESS NOTE. [place]
== END ==
LOC: M PAIN 13:00
PROVIDERS: ATTEND Anesthesiology
DX: M79.18 Myalgia, other site (principal); E11.9 Type 2 diabetes mellitus without complications; I10 Essential (primary) hypertension; G47.30 Sleep apnea, unspecified; F32.9 Major depressive disorder, single episode, unspecified; J45.20 Mild intermittent asthma, uncomplicated; Z79.891 Long term (current) use of opiate analgesic; Z79.899 Other long term (current) drug therapy; Z79.84 Long term (current) use of oral hypoglycemic drugs; Z88.5 Allergy status to narcotic agent; Z88.8 Allergy status to other drugs, medicaments and biological substances
CPT/HCPCS: 20552; J3301

== ENCOUNTER → 2020-10-16 | Outpatient (REF) | payer MEDICARE, OTHER ==
[~2020-10-16] MED LIST changes: -BUPIVACAINE HCL 0.25% 10ML VIAL As Ordered ONE; -BUPIVACAINE HCL 0.25% 30ML VIAL As Ordered ONE; -TRIAMCINOLONE ACETONIDE SUSP 40 MG/ML VIAL (J3301) As Ordered ONE; -diazePAM 2 MG TAB As Ordered ONE
== END ==
LOC: SKLAB2 08:00
DX: Z20.828 Contact with and (suspected) exposure to other viral communicable diseases (principal)

== ENCOUNTER → 2020-10-23 | Outpatient (REF) | payer MEDICARE, OTHER | LOC: SKLAB2 07:27 | DX: Z20.828 Contact with and (suspected) exposure to other viral communicable diseases (principal) ==

== ENCOUNTER → 2020-10-30 | Outpatient (REF) | payer MEDICARE, OTHER | LOC: SKLAB2 11:30 | DX: Z20.828 Contact with and (suspected) exposure to other viral communicable diseases (principal) ==

== ENCOUNTER → 2020-11-06 | Outpatient (REF) | payer MEDICARE, OTHER | LOC: SKLAB2 07:48 | DX: Z20.828 Contact with and (suspected) exposure to other viral communicable diseases (principal) ==

== ENCOUNTER → 2020-11-13 | Outpatient (REF) | payer MEDICARE, OTHER | LOC: SKLAB2 10:26 | DX: Z20.828 Contact with and (suspected) exposure to other viral communicable diseases (principal) ==

== ENCOUNTER → 2020-11-19 | Outpatient (REF) | payer MEDICARE, OTHER ==
[2020-11-19 10:20] LABS: CREATININE, URINE 39.1 MG/DL; MALB URINE SIEMENS 37.8 MG/L; MAU/CREAT RATIO 96.6 MCG/MG (0.0-30.0)
[2020-11-19 11:03] LABS: PERCENT SATURATION 14.7 % (13.2-45.0)
[2020-11-19 11:11] LABS: FOLATE 12.5 NG/ML (>5.4)
== END ==
LOC: SKLAB2 07:00
DX: D64.9 Anemia, unspecified (principal); I10 Essential (primary) hypertension

== ENCOUNTER → 2020-11-20 | Outpatient (REF) | payer MEDICARE, OTHER | LOC: SKLAB2 07:00 | PROVIDERS: ATTEND Internal Medicine | DX: Z11.52 Encounter for screening for COVID-19 (principal) ==

== ENCOUNTER → 2020-11-25 | Outpatient (REF) | payer MEDICARE, OTHER ==
[2020-11-25 10:57] LABS: CALCIUM LEVEL 9.4 MG/DL (8.8-10.2); CREATININE FOR GFR 1.83 MG/DL (0.55-1.30); POTASSIUM SERUM 4.7 MEQ/L (3.5-5.1)
== END ==
LOC: SKLAB2 07:00
DX: I10 Essential (primary) hypertension (principal)

== ENCOUNTER → 2020-11-27 | Outpatient (REF) | payer MEDICARE, OTHER | LOC: SKLAB2 07:00 | PROVIDERS: ATTEND Internal Medicine | DX: Z20.822 Contact with and (suspected) exposure to COVID-19 (principal) ==

== ENCOUNTER → 2020-12-04 | Outpatient (REF) | payer MEDICARE, OTHER ==
[~2020-12-04] MED LIST changes: -LISI-538 PO; +LISI10TA22 PO; -LISI10TA4 PO; +LISI20TA33 PO
== END ==
LOC: SKLAB2 07:00
PROVIDERS: ATTEND Internal Medicine
DX: Z20.822 Contact with and (suspected) exposure to COVID-19 (principal)

== ENCOUNTER → 2020-12-11 | Outpatient (REF) | payer MEDICARE, OTHER ==
[~2020-12-11] MED LIST changes: +LISI-538 PO; -LISI10TA22 PO; +LISI10TA4 PO; -LISI20TA33 PO
== END ==
LOC: SKLAB2 14:11
PROVIDERS: ATTEND Internal Medicine
DX: Z20.822 Contact with and (suspected) exposure to COVID-19 (principal)

== ENCOUNTER → 2020-12-18 | Outpatient (REF) | payer MEDICARE, OTHER ==
[~2020-12-18] MED LIST changes: -LISI-538 PO; +LISI10TA22 PO; -LISI10TA4 PO; +LISI20TA33 PO
== END ==
LOC: SKLAB2 10:56
PROVIDERS: ATTEND Internal Medicine
DX: Z11.52 Encounter for screening for COVID-19 (principal)

== ENCOUNTER → 2020-12-24 | Outpatient (REF) | payer MEDICARE, OTHER ==
[2020-12-24 09:43] LABS: HEMATOCRIT 41.3 % (36.0-47.0); HEMOGLOBIN 12.8 g/dl (12.0-15.5); MEAN CORPUSCULAR HEMOGLOBIN 28.4 pg (27.0-33.0); MEAN CORPUSCULAR VOLUME 91.6 fl (80.0-96.0); PLATELET COUNT, AUTOMATED 322 10^3/uL (150-450); RED BLOOD COUNT 4.51 10^6/uL (4.00-5.40); WHITE BLOOD COUNT 9.1 10^3/uL (4.0-10.0)
[2020-12-24 11:25] LABS: HEMOGLOBIN A1c 7.4 %
== END ==
LOC: SKLAB2 10:40
DX: D64.9 Anemia, unspecified (principal); E11.9 Type 2 diabetes mellitus without complications

== ENCOUNTER → 2020-12-25 | Outpatient (REF) | payer MEDICARE, OTHER | LOC: SKLAB2 10:39 | PROVIDERS: ATTEND Internal Medicine | DX: Z20.822 Contact with and (suspected) exposure to COVID-19 (principal) ==

== ENCOUNTER → 2021-01-01 | Outpatient (REF) | payer MEDICARE, OTHER | LOC: SKLAB2 07:19 | PROVIDERS: ATTEND Internal Medicine | DX: Z11.52 Encounter for screening for COVID-19 (principal) ==

== ENCOUNTER → 2021-01-08 | Outpatient (REF) | payer MEDICARE, OTHER | LOC: SKLAB2 09:01 | PROVIDERS: ATTEND Internal Medicine | DX: Z20.822 Contact with and (suspected) exposure to COVID-19 (principal) ==

== ENCOUNTER → 2021-01-21 | Outpatient (REF) | payer MEDICARE, OTHER ==
[~2021-01-21] MED LIST changes: +DEXT4TAB2 PO; -GLUC4CHW19 PO
[2021-01-21 07:46] LABS: HEMATOCRIT 37.9 % (36.0-47.0); HEMOGLOBIN 11.8 g/dl (12.0-15.5); MEAN CORPUSCULAR HGB CONC 31.1 g/dl (32.0-36.5); MEAN CORPUSCULAR VOLUME 89.8 fl (80.0-96.0); PLATELET COUNT, AUTOMATED 303 10^3/uL (150-450); RED BLOOD COUNT 4.22 10^6/uL (4.00-5.40); WHITE BLOOD COUNT 7.9 10^3/uL (4.0-10.0)
[2021-01-21 08:00] LABS: HEMOGLOBIN A1c 8.6 %
[2021-01-21 08:04] LABS: BILIRUBIN,TOTAL 0.5 MG/DL (0.2-1.0); CALCIUM LEVEL 9.6 MG/DL (8.8-10.2); CREATININE FOR GFR 1.59 MG/DL (0.55-1.30); GLOMERULAR FILTRATION RATE 34.1 (>39); POTASSIUM SERUM 4.3 MEQ/L (3.5-5.1)
== END ==
LOC: SKLAB2 08:00
DX: I10 Essential (primary) hypertension (principal); E11.9 Type 2 diabetes mellitus without complications

== ENCOUNTER → 2021-01-22 | Outpatient (REF) | payer MEDICARE, OTHER | LOC: SKLAB2 08:00 | PROVIDERS: ATTEND Internal Medicine | DX: Z11.52 Encounter for screening for COVID-19 (principal) ==

== ENCOUNTER → 2021-01-29 | Outpatient (REF) | payer MEDICARE, OTHER | LOC: SKLAB2 13:17 | PROVIDERS: ATTEND Internal Medicine | DX: Z20.822 Contact with and (suspected) exposure to COVID-19 (principal) ==

== ENCOUNTER → 2021-02-03 | Outpatient (REF) | payer MEDICARE, OTHER ==
[2021-02-03 14:21] LABS: APPEARANCE, URINE HAZY (CLEAR); BACTERIA, URINE AUTO 1+ (NEGATIVE); BILIRUBIN, URINE AUTO NEGATIVE (NEGATIVE); BLOOD, URINE BLOOD NEGATIVE (NEGATIVE); COLOR, URINE YELLOW (YELLOW); GLUCOSE, URINE (UA) AUTO NEGATIVE (NEGATIVE); KETONE, URINE AUTO NEGATIVE (NEGATIVE); LEUKOCYTE ESTERASE, URINE AUTO 2+ (NEGATIVE); NITRITE, URINE AUTO POSITIVE (NEGATIVE); PROTEIN, URINE AUTO NEGATIVE (NEGATIVE); RBC, URINE AUTO 1 /HPF (0-3); SPECIFIC GRAVITY URINE AUTO 1.011 (1.002-1.035); SQUAMOUS EPITHELIAL CELL UR AU 0 /HPF (0-6); UROBILINOGEN, URINE AUTO 0.2 mg/dL (0.0-2.0); WBC, URINE AUTO 46 /HPF (0-3)
== END ==
LOC: SKLAB2 13:05 → EEVIPCON 13:05
DX: R30.0 Dysuria (principal)

== ENCOUNTER → 2021-02-07 | Outpatient (REF) | payer MEDICARE, OTHER ==
[2021-02-07 10:57] LABS: HEMATOCRIT 41.3 % (36.0-47.0); HEMOGLOBIN 13.6 g/dl (12.0-15.5); MEAN CORPUSCULAR HEMOGLOBIN 29.6 pg (27.0-33.0); MEAN CORPUSCULAR HGB CONC 32.9 g/dl (32.0-36.5); PLATELET COUNT, AUTOMATED 276 10^3/uL (150-450); RED BLOOD COUNT 4.59 10^6/uL (4.00-5.40); WHITE BLOOD COUNT 14.1 10^3/uL (4.0-10.0)
[2021-02-07 11:13] LABS: CALCIUM LEVEL 8.6 MG/DL (8.8-10.2); CREATININE FOR GFR 1.8 MG/DL (0.55-1.30); GLOMERULAR FILTRATION RATE 29.5 (>39); POTASSIUM SERUM 3.4 MEQ/L (3.5-5.1)
== END ==
LOC: SKLAB2 10:09
DX: R41.82 Altered mental status, unspecified (principal)

== ENCOUNTER → 2021-02-10 | Outpatient (REF) | payer MEDICARE, OTHER ==
[2021-02-10 07:06] LABS: HEMATOCRIT 39.4 % (36.0-47.0); HEMOGLOBIN 12.8 g/dl (12.0-15.5); MEAN CORPUSCULAR HEMOGLOBIN 29.8 pg (27.0-33.0); MEAN CORPUSCULAR HGB CONC 32.5 g/dl (32.0-36.5); MEAN CORPUSCULAR VOLUME 91.6 fl (80.0-96.0); PLATELET COUNT, AUTOMATED 297 10^3/uL (150-450); WHITE BLOOD COUNT 10.7 10^3/uL (4.0-10.0)
[2021-02-10 07:29] LABS: CALCIUM LEVEL 8.9 MG/DL (8.8-10.2); CREATININE FOR GFR 1.51 MG/DL (0.55-1.30); GLOMERULAR FILTRATION RATE 36.2 (>39); POTASSIUM SERUM 3.6 MEQ/L (3.5-5.1)
== END ==
LOC: SKLAB2 12:32
DX: E86.0 Dehydration (principal)

== ENCOUNTER → 2021-02-12 | Outpatient (REF) | payer MEDICARE, OTHER ==
[2021-02-12 15:44] LABS: HEMATOCRIT 41.6 % (36.0-47.0); HEMOGLOBIN 13.6 g/dl (12.0-15.5); MEAN CORPUSCULAR HEMOGLOBIN 29.6 pg (27.0-33.0); MEAN CORPUSCULAR HGB CONC 32.7 g/dl (32.0-36.5); MEAN CORPUSCULAR VOLUME 90.4 fl (80.0-96.0); PLATELET COUNT, AUTOMATED 322 10^3/uL (150-450); WHITE BLOOD COUNT 11.3 10^3/uL (4.0-10.0)
[2021-02-12 15:45] LABS: APPEARANCE, URINE CLEAR (CLEAR); BACTERIA, URINE AUTO NEGATIVE (NEGATIVE); BILIRUBIN, URINE AUTO NEGATIVE (NEGATIVE); BLOOD, URINE BLOOD NEGATIVE (NEGATIVE); COLOR, URINE YELLOW (YELLOW); GLUCOSE, URINE (UA) AUTO NEGATIVE (NEGATIVE); KETONE, URINE AUTO NEGATIVE (NEGATIVE); LEUKOCYTE ESTERASE, URINE AUTO NEGATIVE (NEGATIVE); NITRITE, URINE AUTO NEGATIVE (NEGATIVE); PROTEIN, URINE AUTO NEGATIVE (NEGATIVE); RBC, URINE AUTO 0 /HPF (0-3); SPECIFIC GRAVITY URINE AUTO 1.013 (1.002-1.035); SQUAMOUS EPITHELIAL CELL UR AU 1 /HPF (0-6); UROBILINOGEN, URINE AUTO 0.2 mg/dL (0.0-2.0); WBC, URINE AUTO 0 /HPF (0-3)
[2021-02-12 16:15] LABS: CALCIUM LEVEL 10.1 MG/DL (8.8-10.2); CREATININE FOR GFR 1.48 MG/DL (0.55-1.30); POTASSIUM SERUM 5.2 MEQ/L (3.5-5.1)
== END ==
LOC: SKLAB2 14:58
DX: R41.82 Altered mental status, unspecified (principal)

== ENCOUNTER → 2021-02-14 | Outpatient (REF) | payer MEDICARE, OTHER ==
[2021-02-14 13:31] LABS: HEMATOCRIT 42.3 % (36.0-47.0); HEMOGLOBIN 13.3 g/dl (12.0-15.5); MEAN CORPUSCULAR HEMOGLOBIN 28.7 pg (27.0-33.0); MEAN CORPUSCULAR HGB CONC 31.4 g/dl (32.0-36.5); MEAN CORPUSCULAR VOLUME 91.4 fl (80.0-96.0); PLATELET COUNT, AUTOMATED 345 10^3/uL (150-450); RED BLOOD COUNT 4.63 10^6/uL (4.00-5.40); WHITE BLOOD COUNT 10.4 10^3/uL (4.0-10.0)
[2021-02-14 13:59] LABS: CALCIUM LEVEL 9.8 MG/DL (8.8-10.2); CREATININE FOR GFR 1.55 MG/DL (0.55-1.30); GLOMERULAR FILTRATION RATE 35.1 (>39); POTASSIUM SERUM 4.2 MEQ/L (3.5-5.1)
== END ==
LOC: SKLAB2 12:33
PROVIDERS: ATTEND Internal Medicine
DX: Z20.822 Contact with and (suspected) exposure to COVID-19 (principal); E87.5 Hyperkalemia
CPT/HCPCS: 36415; 80048; 85027; U0003

== ENCOUNTER → 2021-03-12 | Outpatient (REF) | payer MEDICARE, OTHER, MEDICAID ==
[~2021-03-12] MED LIST changes: -DEXT4TAB2 PO; +SFHGLU4TA PO
== END ==
LOC: SKLAB2 08:32
DX: Z13.89 Encounter for screening for other disorder (principal); Z16.12 Extended spectrum beta lactamase (ESBL) resistance

== ENCOUNTER → 2021-03-19 | Outpatient (REF) | payer MEDICARE, OTHER, MEDICAID | LOC: SKLAB2 08:58 | DX: Z79.899 Other long term (current) drug therapy (principal); Z16.12 Extended spectrum beta lactamase (ESBL) resistance ==

== ENCOUNTER → 2021-03-20 | Outpatient (REF) | payer MEDICARE, OTHER, MEDICAID | LOC: SKLAB2 08:36 | DX: Z16.12 Extended spectrum beta lactamase (ESBL) resistance (principal); Z13.89 Encounter for screening for other disorder ==

== ENCOUNTER → 2021-03-25 | Outpatient (REF) | payer MEDICARE, OTHER, MEDICAID ==
[~2021-03-25] MED LIST changes: +CARD60TA3 PO; +ECOT81TA5 PO; +HYDR-3713 PO; +NAME5TAB13 PO; +ROCA0.25 PO; +SERT-141 PO; +TRUL0.5I SC
[2021-03-25 09:05] LABS: HEMOGLOBIN A1c 7.9 %
== END ==
LOC: SKLAB2 13:00
DX: E11.9 Type 2 diabetes mellitus without complications (principal)

== ENCOUNTER → 2021-03-26 | Outpatient (REF) | payer MEDICARE, OTHER, MEDICAID | LOC: SKLAB2 11:34 | DX: Z79.899 Other long term (current) drug therapy (principal); Z16.12 Extended spectrum beta lactamase (ESBL) resistance ==

== ENCOUNTER → 2021-03-27 | Outpatient (REF) | payer MEDICARE, OTHER, MEDICAID | LOC: SKLAB2 08:27 | DX: Z20.822 Contact with and (suspected) exposure to COVID-19 (principal) ==

== ENCOUNTER 2021-04-01 07:58 | Day surgery (SDC) | payer MEDICARE, OTHER, MEDICAID ==
[~2021-04-01] VITALS: Ht 162.6 cm; Wt 146.5 kg
[~2021-04-01 07:58] MED LIST changes: +NS 1,000 ML IV ONE
[2021-04-01] MEDS ORDERED: propofoL 200 MG/20 ML VIAL As Ordered ONE ×3 (08:39→09:41)
[2021-04-01] MEDS ORDERED: LIDOCAINE 2% 100MG/5ML SDV (FOR ANES.) As Ordered ONE (08:39)
[2021-04-01] MEDS ORDERED: ELEVIEW SUBMUCOSAL INJ 10ML AMP As Ordered ONE (09:07)
[2021-04-01 10:15] VITALS: BP 126/75
--- NOTE | 2021-04-01 10:32 | ROOR ---
Patient Name: Nela Hobbs Procedure Date: 04/01/2021 8:49 AM Date of : 1950 Age: 70 Room: [facility] Gender: Female Note Status: Finalized Procedure: Colonoscopy Indications: Iron deficiency anemia secondary to chronic blood loss, Iron deficiency anemia Providers: Bong Joseph MD Referring MD: Martha Pickett DO Requesting Provider: Medicines: Monitored Anesthesia Care Complications: No immediate complications. Procedure: Pre-Anesthesia Assessment: - Prior to the procedure, a History and Physical was performed, and patient medications and allergies were reviewed. The patient is competent. The risks and benefits of the procedure and the sedation options and risks were discussed with the patient. All questions were answered and informed consent was obtained. Patient identification and proposed procedure were verified by the physician, the nurse and the anesthesiologist in the procedure room. Mental Status Examination: alert and oriented. Airway Examination: normal oropharyngeal airway and neck mobility. Respiratory Examination: clear to auscultation. CV Examination: normal. Prophylactic Antibiotics: The patient does not require prophylactic antibiotics. Prior Anticoagulants: The patient has taken no previous anticoagulant or antiplatelet agents. ASA Grade Assessment: III - A patient with severe systemic disease. After reviewing the risks and benefits, the patient was deemed in satisfactory condition to undergo the procedure. The anesthesia plan was to use monitored anesthesia care (MAC). Immediately prior to administration of medications, the patient was re-assessed for adequacy to receive sedatives. The heart rate, respiratory rate, oxygen saturations, blood pressure, adequacy of pulmonary ventilation, and response to care were monitored throughout the procedure. The physical status of the patient was re-assessed after the procedure. The Colonoscope was introduced through the anus and advanced to the cecum, identified by the ileocecal valve. The colonoscopy was performed without difficulty. The patient tolerated the procedure well. The quality of the bowel preparation was fair except the sigmoid colon was poor, the descending colon was poor and the cecum was poor. The ileocecal valve and the rectum were photographed. Scope insertion time was 2 minutes. Scope withdrawal time was 18 minutes. The total duration of the procedure was 20 minutes. Findings: The perianal and digital rectal examinations were normal. Two flat and sessile polyps were found in the ascending colon. The polyps were 10 to 15 mm in size. These polyps were removed with a hot snare. Resection and retrieval were complete. A 40 mm polyp was found in the ascending colon. The polyp was multi-lobulated and sessile. Preparations were made for mucosal resection. Chromoscopy with methylene blue was done to emir the borders of the lesion. Eleview was injected with adequate lift of the lesion from the muscularis propria. Forceps and snare mucosal resection with Matson net retrieval was performed. A 40 mm area was resected. Resection and retrieval were complete. There was no bleeding during and at the end of the procedure. To close a defect after mucosal resection, five hemostatic clips were successfully placed. There was no bleeding at the end of the procedure. A large amount of semi-liquid semi-solid stool was found in the recto-sigmoid colon, in the descending colon and in the cecum, interfering with visualization. Lavage of the area was performed using a large amount of sterile water, resulting in incomplete clearance with continued poor visualization. Non-bleeding external and internal hemorrhoids were found during retroflexion. The hemorrhoids were medium-sized. Impression: - Two 10 to 15 mm polyps in the ascending colon, removed with a hot snare. Resected and retrieved. - One 40 mm polyp in the ascending colon, removed with mucosal resection. Resected and retrieved. Clips were placed. - Stool in the recto-sigmoid colon, in the descending colon and in the cecum. - Non-bleeding external and internal hemorrhoids. - Mucosal resection was performed. Resection and retrieval were complete. Recommendation: - Patient has a contact number available for emergencies. The signs and symptoms of potential delayed complications were discussed with the patient. Return to normal activities tomorrow. Written discharge instructions were provided to the patient. - Clear liquid diet for 1 day, then advance as tolerated to high fiber diet. - Continue present medications. - Miralax 1 capful (17 grams) in 8 ounces of water PO daily for 7 days. - Repeat colonoscopy at next available appointment (within 3 months) because the bowel preparation was poor, for surveillance after piecemeal polypectomy and for surveillance based on pathology results. - Telephone GI clinic for pathology results in 2 weeks. - Telephone GI clinic to schedule appointment. - Return to primary care physician. Procedure Code(s): --- Professional --- 91720, Colonoscopy, flexible; with endoscopic mucosal resection 07921, 59, Colonoscopy, flexible; with removal of tumor(s), polyp(s), or other lesion(s) by snare technique Diagnosis Code(s): --- Professional --- K63.5, Polyp of colon K64.8, Other hemorrhoids D50.0, Iron deficiency anemia secondary to blood loss (chronic) D50.9, Iron deficiency anemia, unspecified CPT copyright 2019 [employer]. All rights reserved. The codes documented in this report are preliminary and upon shift leader review may be revised to meet current compliance requirements. Bong Joseph MD Bong Joseph MD 04/01/2021 10:31:52 AM Electronically signed by Bong Joseph MD Number of Addenda: 0 Note Initiated On: 04/01/2021 8:49 AM Estimated Blood Loss: Estimated blood loss was minimal.
== END 2021-04-01 10:21 | disposition home or self-care (01) ==
LOC: M OPP 07:58
PROVIDERS: ATTEND Internal Medicine Gastroenterology
DX: D12.2 Benign neoplasm of ascending colon (principal); D50.0 Iron deficiency anemia secondary to blood loss (chronic); K64.8 Other hemorrhoids; Z79.899 Other long term (current) drug therapy; Z88.5 Allergy status to narcotic agent; Z88.8 Allergy status to other drugs, medicaments and biological substances; Z86.73 Personal history of transient ischemic attack (TIA), and cerebral infarction without residual deficits

== ENCOUNTER → 2021-04-22 | Outpatient (REF) | payer MEDICARE, OTHER, MEDICAID ==
[~2021-04-22] MED LIST changes: -NS 1,000 ML IV ONE
[2021-04-22 11:05] LABS: HEMOGLOBIN 11.9 g/dl (12.0-15.5); MEAN CORPUSCULAR HEMOGLOBIN 29.3 pg (27.0-33.0); MEAN CORPUSCULAR HGB CONC 32.2 g/dl (32.0-36.5); MEAN CORPUSCULAR VOLUME 91.1 fl (80.0-96.0); PLATELET COUNT, AUTOMATED 354 10^3/uL (150-450); RED BLOOD COUNT 4.06 10^6/uL (4.00-5.40); WHITE BLOOD COUNT 8.9 10^3/uL (4.0-10.0)
[2021-04-22 11:38] LABS: ALBUMIN 3.1 GM/DL (3.2-5.2); BILIRUBIN,TOTAL 0.3 MG/DL (0.2-1.0); CALCIUM LEVEL 9.2 MG/DL (8.8-10.2); CREATININE FOR GFR 1.42 MG/DL (0.55-1.30); GLOMERULAR FILTRATION RATE 38.8 (>39); POTASSIUM SERUM 4.2 MEQ/L (3.5-5.1); TOTAL PROTEIN 7.1 GM/DL (6.4-8.2)
[2021-04-22 13:42] LABS: HEMOGLOBIN A1c 7.2 %
== END ==
LOC: SKLAB2 13:01
DX: E11.9 Type 2 diabetes mellitus without complications (principal); I10 Essential (primary) hypertension; D64.9 Anemia, unspecified

== ENCOUNTER → 2021-05-27 | Outpatient (REF) | payer MEDICARE, OTHER, MEDICAID ==
[~2021-05-27] MED LIST changes: -HYDR1CRE9 EXT; +SFHHYD1CR EXT
[2021-05-27 10:34] LABS: CALCIUM LEVEL 9.1 MG/DL (8.8-10.2); CREATININE FOR GFR 1.46 MG/DL (0.55-1.30); GLOMERULAR FILTRATION RATE 37.6 (>39); POTASSIUM SERUM 4.6 MEQ/L (3.5-5.1)
== END ==
LOC: SKLAB2 12:29
DX: I50.9 Heart failure, unspecified (principal)

== ENCOUNTER → 2021-06-03 | Outpatient (REF) | payer MEDICARE, OTHER, MEDICAID ==
[2021-06-03 10:59] LABS: CALCIUM LEVEL 9.3 MG/DL (8.8-10.2); CREATININE FOR GFR 1.83 MG/DL (0.55-1.30); POTASSIUM SERUM 3.8 MEQ/L (3.5-5.1)
== END ==
LOC: SKLAB2 11:53
DX: I50.9 Heart failure, unspecified (principal)

== ENCOUNTER → 2021-08-05 | Outpatient (REF) | payer MEDICARE, OTHER, MEDICAID ==
[2021-08-05 09:22] LABS: HEMATOCRIT 38.7 % (36.0-47.0); HEMOGLOBIN 12.2 g/dl (12.0-15.5); MEAN CORPUSCULAR HEMOGLOBIN 28.9 pg (27.0-33.0); MEAN CORPUSCULAR HGB CONC 31.5 g/dl (32.0-36.5); MEAN CORPUSCULAR VOLUME 91.7 fl (80.0-96.0); PLATELET COUNT, AUTOMATED 196 10^3/uL (150-450); RED BLOOD COUNT 4.22 10^6/uL (4.00-5.40); WHITE BLOOD COUNT 9.1 10^3/uL (4.0-10.0)
[2021-08-05 10:09] LABS: BILIRUBIN,TOTAL 0.4 MG/DL (0.2-1.0); CALCIUM LEVEL 9.7 MG/DL (8.8-10.2); CREATININE FOR GFR 1.53 MG/DL (0.55-1.30); GLOMERULAR FILTRATION RATE 35.5 (>39); POTASSIUM SERUM 4.5 MEQ/L (3.5-5.1); TOTAL PROTEIN 7.7 GM/DL (6.4-8.2)
[2021-08-05 10:19] LABS: HEMOGLOBIN A1c 7.4 %
== END ==
LOC: SKLAB4 06:44
PROVIDERS: ATTEND Neuromusculoskeletal Medicine & OMM
DX: E11.22 Type 2 diabetes mellitus with diabetic chronic kidney disease (principal); E66.9 Obesity, unspecified

== ENCOUNTER → 2021-08-30 | Outpatient (REF) | payer MEDICARE, OTHER, MEDICAID | LOC: SKLAB4 07:03 | PROVIDERS: ATTEND Neuromusculoskeletal Medicine & OMM | DX: Z20.822 Contact with and (suspected) exposure to COVID-19 (principal) ==

== ENCOUNTER → 2021-08-31 | Outpatient (REF) | payer MEDICARE, OTHER, MEDICAID ==
[~2021-08-31] MED LIST changes: +ASPI81CH33 PO; +DEXA2TA PO; +ENOX30IN3 SC; +ERGO500029 PO; +FURO40TA2 PO; +MELA1TAB9 PO; +MILKSUS3 PO; +PROC25SU24 PR; +ZOLO100T PO; +[UNRECOGNIZED DRUG - SUPPLY] TOP
[2021-08-31 21:38] LABS: HEMATOCRIT 38.4 % (36.0-47.0); HEMOGLOBIN 12.3 g/dl (12.0-15.5); MEAN CORPUSCULAR HEMOGLOBIN 29.1 pg (27.0-33.0); PLATELET COUNT, AUTOMATED 242 10^3/uL (150-450); RED BLOOD COUNT 4.22 10^6/uL (4.00-5.40)
[2021-08-31 22:01] LABS: ALBUMIN 2.6 GM/DL (3.2-5.2); BILIRUBIN,TOTAL 0.3 MG/DL (0.2-1.0); C REACTIVE PROTEIN QUANTITATIV 6.13 MG/DL (0.00-0.30); CALCIUM LEVEL 8.6 MG/DL (8.8-10.2); CREATININE FOR GFR 2.14 MG/DL (0.55-1.30); GLOMERULAR FILTRATION RATE 24.1 (>39); POTASSIUM SERUM 4.1 MEQ/L (3.5-5.1); TOTAL PROTEIN 7.3 GM/DL (6.4-8.2)
== END ==
LOC: SKLAB2 07:00
PROVIDERS: ATTEND Neuromusculoskeletal Medicine & OMM
DX: U07.1 COVID-19 (principal); Z79.899 Other long term (current) drug therapy

== ENCOUNTER → 2021-09-01 | Outpatient (REF) | payer MEDICAID, MEDICARE, OTHER ==
[~2021-09-01] MED LIST changes: +ACETAMINOPHEN TAB 650MG DOSE (2X325MG) PO ONE; +ALBUTEROL 90 MCG/ACT 8GM HFA INHALER INH PRN; +ALBUTEROL SULFATE 2.5 MG/0.5 ML INH NEB SOLN INH PRN; +BAMLANIVIMAB 700 MG, ETESEVIMAB 1,400 MG in NS 250 ML IV ONE; +EPINEPHrine INJ 1 MG/ML 1ML AMP IM PRN; +NS 1,000 ML IV SCH; +PRED10TA2 PO; +diphenhydrAMINE 50MG/ML VIAL (J1200) IV ONE; +diphenhydrAMINE 50MG/ML VIAL (J1200) IV PRN; +methylPREDNISolone 125MG 2ML VIAL IV ONE; +methylPREDNISolone 125MG 2ML VIAL IV PRN
== END ==
LOC: SKLAB2 08:01
PROVIDERS: ATTEND Neuromusculoskeletal Medicine & OMM
DX: U07.1 COVID-19 (principal)

== ENCOUNTER → 2021-09-02 | Outpatient (REF) | payer MEDICARE, OTHER, MEDICAID ==
[~2021-09-02] MED LIST changes: -ACETAMINOPHEN TAB 650MG DOSE (2X325MG) PO ONE; -ALBUTEROL 90 MCG/ACT 8GM HFA INHALER INH PRN; -ALBUTEROL SULFATE 2.5 MG/0.5 ML INH NEB SOLN INH PRN; -BAMLANIVIMAB 700 MG, ETESEVIMAB 1,400 MG in NS 250 ML IV ONE; -EPINEPHrine INJ 1 MG/ML 1ML AMP IM PRN; -NS 1,000 ML IV SCH; -PRED10TA2 PO; -diphenhydrAMINE 50MG/ML VIAL (J1200) IV ONE; -diphenhydrAMINE 50MG/ML VIAL (J1200) IV PRN; -methylPREDNISolone 125MG 2ML VIAL IV ONE; -methylPREDNISolone 125MG 2ML VIAL IV PRN
[2021-09-02 09:58] LABS: HEMATOCRIT 39.3 % (36.0-47.0); HEMOGLOBIN 12.5 g/dl (12.0-15.5); MEAN CORPUSCULAR HEMOGLOBIN 29.2 pg (27.0-33.0); MEAN CORPUSCULAR HGB CONC 31.8 g/dl (32.0-36.5); MEAN CORPUSCULAR VOLUME 91.8 fl (80.0-96.0); PLATELET COUNT, AUTOMATED 221 10^3/uL (150-450); RED BLOOD COUNT 4.28 10^6/uL (4.00-5.40); WHITE BLOOD COUNT 7.7 10^3/uL (4.0-10.0)
[2021-09-02 10:36] LABS: ALBUMIN 2.3 GM/DL (3.2-5.2); BILIRUBIN,TOTAL 0.3 MG/DL (0.2-1.0); CALCIUM LEVEL 9.1 MG/DL (8.8-10.2); CREATININE FOR GFR 1.48 MG/DL (0.55-1.30); GLOMERULAR FILTRATION RATE 36.9 (>39); POTASSIUM SERUM 4.1 MEQ/L (3.5-5.1); TOTAL PROTEIN 6.5 GM/DL (6.4-8.2)
== END ==
LOC: SKLAB2 07:00
PROVIDERS: ATTEND Neuromusculoskeletal Medicine & OMM
DX: U07.1 COVID-19 (principal); Z79.899 Other long term (current) drug therapy

== ENCOUNTER → 2021-09-03 | Outpatient (REF) | payer MEDICARE, OTHER, MEDICAID ==
--- NOTE | 2021-09-03 18:43 | REP ---
INDICATION: FEVER. COMPARISON: 01/19/2020, 01/18/2020. TECHNIQUE: Single portable AP view of the chest was performed. FINDINGS: There are linear fibro atelectatic changes in each lung base with no evidence for infiltrate. Cardiomegaly is again noted. There is tortuosity of the thoracic aorta. The mediastinal silhouette is unchanged. There are degenerative changes of the spine. IMPRESSION: Cardiomegaly and bibasilar fibro atelectatic change. No evidence of acute infiltrate. <Electronically signed by Melchor De Jesus > 09/03/21 [id number]
== END ==
LOC: SKLAB2 15:28
PROVIDERS: ATTEND Neuromusculoskeletal Medicine & OMM
DX: I51.7 Cardiomegaly (principal); J98.4 Other disorders of lung; R50.9 Fever, unspecified

== ENCOUNTER 2021-09-04 17:16 | Inpatient (IN) | payer MEDICARE, OTHER, MEDICAID ==
[~2021-09-04] VITALS: Ht 171.4 cm; Wt 157.0 kg
[~2021-09-04 17:16] MED LIST changes: -ASPI81CH33 PO; -DEXA2TA PO; -ENOX30IN3 SC; -ERGO500029 PO; -FURO40TA2 PO; -MELA1TAB9 PO; -MILKSUS3 PO; -PROC25SU24 PR; -ZOLO100T PO; -[UNRECOGNIZED DRUG - SUPPLY] TOP
[2021-09-04] MEDS ORDERED: dexameTHASONE 4 MG/ML 1ML VIAL (J1100 PER 1MG) IV ONE (17:55)
[2021-09-04] MEDS: COMBIVENT RESPIMAT 100-20MCG INHALER 4GM INH SCH ×4 (18:15→20:49)
--- NOTE | 2021-09-04 18:51 | REP ---
INDICATION: DYSPNEA/COUGH. COMPARISON: Earlier today also portable TECHNIQUE: Portable FINDINGS: The technique utilized in obtaining the radiograph has magnified the cardiac silhouette and accentuated the interstitial markings. Suspected perihilar opacities seen previously have improved if not abated. Subtle left lower lobe opacity persists. There is cardiomegaly accentuated by technique status quo. IMPRESSION: Improved lung oconnor. <Electronically signed by Long Drummond > 09/04/21 [id number]
--- OUTSIDE RECORDS SUMMARY | 2021-09-04 18:51 | CCD ---
Author Author Isai Savage MD [facility] Organization Isai Savage MD [facility] Address [address] [address] Phone Care Team Providers Care Meter/Relay Technician Name Role Phone Hussein FORDE, CLARISA, Isai Marie Unavailable [phone] Jaylan Sagastume MD [phone] Reason for Referral No Reason for Referral Recorded Problems Includes: Active, inactive, and resolved Problems All Visits Onset Date - Time Resolved Date - Time Provider Co ndition Status Macular Degeneration Nonexudative Bilateral Early Dry Stage 01/19/2019 - 12:00AM Maxwell Montgomery DO Active Pseudophakia 11/18/2017 - 12:00AM Maxwell Montgomery DO Active Cortical age-related cataract, bilateral 04/22/2016 - 12:00AM Isai Figueroa MD, FACS Active Essential Hypertension 04/22/2016 - 12:00AM Isai Elias MD, FACS Active Classic Migraine W/ Aura W/o Intractable Migraine W/o Status Migrainosus 04/22/2016 - 12:00AM Isai Savage MD, FACS Active Age-related nuclear cataract, bilateral 04/22/2016 - 12:00AM Unk nown - Unknown Maxwell Montgomery DO Resolved Squamous blepharitis left lower eyelid 04/22/2016 - 12:00AM Isai Figueroa MD, FACS Active Squamous blepharitis left upper eyelid 04/22/2016 - 12:00AM Isai Figueroa MD, FACS Active Squamous blepharitis right lower eyelid 04/22/2016 - 12:00AM Isai Figueroa MD, FACS Active Blepharitis Squamous 04/22/2016 - 12:00AM Isai Lafleur MD, FACS Active Vitreous degeneration, bilateral 04/22/2016 - 12:00AM Isai Savage MD, FACS Active Skin Neoplasm Eyelid Right Lower 03/30/2014 - 12:00AM Isai Savage MD, FACS Active Note: Unchanged - x 2 Cataract Presenile Cortical 03/30/2014 - 12:00AM Isai Savage MD, FACS Inactive Note: Unchanged Cataract Presenile Nuclear 03/30/2014 - 12:00AM Isai Savage MD, FACS Inactive Note: Unchanged Dermatochalasis Both Eyelids 03/30/2014 - 12:00AM Isai Savage MD, FACS Active Note: Unchanged Diabetes Mellitus Type 2 Without Complication 03/30/2014 - 12:00 AM Isai Savage MD, FACS Active Note: Unchanged Rheumatoid Arthritis 03/30/2014 - 12:00AM Isai Lafleur MD, FACS Active Note: Unchanged Skin Neoplasm Eyelid Left Lower 03/30/2014 - 12:00AM Isai Savage MD, FACS Inactive Note: Unchanged Ocular Rosacea 07/19/2013 - :00AM Isai diez MD, FACS Active Note: Unchanged Cataract Senile Cortical 07/19/2013 - 12:00AM Isai Savage MD, FACS Inactive Note: Unchanged Diabetes Mellitus Type 2 07/19/2013 - 12:00AM Isai Savage MD, FACS Inactive Note: Unchanged Retinopathy Hypertensive Both Eyes 07/19/2013 - :00AM Isai Savage MD, FACS Active Note: Unchanged Rosacea 07/19/2013:00AM Isai Savage MD, FACS Active Note: Unchanged Dry Eye Syndrome Both Eyes 07/19/2013 - :00AM Isai Savage MD, FACS Active Note: Unchanged Vitreous Floaters Both Eyes 07/19/2013 - :00AM Isai Savage MD, FACS Inactive Note: Unchanged Plan of Treatment Referrals To Diagnosis Referral to Dr. Valentina Savage MD, FACS Type 2 diabetes mellitus with diabetic cataract Findings Encounter Date Requested Referred to: Dr. Montgomery 10 Month Follow- Up with Isai Figueroa MD, FACS 02/16/2017 Assessments Includes: Assessments for all patient encounters Findings Encounter Date Dry eye syndrome of both eyes 1 Year Follow-Up with Maxwell Montgomery DO 01/19/2019 Early dry stage nonexudative macular degeneration of b oth eyes 1 Year Follow-Up with Maxwell Montgomery DO 01/19/2019 Essential hypertension 1 Year Follow-Up with Maxwell Presley in DO 01/19/2019 Hypertensive retinopathy of both eyes 1 Year Follow-Up with Maxwell Wilderstein DO 01/19/2019 Long-term use of insulin 1 Year Follow-Up with Maxwell Douglas smitha DO 01/19/2019 Type 2 diabetes mellitus without complication 1 Year F ollow-Up with Maxwell Wilderstein DO 01/19/2019 Pseudophakia 3 - 4 WK Post CAT SX with Maxwell Wilderst cevallos DO 12/10/2017 Pseudophakia 1 Week Post OP with Maxwell Valentina DO 11/12/2017 Nuclear senile cataract 1 Day Post OP with Maxwell Valentina DO 11/05/2017 Pseudophakia 1 Day Post OP with Maxwell Valentina DO 11/05/2017 Nuclear senile cataract 1 WK PREOP FOR SURGERY with Maxwell Valentina DO 10/26/2017 Pseudophakia 1 WK PREOP FOR SURGERY with Maxwell inman DO 10/26/2017 Nuclear senile cataract 1 Day Post OP with Maxwell Valentina DO 08/13/2017 Pseudophakia 1 Day Post OP with Amxwell Valentina DO 08/13/2017 Arcus senilis was observed Cataract Evaluation with Maxwell Valentina DO 03/19/2017 Dry eye syndrome Cataract Evaluation with Maxwell Wilderrene salazar DO 03/19/2017 Nuclear senile cataract Cataract Evaluation with Maxwell Andrew roth DO 03/19/2017 Vitreous degeneration Cataract Evaluation with Maxwell Douglas smitha DO 03/19/2017 Bilateral cortical senile cataract 10 Month Follow-Up with Isai Savage MD, FACS 02/16/2017 Essential hypertension 10 Month Follow-Up with Isai Hernandez MD, FACS 02/16/2017 Hypertensive retinopathy of both eyes 10 Month Follow- Up with Isai Figueroa MD, FACS 02/16/2017 Long-term use of insulin 10 Month Follow-Up with Isai Coley MD, FACS 02/16/2017 Nuclear senile cataract 10 Month Follow-Up with Isai Lafleur MD, FACS 02/16/2017 Posterior subcapsular polar senile cataract 10 Month F ollow-Up with Isai Savage MD, FACS 02/16/2017 Type 2 diabetes with diabetic cataract 10 Month Follow -Up with Isai Figueroa MD, FACS 02/16/2017 Classic migraine (with aura) without int ractable migraine without status migrainosus 1 Year Follow-Up with Isai Savage MD, FACS 06/2016 Cortical senile cataract 1 Year Follow-Up with Iasi Hernandez MD, FACS 04/22/2016 Essential hypertension 1 Year Follow-Up with Isai Figueroa MD, FACS 04/22/2016 Hypertensive retinopathy of both eyes 1 Year Follow-Up with Isai Savage MD, FACS 04/22/2016 Nuclear senile cataract 1 Year Follow-Up with Isai Cotton MD, FACS 04/22/2016 Squamous blepharitis 1 Year Follow-Up with Isai dwyer MD, FACS 04/22/2016 Type 2 diabetes mellitus without complication 1 Year F ollow-Up with Isai Savage MD, FACS 04/22/2016 Cortical presenile cataract both eyes 6 Month Follow- Up with Isai Figueroa MD, FACS 03/30/2014 Dermatochalasis of both eyes 6 Month Follow-Up with Osvaldo Savage MD, FACS 03/30/2014 Dry eye syndrome of both eyes 6 Month Follow-Up with Sivakumar Savage MD, FACS 03/30/2014 Hypertensive retinopathy of both eyes 6 Month Follow-U p with Isai Savage MD, FACS 03/30/2014 No diabetic macular edema 6 Month Follow-Up with Isai Coley MD, FACS 03/30/2014 No diabetic retinopathy 6 Month Follow-Up with Isai Hernandez MD, FACS 03/30/2014 No rubeosis iridis of both eyes 6 Month Follow-Up with Isai Savage MD, FACS 03/30/2014 Nuclear presenile cataract both eyes 6 Month Follow-U p with Isai Savage MD, FACS 03/30/2014 Rheumatoid arthritis 6 Month Follow-Up with Isai lopez MD, FACS 03/30/2014 Skin neoplasm of the left lower eyelid x 3 6 Month Fo llow-Up with Isai Savage MD, FACS 03/30/2014 Skin neoplasm of the right lower eyelid x 2 6 Month F ollow-Up with Isai Savage MD, FACS 03/30/2014 Type 2 diabetes mellitus without complication 6 Month Follow-Up with Isai Savage MD, FACS 03/30/2014 Vitreous floaters in both eyes 6 Month Follow-Up with Isai Savage MD, FACS 03/30/2014 medical terminologist use of other medications VISUAL FIELD 10-2 w ith Isai Savage MD, FACS 08/03/2013 Rheumatoid arthritis VISUAL FIELD 10-2 with Isai lopez MD, FACS 08/03/2013 Anterior cortical senile cataract of both eyes 6 Sean h Follow-Up with Isai Savage MD, FACS 07/19/2013 Cortical senile cataract 6 Month Follow-Up with Isai Lafleur MD, FACS 07/19/2013 Dry eye syndrome of both eyes 6 Month Follow-Up with Sivakumar Savage MD, FACS 07/19/2013 Hypertensive retinopathy of both eyes 6 Month Follow-U p with Isai Savage MD, FACS 07/19/2013 No diabetic macular edema 6 Month Follow-Up with Isai Coley MD, FACS 07/19/2013 No diabetic retinopathy 6 Month Follow-Up with Isai Hernandez MD, FACS 07/19/2013 No rubeosis iridis of both eyes 6 Month Follow-Up with Isai Savage MD, FACS 07/19/2013 Nuclear senile cataract of both eyes 6 Month Follow-U p with Isai Savage MD, FACS 07/19/2013 Ocular rosacea 6 Month Follow-Up with Isai dwyer MD, FACS 07/19/2013 Rosacea 6 Month Follow-Up with Isai dwyer MD, FACS 07/19/2013 Type 2 diabetes mellitus 6 Month Follow-Up with Isai Lafleur MD, FACS 07/19/2013 Vitreous floaters in both eyes 6 Month Follow-Up with Isai Savage MD, FACS 07/19/2013 Instructions Instructions not supported for this document typeNo Instructions Recorded Medical Equipment - Implanted Devices Includes: Current and historical DevicesNo Medical Equipment Recorded Medications Includes: Current and historical Medications Current Medications (continue as prescribed) BromSite 0.075% Ophthalmic Solution 10/26/2017 Prov ider: Maxwell Valentina DO Diagnosis: Age-related nuclear cataract, right eye THREE DAYS PRIOR TO SURGERY START ONE DROP TWO TIMES A DAY I N THE RIGHT EYE Besivance 0.6% Ophthalmic Suspension 10/26/2017 Pro vider: Maxwell Montgomery Diagnosis: Age-related nuclear cataract, right eye THREE DAYS PRIOR TO SURGERY START ONE DR OP THREE TIMES A DAY IN THE RIGHT EYE, FILL JESSICA Pred Forte 1% Ophthalmic Suspension 10/26/2017 Prov ider: Maxwell Wilderstein DO Diagnosis: Age-related nuclear cataract, right eye DAY OF SURGERY REMOVE PATCH START ONE DR OP FOUR TIMES A DAY IN THE RIGHT EYE, NEEPS DROPS JESSICA Refresh Tears 0.5 % Solution 04/22/2016 Provider: Isai Savage MD, [facility] Diagnosis: Dry eye syndrome of bilateral lacrimal glands One drop four times a day in both eyes hydroCHLOROthiazide 25 MG TABS 03/30/2014 Provider: Diagnosis: amLODIPine Besylate 2.5 MG OR TABS 03/30/2014 Provi chelsea: Diagnosis: Doxycycline Hyclate 100 MG OR TABS 03/30/2014 Provi chelsea: Diagnosis: Zoloft 100 MG OR TABS 07/19/2013 Provider: Diagnosis: HumaLOG 100 UNIT/ML SC SOLN 07/19/2013 Provider: Diagnosis: Carvedilol 6.25 MG OR TABS 07/19/2013 Provider: Diagnosis: Zebeta 10 MG OR TABS 07/19/2013 Provider: Diagnosis: Lisinopril 40 MG OR TABS 07/19/2013 Provider: Diagnosis: Advair Diskus 250-50 MCG/DOSE IN AEPB 07/19/2013 Pr ovider: Diagnosis: Wellbutrin XL 300 MG OR TB24 07/19/2013 Provider: Diagnosis: Lantus 100 UNIT/ML SC SOLN 07/19/2013 Provider: Diagnosis: Vitamin D 50,000 50,000 mg OR TABS 07/19/2013 Provi chelsea: Diagnosis: Twice a week Crestor 40 MG OR TABS 07/19/2013 Provider: Diagnosis: Aspirin 81 MG OR TABS 07/19/2013 Provider: Diagnosis: Lasix 40 MG OR TABS 07/19/2013 Provider: Diagnosis: [facility] Hydrocortisone Acetate 0.5% EX CREA 07/19/2013 Provider: Diagnosis: Past Medications on file Pred Forte 1% Ophthalmic Suspension 08/03/2017 - 10/26/2017 Provider: Maxwell Montgomery DO Diagnosis: Age-related nuclear cataract, left eye DAY OF SURGERY REMOVE PATCH START ONE DR OP FOUR TIMES A DAY IN THE LEFT EYE, NEEPS DROPS JESSICA Besivance 0.6% Ophthalmic Suspension 08/03/2017 - 10/26/2017 Provider: Maxwell Montgomery DO Diagnosis: Age-related nuclear cataract, left eye THREE DAYS PRIOR TO SURGERY START ONE DR OP THREE TIMES A DAY IN THE LEFT EYE, FILL JESSICA BromSite 0.075% Ophthalmic Solution 08/03/2017 - 10/26/2017 Provider: Maxwell Montgomery DO Diagnosis: Age-related nuclear cataract, left eye THREE DAYS PRIOR TO SURGERY START ONE DR OP TWO TIMES A DAY IN THE LEFT EYE, IF DENIED RUN CARD Naprosyn 500 MG OR TABS 07/19/2013 - 07/19/2013 Provider: Diagnosis: metroNIDAZOLE 0.75% EX CREA 07/19/2013 - 07/19/2013 Provider : Diagnosis: Medications Administered Includes: Administered Medications in patient's chartNo Administered Medications Recorded Vital Signs Includes: Vital Signs from 06/17/2020 through 06/17/2021No Vital Signs Recorded For Specified Dates Results Includes: Results from 06/17/2020 through 06/17/2021No Results Recorded For Specified Dates History of Present Illness History of Present Illness not supported for this document typeNo History of Present Illness Recorded Social History Description Last Updated Not a current smoker 01/19/2019 No consumption of alcohol 03/19/2017 No tobacco use 03/19/2017 Not using drugs 03/19/2017 Smoking status : Never smoker 03/19/2017 Procedures and Surgical History Surgical History Last Updated History of extracapsular cataract extrac tion PCIOL OS 08/12/17 ~PCIOL OD 11/04/17 10/08/2020 Surgical / procedural history Hysterectomy, Gall Blad chelsea removed 03/30/2014 Medical History Includes: Medical History in patient's chart Description Last Updated History of essential hypertension 03/19/2017 History of fundoscopic exam through dilated pupils was performed 03/30/2014 03/19/2017 Recent change in medical history Ischemic Stroke 05/04 15, Migraines January 2016 03/19/2017 Reported medical history : Sleep Apnea, Ischemic Stroke 04/2015, Migraines January 2016 03/19/2017 History of diabetes mellitus Since: 200 8 A1C: 7.9 March 14, 2014 with FBS: 123 03/30/2014 History of rheumatoid arthritis 08/03/2013 Currently wearing eyeglasses 07/19/2013 History of asthma 07/19/2013 History of hypertension 07/19/2013 Family History Includes: Family History in patient's chart Description Last Updated Maternal history of cataract 03/19/2017 Maternal history of hypertension 03/19/2017 Paternal history of hypertension 03/19/2017 Review of Systems Review of Systems not supported for this document typeNo Review of Systems Recorded Mental Status Mental Status not supported for this document type Description Oriented to time, place, and person Functional Status Functional Status not supported for this document typeNo Functional Status Recorded Physical Exam Physical Exam not supported for this document typeNo Physical Exam Recorded Immunizations Includes: Immunizations in patient's chartNo Immunizations Recorded Allergies Includes: Active, inactive, and resolved Allergies Substance Type Reaction Onset Date - Time Resolved Date - Ti me Status Morphine Sulfate Allergy 01/19/2019 - 12:00AM Active Lisinopril Allergy 01/19/2019 - 12:00AM Acti ve Encounters Includes: Encounters from 06/17/2020 through 06/17/2021No Encounters Recorded For Specified Dates Insurance Includes: Active Insurance Policies Plan Name Member ID Group # Subscriber Relationship Effective Da nadia 1 - [employer] [id number] Nela Hobbs Self 2 - [employer] ([employer]) [id number] Carlos Hobbs d Advance Directives Includes: Current Advance DirectivesNo Advance Directives Recorded Health Concerns Includes: Active Health ConcernsNo Active Health Concerns Recorded Goals Includes: Active GoalsNo Active Goals Recorded Interventions Includes: Interventions for active GoalsNo Interventions Recorded Evaluations & Outcomes Includes: Evaluations & Outcomes for active GoalsNo Outcomes Recorded
--- OUTSIDE RECORDS SUMMARY | 2021-09-04 18:51 | CCD ---
Author Author [facility] Organization [facility] Address Unknown Phone Unavailable Care Team Providers Care Space Technologist Name Role Phone Yaworski, Karen [employer]IVE [employer]ING Unavailable Unavailable Yaworski, Karen EXECUTIVE COMMUNITY PLANNING Unavailable Unavailable Yaworski, Karen EXECUTIVE COMMUNITY PLANNING Unavailable Unavailable Yaworski, Karen EXECUTIVE COMMUNITY PLANNING Unavailable Unavailable Yaworski, Karen EXECUTIVE COMMUNITY PLANNING Unavailable Unavailable Yaworski, Karen EXECUTIVE COMMUNITY PLANNING Unavailable Unavailable Yaworski, Karen EXECUTIVE COMMUNITY PLANNING Unavailable Unavailable Yaworski, Karen EXECUTIVE COMMUNITY PLANNING Unavailable Unavailable Yaworski, Karen EXECUTIVE COMMUNITY PLANNING Unavailable Unavailable Yaworski, Karen EXECUTIVE COMMUNITY PLANNING Unavailable Unavailable Yaworski, Karen EXECUTIVE COMMUNITY PLANNING Unavailable Unavailable Yaworski, Karen EXECUTIVE COMMUNITY PLANNING Unavailable Unavailable Yaworski, Karen EXECUTIVE COMMUNITY PLANNING Unavailable Unavailable Yaworski, Karen EXECUTIVE COMMUNITY PLANNING Unavailable Unavailable Yaworski, Karen EXECUTIVE COMMUNITY PLANNING Unavailable Unavailable Yaworski, Karen EXECUTIVE COMMUNITY PLANNING Unavailable Unavailable Yaworski, Karen EXECUTIVE COMMUNITY PLANNING Unavailable Unavailable Yaworski, Karen EXECUTIVE COMMUNITY PLANNING Unavailable Unavailable Yaworski, Karen EXECUTIVE COMMUNITY PLANNING Unavailable Unavailable Yaworski, Karen EXECUTIVE COMMUNITY PLANNING Unavailable Unavailable Yaworski, Karen EXECUTIVE COMMUNITY PLANNING Unavailable Unavailable Yaworski, Karen EXECUTIVE COMMUNITY PLANNING Unavailable Unavailable Yaworski, Karen EXECUTIVE COMMUNITY PLANNING Unavailable Unavailable Yaworski, Karen EXECUTIVE COMMUNITY PLANNING Unavailable Unavailable LEONARDO, LANDRY PA Unavailable Unavailable LEONARDO, LANDRY PA Unavailable Unavailable LEONARDO, LANDRY PA Unavailable Unavailable LEONARDO, LANDRY PA Unavailable Unavailable LEONARDO, LANDRY PA Unavailable Unavailable LEONARDO, LANDRY PA Unavailable Unavailable LEONARDO, LANDRY PA Unavailable Unavailable LEONARDO, LANDRY PA Unavailable Unavailable LEONARDO, LANDRY PA Unavailable Unavailable LEONARDO, LANDRY PA Unavailable Unavailable LEONARDO, LANDRY PA Unavailable Unavailable LEONARDO, LANDRY PA Unavailable Unavailable LEONARDO, LANDRY PA Unavailable Unavailable LEONARDO, LANDRY PA Unavailable Unavailable LEONARDO, LANDRY PA Unavailable Unavailable Lorraine Bojorquez MD Unavailable Unavailable Lorraine Bojorquez MD Unavailable Unavailable Lorraine Bojorquez MD Unavailable Unavailable Lorraine Bojorquez MD Unavailable Unavailable Lorraine Bojorquez MD Unavailable Unavailable Lorraine Bojorquez MD Unavailable Unavailable Lorraine Bojorquez MD Unavailable Unavailable Lorraine Bojorquez MD Unavailable Unavailable Lorraine Bojorquez MD Unavailable Unavailable Lorraine Bojorquez MD Unavailable Unavailable Lorraine Bojorquez MD Unavailable Unavailable Lorraine Bojorquez MD Unavailable Unavailable Lorraine Bojorquez MD Unavailable Unavailable Lorraine Bojorquez MD Unavailable Unavailable Lorraine Bojorquez MD Unavailable Unavailable Lorraine Bojorquez MD Unavailable Unavailable Lorraine Bojorquez MD Unavailable Unavailable Lorraine Bojorquez MD Unavailable Unavailable Lorraine Bojorquez MD Unavailable Unavailable Lorraine Bojorquez MD Unavailable Unavailable Lorraine Bojorquez MD Unavailable Unavailable Lorraine Bojorquez MD Unavailable Unavailable Lorraine Bojorquez MD Unavailable Unavailable Lorraine Bojorquez MD Unavailable Unavailable Lorraine Bojorquez MD Unavailable Unavailable Lorraine Bojorquez MD Unavailable Unavailable Lorraine Bojorquez MD Unavailable Unavailable Lorraine Bojorquez MD Unavailable Unavailable Lorraine Bojorquez MD Unavailable Unavailable Lorraine Bojorquez MD Unavailable Unavailable Lorraine Bojorquez MD Unavailable Unavailable Lorraine Bojorquez MD Unavailable Unavailable Lorraine Bojorquez MD Unavailable Unavailable Lorraine Bojorquez MD Unavailable Unavailable Lorraine Bojorquez MD Unavailable Unavailable Lorraine Bojorquez MD Unavailable Unavailable Lorraine Bojorquez MD Unavailable Unavailable Lorraine Bojorquez MD Unavailable Unavailable Lorraine Bojorquez MD Unavailable Unavailable Lorraine Bojorquez MD Unavailable Unavailable Lorraine Bojorquez MD Unavailable Unavailable Lorraine Bojorquez MD Unavailable Unavailable Lorraine Bojorquez MD Unavailable Unavailable Lorraine Bojorquez MD Unavailable Unavailable Lorraine Bojorquez MD Unavailable Unavailable Lorraine Bojorquez MD Unavailable Unavailable Lorraine Bojorquez MD Unavailable Unavailable Lorraine Bojorquez MD Unavailable Unavailable Lorraine Bojorquez MD Unavailable Unavailable Lorraine Bojorquez MD Unavailable Unavailable JARET CORDERO MD Unavailable Unavailable JARET CORDERO MD Unavailable Unavailable JARET CORDERO MD Unavailable Unavailable JARET CORDERO MD Unavailable Unavailable JARET CORDERO MD Unavailable Unavailable JARET CORDERO MD Unavailable Unavailable JARET CORDERO MD Unavailable Unavailable JARET CORDERO MD Unavailable Unavailable JARET CORDERO MD Unavailable Unavailable JARET CORDERO MD Unavailable Unavailable Dr. DENNY BROOKE Unavailable [phone] Dr. DENNY BROOKE Unavailable [phone] Dr. DENNY BROOKE Unavailable [phone] Sophy ANTHONY MD Unavailable Unavailable Sophy ANTHONY MD Unavailable Unavailable Sophy ANTHONY MD Unavailable Unavailable Sophy ANTHONY MD Unavailable Unavailable Sophy ANTHONY MD Unavailable Unavailable Sophy ANTHONY MD Unavailable Unavailable Sophy ANTHONY MD Unavailable Unavailable oSphy ANTHONY MD Unavailable Unavailable Sophy ANTHONY MD Unavailable Unavailable Sophy ANTHONY MD Unavailable Unavailable Sophy ANTHONY MD Unavailable Unavailable Sophy ANTHONY MD Unavailable Unavailable Sophy ANTHONY MD Unavailable Unavailable Sophy ANTHONY MD Unavailable Unavailable Sophy ANTHONY MD Unavailable Unavailable Sophy ANTHONY MD Unavailable Unavailable Sophy ANTHONY MD Unavailable Unavailable Sophy ANTHONY MD Unavailable Unavailable Sophy ANTHONY MD Unavailable Unavailable Sophy ANTHONY MD Unavailable Unavailable Sophy ANTHONY MD Unavailable Unavailable Sophy ANTHONY MD Unavailable Unavailable Sophy ANTHONY MD Unavailable Unavailable Sophy ANTHONY MD Unavailable Unavailable Sophy ANTHONY MD Unavailable Unavailable Sophy ANTHONY MD Unavailable Unavailable Sophy ANTHONY MD Unavailable Unavailable Sophy ANTHONY MD Unavailable Unavailable Sophy ANTHONY MD Unavailable Unavailable CHANDRALA, K MARIELA FORDE Unavailable Unavailable CHANDRALA, K MARIELA FORDE Unavailable Unavailable CHANDRALA, K MARIELA MD Unavailable Unavailable CHANDRALA, K MARIELA MD Unavailable Unavailable WASICEK, VIKAS MD Unavailable Unavailable WASICEK, VIKAS MD Unavailable Unavailable WASICEK, VIKAS MD Unavailable Unavailable WASICEK, VIKAS MD Unavailable Unavailable WASICEK, VIKAS MD Unavailable Unavailable WASICEK, VIKAS MD Unavailable Unavailable WASICEK, VIKAS MD Unavailable Unavailable WASICEK, VIKAS MD Unavailable Unavailable WASICEK, VIKAS MD Unavailable Unavailable WASICEK, VIKAS MD Unavailable Unavailable WASICEK, VIKAS MD Unavailable Unavailable WASICEK, VIKAS MD Unavailable Unavailable WASICEK, VIKAS MD Unavailable Unavailable WASICEK, VIKAS MD Unavailable Unavailable WASICEK, VIKAS MD Unavailable Unavailable WASICEK, VIKAS MD Unavailable Unavailable WASICEK, VIKAS MD Unavailable Unavailable WASICEK, VIKAS MD Unavailable Unavailable WASICEK, VIAKS MD Unavailable Unavailable WASICEK, VIKAS MD Unavailable Unavailable WASICEK, VIKAS MD Unavailable Unavailable WASICEK, VIKAS MD Unavailable Unavailable WASICEK, VIKAS MD Unavailable Unavailable WASICEK, VIKAS MD Unavailable Unavailable WASICEK, VIKAS MD Unavailable Unavailable WASICEK, VIKAS MD Unavailable Unavailable WASICEK, VIKAS MD Unavailable Unavailable WASICEK, VIKAS MD Unavailable Unavailable WASICEK, VIKAS MD Unavailable Unavailable WASICEK, VIKAS MD Unavailable Unavailable WASICEK, VIKAS MD Unavailable Unavailable WASICEK, VIKAS MD Unavailable Unavailable WASICEK, VIKAS MD Unavailable Unavailable WASICEK, VIKAS MD Unavailable Unavailable WASICEK, VIKAS MD Unavailable Unavailable WASICEK, VIKAS MD Unavailable Unavailable WASICEK, VIKAS MD Unavailable Unavailable WASICEK, VIKAS MD Unavailable Unavailable WASICEK, VIKAS MD Unavailable Unavailable FRANCO, W KATERIN DO Unavailable Unavailable FRANCO, W KATERIN DO Unavailable Unavailable FRANCO, W KATERIN DO Unavailable Unavailable FRANCO, W KATERIN DO Unavailable Unavailable FRANCO, W KATERIN DO Unavailable Unavailable FRANCO, W KATERIN DO Unavailable Unavailable FRANCO, W KATERIN DO Unavailable Unavailable FRANCO, W KATERIN DO Unavailable Unavailable FRANCO, W KATERIN DO Unavailable Unavailable FRANCO, W KATERIN DO Unavailable Unavailable Re-disclosure Warning The records that you are about to access may contain information from federally-assisted alcohol or drug abuse programs. If such information is present, then the following federally mandated warning applies: This information has been disclosed to you from records protected by federal confidentiality rules (42 CFR part 2). The federal rules prohibit you from making any further disclosure of this information unless further disclosure is expressly permitted by the written consent of the person to whom it pertains or as otherwise permitted by 42 CFR part 2. A general authorization for the release of medical or other information is NOT sufficient for this purpose. The Federal rules restrict any use of the information to criminally investigate or prosecute any alcohol or drug abuse patient.The records that you are about to access may contain highly sensitive health information, the redisclosure of which is protected by Article 27-F of the [facility] Public Health law. If you continue you may have access to information: Regarding HIV / AIDS; Provided by facilities licensed or operated by the [facility] Office of Mental Health; or Provided by the [facility] Office for People With Developmental Disabilities. If such information is present, then the following [facility] mandated warning applies: This information has been disclosed to you from confidential records which are protected by state law. State law prohibits you from making any further disclosure of this information without the specific written consent of the person to whom it pertains, or as otherwise permitted by law. Any unauthorized further disclosure in violation of state law may result in a fine or fpc sentence or both. A general authorization for the release of medical or other information is NOT sufficient authorization for further disc losure. Allergies and Adverse Reactions Type Description Substance Reaction Status Data Source(s ) Drug Allergy NKDA NKDA MEDENT ([facility], ) Family History Family Member Name Family Member Gender Family Member Status Date o f Status Description Data Source(s) Unknown Male Problem [facility] ([facility]) Unknown Female Problem [facility] ([facility] ) Unknown Female Problem MEDENT ([facility] ) Encounters Encounter Providers Location Date Indications Data Source(s ) Outpatient Attender: Lorraine Bojorquez MD Main office - [place] 05/22/2021 12:45:00 PM EDT MED[facility] ([facility], ) Outpatient Attender: MARIELA Decker/Abby/Bret reveles/Gerardo 02/26/2021 08:30:00 AM EDT MEDENT ([facility], ) Outpatient Attender: Lorraine Bojorquez MD Main office - [place] 02/20/2021 11:15:00 AM EDT MEDENT ([facility]) (PN Proc 45) Pain Procedure 45 [address] [place] [address] 10/04/2020 12:00:00 AM EST eCW1 ([facility]) [place] [address] [facility] [address] 09/24/2020 12:00:00 AM EST eCW1 ([facility]) Unknown [address] [facility] [address] 09/13/2020 12:00:00 AM EDT eCW1 ([facility]) Emergency Attender: Dr. DENNY BROOKEReferrer: Angel Mark [employer]EC[employer]IVE [employer]UN[employer]ANNING EMERGENCY ROOM-ER 05/02/2015 08:16:00 PM EDT - 05/03/2015 01:40:00 AM [facility] Emergency Attender: JARET CORDERO MD 06/2013 05:50:00 PM EDT - 05/22/2013 11:35:00 PM [facility] Emergency Attender: LANDRY PATTERSON PAReferrer: Bob Mark NP EMERGENCY ROOM-ER 10/04/2012 05:22:00 PM EST - 10/04/2012 07:08:00 PM [facility] Outpatient Attender: VIKAS JAQUEZ MD 08/18/2012 01:06:0 0 PM [facility] Emergency Attender: KATERIN FRANCO DO 08/05/20 12 10:01:00 PM EDT - 08/05/2012 11:22:00 PM [facility] Immunizations Vaccine Date Status Description Data Source(s) COVID-19 VACCINE [employer] 12/10/2020 12:00:00 AM EST completed [facility] Vaccine Series Complete: YESThis Data wa s Submitted to [facility] Via [employer]. COVID-19 VACCINE [employer] 11/19/2020 12:00:00 AM EST completed [facility] Vaccine Series Complete: NOThis Data was Submitted to [facility] Via [employer]. Medications Medication Brand Name Start Date Product Form Dose Route Admi nistrative Instructions Pharmacy Instructions Status Indications Reaction Description Data Source(s) 500 mg 03/23/2021 12:00:00 AM EDT capsule 28 TAKE ONE CAPSULE BY MOUTH EVERY 6 HOURS FOR 7 DAYS, TAKE ON AN EMPTY STOMACH TAKE ONE CAPSULE BY MOUTH EVERY 6 HOURS FOR 7 DAYS, TAKE ON AN EMPTY STOMACH SOLD: 03/23/2021 [facility] POLYETHYLENE GLYCOL 3350 142 MG/ML Oral Solution [Miralax] M iralax 03/20/2021 12:00:00 AM EDT active M EDENT ([facility], ) POLYETHYLENE GLYCOL 3350 105 MG/ML / Pot assium Chloride 0.71665 MEQ/ML / Sodium Bicarbonate 0.017 MEQ/ML / Sodium Chloride 0.0479 MEQ/ML Oral Solution [GaviLyte-N] Gavilyte-N With Flavor Pack 03/06/2021 12:00:00 AM EDT active MEDENT ([facility], ) Bisacodyl 5 MG Delayed Release Oral Tablet [Dulcolax] Dulcol ax 03/06/2021 12:00:00 AM EDT active M EDENT ([facility], ) Memantine hydrochloride 5 MG Oral Tablet Memantine HCL 02/20/2021 12:00:00 AM EDT ORAL active MEDENT ([facility], ) Insurance Providers Payer name Policy type / Coverage type Policy ID Covered libertarian ID Covered libertarian's relationship to durbin Policy Durbin Plan Information FOR LIFE U [id number] Self [id number] U [id number] Self [id number] [place] [employer] [place]FL[place] [facility] Part B [id number] 0 [id number] [place] Med[place] Part B [id number] .[id number] Self 2 [id number] Medicare [place] Med[place]ap Part B [id number] ..[id number] Self 2 [id number] [place] [employer] (TFL[place] [facility] Part B [id number] ..1.134548.3.227.99.991.01697.0 0 [id number] [place] [employer] (TFL[place] [facility] Part B [id number] .[id number]1.75373.0 0 [id number] Medicare [place] Medigap Part B [id number] 2.16.840.1.558557.3.227.99.991.14325.0 Self 2 [id number] [place] [employer] (TFL[place] Med[employer]ap Part B [id number] 2.16.840.1.175674.3.227.99.991.10526.0 0 [id number] [place] Med[place]ap Part B [id number] 2.16.840.1.305581.3.227.99.991.97075.0 Self 2 [id number] [place] [employer] (TFL[place] Med[employer]ap Part B [id number] 2.16840.1.893782.3.227.99.991.91255.0 0 [id number] Medicare [place] Medigap Part B [id number] 2.840.1.349069.3.227.99.991.36775.0 Self 2 [id number] [place] [employer] (TFL[place] Med[employer]ap Part B [id number] 2.16.840.1.712538.3.227.99.991.42324.0 0 [id number] MEDICARE A [id number] Self [id number] A [facility] [id number] 2 [id number] Medicare [place] Medigap Part B [id number] 2.840.1.387347.3.227.99.991.65410.0 Self 2 [id number] Medicare [place] Medigap Part B [id number] 2.16.840.1.921781.3.227.99.991.55065.0 Self 2 [id number] [place] [employer] (TFL[place] Med[employer]ap Part B [id number] 2.16.840.1.380549.3.227.99.991.34816.0 0 [id number] MEDICARE [id number] SP [id number] A Medicare [place] Medigap Part B [id number] 2.16840.1.781748.3.227.99.991.73016.0 Self 2 [id number] [place] [employer] (TFL[place] [facility] Part B [id number] 2.16.840.1.179158.3.227.99.991.55423.0 0 [id number] Medicare [place] Medicare Primary [id number] Self Medicare [place] Medigap Part B [id number] 2.160.1.531818.3.227.99.991.93208.0 Self 2 [id number] [place] [employer] (TFL) [facility] Part B [id number] 2.16840.1.252044.3.227.99.991.44040.0 0 [id number] Medicare [place] Medigap Part B [id number] 2.0.1.544542.3.227.99.991.90490.0 Self 2 [id number] [place] [employer] (TFL) [facility] Part B [id number] 2.0.1.185349.3.227.99.991.66350.0 0 [id number] Medicare [place] Medigap Part B [id number] 2.840.1.352679.3.227.99.991.57043.0 Self 2 [id number] [place] [employer] [employer] (TFL) [facility] Part B [id number] 2.0.1.767523.3.227.99.991.36996.0 0 [id number] [place] [employer] (TFL) [facility] Part B [id number] Medicare [place] Medigap Part B [id number] 2.16840.1.962643.3.227.99.991.22065.0 Self 2 [id number] Medicare [place] Medigap Part B [id number] 2.16840.1.299423.3.227.99.991.03264.0 Self 2 [id number] [place] [employer] [employer] (TFL) [facility] Part B [id number] 2.840.1.379339.3.227.99.991.29373.0 0 [id number] [place] [employer] (TFL) [facility] Part B [id number] 2..1.406852.3.227.99.991.31036.0 0 [id number] Medicare [place] Medigap Part B [id number] ..1.536430.3.227.99.991.16956.0 Self 2 [id number] Medicare [place] Medigap Part B [id number] Self [id number] [place] [employer] (TFL) [facility] Part B [id number] [place] [employer] (TFL) [facility] Part B [id number] .1.836484.3.227.99.991.95550.0 0 [id number] [place] [employer] (TFL) [facility] Part B [id number] .1.083803.3.227.99.991.83331.0 0 [id number] FOR LIFE [id number] [facility] [id number] Medicare [place] Medigap Part B [id number] .1.629952.3.227.99.991.24876.0 Self 2 [id number] [place] [employer] (TFL) [facility] Part B [id number] .1.457561.3.227.99.991.25873.0 0 [id number] FOR LIFE [id number] 2 [id number] FOR LIFE [id number] 2 [id number] FOR LIFE [id number] [facility] [id number] Medicare [place] Medigap Part B [id number] .1.013957.3.227.99.991.45426.0 Self 2 [id number] Medicare [place] Medigap Part B [id number] .1.759085.3.227.99.991.96304.0 Self 2 [id number] Medicare [place] Medigap Part B [id number] Self [id number] [place] [employer] (TFL) [facility] B [id number] [place] [employer] (TFL) [facility] Part B [id number] 2.0.1.454053.3.227.99.991.48705.0 0 [id number] [place] [employer] [employer] (TFL) [facility] Part B [id number] 2.0.1.749834.3.227.99.991.73855.0 0 [id number] Medicare [place] Medigap Part B [id number] .0.1.893384.3.227.99.991.73541.0 Self 2 [id number] FOR LIFE [id number] [facility] [id number] [facility] [id number] SP [id number] MEDICARE COMPLETE [id number] SP [id number] MEDICARE COMPLETE [id number] SP [id number] MEDICARE COMPLETE [id number] SP [id number] MEDICARE COMPLETE [id number] SP [id number] FOR LIFE [id number] [facility] [id number] MEDICARE COMPLETE [id number] SP [id number] [facility] [id number] SP [id number] [facility] [id number] SP [id number] [facility] (SNF) [facility] Part B [id number]0.0 Self 2 [id number] ANSI-Not a Secondary Insurance [id number] ANSI-Commercial [id number] ANSI-Medicare Part B [id number] [facility] [id number] 2..840.1.193857.3.227.99.991.43657.0 Self 9 [id number] [facility] (SNF) [facility] Part B [id number] .840.1.392534.3.227.99.991.50026.0 Self 2 [id number] [facility]) Commercial [id number] Self [id number] [facility] (SNF) [facility] Part B [id number] Self [id number] [facility] [id number] 2 [id number] PGBA [facility] [id number] 2 [id number] [facility] [id number] SP [id number] MEDICARE COMPLETE [id number] SP [id number] MEDICAID [id number] SP [id number] A MEDICAID [id number] SP [id number] [facility]) Commercial [id number] Self [id number] [facility] (SNF) [facility] Part B [id number].[id number] Self [id number] ANSI-Not a Secondary Insurance [id number] ANSI-Commercial [id number] ANSI-Medicare Part B [id number] ANSI-Commercial [id number] ANSI-Not a Secondary Insurance [id number] ANSI-Medicare Part B [id number] [facility] O [id number] S [id number] [facility] O [id number] S [id number] MEDICARE [id number] SP [id number] MEDICARE [id number] SP [id number] FOR LIFE O [id number] S [id number] MEDICARE COMPLETE-[facility] O [id number] O [id number] [facility] [id number] SP [id number] [facility] [id number] 2 [id number] [facility] ([facility]) Commercial [id number] Self [id number] [facility] [id number] SP [id number] FOR LIFE [id number] 2 [id number] [facility] FEDERAL SERVICES [id number] SPO [id number] [facility] MED[facility] [id number] S [id number] MEDICARE - [place] [id number] S [id number] [facility] FEDERAL SERVICES [id number] [facility] [id number] MEDICARE COMPLETE [id number] SP [id number] MEDICARE [id number] A [facility] [place] [id number] HU2 [id number] UNAVAILABLE [place]NA[place]A BLE [id number] [facility] O [id number] S [id number] [employer] [facility] (SNF) Medigap Part B [id number] Self MEDICARE C [id number] S [id number] A MEDICARE COMPLETE-[facility] O [id number] S [id number] MEDICARE COMPLETE [id number] SP [id number] [facility] [id number] 2.16.840.1.899428.3.227.99.991.14607.0 Self [id number] [employer] (SNF) Medigap Part B [id number] 2.16.840.1.119002.3.227.99.991.49637.0 Self 2 [id number] [facility] Connect[facility] [id number] 2.16.840.1.430199.3.227.99.991.39941.0 Self [id number] [employer] [facility] (SNF) Medigap Part B [id number] 2.16.840.1.849749.3.227.99.991.48298.0 Self 2 [id number] [facility] Connect[facility] [id number] 00 2.16.840.1.710903.3.227.99.991.77942.0 Self [id number] 00 [employer] [facility] (SNF) Medigap Part B [id number] 2.16.840.1.340993.3.227.99.991.76502.0 Self 2 [id number] [facility] Connect[facility] [id number] 2.16.840.1.821629.3.227.99.991.12362.0 Self [id number] 00 [facility] (SNF) Medigap Part B [id number] 2.16.840.1.796774.3.227.99.991.88072.0 Self 2 [id number] For Life - WPS Medigap Part B [id number] 2.16.840.1.757634.3.227.99.572.29973.0 Self 2 [id number] [facility] [employer] Commercial [id number] 2.160.1.713654.3.227.99.572.26207.0 Self 9 [id number] For Life - WPS Medigap Part B [id number] 2.16840.1.381310.3.227.99.572.10969.0 Self 2 [id number] [facility] [id number] 2.0.1.233066.3.227.99.991.38793.0 Self 9 [id number] Religious Keep Home (SNF) Medigap Part B [id number] 2.0.1.285785.3.227.99.991.80063.0 Self 2 [id number] MEDICARE [id number] A [employer] Medicare [employer] [id number] 2.0.1.986470.3.227.99.8646.04980.0 Self [id number] WPS For Life Medigap Part B [id number] 2.0.1.254147.3.227.99.8646.29425.0 Family Dependent [id number] [facility] Health Maintenance Organization (HMO) [id number] 2.0.1.565477.3.227.99.8646.17352.0 Family Dependent [id number] United[employer] Medicare Commercial [id number] 2.0.1.462579.3.227.99.8646.00954.0 Self [id number] WPS For Life Medigap Part B [id number] 2.0.1.074010.3.227.99.8646.77270.0 Family Dependent [id number] [facility] [id number] 2.0.1.289192.3.227.99.991.56951.0 Self 9 [id number] [employer] Keep Home (SNF) Medigap Part B [id number] 2.16.840.1.035755.3.227.99.991.63631.0 Self 2 [id number] [facility]OX[facility] Connect[facility] [id number] 2.16.840.1.918501.3.227.99.991.86178.0 Self 9 [id number] Religious Keep Home (SNF) [facility] Part B [id number] 2.16.840.1.321270.3.227.99.991.54400.0 Self 2 [id number] [facility] Connect[facility] [id number] 2.16.840.1.098505.3.227.99.991.80224.0 Self 9 [id number] [employer] Keep Home (SNF) [facility] Part B [id number] 2.16.840.1.217217.3.227.99.991.63138.0 Self 2 [id number] [facility]OX[facility]amp[facility] Connectr [id number] 2.16.840.1.087282.3.227.99.991.55192.0 Self 9 [id number] [employer] Keep Home (SNF) [facility] Part B [id number] 2.16.840.1.650797.3.227.99.991.33293.0 Self 2 [id number] [facility]r [id number] 2.16.840.1.241396.3.227.99.991.33295.0 Self 9 [id number] [employer] Keep Home (SNF) [facility] Part B [id number] 2.16.840.1.392140.3.227.99.991.78941.0 Self 2 [id number] [facility]OX[facility] Connectr [id number] 2.16.840.1.469020.3.227.99.991.70372.0 Self 9 [id number] [employer] Keep Home (SNF) [facility] Part B [id number] 2.16.840.1.703174.3.227.99.991.52330.0 Self 2 [id number] [facility] [id number] 2.16.840.1.638173.3.227.99.991.32451.0 Self 9 [id number] [employer] Keep Home (SNF) [facility] Part B [id number] 2.16.840.1.689145.3.227.99.991.83409.0 Self 2 [id number] [facility] [id number] 2.16.840.1.951288.3.227.99.991.28215.0 Self 9 [id number] [employer] Keep [employer] (SNF) [facility] Part B [id number] 2.16.840.1.297676.3.227.99.991.53191.0 Self 2 [id number] [facility] [id number] 2.16.840.1.069008.3.227.99.991.44885.0 Self 9 [id number] [facility] Keep [facility] (SNF) [facility] [id number] 2.16.840.1.808184.3.227.99.991.57005.0 Self 2 [id number] [facility] MEDICAID [id number] SP [id number] [employer] Keep Home (SNF) [facility] [id number] 2.16.840.1.054896.3.227.99.991.94437.0 Self 2 [id number] [facility] [id number] 2.16.840.1.080894.3.227.99.991.82234.0 Self 9 [id number] [employer] Keep Home (SNF) [facility] Part B [id number] 2.16.840.1.268036.3.227.99.991.05803.0 Self 2 [id number] [facility] BILOXICampus Connectr [id number] 2.16.840.1.812890.3.227.99.991.48280.0 Self 9 [id number] Problems, Conditions, and Diagnoses Code Display Name Description Problem Type Effective Dates Data Source(s) 36070187 Essential hypertension Essential hypertension Problem 02/26/2021 12:00:00 AM EDT [facility] ([facility], ) F33.1 Moderate recurrent major depression Moderate rec urrent major depression Problem 02/20/2021 12:00:00 AM EDT [facility] ([facility], ) Surgeries/Procedures Procedure Description Date Indications Data Source(s) OFFICE OUTPATIENT VISIT 15 MINUTES 05/22/2021 12:00:00 AM EDT [facility] ([facility], ) Colonoscopy W/ Endoscopic Mucosal Resection 04/01/2021 12:00:00 AM EDT [facility] ([facility], ) Colonoscopy W/ Poly 04/01/2021 12:00:00 AM EDT [facility] ([facility], ) OFFICE OUTPATIENT VISIT 15 MINUTES 02/20/2021 12:00:00 AM EDT MEDENT ([facility], ) Extracapsular extraction of lens (procedure) History o f extracapsular cataract extraction PCIOL OS 08/12/17 ~PCIOL OD 11/04/17 10/08/2020 12:00:00 AM EST MAI (Denny Figueroa MD [facility]) Unclassified drugs 10/04/2020 12:00:00 AM EST eCW1 ([facility]) Results ID Date Data Source 91 08/18/2021 12:00:00 AM EDT [facility] Name Value Range Interpretation Code Description Data Bita rce(s) Supporting Document(s) SARS coronavirus 2 Ag NEGATIVE [facility] This lab was ordered by [facility] and reported by [facility]. ID Date Data Source 96 08/06/2021 12:00:00 AM EDT [facility] Name Value Range Interpretation Code Description Data Bita rce(s) Supporting Document(s) SARS coronavirus 2 Ag NEGATIVE [facility] This lab was ordered by [facility] and reported by [facility]. ID Date Data Source 97 07/23/2021 12:00:00 AM EDT [facility] Name Value Range Interpretation Code Description Data Bita rce(s) Supporting Document(s) SARS coronavirus 2 Ag NEGATIVE [facility] This lab was ordered by [facility] and reported by [facility]. ID Date Data Source 95 04/17/2021 12:00:00 AM EDT [facility] Name Value Range Interpretation Code Description Data Bita rce(s) Supporting Document(s) SARS coronavirus 2 Ag NEGATIVE [facility] This lab was ordered by [facility] and reported by [facility]. ID Date Data Source [id number] 04/03/2021 12:00:00 AM EDT [facility] Name Value Range Interpretation Code Description Data Bita rce(s) Supporting Document(s) SARS coronavirus 2 Ag NEGATIVE [facility] This lab was ordered by [facility] and reported by [facility]. ID Date Data Source 87 03/31/2021 12:00:00 AM EDT [facility] Name Value Range Interpretation Code Description Data Bita rce(s) Supporting Document(s) SARS coronavirus 2 Ag NEGATIVE [facility] This lab was ordered by [facility] and reported by [facility]. ID Date Data Source [id number] 03/27/2021 10:15:00 AM EDT [facility] Name Value Range Interpretation Code Description Data Bita rce(s) Supporting Document(s) SARS-CoV-2 (COVID-19) RNA [Presence] in Respiratory specimen by [place] with probe detection Not Detected [facility] This lab was ordered by [facility] and reported by [employer]. ID Date Data Source [id number] 03/24/2021 12:00:00 AM EDT [facility] Name Value Range Interpretation Code Description Data Bita rce(s) Supporting Document(s) SARS coronavirus 2 Ag NEGATIVE [facility] This lab was ordered by [facility] and reported by [facility]. ID Date Data Source 90 03/11/2021 12:00:00 AM EDT [facility] Name Value Range Interpretation Code Description Data Bita rce(s) Supporting Document(s) SARS coronavirus 2 Ag NEGATIVE [facility] This lab was ordered by [facility] and reported by [facility]. ID Date Data Source [id number] 02/14/2021 12:00:00 PM EDT [facility] Name Value Range Interpretation Code Description Data Bita rce(s) Supporting Document(s) SARS-CoV-2 (COVID-19) RNA [Presence] in Respiratory specimen by [place] with probe detection Not Detected [facility] This lab was ordered by [facility] and reported by [employer] ID Date Data Source [id number] 01/29/2021 12:00:00 PM EDT [facility] Name Value Range Interpretation Code Description Data Bita rce(s) Supporting Document(s) SARS coronavirus 2 RNA Not Detected [facility] This lab was ordered by [facility] and reported by [facility]. ID Date Data Source [id number] 01/22/2021 07:00:00 AM EST [facility] Name Value Range Interpretation Code Description Data Bita rce(s) Supporting Document(s) SARS coronavirus 2 RNA Not Detected [facility] [place] This lab was ordered by [facility] and reported by [facility]. ID Date Data Source [id number] 01/08/2021 05:45:00 AM EST [facility] Name Value Range Interpretation Code Description Data Bita rce(s) Supporting Document(s) SARS coronavirus 2 RNA Not Detected [facility] [place] This lab was ordered by [facility] and reported by [facility]. ID Date Data Source [id number] 01/01/2021 09:45:00 AM EST [facility] Name Value Range Interpretation Code Description Data Bita rce(s) Supporting Document(s) SARS coronavirus 2 RNA Not Detected [facility] [place] This lab was ordered by [facility] and reported by [facility]. ID Date Data Source [id number] 12/25/2020 09:30:00 AM EST [facility] Name Value Range Interpretation Code Description Data Bita rce(s) Supporting Document(s) SARS coronavirus 2 RNA Not Detected [facility] [place] This lab was ordered by [facility] and reported by [facility]. ID Date Data Source [id number] 12/18/2020 08:45:00 AM EST [facility] Name Value Range Interpretation Code Description Data Bita rce(s) Supporting Document(s) SARS coronavirus 2 RNA Not Detected [facility] [place] This lab was ordered by [facility] and reported by [facility]. ID Date Data Source [id number] 12/11/2020 10:50:00 AM EST [facility] Name Value Range Interpretation Code Description Data Bita rce(s) Supporting Document(s) SARS coronavirus 2 RNA Not Detected [facility] [place] This lab was ordered by [facility] and reported by [facility]. ID Date Data Source [id number] 12/04/2020 08:00:00 AM EST [facility] Name Value Range Interpretation Code Description Data Bita rce(s) Supporting Document(s) SARS coronavirus 2 RNA Not Detected [facility] [place] This lab was ordered by [facility] and reported by [facility]. ID Date Data Source [id number] 11/27/2020 06:00:00 AM EST [facility] Name Value Range Interpretation Code Description Data Bita rce(s) Supporting Document(s) SARS coronavirus 2 RNA Not Detected [facility] [place] This lab was ordered by [facility] and reported by [facility]. ID Date Data Source [id number] 11/20/2020 12:00:00 PM EST [facility] Name Value Range Interpretation Code Description Data Bita rce(s) Supporting Document(s) SARS coronavirus 2 RNA Not Detected [facility] [place] This lab was ordered by [facility] and reported by [facility]. ID Date Data Source [id number] 11/13/2020 11:00:00 AM EST [facility] Name Value Range Interpretation Code Description Data Bita rce(s) Supporting Document(s) SARS coronavirus 2 RNA [facility] This lab was ordered by [facility] and reported by [facility]. ID Date Data Source [id number] 11/06/2020 11:00:00 AM EST [facility] Name Value Range Interpretation Code Description Data Bita rce(s) Supporting Document(s) SARS coronavirus 2 RNA [facility] This lab was ordered by [facility] and reported by [facility]. ID Date Data Source [id number] 10/30/2020 11:00:00 AM EST [facility] Name Value Range Interpretation Code Description Data Bita rce(s) Supporting Document(s) SARS coronavirus 2 RNA [facility] This lab was ordered by [facility] and reported by [facility]. ID Date Data Source [id number] 10/23/2020 11:00:00 AM EST [facility] Name Value Range Interpretation Code Description Data Bita rce(s) Supporting Document(s) SARS coronavirus 2 RNA [facility] This lab was ordered by [facility] and reported by [facility]. ID Date Data Source [id number] 10/16/2020 10:00:00 AM EST [facility] Name Value Range Interpretation Code Description Data Bita rce(s) Supporting Document(s) SARS coronavirus 2 RNA [facility] This lab was ordered by [facility] and reported by [facility]. ID Date Data Source [id number] 10/09/2020 09:00:00 AM EST [facility] Name Value Range Interpretation Code Description Data Bita rce(s) Supporting Document(s) SARS coronavirus 2 RNA [facility] This lab was ordered by [facility] and reported by [facility]. ID Date Data Source [id number] 10/02/2020 10:00:00 AM EST [facility] Name Value Range Interpretation Code Description Data Bita rce(s) Supporting Document(s) SARS coronavirus 2 RNA [facility] This lab was ordered by [facility] and reported by [facility]. ID Date Data Source [id number] 09/30/2020 09:50:00 AM EST [facility] Name Value Range Interpretation Code Description Data Bita rce(s) Supporting Document(s) SARS coronavirus 2 RNA [facility] This lab was ordered by [facility] and reported by [facility]. ID Date Data Source [id number] 09/26/2020 10:47:00 AM EST [facility] Name Value Range Interpretation Code Description Data Bita rce(s) Supporting Document(s) SARS coronavirus 2 RNA [facility] This lab was ordered by [facility] and reported by [facility]. Procedure Social History Code Duration Value Status Description Data Source(s ) Smoking 06/17/2021 09:41:20 AM EDT Never smoked tobacco (findi ng) completed Never smoked tobacco (finding) [facility]I (Denny Figueroa MD [facility]) Smoking 10/08/2020 11:11:37 AM EST Never smoked tobacco (findi ng) completed Never smoked tobacco (finding) MAI (Denny Figueroa MD [facility]) Vital Signs ID Date Data Source UNK Name Value Range Interpretation Code Description Data Source(s) Diastolic blood pressure 74 mm[Hg] 74 mm[Hg] MEDENT ([facility]) Body surface area Derived from formula 2.43 m2 2.43 m2 [facility] Systolic blood pressure 122 mm[Hg] 122 mm[Hg] M EDENT ([facility]) Body weight 147.874 kg 147.[address] [facility] ([facility]) [place] body weight 125 [lb_av] 125 [lb_av] MEDEN T ([facility]) Body mass index (BMI) [Ratio] 54.2 kg/m2 54.2 k g/m2 [facility] ([facility]) Body weight 326.00 [lb_av] 326.00 [lb_av] [facility] Body height 65 [in_i] 65 [in_i] [facility] ([facility]) 5'5" Body temperature 98.1 [degF] 98.1 [degF] eCW1 ( [facility]) Diastolic blood pressure 55 mm[Hg] 55 mm[Hg] eCW1 ([facility]) Systolic blood pressure 114 mm[Hg] 114 mm[Hg] e CW1 ([facility]) Heart rate 69 /min 69 /min eCW1 ([facility]) Body mass index (BMI) [Ratio] 54.77 kg/m2 54.77 kg/m2 W1 ([facility]) Body height 66 [in_i] 66 [in_i] eCW1 ([facility]) Body weight 339.4 [lb_av] 339.4 [lb_av] eCW1 ([facility]) Respiratory rate 18 /min 18 /min eCW1 ([facility]) Systolic blood pressure 160 mm[Hg] 160 mm[Hg] e CW1 ([facility]) Body temperature 97.6 [degF] 97.6 [degF] eCW1 ( [facility]) Diastolic blood pressure 83 mm[Hg] 83 mm[Hg] eCW1 ([facility]) Respiratory rate 16 /min 16 /min eCW1 ([facility]) Heart rate 74 /min 74 /min eCW1 ([facility]) Body mass index (BMI) [Ratio] 54.77 kg/m2 54.77 kg/m2 eCW1 ([facility]) Body height 66 [in_i] 66 [in_i] eCW1 ([facility]) Body weight 339.4 [lb_av] 339.4 [lb_av] eCW1 ([facility]) ID Date Data Source [id number] 09/04/2021 03:43:00 AM EDT [facility] Name Value Range Interpretation Code Description Data Source(s) WEIGHT 136.07 kilos 136.07 kilos [facility] HEIGHT 172.72 centimeters 172.72 centimeter [facility]
--- NOTE | 2021-09-04 19:14 | ECGEPIP ---
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
[2021-09-04 19:18] LABS: BASO % 0.1 % (0.0-1.0); HEMATOCRIT 40.7 % (36.0-47.0); HEMOGLOBIN 12.9 g/dl (12.0-15.5); LYMPH # 1.2 10^3/uL (1.5-5.0); LYMPH % 11.3 % (24.0-44.0); MEAN CORPUSCULAR HEMOGLOBIN 28.6 pg (27.0-33.0); MEAN CORPUSCULAR HGB CONC 31.7 g/dl (32.0-36.5); MEAN CORPUSCULAR VOLUME 90.2 fl (80.0-96.0); MONO # 0.8 10^3/uL (0.0-0.8); MONO % 7.2 % (2.0-8.0); NEUTROPHILS # 8.9 10^3/uL (1.5-8.5); PLATELET COUNT, AUTOMATED 249 10^3/uL (150-450); RED BLOOD COUNT 4.51 10^6/uL (4.00-5.40)
[2021-09-04 19:26] LABS: PROTHROMBIN TIME 13.6 SECONDS (12.7-14.5)
[2021-09-04 19:29] LABS: D-DIMER QUANT 1519.8 ng/ml (<500)
[2021-09-04] MEDS ORDERED: DEXA2TA PO (20:03)
[2021-09-04] MEDS ORDERED: ASPI81CH33 PO (20:03)
[2021-09-04] MEDS ORDERED: [UNRECOGNIZED DRUG - SUPPLY] TOP (20:03)
[2021-09-04] MEDS ORDERED: FURO40TA2 PO (20:03)
[2021-09-04] MEDS ORDERED: PROC25SU24 PR (20:03)
[2021-09-04] MEDS ORDERED: MILKSUS3 PO (20:03)
[2021-09-04] MEDS ORDERED: ERGO500029 PO (20:03)
[2021-09-04] MEDS ORDERED: ENOX30IN3 SC (20:03)
[2021-09-04] MEDS ORDERED: MELA1TAB9 PO (20:03)
[2021-09-04] MEDS ORDERED: ZOLO100T PO (20:03)
[2021-09-04] MEDS ORDERED: HOME MED LIST COMPLETE! XX SCH (20:05)
[2021-09-04 20:11] LABS: ALBUMIN 2.4 GM/DL (3.2-5.2); ALT/SGPT 110 U/L (12-78); BILIRUBIN,DIRECT < 0.1 MG/DL (0.0-0.2); BILIRUBIN,TOTAL 0.4 MG/DL (0.2-1.0); BLOOD UREA NITROGEN 62 MG/DL (7-18); CALCIUM LEVEL 9.8 MG/DL (8.8-10.2); CARBON DIOXIDE LEVEL 32 MEQ/L (21-32); CHLORIDE LEVEL 108 MEQ/L (98-107); CK-MB VALUE MASS < 1.0 NG/ML (<3.6); CPK CREATINE PHOSPHOKINASE 101 U/L (26-192); CREATININE FOR GFR 2.01 MG/DL (0.55-1.30); GLOMERULAR FILTRATION RATE 25.9 (>39); GLUCOSE, FASTING 421 MG/DL (70-100); MB/CK RELATIVE INDEX 0.99 (< OR =4); NT-PRO BNP 1638 PG/ML (<125); POTASSIUM SERUM 4.5 MEQ/L (3.5-5.1); SODIUM LEVEL 145 MEQ/L (136-145); THYROID STIMULATING HORMONE 0.969 uIU/ML (0.358-3.740); TOTAL PROTEIN 6.9 GM/DL (6.4-8.2); TROPONIN I < 0.02 NG/ML (< 0.10)
[2021-09-04] MEDS ORDERED: HumuLIN R (REGULAR) INSULIN (NovoLIN R) **100U/ML** PER UNIT IV STA (20:34)
[2021-09-04] MEDS ORDERED: BISACODYL 10 MG SUPP PR PRN (20:35)
[2021-09-04] MEDS ORDERED: DEXTROSE 50% 50 ML SYRINGE IV PRN (20:35)
[2021-09-04] MEDS ORDERED: GLUCOSE 4GM CHEW TABLET PO PRN (20:35)
[2021-09-04] MEDS ORDERED: GLUCAGON INJ 1MG VIAL SC PRN (20:35)
--- OUTSIDE RECORDS SUMMARY | 2021-09-04 20:36 | CCD ---
Author Author [facility] Organization [facility] Address Unknown Phone Unavailable Care Team Providers Care Special Collections Librarian Name Role Phone Yaworski, Karen TOOLMAKER Unavailable Unavailable Yaworski, Karen TOOLMAKER Unavailable Unavailable Yaworski, Karen TOOLMAKER Unavailable Unavailable Yaworski, Karen TOOLMAKER Unavailable Unavailable Yaworski, Karen TOOLMAKER Unavailable Unavailable Yaworski, Karen TOOLMAKER Unavailable Unavailable Yaworski, Karen TOOLMAKER Unavailable Unavailable Yaworski, Karen TOOLMAKER Unavailable Unavailable Yaworski, Karen TOOLMAKER Unavailable Unavailable Yaworski, Karen TOOLMAKER Unavailable Unavailable Yaworski, Karen TOOLMAKER Unavailable Unavailable Yaworski, Karen TOOLMAKER Unavailable Unavailable Yaworski, Karen TOOLMAKER Unavailable Unavailable Yaworski, Karen TOOLMAKER Unavailable Unavailable Yaworski, Karen TOOLMAKER Unavailable Unavailable Yaworski, Karen TOOLMAKER Unavailable Unavailable Yaworski, Karen TOOLMAKER Unavailable Unavailable Yaworski, Karen TOOLMAKER Unavailable Unavailable Yaworski, Karen TOOLMAKER Unavailable Unavailable Yaworski, Karen TOOLMAKER Unavailable Unavailable Yaworski, Karen TOOLMAKER Unavailable Unavailable Yaworski, Karen TOOLMAKER Unavailable Unavailable Yaworski, Karen TOOLMAKER Unavailable Unavailable Yaworski, Karen TOOLMAKER Unavailable Unavailable LEONARDO, LANDRY PA Unavailable Unavailable [...] MD Unavailable Unavailable Dr. DENNY BROOKE Unavailable [phone] Dr. DENNY BROOKE Unavailable [phone] Dr. DENNY BROOKE Unavailable [phone] Sophy ANTHONY MD Unavailable Unavailable Sophy ANTHONY [...] is protected by Article 27-F of the [facility] Public Health law. If you continue you may have access to information: Regarding HIV / AIDS; Provided by facilities licensed or operated by the [facility] Office of Mental Health; or Provided by the [facility] Office for People With Developmental Disabilities. If such information is present, then the following [facility] mandated warning applies: This information has [...] law may result in a fine or mcc sentence or both. A general authorization for the release of medical or other information is NOT sufficient authorization for further disc losure. Allergies and Adverse Reactions Type Description Substance Reaction Status Data Source(s ) Drug Allergy NKDA NKDA [facility] ([facility], ) Family History Family Member Name Family Member Gender Family Member Status Date o f Status Description Data Source(s) Unknown Male Problem [facility] ([facility]) Unknown Female Problem [facility] ([facility] ) Unknown Female Problem MED[facility] ([facility] ) Encounters Encounter Providers Location Date Indications Data Source(s ) Outpatient Attender: Lorraine Bojorquez MD Main office - [place] 05/22/2021 12:45:00 PM EDT MED[facility] ([facility], ) Outpatient Attender: MARIELA Decker/Abby/Bret reveles/Gerardo 02/26/2021 08:30:00 AM EDT [facility] ([facility] Outpatient Attender: Lorraine Bojorquez MD Main office - [place] 02/20/2021 11:15:00 AM EDT MED[facility] ([facility]) (PN Proc 45) Pain Procedure 45 [address] [place] [address] 10/04/2020 12:00:00 AM EST eCW1 ([facility]) Outpatient [address] [facility] [address] 09/24/2020 12:00:00 AM EST eCW1 (Critical access hospital) Unknown [address] [facility] [address] 09/13/2020 12:00:00 AM EDT eCW1 (Critical access hospital) Emergency Attender: Dr. DENNY BROOKEReferrer: Angel Mark TOOLMAKER EMERGENCY ROOM-ER 05/02/2015 08:16:00 PM EDT - 05/03/2015 01:40:00 AM [facility] Emergency Attender: JARET CORDERO MD 06/2013 05:50:00 PM EDT - 05/22/2013 11:35:00 PM [facility] Emergency Attender: LANDRY PATTERSON PAReferrer: Bob Mark NP EMERGENCY ROOM-ER 10/04/2012 05:22:00 PM EST - 10/04/2012 07:08:00 PM [facility] Outpatient Attender: VIKAS JAQUEZ MD 08/18/2012 01:06:0 0 PM [facility] Emergency Attender: KATERIN FRANCO DO 08/05/20 12 10:01:00 PM EDT - 08/05/2012 11:22:00 PM [facility] Immunizations Vaccine Date Status Description Data Source(s) COVID-19 VACCINE [employer] 12/10/2020 12:00:00 AM EST completed [facility] Vaccine Series Complete: YESThis Data wa s Submitted to [facility] [employer]. COVID-19 VACCINE [employer] [place] 11/19/2020 12:00:00 AM EST completed [facility] Vaccine Series Complete: NOThis Data was Submitted to [facility] [employer]. Medications Medication Brand Name Start Date Product [...] 03/20/2021 12:00:00 AM EDT active M EDENT ([facility], ) POLYETHYLENE GLYCOL 3350 105 MG/ML / Pot assium Chloride 0.49060 MEQ/ML / Sodium Bicarbonate 0.017 MEQ/ML / Sodium Chloride 0.0479 MEQ/ML Oral Solution [GaviLyte-N] Gavilyte-N With Flavor Pack 03/06/2021 12:00:00 AM EDT active MEDENT ([facility], ) Bisacodyl 5 MG Delayed Release Oral Tablet [Dulcolax] Dulcol ax 03/06/2021 12:00:00 AM EDT active M EDENT ([facility], ) Memantine hydrochloride 5 MG Oral Tablet Memantine HCL 02/20/2021 12:00:00 AM EDT ORAL active MEDENT ([facility], ) Insurance Providers Payer name Policy type / Coverage type Policy ID Covered constitution party ID Covered constitution party's relationship to durbin Policy Durbin Plan Information FOR LIFE U [id number] Self [id number] U [id number] Self [id number] [place] [employer] ([place] [facility] Part B [id number] 0 [id number] [place] Med[place] Part B [id number] .1.369879.3.227.99.991.30790.0 Self 2 [id number] [place] Med[place] Part B [id number] ..1.216540.3.227.99.991.76757.0 Self 2 [id number] [place] [facility] Part B [id number] ..1.946432.3.227.99.991.51649.0 0 [id number] [place]FL[place] [facility] Part B [id number] .16.840.1.193242.3.227.99.991.01068.0 0 [id number] [place] Med[place]ap Part B [id number] 2.16.840.1.408004.3.227.99.991.01919.0 Self 2 [id number] [place]TFL[place] Med[place]ap Part B [id number] 2.16.840.1.319977.3.227.99.991.08560.0 0 [id number] [place] Med[place]ap Part B [id number] 2.16.840.1.650295.3.227.99.991.03758.0 Self 2 [id number] [place] [employer]TFL[place] Med[employer]ap Part B [id number] 2.16840.1.175157.3.227.99.991.01313.0 0 [id number] [place] Med[place] Part B [id number] 2.840.1.857442.3.227.99.991.96913.0 Self 2 [id number] [place] [employer] (TFL[place] Medigap Part B [id number] 2.16.840.1.806614.3.227.99.991.83534.0 0 [id number] MEDICARE A [id number] Self [id number] A [facility] [id number] 2 [id number] [place] Med[place]ap Part B [id number] 2.840.1.824349.3.227.99.991.69046.0 Self 2 [id number] [place] Med[place] Part B [id number] 2.16.840.1.187995.3.227.99.991.75674.0 Self 2 [id number] [place] [employer]TFL[place] Med[place]ap Part B [id number] 2.16.840.1.409115.3.227.99.991.40098.0 0 [id number] MEDICARE [id number] SP [id number] A [place] Med[place] Part B [id number] 2.16840.1.401722.3.227.99.991.65197.0 Self 2 [id number] [place] (TFL[place] [facility] Part B [id number] 2.16.840.1.211651.3.227.99.991.83617.0 0 [id number] Medicare [place] Medicare Primary [id number] Self Medicare [place] Med[place] Part B [id number] 2.160.1.836467.3.227.99.991.05139.0 Self 2 [id number] [place] [employer] (TFL[place] [facility] Part B [id number] 2.16840.1.768700.3.227.99.991.73717.0 0 [id number] [place] Med[place] Part B [id number] 2.0.1.415868.3.227.99.991.05937.0 Self 2 [id number] [place] [employer]TFL[place] [facility] Part B [id number] 2.0.1.775764.3.227.99.991.99414.0 0 [id number] [place] Part B [id number] 2.840.1.682253.3.227.99.991.47726.0 Self 2 [id number] [place] [employer] (TFL[place] [facility] Part B [id number] 2.0.1.665518.3.227.99.991.81262.0 0 [id number] [place] [employer]TFL[place] [facility] Part B [id number] [place] Med[place] Part B [id number] 2.16840.1.995521.3.227.99.991.66439.0 Self 2 [id number] Medicare [place] Med[place] Part B [id number] 2.16840.1.193689.3.227.99.991.42852.0 Self 2 [id number] [place] [facility] (TFL[place] [facility] Part B [id number] 2.840.1.587930.3.227.99.991.29063.0 0 [id number] [place] (TFL[place] [facility] Part B [id number] 2..1.463534.3.227.99.991.48170.0 0 [id number] [place] Med[place] Part B [id number] ..1.252262.3.227.99.991.02005.0 Self 2 [id number] [place] Med[place] Part B [id number] Self [id number] [place] [employer] (TFL[place] [facility] Part B [id number] [place] [employer] (TFL) [facility] Part B [id number] .1.771198.3.227.99.991.66238.0 0 [id number] [place] [employer] (TFL[place] [facility] Part B [id number] .1.590326.3.227.99.991.07882.0 0 [id number] FOR LIFE [id number] [facility] [id number] Medicare [place] Med[place]ap Part B [id number] .1.926134.3.227.99.991.57529.0 Self 2 [id number] [place] [facility] (TFL[place] [facility] Part B [id number] .1.409496.3.227.99.991.23806.0 0 [id number] FOR LIFE [id number] 2 [id number] FOR LIFE [id number] 2 [id number] FOR LIFE [id number] [facility] [id number] Medicare [place] Med[place]ap Part B [id number] .1.548259.3.227.99.991.52372.0 Self 2 [id number] [place] Med[place] Part B [id number] .1.784867.3.227.99.991.40113.0 Self 2 [id number] [place] Med[place] Part B [id number].[id number] Self [id number] [place] (TFL[place] [facility] B [id number] [place] (TFL[place] [facility] Part B [id number] 2.0.1.539912.3.227.99.991.89584.0 0 [id number] [place] (TFL[place] [facility] Part B [id number] 2.0.1.891780.3.227.99.991.61117.0 0 [id number] [place] Med[place] Part B [id number] .0.1.307815.3.227.99.991.82100.0 Self 2 [id number] FOR LIFE [id number] [facility] [id number] [facility] [id number] SP [id number] MEDICARE COMPLETE [id number] SP [id number] MEDICARE COMPLETE [id number] SP [id number] MEDICARE COMPLETE [id number] SP [id number] MEDICARE COMPLETE [id number] SP [id number] FOR LIFE [id number] [facility] [id number] MEDICARE COMPLETE [id number] SP [id number] [facility] [id number] SP [id number] [facility] [id number] SP [id number] [facility] (SNF) [facility] Part B [id number] 840.1.085353.3.227.99.991.63888.0 Self 2 [id number] ANSI-Not a Secondary Insurance [id number] ANSI-Commercial [id number] ANSI-Medicare Part B [id number] [facility] [id number] 2..840.1.302731.3.227.99.991.83499.0 Self [id number] [facility] (SNF) [facility] Part B [id number] .840.1.543555.3.227.99.991.03083.0 Self 2 [id number] [facility]) Commercial [id number].[id number] Self [id number] [facility] (SNF) [facility] Part B [id number].[id number] Self [id number] [facility] [id number] 2 [id number] [facility] [id number] 2 [id number] [facility] [id number] SP [id number] MEDICARE COMPLETE [id number] SP [id number] MEDICAID [id number] SP [id number] A MEDICAID [id number] SP [id number] [facility]) Commercial [id number].[id number] Self [id number] [facility] (SNF) [facility] Part B [id number].[id number] Self [id number] ANSI-Not a Secondary Insurance [id number] ANSI-Commercial [id number] ANSI-Medicare Part B [id number] ANSI-Commercial [id number] ANSI-Not a Secondary Insurance [id number] ANSI-Medicare Part B [id number] [facility] O [id number] S [id number] [facility] O [id number] S [id number] MEDICARE [id number] SP [id number] MEDICARE [id number] SP [id number] FOR LIFE O [id number] S [id number] MEDICARE COMPLETE-[facility] O [id number] O [id number] [facility] [id number] SP [id number] [facility] [id number] 2 [id number] [facility] ([facility]) Commercial [id number] 2.16.840.1.855266.3.227.99.991.13019.0 Self [id number] [facility] [id number] SP [id number] FOR LIFE [id number] 2 [id number] [facility] FEDERAL SERVICES [id number] SPO [id number] [place] MEDICARE DIVISION [id number] S [id number] MEDICARE - [place] [id number] S [id number] [facility] FEDERAL SERVICES [id number] [facility] [id number] MEDICARE COMPLETE [id number] SP [id number] MEDICARE [id number] A [facility] [id number] HU2 [id number] UNAVAILABLE [place]NA[place] BLE [id number] [facility] O [id number] S [id number] [facility] (SNF) Medigap Part B [id number] Self MEDICARE C [id number] S [id number] A MEDICARE COMPLETE[facility] O [id number] S [id number] MEDICARE COMPLETE [id number] SP [id number] [facility] [id number] 2.16.840.1.645271.3.227.99.991.27992.0 Self [id number] [facility] (SNF) Medigap Part B [id number] 2.16.840.1.205199.3.227.99.991.94114.0 Self 2 [id number] [facility] [id number] 00 2.16.840.1.331764.3.227.99.991.83709.0 Self 9 [id number] [facility] (SNF) Medigap Part B [id number] 2.16.840.1.636904.3.227.99.991.55313.0 Self 2 [id number] [facility] [id number] 00 2.16.840.1.843015.3.227.99.991.04996.0 Self [id number] [facility] (SNF) Medigap Part B [id number] 2.16.840.1.261129.3.227.99.991.76612.0 Self 2 [id number] [facility] [id number] 00 2.16.840.1.110555.3.227.99.991.24233.0 Self [id number] [facility] (SNF) Medigap Part B [id number] 2.16.840.1.857003.3.227.99.991.58810.0 Self 2 [id number] For Life - [place] Medigap Part B [id number] 2.16.840.1.215266.3.227.99.572.77182.0 Self 2 [id number] [facility] Commercial [id number] 2.160.1.127151.3.227.99.572.52310.0 Self [id number] For Life - [place] Medigap Part B [id number] 2.16840.1.257403.3.227.99.572.67834.0 Self 2 [id number] [facility] [id number] 2.0.1.782029.3.227.99.991.79585.0 Self [id number] [facility] (SNF) Medigap Part B [id number] 2.0.1.713122.3.227.99.991.49163.0 Self 2 [id number] MEDICARE [id number] A [employer] Medicare [employer] [id number] 2.0.1.863848.3.227.99.8646.41130.0 Self [id number] WPS For Life Medigap Part B [id number] 2.0.1.398584.3.227.99.8646.03367.0 Family Dependent [id number] [facility] Health Maintenance Organization (HMO) 0 [id number] 2.0.1.345459.3.227.99.8646.62539.0 Family Dependent [id number] United[employer]care Medicare Commercial [id number] 2.0.1.077008.3.227.99.8646.36213.0 Self [id number] WPS For Life Medigap Part B [id number] 2.0.1.885494.3.227.99.8646.47185.0 Family Dependent [id number] [facility] [employer] Solutions[facility] [id number] 2.0.1.310819.3.227.99.991.19248.0 Self [id number] [facility] (SNF) Medigap Part B [id number] 2.16.840.1.253626.3.227.99.991.36061.0 Self 2 [id number] [place] [facility] LogicT[facility]ITAL[facility] [id number] 2.16.840.1.646926.3.227.99.991.31777.0 Self [id number] [facility] (SNF) [facility] Part B [id number] 2.16.840.1.200550.3.227.99.991.07338.0 Self 2 [id number] [place] [facility] LogicT[facility] [id number] 2.16.840.1.551071.3.227.99.991.75245.0 Self [id number] [facility] (SNF) [facility] Part B [id number] 2.16.840.1.491561.3.227.99.991.35838.0 Self 2 [id number] [place] [facility] LogicT[facility]ITAL[facility] [id number] 2.16.840.1.061257.3.227.99.991.32682.0 Self 9 [id number] [facility] (SNF) [facility] Part B [id number] 2.16.840.1.502402.3.227.99.991.25268.0 Self 2 [id number] [place] [facility] [id number] 2.16.840.1.157344.3.227.99.991.14563.0 Self [id number] [facility] (SNF) [facility] Part B [id number] 2.16.840.1.594175.3.227.99.991.13734.0 Self 2 [id number] [place] [facility] LogicT[facility] [id number] 2.16.840.1.851429.3.227.99.991.78301.0 Self 9 [id number] [facility] (SNF) [facility] Part B [id number] 2.16.840.1.124485.3.227.99.991.21718.0 Self 2 [id number] [facility] [id number] 2.16.840.1.438454.3.227.99.991.92419.0 Self [id number] [facility] (SNF) [facility] Part B [id number] 2.16.840.1.116932.3.227.99.991.63611.0 Self 2 [id number] [facility] [id number] 2.16.840.1.862096.3.227.99.991.29805.0 Self [id number] [facility] (SNF) [facility] Part B [id number] 2.16.840.1.782495.3.227.99.991.56465.0 Self 2 [id number] [facility] [id number] 2.16.840.1.139708.3.227.99.991.02546.0 Self [id number] [facility]SNF) [facility] [id number] 2.16.840.1.655257.3.227.99.991.93819.0 Self 2 [id number] [facility] MEDICAID [id number] SP [id number] [facility] (SNF) [facility] Part B [id number] 2.16.840.1.727050.3.227.99.991.94396.0 Self 2 [id number] [facility] [id number] 2.16.840.1.925464.3.227.99.991.32428.0 Self 9 [id number] [facility] (SNF) [facility] Part B [id number] 2.16.840.1.167774.3.227.99.991.89194.0 Self 2 [id number] [facility] [employer] SolutionsTIP[facility]ITALGe[facility] [id number] 2.16.840.1.662198.3.227.99.991.73279.0 Self [id number] Problems, Conditions, and Diagnoses Code Display Name Description Problem Type Effective Dates Data Source(s) 96349190 Essential hypertension Essential hypertension Problem 02/26/2021 12:00:00 AM EDT MEDENT ([facility], ) F33.1 Moderate recurrent major depression Moderate rec urrent major depression Problem 02/20/2021 12:00:00 AM EDT MEDENT ([facility], ) Surgeries/Procedures Procedure Description Date Indications Data Source(s) OFFICE OUTPATIENT VISIT 15 MINUTES 05/22/2021 12:00:00 AM EDT MEDENT ([facility], ) Colonoscopy W/ Endoscopic Mucosal Resection 04/01/2021 12:00:00 AM EDT MEDENT ([facility], ) Colonoscopy W/ Poly 04/01/2021 12:00:00 AM EDT MEDENT ([facility], ) OFFICE OUTPATIENT VISIT 15 MINUTES 02/20/2021 12:00:00 AM EDT MEDENT ([facility], ) Extracapsular extraction of lens (procedure) History o f extracapsular cataract extraction PCIOL OS 08/12/17 ~PCIOL OD 11/04/17 10/08/2020 12:00:00 AM EST MAI (Denny Figueroa MD [facility]) Unclassified drugs 10/04/2020 12:00:00 AM EST eCW1 ([facility]) Results ID Date Data Source 91 08/18/2021 12:00:00 AM EDT [facility] Name Value Range Interpretation Code Description Data Bita rce(s) Supporting Document(s) SARS coronavirus 2 Ag NEGATIVE [facility] This lab was ordered by [facility] and reported by [facility]. ID Date Data Source 96 08/06/2021 12:00:00 AM EDT [facility] Name Value Range Interpretation Code Description Data Bita rce(s) Supporting Document(s) SARS coronavirus 2 Ag NEGATIVE [facility] This lab was ordered by [facility] and reported by [facility]. ID Date Data Source 97 07/23/2021 12:00:00 AM EDT [facility] Name Value Range Interpretation Code Description Data Bita rce(s) Supporting Document(s) SARS coronavirus 2 Ag NEGATIVE [facility] This lab was ordered by [facility] and reported by [facility]. ID Date Data Source 95 04/17/2021 12:00:00 AM EDT [facility] Name Value Range Interpretation Code Description Data Bita rce(s) Supporting Document(s) SARS coronavirus 2 Ag NEGATIVE [facility] This lab was ordered by [facility] and reported by [facility]. ID Date Data Source 99 04/03/2021 12:00:00 AM EDT [facility] Name Value Range Interpretation Code Description Data Bita rce(s) Supporting Document(s) SARS coronavirus 2 Ag NEGATIVE [facility] This lab was ordered by [facility] and reported by [facility]. ID Date Data Source 87 03/31/2021 12:00:00 AM EDT [facility] Name Value Range Interpretation Code Description Data Bita rce(s) Supporting Document(s) SARS coronavirus 2 Ag NEGATIVE [facility] This lab was ordered by [facility] and reported by [facility]. ID Date Data Source [id number] 03/27/2021 10:15:00 AM EDT [facility] Name Value Range Interpretation Code Description Data Bita rce(s) Supporting Document(s) SARS-CoV-2 (COVID-19) RNA [Presence] in Respiratory specimen by [facility] with probe detection Not Detected [facility] This lab was ordered by [facility] and reported by [facility]. ID Date Data Source [id number] 03/24/2021 12:00:00 AM EDT [facility] Name Value Range Interpretation Code Description Data Bita rce(s) Supporting Document(s) SARS coronavirus 2 Ag NEGATIVE [facility] This lab was ordered by [facility] and reported by [facility]. ID Date Data Source [id number] 03/11/2021 12:00:00 AM EDT [facility] Name Value Range Interpretation Code Description Data Bita rce(s) Supporting Document(s) SARS coronavirus 2 Ag NEGATIVE [facility] This lab was ordered by [facility] and reported by [facility]. ID Date Data Source [id number] 02/14/2021 12:00:00 PM EDT [facility] Name Value Range Interpretation Code Description Data Bita rce(s) Supporting Document(s) SARS-CoV-2 (COVID-19) RNA [Presence] in Respiratory specimen by [facility] with probe detection Not Detected [facility] This lab was ordered by [facility] and reported by [facility] [employer] [facility] ID Date Data Source [id number] 01/29/2021 12:00:00 PM EDT [facility] Name Value Range Interpretation Code Description Data Bita rce(s) Supporting Document(s) SARS coronavirus 2 RNA Not Detected [facility] This lab was ordered by [facility] and reported by [facility]. ID Date Data Source [id number] 01/22/2021 07:00:00 AM EST [facility] Name Value Range Interpretation Code Description Data Bita rce(s) Supporting Document(s) SARS coronavirus 2 RNA Not Detected [facility] This lab was ordered by [facility] and reported by [facility]. ID Date Data Source [id number] 01/08/2021 05:45:00 AM EST [facility] Name Value Range Interpretation Code Description Data Bita rce(s) Supporting Document(s) SARS coronavirus 2 RNA Not Detected [facility] This lab was ordered by [facility] and reported by [facility]. ID Date Data Source [id number] 01/01/2021 09:45:00 AM EST [facility] Name Value Range Interpretation Code Description Data Bita rce(s) Supporting Document(s) SARS coronavirus 2 RNA Not Detected [facility] This lab was ordered by [facility] and reported by [facility]. ID Date Data Source [id number] 12/25/2020 09:30:00 AM EST [facility] Name Value Range Interpretation Code Description Data Bita rce(s) Supporting Document(s) SARS coronavirus 2 RNA Not Detected [facility] This lab was ordered by [facility] and reported by [facility]. ID Date Data Source [id number] 12/18/2020 08:45:00 AM EST [facility] Name Value Range Interpretation Code Description Data Bita rce(s) Supporting Document(s) SARS coronavirus 2 RNA Not Detected [facility] This lab was ordered by [facility] and reported by [facility]. ID Date Data Source [id number] 12/11/2020 10:50:00 AM EST [facility] Name Value Range Interpretation Code Description Data Bita rce(s) Supporting Document(s) SARS coronavirus 2 RNA Not Detected [facility] This lab was ordered by [facility] and reported by [facility]. ID Date Data Source [id number] 12/04/2020 08:00:00 AM EST [facility] Name Value Range Interpretation Code Description Data Bita rce(s) Supporting Document(s) SARS coronavirus 2 RNA Not Detected [facility] This lab was ordered by [facility] and reported by [facility]. ID Date Data Source [id number] 11/27/2020 06:00:00 AM EST [facility] Name Value Range Interpretation Code Description Data Bita rce(s) Supporting Document(s) SARS coronavirus 2 RNA Not Detected [facility] This lab was ordered by [facility] and reported by [facility]. ID Date Data Source [id number] 11/20/2020 12:00:00 PM EST [facility] Name Value Range Interpretation Code Description Data Bita rce(s) Supporting Document(s) SARS coronavirus 2 RNA Not Detected [facility] This lab was ordered by [facility] and reported by [facility]. ID Date Data Source [id number] 11/13/2020 11:00:00 AM EST [facility] Name Value Range Interpretation Code Description Data Bita rce(s) Supporting Document(s) SARS coronavirus 2 RNA [facility] This lab was ordered by [facility] and reported by [facility]. ID Date Data Source [id number] 11/06/2020 11:00:00 AM EST [facility] Name Value Range Interpretation Code Description Data Bita rce(s) Supporting Document(s) SARS coronavirus 2 RNA [facility] This lab was ordered by [facility] and reported by [facility]. ID Date Data Source [id number] 10/30/2020 11:00:00 AM EST [facility] Name Value Range Interpretation Code Description Data Bita rce(s) Supporting Document(s) SARS coronavirus 2 RNA [facility] This lab was ordered by [facility] and reported by [facility]. ID Date Data Source [id number] 10/23/2020 11:00:00 AM EST [facility] Name Value Range Interpretation Code Description Data Bita rce(s) Supporting Document(s) SARS coronavirus 2 RNA [facility] This lab was ordered by [facility] and reported by [facility]. ID Date Data Source [id number] 10/16/2020 10:00:00 AM EST [facility] Name Value Range Interpretation Code Description Data Bita rce(s) Supporting Document(s) SARS coronavirus 2 RNA [facility] This lab was ordered by [facility] and reported by [facility]. ID Date Data Source [id number] 10/09/2020 09:00:00 AM EST [facility] Name Value Range Interpretation Code Description Data Bita rce(s) Supporting Document(s) SARS coronavirus 2 RNA [facility] This lab was ordered by [facility] and reported by [facility]. ID Date Data Source [id number] 10/02/2020 10:00:00 AM EST [facility] Name Value Range Interpretation Code Description Data Bita rce(s) Supporting Document(s) SARS coronavirus 2 RNA [facility] This lab was ordered by [facility] and reported by [facility]. ID Date Data Source [id number] 09/30/2020 09:50:00 AM EST [facility] Name Value Range Interpretation Code Description Data Bita rce(s) Supporting Document(s) SARS coronavirus 2 RNA [facility] This lab was ordered by [facility] and reported by [facility]. ID Date Data Source [id number] 09/26/2020 10:47:00 AM EST [facility] Name Value Range Interpretation Code Description Data Bita rce(s) Supporting Document(s) SARS coronavirus 2 RNA [facility] This lab was ordered by [facility] and reported by [facility]. Procedure Social History Code Duration Value Status Description Data Source(s ) Smoking 06/17/2021 09:41:20 AM EDT Never smoked tobacco (findi ng) completed Never smoked tobacco (finding) MAI (Denny Figueroa MD [facility]) Smoking 10/08/2020 11:11:37 AM EST Never smoked tobacco (findi ng) completed Never smoked tobacco (finding) MAI (Denny Figueroa MD [facility]) Vital Signs ID Date Data Source UNK Name Value Range Interpretation Code Description Data Source(s) Body surface area Derived from formula 2.43 m2 2.43 m2 [facility] ([facility]) Diastolic blood pressure 74 mm[Hg] 74 mm[Hg] [facility] Systolic blood pressure 122 mm[Hg] 122 mm[Hg] M [facility] ([facility]) Body weight 147.874 kg 147.874 kg [facility] ([facility]) Squires body weight 125 [lb_av] 125 [lb_av] [facility] T ([facility]) Body mass index (BMI) [Ratio] 54.2 kg/m2 54.2 k g/m2 [facility] ([facility]) Body weight 326.00 [lb_av] 326.00 [lb_av] [facility] Body height 65 [in_i] 65 [in_i] [facility] ([facility]) 5'5" Diastolic blood pressure 55 mm[Hg] 55 mm[Hg] eCW1 ([facility]) Body temperature 98.1 [degF] 98.1 [degF] eCW1 ( [facility]) Systolic blood pressure 114 mm[Hg] 114 mm[Hg] e CW1 ([facility]) Heart rate 69 /min 69 /min eCW1 ([facility]) Body mass index (BMI) [Ratio] 54.77 kg/m2 54.77 kg/m2 W1 ([facility]) Body height 66 [in_i] 66 [in_i] eCW1 ([facility]) Body weight 339.4 [lb_av] 339.4 [lb_av] eCW1 ([facility]) Respiratory rate 18 /min 18 /min eCW1 ([facility]) Diastolic blood pressure 83 mm[Hg] 83 mm[Hg] eCW1 ([facility]) Systolic blood pressure 160 mm[Hg] 160 mm[Hg] e CW1 ([facility]) Body temperature 97.6 [degF] 97.6 [degF] eCW1 ( [facility]) Respiratory rate 16 /min 16 /min eCW1 ([facility]) Heart rate 74 /min 74 /min eCW1 ([facility]) Body mass index (BMI) [Ratio] 54.77 kg/m2 54.77 kg/m2 eCW1 ([facility]) Body height 66 [in_i] 66 [in_i] eCW1 ([facility]) Body weight 339.4 [lb_av] 339.4 [lb_av] eCW1 ([facility]) ID Date Data Source [id number] 09/04/2021 03:43:00 AM EDT [facility] Name Value Range Interpretation Code Description Data Source(s) WEIGHT 136.07 kilos 136.07 kilos [facility] HEIGHT 172.72 centimeters 172.72 centimeter [facility]
[2021-09-04 20:46] LABS: VENOUS BASE EXCESS 6.9 (-2.0-2.0); VENOUS HCO3 31.2 MEQ/L (23.0-27.0); VENOUS O2 SATURATION 99.1 % (60.0-80.0); VENOUS PH 7.479 UNITS (7.330-7.430); VENOUS STANDARD HCO3 30.8 MEQ/L; VENOUS TOTAL CO2 32.6 MEQ/L (24.0-28.0)
[2021-09-04] MEDS ORDERED: PILL CUTTER 1 EACH XX PRN (20:50)
[2021-09-04] MEDS ORDERED: REMDESIVIR 200 MG in NS 250 ML IV ONE (22:00)
--- NOTE | 2021-09-04 22:55 | REPVR ---
PROCEDURE INFORMATION: Exam: US Duplex Lower Extremity Veins, Bilateral Exam date and time: 09/04/2021 10:20 PM Age: 71 years old Clinical indication: Pain; Leg, lower; Bilateral; Additional info: Rle swelling/ redness; Elevated ddimer TECHNIQUE: Imaging protocol: Real-time duplex ultrasound of the extremities with 2-D roche scale, color Doppler flow and spectral waveform analysis with image documentation. Complete exam focused on the bilateral lower extremity veins. COMPARISON: US Duplex, Ext,LOWER veins,unilat 07/12/2017 2:41 PM FINDINGS: Right deep veins: Unremarkable. The common femoral, femoral, proximal profunda femoral and popliteal veins are patent without thrombus. Normal Doppler waveforms. Normal compressibility and/or augmentation response. Right superficial veins: Saphenofemoral junction is patent without thrombus. Left deep veins: Unremarkable. The common femoral, femoral, proximal profunda femoral and popliteal veins are patent without thrombus. Normal Doppler waveforms. Normal compressibility and/or augmentation response. Left superficial veins: Saphenofemoral junction is patent without thrombus. Soft tissues: Soft tissue swelling. IMPRESSION: No evidence of deep vein thrombosis. Electronically signed by: Ashu Brooks On 09/04/2021 22:55:32 PM
[2021-09-04 23:00] VITALS: BP 160/98
--- NOTE | 2021-09-04 23:23 | HPEPDOC ---
General Date of Admission Sep 04, 2021 at 20:05 Date of Service: Sep 04, 2021 Chief Complaint The patient is a 71-year-old female admitted with a reason for visit of Acute Respiratory Failure Due To Covid-19. History of Present Illness Nela Hobbs is a 71-year-old female with significant medical history of dementia, obesity, hypertension, diabetes, cataracts, CVA, ALVIN and CKD who presents with reported worsening shortness of breath. Patient on 3 L nasal cannula at nursing facility for Covid; she was diagnosed on August 30 per chart review. Patient arrived on room air 86%. Her ABG shows compensation on 4 L nasal cannula. Patient is reporting she is "tired" and understandably given her history poor historian. She does quickly doze off between conversation. She is diminished and there may be component of hypoventilation given her body habitus. Additionally, she does have some redness and trace edema to the right lower extremity compared to the left. Uncertain if it is positional if she was lying with her right leg against the rail or if other underlying concern. Patient is oriented to self only which is her reported baseline. Per chart review she does have residual left-sided weakness from a CVA history. Pt presently denies any complaints. Patient has been on Lovenox subcu and Decadron and treatment for Covid per chart review. Chest x-ray actually shows some improvement in aeration. She does have some hyperglycemia 421 at admission. Other significant findings include leukocytosis and lactic acidosis as well as elevated creatinine 2.01 from lab review 1.4. Patient will be admitted for further evaluation management presenting concerns. Home Medications Scheduled Albuterol Sulfate (Ventolin Hfa) 18 Gm Hfa.aer.ad, 2 PUFF INH TID, (Reported) Aripiprazole (Abilify) 2 Mg Tablet, 2 MG PO QHS, (Reported) Aspirin (Aspirin) 81 Mg Tab.chew, 81 MG PO DAILY, (Reported) Atorvastatin Calcium (Atorvastatin Calcium) 40 Mg Tab, 40 MG PO 3XW, (Reported) IN THE EVENING WEDNESDAY, WEDNESDAY, WEDNESDAY Buspirone HCl (Buspirone HCl) 5 Mg Tab, 5 MG PO BID, (Reported) Calcitriol (Rocaltrol) 0.25 Mcg Capsule, 0.25 MCG PO DAILY, (Reported) Dexamethasone (Dexamethasone) 2 Mg Tablet, 6 MG PO QPM, (Reported) ENDS 09/11/21 Diltiazem Hcl (Cardizem) 60 Mg Tablet, 60 MG PO QID, (Reported) Dulaglutide (Trulicity) 1.5 Mg/0.5 Ml Pen.injctr, 1.5 MG SC QWEEK, (Reported) SATURDAYS Enoxaparin Sodium (Enoxaparin Sodium) 30 Mg/0.3 Ml Syringe, 30 MG SC QPM, (Reported) Ergocalciferol (Vitamin D2) (Vitamin D2) 50,000 Units Cap, 50,000 UNITS PO QMONTH, (Reported) ON 1ST DAY OF MONTH Furosemide (Furosemide) 40 Mg Tablet, 40 MG PO DAILY, (Reported) Gabapentin (Gabapentin) 100 Mg Capsule, 100 MG PO BID, (Reported) Glimepiride (Glimepiride) 2 Mg Tab, 2 MG PO DAILY, (Reported) Hydrocodone/Acetaminophen (Hydrocodone-Acetamin 5-325 mg) 1 Each Tablet, 1 TAB PO QID, (Reported) Melatonin (Melatonin) 5 Mg Tablet, 5 MG PO QHS, (Reported) Memantine HCl (Namenda) 5 Mg Tablet, 5 MG PO BID, (Reported) Polyvinyl Alcohol/Povidone (Artificial Tears Drops) 15 Ml Drops, 1 DROP OU QID, (Reported) 0600, 1200, 1600, 2000 Sertraline Hcl (Zoloft) 100 Mg Tablet, 150 MG PO DAILY, (Reported) [Interdry Mis 10] , 1 APPLIC TOP BID, (Reported) APPLIES BELOW BREASTS AND ABDOMINAL FOLDS Scheduled PRN Acetaminophen (Tylenol) 325 Mg Tablet, 650 MG PO Q4H PRN for PAIN / FEVER, (Reported) Acetaminophen (Acetaminophen) 650 Mg Supp.rect, 650 MG KY DAILY PRN for PAIN / FEVER, (Reported) Albuterol Sulf (Albuterol Sulfate) 2.5 Mg/3 Ml Nebu, 2.5 MG INH Q4H PRN for COUGH/CONGESTION/WHEEZING, (Reported) Bisacodyl (Dulcolax) 10 Mg Sup, 10 MG KY DAILY PRN for CONSTIPATION, (Reported) Dextrose (Glucose) 4 Gm Chw, 16 GM PO ASDIRECTED PRN for LOW BLOOD SUGAR, (Reported) FOR BLOOD GLUCOSE LESS THAN 60MG/DL Fluticasone Propionate (Fluticasone Propionate 0.005%) 15 Gm Oint...g., 1 DOSE EXT BID PRN for DERMATITIS, (Reported) USES ON LOWER BACK Glucagon,Human Recombinant (Glucagon Emergency Kit) 1 Mg Vial, 1 MG SC ASDIRECTED PRN for LOW BLOOD SUGAR, (Reported) FOR FSBS<60 AND UNCONCIOUS Hydrocodone/Acetaminophen (Hydrocodone-Acetamin 5-325 mg) 1 Each Tablet, 1 TAB PO Q3HP PRN for PAIN LEVEL 6-10, (Reported) Magnesium Hydroxide (Milk of Magnesia) 400 Mg/5 Ml Oral.susp, 30 ML PO DAILY PRN for CONSTIPATION, (Reported) Methyl Salicylate/Menthol (Bengay Greaseless Cream) 57 Gm Cream..g., 1 DOSE EXT QID PRN for BACK PAIN, (Reported) APPLY TO LOWER BACK Nitroglycerin (Nitrostat) 0.4 Mg Tab.subl, 0.4 MG SL NITRO PRN for CHEST PAIN, (Reported) Polyethylene Glycol 3350 (Miralax) 17 Gm Powd.pack, 17 GM PO DAILY PRN for CONSTIPATION, (Reported) Prochlorperazine (Prochlorperazine) 25 Mg Supp.rect, 25 MG KY Q12H PRN for NAUSEA OR VOMITING, (Reported) Sennosides/Docusate Sodium (Senna-S Tablet) 1 Tab Tab, 1 TAB PO DAILY PRN for CONSTIPATION, (Reported) Sodium Phosphate,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, aphasia, Alzheimer's, morbid obesity, hypertension, CKD, CHF, anemia, anxiety, ALVIN, chronic pain, secondary hyperparathyroidism, diabetes type 2, peripheral neuropathy, secondary hyperaldosteronism, hyperlipidemia, pseudobulbar affect, polyneuropathy, dry eye syndrome, angina, allergic rhinitis, GERD, SUSANA, depressive disorder, unspecified epilepsy, chronic constipation Surgical History Total knee replacement Family History Significant Family History: No pertinent family hx Social History * Smoker: Denies Alcohol: Denies Drugs: denies Recent Travel/Sick Contacts: Reports: Recent sick contacts (retirement) Psychosocial History: Depression Resides at long term, she is oriented to self at baseline and DNR/DNI A-FIB/CHADSVASC A-FIB History Current/History of A-Fib/PAF?: No Current PO Anticoag Therapy: No Review of Systems Other systems Unable to obtain Physical Examination General Exam: Positive: Cooperative, No Acute Distress Eye Exam: Positive: PERRLA, Conjunctiva & lids normal, EOMI; Negative: Sclera icteric ENT Exam: Positive: Atraumatic, Mucous membr. moist/pink, Pharynx Normal Neck Exam: Positive: Supple; Negative: JVD, thyromegaly Chest Exam: Positive: Diminished Heart Exam: Positive: Rate Normal, Regular Rhythm, Normal S1, Normal S2; Negative: Murmurs, Rubs Telemetry: Positive: No significant arrhythmia Abdomen Exam: Positive: Normal bowel sounds, Soft, Other (+ Body habitus); Negative: Tenderness, Hepatospenomegaly Extremity Exam: Positive: Edema (Right lower extremity), Normal pulses; Negative: Clubbing, Cyanosis, Tenderness Skin Exam: Positive: Other skin issue (Redness to right lower extremity la teral); Negative: Breakdown, Lesion Neuro Exam: Positive: Normal Speech Psych Exam: Positive: Mental status NL, Mood NL, Other (Oriented x1) Vital Signs Vital Signs Date Time Temp Pulse Resp B/P (MAP) Pulse Ox O2 Delivery O2 Flow Rate FiO2 09/04/21 21:46 156/97 (116) 09/04/21 21:31 99.2 86 92 Nasal Cannula 4.0 09/04/21 21:01 23 Laboratory Data Labs 24H Laboratory Tests 2 09/04/21 17:55: Anion Gap 5L, Glomerular Filtration Rate 25.9L, Calcium Level 9.8, Total Bilirubin 0.4, Direct Bilirubin < 0.1, Aspartate Amino Transf (AST/SGOT) 38H, Alanine Aminotransferase (ALT/SGPT) 110H, Alkaline Phosphatase 127H, Total Creatine Kinase 101, Creatine Kinase MB < 1.0, Creatine Kinase MB Relative Index 0.99, Troponin I < 0.02, EP-Flq-C-Type Natriuretic Peptide 1638H, Total Protein 6.9, Albumin 2.4L, Albumin/Globulin Ratio 0.5L, Thyroid Stimulating Hormone (TSH) 0.969 09/04/21 18:57: Immature Granulocyte % (Auto) 0.4, Neutrophils (%) (Auto) 81.0H, Lymphocytes (%) (Auto) 11.3L, Monocytes (%) (Auto) 7.2, Eosinophils (%) (Auto) 0.0, Basophils (%) (Auto) 0.1, Neutrophils # (Auto) 8.9H, Lymphocytes # (Auto) 1.2L, Monocytes # (Auto) 0.8, Eosinophils # (Auto) 0.0, Basophils # (Auto) 0.0, Nucleated Red Blood Cells % (auto) 0.0, Prothrombin Time 13.6, Prothromb Time International Ratio 1.00, Activated Partial Thromboplast Time 21.0L, D-Dimer, Quantitative 1519.80H, Lactic Acid Level 3.3*H, Procalcitonin 0.09 09/04/21 20:14: Blood Gas Bicarbonate Standard 30.8, Venous Blood pH 7.479H, Venous Blood Partial Pressure CO2 43.0, Venous Blood Partial Pressure O2 156.0H, Venous Blood Total Carbon Dioxide 32.6H, Venous Blood HCO3 31.2H, Venous Blood Oxygen Saturation 99.1H, Venous Blood Base Excess 6.9H 09/04/21 21:07: Bedside Glucose (Misc Panel) 398H 09/04/21 22:41: Bedside Glucose (Misc Panel) 382H CBC/BMP Laboratory Tests 09/04/21 17:55 09/04/21 18:57 Microbiology Microbiology 09/04/21 Blood Culture, Received Pending 09/04/21 Blood Culture, Received Pending Assessment/Plan 1. Acute respiratory failure secondary to Covid: In patient with morbid obesity and hypoventilation component. Patient does have a history of ALVIN and uses CPAP. -Monitor pt, respiratory status -Oxygen to keep SPO2 greater than 92% -Antitussives -Scheduled and as needed breathing treatments -Decadron 6mg IV Daily x10 days -Remdesivir bolus then daily x5 days -A.m. labs -If patient with elevated procalcitonin consider empiric coverage 2. Leukocytosis and lactic acidosis: In setting of Covid above and steroid use. Chest x-ray shows improvement. Check procalcitonin for empiric coverage. Patient was given some hydration in ED recheck lactic. Blood culture sent. Will check UA for consideration as patient is somewhat lethargic. Consider differential 3. KATHY on chronic kidney disease: -Monitor fluid balance, I's and O's, urinary output -At present we will not give patient further hydration, encourage p.o. intake -Avoid nephrotoxins as able -A.m. labs -Consider nephrology consult pending patient response 4. Diastolic heart failure: Without acute exacerbation -Last echo 2019 on file EF75% grade 1 diastolic dysfunction -Monitor fluid balance, I's and O's, urinary output -Patient does not appear grossly hypervolemic as noted below she has minimal edema could be dependent or component of body habitus given her BMI. -Plan for continuation of home medications. -Monitoring creatinine closely; A.m. labs 5. Diabetes mellitus. Check A1c. Monitor patient blood glucose ACHS. Sliding scale insulin and continue home long-acting. A.m. labs. 6. Right lower extremity edema: Per chart review patient with dependent edema at times. There is some localized redness nontender, not hot. Patient poor historian and unable to determine any history. There is no wound or area of induration. Patient as noted has leukocytosis and lactic acidosis. D-dimer is elevated in setting of Covid. She has been on Lovenox. Will check lower extremity ultrasound for concern of DVT possibly. Consider developing cellulitis and empiric coverage accordingly. 7. Obesity complicating care. 8. Obstructive sleep apnea: CPAP ordered per policy guidelines with Covid. DVT prophylaxis: Heparin subcu given patient creatinine CODE STATUS: DNR/DNI patient has MOLST form on chart with surrogate contact. Disposition planning: Return to [facility] once clinically stable. Plan / VTE VTE Prophylaxis Ordered?: Yes ALEXANDRIA VELOZ NP Sep 04, 2021 22:59
[2021-09-04] MEDS: RAMELTEON 8 MG TAB (ROZEREM) PO PRN (23:47)
[2021-09-04] MEDS: GABAPENTIN 100 MG CAP PO SCH (23:47)
[2021-09-04] MEDS: guaiFENesin ER 600 MG TAB PO SCH (23:47)
[2021-09-05] VITALS (8 sets, daily range): BP systolic 131–210; BP diastolic 78–150; O2SAT 94
[2021-09-05] MEDS ORDERED: SODIUM CHLORIDE 0.9% INJ 10 ML SYR IV ONE
[2021-09-05] MEDS: busPIRone 5 MG TAB PO SCH ×3 (00:30→20:50)
[2021-09-05] MEDS: ARIPiprazole 2 MG TAB PO SCH ×3 (00:30→20:50)
[2021-09-05] MEDS: MEMANTINE 5MG TABLET (NAMENDA) PO SCH ×3 (00:30→20:50)
[2021-09-05] MEDS: HumaLOG INSULIN (NovoLOG) PER UNIT SC SCH ×5 (00:39→20:51)
[2021-09-05] MEDS: COMBIVENT RESPIMAT 100-20MCG INHALER 4GM INH SCH ×4 (02:00→20:29)
[2021-09-05] MEDS: HEPARIN SOD (PORCINE) 5000UNITS/ML 1ML VIAL/SYRINGE SQ SCH ×3 (05:59→20:49)
[2021-09-05] MEDS ORDERED: **hydrALAZINE HCL** 25 MG TAB PO ONE (06:15)
[2021-09-05 07:26] LABS: ABG BASE EXCESS 4.1 (-2.0-2.0); ABG HCO3 28.2 MEQ/L (22.0-26.0); ABG PARTIAL PRESSURE CO2 40.4 mmHg (35.0-45.0); ABG PARTIAL PRESSURE O2 72.9 mmHg (75.0-100.0); ABG STANDARD HCO3 28.1 MEQ/L (22.0-26.0); ABG TOTAL CO2 29.5 MEQ/L (23.0-31.0); ABG pH (ARTERIAL) 7.462 UNITS (7.350-7.450)
[2021-09-05 07:32] LABS: BASO % 0.1 % (0.0-1.0); HEMATOCRIT 41.4 % (36.0-47.0); HEMOGLOBIN 13.1 g/dl (12.0-15.5); LYMPH # 0.8 10^3/uL (1.5-5.0); LYMPH % 9.6 % (24.0-44.0); MEAN CORPUSCULAR HEMOGLOBIN 28.7 pg (27.0-33.0); MEAN CORPUSCULAR HGB CONC 31.6 g/dl (32.0-36.5); MEAN CORPUSCULAR VOLUME 90.8 fl (80.0-96.0); MONO # 0.4 10^3/uL (0.0-0.8); MONO % 4.8 % (2.0-8.0); NEUTROPHILS # 7.4 10^3/uL (1.5-8.5); NEUTROPHILS % 84.7 % (36.0-66.0); PLATELET COUNT, AUTOMATED 239 10^3/uL (150-450); RED BLOOD COUNT 4.56 10^6/uL (4.00-5.40); WHITE BLOOD COUNT 8.7 10^3/uL (4.0-10.0)
[2021-09-05 07:52] LABS: CREATININE FOR GFR 1.66 MG/DL (0.55-1.30)
[2021-09-05 07:53] LABS: ALBUMIN 2.3 GM/DL (3.2-5.2); BILIRUBIN,DIRECT 0.2 MG/DL (0.0-0.2); BILIRUBIN,TOTAL 0.6 MG/DL (0.2-1.0); CALCIUM LEVEL 9.2 MG/DL (8.8-10.2); GLOMERULAR FILTRATION RATE 32.3 (>39); MAGNESIUM LEVEL 1.9 MG/DL (1.8-2.4); POTASSIUM SERUM 4.2 MEQ/L (3.5-5.1); TOTAL PROTEIN 6.9 GM/DL (6.4-8.2)
[2021-09-05 08:32] LABS: HEMATOCRIT 41.2 % (36.0-47.0); MEAN CORPUSCULAR HEMOGLOBIN 28.7 pg (27.0-33.0); MEAN CORPUSCULAR HGB CONC 31.6 g/dl (32.0-36.5); MEAN CORPUSCULAR VOLUME 90.9 fl (80.0-96.0); PLATELET COUNT, AUTOMATED 231 10^3/uL (150-450); RED BLOOD COUNT 4.53 10^6/uL (4.00-5.40); WHITE BLOOD COUNT 8.8 10^3/uL (4.0-10.0)
[2021-09-05 08:57] LABS: ALBUMIN 2.4 GM/DL (3.2-5.2); ALT/SGPT 91 U/L (12-78); BILIRUBIN,TOTAL 0.6 MG/DL (0.2-1.0); BLOOD UREA NITROGEN 59 MG/DL (7-18); CALCIUM LEVEL 9.2 MG/DL (8.8-10.2); CARBON DIOXIDE LEVEL 33 MEQ/L (21-32); CHLORIDE LEVEL 109 MEQ/L (98-107); CREATININE FOR GFR 1.57 MG/DL (0.55-1.30); GLOMERULAR FILTRATION RATE 34.5 (>39); GLUCOSE, FASTING 402 MG/DL (70-100); POTASSIUM SERUM 4.1 MEQ/L (3.5-5.1); SODIUM LEVEL 147 MEQ/L (136-145); TOTAL PROTEIN 6.8 GM/DL (6.4-8.2); TROPONIN I < 0.02 NG/ML (< 0.10)
[2021-09-05] MEDS ORDERED: dexameTHASONE 4 MG/ML 1ML VIAL (J1100 PER 1MG) IV SCH (09:00)
[2021-09-05] MEDS: ASPIRIN 81 MG CHEW TABLET PO SCH (09:10)
[2021-09-05] MEDS: FUROSEMIDE 40 MG TAB PO SCH (09:10)
[2021-09-05] MEDS: guaiFENesin ER 600 MG TAB PO SCH (09:10)
[2021-09-05] MEDS: CALCITRIOL 0.25 MCG CAP (S0169) PO SCH (09:10)
[2021-09-05] MEDS: GABAPENTIN 100 MG CAP PO SCH ×2 (09:10→20:50)
[2021-09-05] MEDS: SERTRALINE 100 MG TAB PO SCH (09:10)
[2021-09-05] MEDS: NYSTATIN 100,000 UNITS/GM TOPICAL PWD 15 GM TOP SCH ×2 (09:11→20:51)
--- NOTE | 2021-09-05 10:40 | REPVR ---
PROCEDURE INFORMATION: Exam: CT Head Without Contrast Exam date and time: 09/05/2021 10:24 AM Age: 71 years old Clinical indication: Altered mental status/memory loss; Additional info: AMS TECHNIQUE: Imaging protocol: Computed tomography of the head without contrast. Radiation optimization: All CT scans at this facility use at least one of these dose optimization techniques: automated exposure control; mA and/or kV adjustment per patient size (includes targeted exams where dose is matched to clinical indication); or iterative reconstruction. COMPARISON: CT Head without contrast 01/19/2020 4:34 PM FINDINGS: Brain: There is no acute intracranial abnormality. Moderate small vessel ischemic changes are seen. There is no mass, midline shift, or mass effect. De Jesus-white matter differentiation is preserved. There is no evidence of hemorrhage. There is no extra-axial fluid collection. Basal cisterns are patent. Old lacunar infarct in bilateral basal ganglia, left greater than right. Cerebral ventricles: Moderate prominence of ventricles and sulci representing volume loss. Paranasal sinuses: Moderate opacification of the ethmoidal air cells and small fluid in bilateral sphenoid sinuses: Mild mucosal thickening of the left maxillary sinus. Mastoid air cells: Visualized mastoid air cells are well aerated. Bones/joints: Unremarkable. No acute fracture. Soft tissues: Unremarkable. IMPRESSION: 1. Moderate volume loss and small vessel ischemic changes.Old lacunar infarct in bilateral basal ganglia, left greater than right. 2. No acute intracranial abnormality. 3. Moderate opacification of the ethmoidal air cells and small fluid in bilateral sphenoid sinuses: Mild mucosal thickening of the left maxillary sinus. Electronically signed by: Merline Spangler On 09/05/2021 10:40:37 AM
[2021-09-05] MEDS ORDERED: ENOXAPARIN 30MG/0.3ML SYRINGE (J1650 PER 10MG) SC SCH (18:00)
[2021-09-05] MEDS: DOXYCYCLINE HYCLATE 100 MG in D5W MINI-BAG PLUS 100 ML IV SCH (18:19)
[2021-09-05] MEDS: ATORVASTATIN 20 MG TAB PO SCH (18:20)
--- NOTE | 2021-09-05 19:02 | IPNPDOC ---
Subjective Date Seen The patient was seen on 09/05/21. Subjective Chief Complaint/HPI Mrs. Hobbs is a 71 year old female with dementia, obesity, DM and ALVIN who is here for acute hypoxic respiratory failure secondary to Covid pneumonia. Earlier this morning, rapid was called due to altered mental status. Patient was as responsive. Patient's systolic blood pressure has gone above 200. Blood glucose was over 300. Auscultation of lungs was diminished. Heart was regular rate and rhythm. Patient woke up more and was verbally responsive. Denied any chest pain or dyspnea. Objective Physical Examination General Exam: Positive: Alert, Cooperative Eye Exam: Negative: Sclera icteric Neck Exam: Positive: Supple Chest Exam: Positive: Diminished Heart Exam: Positive: Rate Normal, Regular Rhythm Abdomen Exam: Positive: Normal bowel sounds, Soft; Negative: Tenderness Neuro Exam: Positive: Normal Speech Psych Exam: Negative: Memory Intact Assessment /Plan Assessment Mrs. Hobbs is a 71 year old female with dementia, obesity, DM and ALVIN who is here for acute hypoxic respiratory failure secondary to Covid pneumonia. Procalcitonin was low at 0.09. CT of the head demonstrated sinusitis. Will start patient on doxycycline. Otherwise, patient will be on remdesivir and dexamethasone. Plan/VTE VTE Prophylaxis Ordered?: Yes Plan 1. Covid pneumonia Continue supplemental oxygen as needed Remdesivir and dexamethasone Doxycycline day 1 2. Sinusitis Doxycycline day 1 3. Mild kidney injury in the setting of CKD Baseline creatinine around 1.4-1.5 Creatinine on admission was 2 Possibly secondary to hypoxia Supportive care 4. Diastolic heart failure Stable Echo in 2019 demonstrated EF 75% with grade 1 diastolic dysfunction Continue furosemide 5. Diabetes mellitus Sliding scale insulin Consistent carbohydrate 6. ALVIN Okay for nocturnal oxygen 7. Dyslipidemia Continue atorvastatin 8. DVT prophylaxis Due to renal dysfunction, patient will be on heparin Disposition: Pending clinical improvement VS, I&O, 24H, [facility] Vital Signs/I&O Vital Signs Date Time Temp Pulse Resp B/P (MAP) Pulse Ox O2 Delivery O2 Flow Rate FiO2 09/05/21 18:20 92 131/97 09/05/21 18:18 22 94 Nasal Cannula 3.0 09/05/21 14:00 97.0 I&O- Last 24 Hours up to 6 AM 09/05/21 06:00 Intake Total 720 ml Balance 720 ml Laboratory Data 24H LABS Laboratory Tests 2 09/04/21 18:57: Immature Granulocyte % (Auto) 0.4, Neutrophils (%) (Auto) 81.0H, Lymphocytes (%) (Auto) 11.3L, Monocytes (%) (Auto) 7.2, Eosinophils (%) (Auto) 0.0, Basophils (%) (Auto) 0.1, Neutrophils # (Auto) 8.9H, Lymphocytes # (Auto) 1.2L, Monocytes # (Auto) 0.8, Eosinophils # (Auto) 0.0, Basophils # (Auto) 0.0, Nucleated Red Blood Cells % (auto) 0.0, Prothrombin Time 13.6, Prothromb Time International Ratio 1.00, Activated Partial Thromboplast Time 21.0L, D-Dimer, Quantitative 1519.80H, Lactic Acid Level 3.3*H, Procalcitonin 0.09 09/04/21 20:14: Blood Gas Bicarbonate Standard 30.8, Venous Blood pH 7.479H, Venous Blood Partial Pressure CO2 43.0, Venous Blood Partial Pressure O2 156.0H, Venous Blood Total Carbon Dioxide 32.6H, Venous Blood HCO3 31.2H, Venous Blood Oxygen Saturation 99.1H, Venous Blood Base Excess 6.9H 09/04/21 21:07: Bedside Glucose (Misc Panel) 398H 09/04/21 22:41: Bedside Glucose (Misc Panel) 382H 09/04/21 23:47: Lactic Acid Followup at 4 Hours 1.4 09/05/21 00:36: Bedside Glucose (Misc Panel) 401H 09/05/21 06:37: Immature Granulocyte % (Auto) 0.8, Neutrophils (%) (Auto) 84.7H, Lymphocytes (%) (Auto) 9.6L, Monocytes (%) (Auto) 4.8, Eosinophils (%) (Auto) 0.0, Basophils (%) (Auto) 0.1, Neutrophils # (Auto) 7.4, Lymphocytes # (Auto) 0.8L, Monocytes # (Auto) 0.4, Eosinophils # (Auto) 0.0, Basophils # (Auto) 0.0, Nucleated Red Blood Cells % (auto) 0.0, Anion Gap 7L, Glomerular Filtration Rate 32.3L, Calcium Level 9.2, Magnesium Level 1.9, Total Bilirubin 0.6, Direct Bilirubin 0.2, Aspartate Amino Transf (AST/SGOT) 21, Alanine Aminotransferase (ALT/SGPT) 97H, Alkaline Phosphatase 130H, Total Protein 6.9, Albumin 2.3L, Albumin/Globulin Ratio 0.5L 09/05/21 07:10: Bedside Glucose (Misc Panel) 389H 09/05/21 07:21: Blood Gas Bicarbonate Standard 28.1H, Arterial Blood pH 7.462H, Arterial Blood Partial Pressure CO2 40.4, Arterial Blood Partial Pressure O2 72.9L, Arterial Blood Total CO2 29.5, Arterial Blood HCO3 28.2H, Arterial Blood Base Excess 4.1H, Arterial Blood Oxygen Saturation 95.0 09/05/21 07:33: Nucleated Red Blood Cells % (auto) 0.0, Anion Gap 5L, Glomerular Filtration Rate 34.5L, Calcium Level 9.2, Total Bilirubin 0.6, Aspartate Amino Transf (AST/SGOT) 20, Alanine Aminotransferase (ALT/SGPT) 91H, Alkaline Phosphatase 127H, Ammonia 44H, Troponin I < 0.02, Total Protein 6.8, Albumin 2.4L, Albumin/Globulin Ratio 0.5L 09/05/21 11:43: Bedside Glucose (Misc Panel) 376H 09/05/21 17:09: Bedside Glucose (Misc Panel) 260H CBC/BMP Laboratory Tests 09/04/21 18:57 09/05/21 06:37 09/05/21 07:33 Microbiology Microbiology 09/04/21 Blood Culture, Received Pending 09/04/21 Blood Culture, Received Pending LISA LUNDBERG DO Sep 05, 2021 19:02
[2021-09-05] MEDS ORDERED: REMDESIVIR 100 MG in NS 250 ML IV SCH (22:00)
[2021-09-05] MEDS ORDERED: SODIUM CHLORIDE 0.9% INJ 10 ML SYR IV SCH (23:00)
[2021-09-06] MEDS: COMBIVENT RESPIMAT 100-20MCG INHALER 4GM INH SCH ×4 (01:56→18:30)
[2021-09-06 06:00] VITALS: BP 168/94
[2021-09-06] MEDS: DOXYCYCLINE HYCLATE 100 MG in D5W MINI-BAG PLUS 100 ML IV SCH (06:00)
[2021-09-06] MEDS: HEPARIN SOD (PORCINE) 5000UNITS/ML 1ML VIAL/SYRINGE SQ SCH ×3 (06:04→20:33)
[2021-09-06] MEDS ORDERED: DOXYCYCLINE HYCLATE 100MG TABLET PO ONE (06:30)
[2021-09-06 07:47] VITALS: BP 162/94
[2021-09-06 07:54] LABS: BASO % 0.2 % (0.0-1.0); EOS % 0.3 % (0.0-3.0); HEMATOCRIT 40.8 % (36.0-47.0); LYMPH # 1.3 10^3/uL (1.5-5.0); LYMPH % 11.4 % (24.0-44.0); MEAN CORPUSCULAR HEMOGLOBIN 28.6 pg (27.0-33.0); MEAN CORPUSCULAR HGB CONC 31.9 g/dl (32.0-36.5); MEAN CORPUSCULAR VOLUME 89.9 fl (80.0-96.0); MONO # 0.5 10^3/uL (0.0-0.8); MONO % 4.6 % (2.0-8.0); NEUTROPHILS # 9.3 10^3/uL (1.5-8.5); NEUTROPHILS % 81.8 % (36.0-66.0); PLATELET COUNT, AUTOMATED 238 10^3/uL (150-450); RED BLOOD COUNT 4.54 10^6/uL (4.00-5.40); WHITE BLOOD COUNT 11.3 10^3/uL (4.0-10.0)
[2021-09-06 08:09] LABS: INR 1.07; PROTHROMBIN TIME 14.3 SECONDS (12.7-14.5)
[2021-09-06 08:29] LABS: ALBUMIN 2.3 GM/DL (3.2-5.2); ALT/SGPT 69 U/L (12-78); BILIRUBIN,DIRECT 0.2 MG/DL (0.0-0.2); BILIRUBIN,TOTAL 0.7 MG/DL (0.2-1.0); BLOOD UREA NITROGEN 54 MG/DL (7-18); CALCIUM LEVEL 9.3 MG/DL (8.8-10.2); CARBON DIOXIDE LEVEL 31 MEQ/L (21-32); CHLORIDE LEVEL 106 MEQ/L (98-107); CPK CREATINE PHOSPHOKINASE 181 U/L (26-192); CREATININE FOR GFR 1.48 MG/DL (0.55-1.30); FERRITIN 220 NG/ML (8-252); GLOMERULAR FILTRATION RATE 36.9 (>39); GLUCOSE, FASTING 361 MG/DL (70-100); LDH LACTATE DEHYDROGENASE 222 U/L (84-246); MAGNESIUM LEVEL 1.6 MG/DL (1.8-2.4); NT-PRO BNP 666 PG/ML (<125); POTASSIUM SERUM 3.3 MEQ/L (3.5-5.1); SODIUM LEVEL 147 MEQ/L (136-145); TOTAL PROTEIN 6.6 GM/DL (6.4-8.2); TROPONIN I < 0.02 NG/ML (< 0.10)
[2021-09-06] MEDS ORDERED: DOXYCYCLINE HYCLATE 100MG TABLET PO SCH (09:00)
[2021-09-06] MEDS: busPIRone 5 MG TAB PO SCH ×2 (11:02→20:34)
[2021-09-06] MEDS: ASPIRIN 81 MG CHEW TABLET PO SCH (11:02)
[2021-09-06] MEDS: DOXYCYCLINE HYCLATE 100MG TABLET PO SCH ×2 (11:02→20:34)
[2021-09-06] MEDS: FUROSEMIDE 40 MG TAB PO SCH (11:02)
[2021-09-06] MEDS: HumaLOG INSULIN (NovoLOG) PER UNIT SC SCH ×4 (11:02→20:34)
[2021-09-06] MEDS: SERTRALINE 100 MG TAB PO SCH (11:04)
[2021-09-06] MEDS: GABAPENTIN 100 MG CAP PO SCH ×2 (11:04→20:34)
[2021-09-06] MEDS: MEMANTINE 5MG TABLET (NAMENDA) PO SCH ×2 (11:04→20:34)
[2021-09-06] MEDS: CALCITRIOL 0.25 MCG CAP (S0169) PO SCH (11:05)
[2021-09-06] MEDS: NYSTATIN 100,000 UNITS/GM TOPICAL PWD 15 GM TOP SCH ×2 (11:05→20:35)
[2021-09-06 14:00] VITALS: BP 164/75
--- NOTE | 2021-09-06 19:56 | IPNPDOC ---
Subjective Date Seen The patient was seen on 09/06/21. Subjective Chief Complaint/HPI Mrs. Hobbs is a 71 year old female with dementia, obesity, DM and ALVIN who is here for acute hypoxic respiratory failure secondary to Covid pneumonia. Patient has dementia and she keeps pulling at her lines and leads. Unable to save peripheral line. Switching antibiotics and steroids to oral. Otherwise, she denies any chest pain or dyspnea Objective Physical Examination General Exam: Positive: Alert, Cooperative Eye Exam: Negative: Sclera icteric Neck Exam: Positive: Supple Chest Exam: Positive: Diminished Heart Exam: Positive: Rate Normal, Regular Rhythm Abdomen Exam: Positive: Normal bowel sounds, Soft; Negative: Tenderness Neuro Exam: Positive: Normal Speech Psych Exam: Negative: Memory Intact Assessment /Plan Assessment Mrs. Hobbs is a 71 year old female with dementia, obesity, DM and ALVIN who is here for acute hypoxic respiratory failure secondary to Covid pneumonia. Procalcitonin was low at 0.09. CT of the head demonstrated sinusitis. Will start patient on doxycycline. Otherwise, patient will be on dexamethasone. Unable to do remdesivir as she keeps pulling at her peripheral line. Plan/VTE VTE Prophylaxis Ordered?: Yes Plan 1. Covid pneumonia Continue supplemental oxygen as needed Dexamethasone Doxycycline day 2 2. Sinusitis Doxycycline day 2 3. Mild kidney injury in the setting of CKD Baseline creatinine around 1.4-1.5 Creatinine on admission was 2 Possibly secondary to hypoxia Supportive care 4. Diastolic heart failure Stable Echo in 2019 demonstrated EF 75% with grade 1 diastolic dysfunction Continue furosemide 5. Diabetes mellitus Sliding scale insulin Consistent carbohydrate 6. ALVIN Okay for nocturnal oxygen 7. Dyslipidemia Continue atorvastatin 8. DVT prophylaxis Due to renal dysfunction, patient will be on heparin Disposition: Pending clinical improvement VS, I&O, 24H, [facility] Vital Signs/I&O Vital Signs Date Time Temp Pulse Resp B/P (MAP) Pulse Ox O2 Delivery O2 Flow Rate FiO2 09/06/21 17:17 76 125/73 09/06/21 14:00 99.6 23 92 Nasal Cannula 3.0 I&O- Last 24 Hours up to 6 AM 09/06/21 06:00 Intake Total 1010 ml Output Total 400 ml Balance 610 ml Laboratory Data 24H LABS Laboratory Tests 2 09/05/21 20:25: Bedside Glucose (Misc Panel) 271H 09/06/21 07:41: Immature Granulocyte % (Auto) 1.7, Neutrophils (%) (Auto) 81.8H, Lymphocytes (%) (Auto) 11.4L, Monocytes (%) (Auto) 4.6, Eosinophils (%) (Auto) 0.3, Basophils (%) (Auto) 0.2, Neutrophils # (Auto) 9.3H, Lymphocytes # (Auto) 1.3L, Monocytes # (Auto) 0.5, Eosinophils # (Auto) 0.0, Basophils # (Auto) 0.0, Nucleated Red Blood Cells % (auto) 0.0, Prothrombin Time 14.3H, Prothromb Time International Ratio 1.07, Activated Partial Thromboplast Time 22.0L, Fibrinogen 690H, Anion Gap 10, Glomerular Filtration Rate 36.9L, Calcium Level 9.3, Magnesium Level 1.6L, Ferritin 220, Total Bilirubin 0.7, Direct Bilirubin 0.2, Aspartate Amino Transf (AST/SGOT) 21, Alanine Aminotransferase (ALT/SGPT) 69, Alkaline Phosphatase 117, Lactate Dehydrogenase 222, Total Creatine Kinase 181#, Troponin I < 0.02, [id number]-Type Natriuretic Peptide 666H, Total Protein 6.6, Albumin 2.3L, Albumin/Globulin Ratio 0.5L, Procalcitonin 0.09 09/06/21 07:42: Bedside Glucose (Misc Panel) 349H 09/06/21 11:46: Bedside Glucose (Misc Panel) 428H 09/06/21 16:45: Bedside Glucose (Misc Panel) 318H 09/06/21 19:34: Bedside Glucose (Misc Panel) 305H CBC/BMP Laboratory Tests 09/06/21 07:41 Microbiology Microbiology 09/04/21 Blood Culture - Preliminary, Resulted No Growth after 48 hours. All Specime... 09/04/21 Blood Culture - Preliminary, Resulted No Growth after 48 hours. All Specime... LISA LUNDBERG DO Sep 06, 2021 19:56
[2021-09-06] MEDS: LEVEMIR (INSULIN DETEMIR) 1 UNITS/0.01ML SC SCH (20:34)
[2021-09-06] MEDS: ARIPiprazole 2 MG TAB PO SCH (20:34)
[2021-09-06 22:00] VITALS: BP 140/73
[2021-09-07] MEDS: COMBIVENT RESPIMAT 100-20MCG INHALER 4GM INH SCH ×4 (02:00→22:35)
[2021-09-07 05:26] VITALS: BP 156/90
[2021-09-07] MEDS: HEPARIN SOD (PORCINE) 5000UNITS/ML 1ML VIAL/SYRINGE SQ SCH ×3 (06:14→22:39)
[2021-09-07 07:16] LABS: HEMATOCRIT 40.6 % (36.0-47.0); HEMOGLOBIN 12.8 g/dl (12.0-15.5); MEAN CORPUSCULAR HEMOGLOBIN 28.2 pg (27.0-33.0); MEAN CORPUSCULAR HGB CONC 31.5 g/dl (32.0-36.5); MEAN CORPUSCULAR VOLUME 89.4 fl (80.0-96.0); PLATELET COUNT, AUTOMATED 247 10^3/uL (150-450); RED BLOOD COUNT 4.54 10^6/uL (4.00-5.40); WHITE BLOOD COUNT 9.7 10^3/uL (4.0-10.0)
[2021-09-07 07:31] LABS: CALCIUM LEVEL 8.8 MG/DL (8.8-10.2); CREATININE FOR GFR 1.63 MG/DL (0.55-1.30); MAGNESIUM LEVEL 1.7 MG/DL (1.8-2.4); POTASSIUM SERUM 3.4 MEQ/L (3.5-5.1)
[2021-09-07 08:22] LABS: ATYPICAL LYMPH 1 % (0-5); HYPOCHROMASIA 1+; LYMPHOCYTES 9 % (16-44); MONOCYTES 2 % (0-5); MYELOCYTES 1 % (0-0); NEUTROPHILS 83 % (28-66); PLATELET CLUMPS SMALL AMT; PLATELET ESTIMATE NORMAL (NORMAL)
[2021-09-07] MEDS: HumaLOG INSULIN (NovoLOG) PER UNIT SC SCH ×4 (08:25→22:39)
[2021-09-07] MEDS: MEMANTINE 5MG TABLET (NAMENDA) PO SCH ×2 (08:25→22:36)
[2021-09-07] MEDS: GABAPENTIN 100 MG CAP PO SCH ×2 (08:25→22:38)
[2021-09-07] MEDS: ASPIRIN 81 MG CHEW TABLET PO SCH (08:26)
[2021-09-07] MEDS: CALCITRIOL 0.25 MCG CAP (S0169) PO SCH (08:26)
[2021-09-07] MEDS: busPIRone 5 MG TAB PO SCH ×2 (08:26→22:38)
[2021-09-07] MEDS: FUROSEMIDE 40 MG TAB PO SCH (08:26)
[2021-09-07] MEDS: DOXYCYCLINE HYCLATE 100MG TABLET PO SCH ×2 (08:27→22:38)
[2021-09-07] MEDS: NYSTATIN 100,000 UNITS/GM TOPICAL PWD 15 GM TOP SCH ×2 (08:27→22:40)
[2021-09-07] MEDS: SERTRALINE 100 MG TAB PO SCH (08:27)
[2021-09-07 15:00] VITALS: BP 154/73
--- NOTE | 2021-09-07 15:35 | IPNPDOC ---
Subjective Date Seen The patient was seen on 09/07/21. Subjective Chief Complaint/HPI Mrs. Hobbs is a 71 year old female with dementia, obesity, DM and ALVIN who is here for acute hypoxic respiratory failure secondary to Covid pneumonia. This morning, she denied any chest pain or dyspnea. Objective Physical Examination General Exam: Positive: Alert, Cooperative Eye Exam: Negative: Sclera icteric Neck Exam: Positive: Supple Chest Exam: Positive: Diminished Heart Exam: Positive: Rate Normal, Regular Rhythm Abdomen Exam: Positive: Normal bowel sounds, Soft; Negative: Tenderness Neuro Exam: Positive: Normal Speech Psych Exam: Negative: Memory Intact Assessment /Plan Assessment Mrs. Hobbs is a 71 year old female with dementia, obesity, DM and ALVIN who is here for acute hypoxic respiratory failure secondary to Covid pneumonia. Procalcitonin was low at 0.09. CT of the head demonstrated sinusitis. Will start patient on doxycycline. Otherwise, patient will be on dexamethasone. Unable to do remdesivir as she keeps pulling out her peripheral line. Plan/VTE VTE Prophylaxis Ordered?: Yes Plan 1. Covid pneumonia Continue supplemental oxygen as needed Dexamethasone Doxycycline day 3 2. Sinusitis Doxycycline day 3 3. Mild kidney injury in the setting of CKD Baseline creatinine around 1.4-1.5 Creatinine on admission was 2 Possibly secondary to hypoxia Supportive care 4. Diastolic heart failure Stable Echo in 2019 demonstrated EF 75% with grade 1 diastolic dysfunction Hold furosemide. We will see how her renal function changes. 5. Diabetes mellitus Sliding scale insulin Consistent carbohydrate 6. ALVIN Okay for nocturnal oxygen 7. Dyslipidemia Continue atorvastatin 8. DVT prophylaxis Due to renal dysfunction, patient will be on heparin Disposition: Pending clinical improvement VS, I&O, 24H, [facility] Vital Signs/I&O Vital Signs Date Time Temp Pulse Resp B/P (MAP) Pulse Ox O2 Delivery O2 Flow Rate FiO2 09/07/21 10:00 3.0 09/07/21 05:26 96.6 83 20 156/90 (112) 93 Nasal Cannula I&O- Last 24 Hours up to 6 AM 09/07/21 06:00 Intake Total 1140 ml Output Total 900 ml Balance 240 ml Laboratory Data 24H LABS Laboratory Tests 2 09/06/21 16:45: Bedside Glucose (Misc Panel) 318H 09/06/21 19:34: Bedside Glucose (Misc Panel) 305H 09/07/21 05:18: Bedside Glucose (Misc Panel) 383H 09/07/21 06:48: Neutrophils (%) (Auto) , Nucleated Red Blood Cells % (auto) 0.0, Neutrophils 83H, Band Neutrophils 4, Lymphocytes (Manual) 9L, Monocytes (Manual) 2, Myelocytes 1H, Atypical Lymphocytes 1, Hypochromasia 1+, Platelet Estimate NORMAL, Clumped Platelets SMALL AMT, Anion Gap 8, Glomerular Filtration Rate 33.0L, Calcium Level 8.8, Magnesium Level 1.7L 09/07/21 12:56: Bedside Glucose (Misc Panel) 422H CBC/BMP Laboratory Tests 09/07/21 06:48 Microbiology Microbiology 09/04/21 Blood Culture - Preliminary, Resulted No Growth after 48 hours. All Specime... 09/04/21 Blood Culture - Preliminary, Resulted No Growth after 48 hours. All Specime... LISA LUNDBERG DO Sep 07, 2021 15:35
[2021-09-07 20:00] VITALS: BP 144/83
[2021-09-07] MEDS: RAMELTEON 8 MG TAB (ROZEREM) PO PRN (22:38)
[2021-09-07] MEDS: ARIPiprazole 2 MG TAB PO SCH (22:38)
[2021-09-07] MEDS: LEVEMIR (INSULIN DETEMIR) 1 UNITS/0.01ML SC SCH (22:39)
[2021-09-08] MEDS: COMBIVENT RESPIMAT 100-20MCG INHALER 4GM INH SCH ×4 (02:55→20:10)
[2021-09-08 04:00] VITALS: BP 130/59
[2021-09-08] MEDS: HEPARIN SOD (PORCINE) 5000UNITS/ML 1ML VIAL/SYRINGE SQ SCH ×3 (05:24→20:19)
[2021-09-08 07:33] LABS: HEMATOCRIT 39.5 % (36.0-47.0); HEMOGLOBIN 12.8 g/dl (12.0-15.5); MEAN CORPUSCULAR HEMOGLOBIN 28.6 pg (27.0-33.0); MEAN CORPUSCULAR HGB CONC 32.4 g/dl (32.0-36.5); MEAN CORPUSCULAR VOLUME 88.4 fl (80.0-96.0); PLATELET COUNT, AUTOMATED 287 10^3/uL (150-450); RED BLOOD COUNT 4.47 10^6/uL (4.00-5.40); WHITE BLOOD COUNT 10.8 10^3/uL (4.0-10.0)
[2021-09-08 07:45] LABS: INR 1.08; PROTHROMBIN TIME 14.4 SECONDS (12.7-14.5)
[2021-09-08 07:46] LABS: PARTIAL THROMBOPLASTIN TIME 26.5 SECONDS (25.9-37.0)
[2021-09-08 08:03] LABS: ALBUMIN 2.1 GM/DL (3.2-5.2); ALT/SGPT 47 U/L (12-78); BILIRUBIN,DIRECT 0.1 MG/DL (0.0-0.2); BILIRUBIN,TOTAL 0.5 MG/DL (0.2-1.0); BLOOD UREA NITROGEN 65 MG/DL (7-18); C REACTIVE PROTEIN QUANTITATIV 5.08 MG/DL (0.00-0.30); CALCIUM LEVEL 9.2 MG/DL (8.8-10.2); CARBON DIOXIDE LEVEL 31 MEQ/L (21-32); CHLORIDE LEVEL 104 MEQ/L (98-107); CPK CREATINE PHOSPHOKINASE 75 U/L (26-192); FERRITIN 253 NG/ML (8-252); GLOMERULAR FILTRATION RATE 29.4 (>39); GLUCOSE, FASTING 411 MG/DL (70-100); LDH LACTATE DEHYDROGENASE 203 U/L (84-246); MAGNESIUM LEVEL 1.6 MG/DL (1.8-2.4); NT-PRO BNP 898 PG/ML (<125); POTASSIUM SERUM 3.1 MEQ/L (3.5-5.1); SODIUM LEVEL 142 MEQ/L (136-145); TOTAL PROTEIN 6.7 GM/DL (6.4-8.2); TROPONIN I < 0.02 NG/ML (< 0.10)
[2021-09-08] MEDS: HumaLOG INSULIN (NovoLOG) PER UNIT SC SCH ×4 (08:17→20:20)
[2021-09-08] MEDS: CALCITRIOL 0.25 MCG CAP (S0169) PO SCH (08:17)
[2021-09-08] MEDS: DOXYCYCLINE HYCLATE 100MG TABLET PO SCH ×2 (08:17→20:21)
[2021-09-08] MEDS: SERTRALINE 100 MG TAB PO SCH (08:18)
[2021-09-08] MEDS: GABAPENTIN 100 MG CAP PO SCH ×2 (08:18→20:20)
[2021-09-08] MEDS: ASPIRIN 81 MG CHEW TABLET PO SCH (08:18)
[2021-09-08] MEDS: busPIRone 5 MG TAB PO SCH ×2 (08:18→20:21)
[2021-09-08] MEDS: MEMANTINE 5MG TABLET (NAMENDA) PO SCH ×2 (08:18→20:21)
[2021-09-08] MEDS: NYSTATIN 100,000 UNITS/GM TOPICAL PWD 15 GM TOP SCH ×2 (08:19→20:22)
[2021-09-08 08:30] VITALS: O2SAT 91
[2021-09-08 08:37] LABS: ATYPICAL LYMPH 3 % (0-5); LYMPHOCYTES 7 % (16-44); MONOCYTES 7 % (0-5); NEUTROPHILS 83 % (28-66)
[2021-09-08 08:38] LABS: PLATELET ESTIMATE NORMAL (NORMAL)
[2021-09-08 09:21] LABS: ERYTHROCYTE SEDIMENTATION RATE 73 mm/hr (0-30)
[2021-09-08] MEDS ORDERED: POTASSIUM CHLORIDE 10MEQ SR TABLET PO ONE (12:40)
[2021-09-08] MEDS: MAGNESIUM OXIDE 400MG TAB (MAG-OX) PO SCH (13:27)
[2021-09-08] MEDS: ATORVASTATIN 20 MG TAB PO SCH (16:33)
[2021-09-08 18:00] VITALS: BP 130/76
[2021-09-08 20:00] VITALS: BP 126/71
[2021-09-08] MEDS: LEVEMIR (INSULIN DETEMIR) 1 UNITS/0.01ML SC SCH (20:19)
[2021-09-08] MEDS: ARIPiprazole 2 MG TAB PO SCH (20:20)
--- NOTE | 2021-09-08 20:35 | IPNPDOC ---
Subjective Date Seen The patient was seen on 09/08/21. Subjective Chief Complaint/HPI Mrs. Hobbs is a 71 year old female with dementia, obesity, DM and ALVIN who is here for acute hypoxic respiratory failure secondary to Covid pneumonia. Overnight, patient decompensated and required 15 L of Vapotherm. This morning we will able to monitor down to 8 L. When I spoke with patient, she denied any chest pain or dyspnea. I spoke with , he tells me that she has severe sleep apnea. She is supposed to use CPAP, but she does not. He tells me that her CPAP provider is Kate. Later in the day, she has been weaned down to 3 L. Objective Physical Examination General Exam: Positive: Alert, Cooperative Eye Exam: Negative: Sclera icteric Neck Exam: Positive: Supple Chest Exam: Positive: Diminished Heart Exam: Positive: Rate Normal, Regular Rhythm Abdomen Exam: Positive: Normal bowel sounds, Soft; Negative: Tenderness Neuro Exam: Positive: Normal Speech Psych Exam: Negative: Memory Intact Assessment /Plan Assessment Mrs. Hobbs is a 71 year old female with dementia, obesity, DM and ALVIN who is here for acute hypoxic respiratory failure secondary to Covid pneumonia. Procalcitonin was low at 0.09. CT of the head demonstrated sinusitis. Will start patient on doxycycline. Otherwise, patient will be on dexamethasone. Unable to do remdesivir as she keeps pulling out her peripheral line. Plan/VTE VTE Prophylaxis Ordered?: Yes Plan 1. Covid pneumonia Continue supplemental oxygen as needed Dexamethasone Doxycycline day 4 2. Sinusitis Doxycycline day 4 3. Mild kidney injury in the setting of CKD Baseline creatinine around 1.4-1.5 Creatinine on admission was 2 Possibly secondary to hypoxia Supportive care 4. Diastolic heart failure Stable Echo in 2019 demonstrated EF 75% with grade 1 diastolic dysfunction Hold furosemide. We will see how her renal function changes. 5. Diabetes mellitus Sliding scale insulin Consistent carbohydrate 6. ALVIN Okay for nocturnal oxygen 7. Dyslipidemia Continue atorvastatin 8. DVT prophylaxis Due to renal dysfunction, patient will be on heparin Disposition: Pending clinical improvement VS, I&O, 24H, [facility] Vital Signs/I&O Vital Signs Date Time Temp Pulse Resp B/P (MAP) Pulse Ox O2 Delivery O2 Flow Rate FiO2 09/08/21 20:21 67 130/76 09/08/21 18:00 98.5 20 95 Nasal Cannula 3.0 I&O- Last 24 Hours up to 6 AM 09/08/21 06:00 Intake Total 600 ml Output Total 400 ml Balance 200 ml Laboratory Data 24H LABS Laboratory Tests 2 09/07/21 22:06: Bedside Glucose (Misc Panel) 429H 09/08/21 06:56: Neutrophils (%) (Auto) , Nucleated Red Blood Cells % (auto) 0.0, Neutrophils 83H, Lymphocytes (Manual) 7L, Monocytes (Manual) 7H, Atypical Lymphocytes 3, Platelet Estimate NORMAL, Erythrocyte Sedimentation Rate 73H, Prothrombin Time 14.4H, Prothromb Time International Ratio 1.08, Activated Partial Thromboplast Time 26.5, Fibrinogen 556H, Anion Gap 7L, Glomerular Filtration Rate 29.4L, Calcium Level 9.2, Magnesium Level 1.6L, Ferritin 253H, Total Bilirubin 0.5, D irect Bilirubin 0.1, Aspartate Amino Transf (AST/SGOT) 16, Alanine Aminotransferase (ALT/SGPT) 47, Alkaline Phosphatase 94, Lactate Dehydrogenase 203, Total Creatine Kinase 75, Troponin I < 0.02, C-Reactive Protein, Quantitative 5.08H, JE-Ggh-D-Type Natriuretic Peptide 898H, Total Protein 6.7, Albumin 2.1L, Albumin/Globulin Ratio 0.5L, Procalcitonin <0.05 09/08/21 12:00: Bedside Glucose (Misc Panel) 407H 09/08/21 16:27: Bedside Glucose (Misc Panel) 394H 09/08/21 20:00: Bedside Glucose (Misc Panel) 456H CBC/BMP Laboratory Tests 09/08/21 06:56 Microbiology Microbiology 09/04/21 Blood Culture - Preliminary, Resulted No Growth after 72 hours. All specime... 09/04/21 Blood Culture - Preliminary, Resulted No Growth after 72 hours. All specime... LISA LUNDBERG DO Sep 08, 2021 20:35
[2021-09-09] MEDS: COMBIVENT RESPIMAT 100-20MCG INHALER 4GM INH SCH ×4 (01:00→20:08)
[2021-09-09 04:00] VITALS: BP 134/92
[2021-09-09] MEDS: HEPARIN SOD (PORCINE) 5000UNITS/ML 1ML VIAL/SYRINGE SQ SCH ×3 (06:05→20:37)
[2021-09-09 07:22] LABS: HEMATOCRIT 37.8 % (36.0-47.0); HEMOGLOBIN 12.4 g/dl (12.0-15.5); MEAN CORPUSCULAR HEMOGLOBIN 29.2 pg (27.0-33.0); MEAN CORPUSCULAR HGB CONC 32.8 g/dl (32.0-36.5); MEAN CORPUSCULAR VOLUME 88.9 fl (80.0-96.0); PLATELET COUNT, AUTOMATED 302 10^3/uL (150-450); RED BLOOD COUNT 4.25 10^6/uL (4.00-5.40); WHITE BLOOD COUNT 12.1 10^3/uL (4.0-10.0)
[2021-09-09 07:47] LABS: CALCIUM LEVEL 9.2 MG/DL (8.8-10.2); CREATININE FOR GFR 1.73 MG/DL (0.55-1.30); GLOMERULAR FILTRATION RATE 30.8 (>39); POTASSIUM SERUM 3.8 MEQ/L (3.5-5.1)
[2021-09-09] MEDS: HumaLOG INSULIN (NovoLOG) PER UNIT SC SCH ×5 (08:22→20:41)
[2021-09-09] MEDS: CALCITRIOL 0.25 MCG CAP (S0169) PO SCH (08:23)
[2021-09-09] MEDS: ASPIRIN 81 MG CHEW TABLET PO SCH (08:23)
[2021-09-09] MEDS: MEMANTINE 5MG TABLET (NAMENDA) PO SCH ×2 (08:23→20:37)
[2021-09-09] MEDS: SERTRALINE 100 MG TAB PO SCH (08:23)
[2021-09-09] MEDS: busPIRone 5 MG TAB PO SCH ×2 (08:23→20:37)
[2021-09-09] MEDS: NYSTATIN 100,000 UNITS/GM TOPICAL PWD 15 GM TOP SCH ×2 (08:24→20:42)
[2021-09-09] MEDS: GABAPENTIN 100 MG CAP PO SCH ×2 (08:24→20:37)
[2021-09-09] MEDS: DOXYCYCLINE HYCLATE 100MG TABLET PO SCH ×2 (08:24→20:38)
[2021-09-09] MEDS: MAGNESIUM OXIDE 400MG TAB (MAG-OX) PO SCH (12:59)
[2021-09-09 13:50] VITALS: BP 145/76
--- NOTE | 2021-09-09 19:59 | IPNPDOC ---
Date Seen The patient was seen on 09/09/21. Progress Note SUBJECTIVE: Patient seen examined at bedside. On 5 L nasal cannula. Denies chest pain palpitations nausea vomiting diarrhea fevers chills. OBJECTIVE PHYSICAL EXAMINATION: VITAL SIGNS: please see below General: NAD, comfortable HEENT: PERRLA, EOMI, sclerae clear Neck: supple, normal ROM, no JVD Respiratory: lungs CTAB, no wheeze, no rales, no crackles CVS: RRR, normal S1, S2, no murmurs Abdo: soft, no masses, no hepatosplenomegaly, BS+, no rebound tenderness Extremities: no edema, pulses 2+ MSK: no joint deformities, normal ROM Neuro: no focal neuro deficits, moving all 4 extremities, CN2-12 intact. Strength 5/5 in all 4 extremities. No nystagmus. Psych: calm, cooperative, AAO x 3 LABORATORY DATA, IMAGING STUDIES, MICROBIOLOGY: Please see below. DVT prophylaxis ordered?: Heparin 5000 units every 8 subcu ASSESSMENT AND PLAN: Mrs. Hobbs is a 71 year old female with dementia, obesity, DM and ALVIN who is here for acute hypoxic respiratory failure secondary to Covid pneumonia. Procalcitonin was low at 0.09. CT of the head demonstrated sinusitis. Will start patient on doxycycline. Otherwise, patient will be on dexamethasone. Unable to do remdesivir as she keeps pulling out her peripheral line. PROBLEMS: # Covid pneumonia Continue supplemental oxygen as needed - patient keeps pulling out IV, unable to administer remdesevir. Dexamethasone Doxycycline day 5 # Sinusitis Doxycycline day 5 #. Mild kidney injury in the setting of CKD Baseline creatinine around 1.4-1.5 - avoid nephrotoxins #. Diastolic heart failure Stable Echo in 2019 demonstrated EF 75% with grade 1 diastolic dysfunction -give lasix 20 mg IV once. -repeat CXR. #. Diabetes mellitus Sliding scale insulin Consistent carbohydrate DIET -increase levemir to 20 units BID given persistent hyperglycemia to 400 in setting of dexamethasone use. #. ALVIN Okay for nocturnal oxygen #. Dyslipidemia Continue atorvastatin #. DVT prophylaxis Due to renal dysfunction, patient will be on heparin VS, I&O, 24H, [facility] Vital Signs/I&O Vital Signs Date Time Temp Pulse Resp B/P (MAP) Pulse Ox O2 Delivery O2 Flow Rate FiO2 09/09/21 17:42 66 142/71 09/09/21 13:50 97.2 19 93 Nasal Cannula 3.0 I&O- Last 24 Hours up to 6 AM 09/09/21 06:00 Intake Total 2690 ml Output Total 200 ml Balance 2490 ml Laboratory Data 24H LABS Laboratory Tests 2 09/08/21 20:00: Bedside Glucose (Misc Panel) 456H 09/09/21 06:37: Nucleated Red Blood Cells % (auto) 0.0, Anion Gap 6L, Glomerular Filtration Rate 30.8L, Calcium Level 9.2 09/09/21 11:50: Bedside Glucose (Misc Panel) 487H 09/09/21 17:01: Bedside Glucose (Misc Panel) 430H CBC/BMP Laboratory Tests 09/09/21 06:37 Microbiology Microbiology 09/04/21 Blood Culture - Final, Complete NO GROWTH AFTER 5 DAYS 09/04/21 Blood Culture - Final, Complete NO GROWTH AFTER 5 DAYS ANGELES ORTEGA MD Sep 09, 2021 19:59
[2021-09-09 20:00] VITALS: BP 158/72
[2021-09-09] MEDS ORDERED: FUROSEMIDE 20MG/2ML VIAL (J1940) IV ONE (20:00)
[2021-09-09] MEDS: ARIPiprazole 2 MG TAB PO SCH (20:37)
[2021-09-09] MEDS: LEVEMIR (INSULIN DETEMIR) 1 UNITS/0.01ML SC SCH (20:40)
[2021-09-09] MEDS ORDERED: HumaLOG INSULIN (NovoLOG) PER UNIT SC ONE (23:30)
[2021-09-10] MEDS: COMBIVENT RESPIMAT 100-20MCG INHALER 4GM INH SCH ×4 (02:00→18:23)
[2021-09-10 04:00] VITALS: BP 166/86
[2021-09-10] MEDS: HEPARIN SOD (PORCINE) 5000UNITS/ML 1ML VIAL/SYRINGE SQ SCH ×3 (05:30→21:33)
[2021-09-10 06:14] LABS: HEMATOCRIT 40.3 % (36.0-47.0); MEAN CORPUSCULAR HEMOGLOBIN 28.6 pg (27.0-33.0); MEAN CORPUSCULAR HGB CONC 32.3 g/dl (32.0-36.5); MEAN CORPUSCULAR VOLUME 88.6 fl (80.0-96.0); PLATELET COUNT, AUTOMATED 342 10^3/uL (150-450); RED BLOOD COUNT 4.55 10^6/uL (4.00-5.40); WHITE BLOOD COUNT 14.1 10^3/uL (4.0-10.0)
[2021-09-10 06:22] LABS: INR 1.06; PROTHROMBIN TIME 14.2 SECONDS (12.7-14.5)
[2021-09-10 06:46] LABS: ALBUMIN 2.3 GM/DL (3.2-5.2); ALT/SGPT 44 U/L (12-78); BILIRUBIN,DIRECT < 0.1 MG/DL (0.0-0.2); BILIRUBIN,TOTAL 0.4 MG/DL (0.2-1.0); BLOOD UREA NITROGEN 62 MG/DL (7-18); CALCIUM LEVEL 9.7 MG/DL (8.8-10.2); CARBON DIOXIDE LEVEL 34 MEQ/L (21-32); CHLORIDE LEVEL 105 MEQ/L (98-107); CPK CREATINE PHOSPHOKINASE 49 U/L (26-192); CREATININE FOR GFR 1.71 MG/DL (0.55-1.30); FERRITIN 200 NG/ML (8-252); GLOMERULAR FILTRATION RATE 31.2 (>39); GLUCOSE, FASTING 335 MG/DL (70-100); LDH LACTATE DEHYDROGENASE 206 U/L (84-246); NT-PRO BNP 412 PG/ML (<125); POTASSIUM SERUM 3.8 MEQ/L (3.5-5.1); SODIUM LEVEL 142 MEQ/L (136-145); TOTAL PROTEIN 6.9 GM/DL (6.4-8.2); TROPONIN I < 0.02 NG/ML (< 0.10)
[2021-09-10] MEDS: busPIRone 5 MG TAB PO SCH ×2 (08:56→21:32)
[2021-09-10] MEDS: SERTRALINE 100 MG TAB PO SCH (08:56)
[2021-09-10] MEDS: DOXYCYCLINE HYCLATE 100MG TABLET PO SCH ×2 (08:56→21:33)
[2021-09-10] MEDS: MEMANTINE 5MG TABLET (NAMENDA) PO SCH ×2 (08:56→21:32)
[2021-09-10] MEDS: CALCITRIOL 0.25 MCG CAP (S0169) PO SCH (08:56)
[2021-09-10] MEDS: GABAPENTIN 100 MG CAP PO SCH ×2 (08:56→21:33)
[2021-09-10] MEDS: LEVEMIR (INSULIN DETEMIR) 1 UNITS/0.01ML SC SCH ×2 (09:00→21:32)
[2021-09-10] MEDS: HumaLOG INSULIN (NovoLOG) PER UNIT SC SCH ×4 (09:01→21:00)
[2021-09-10] MEDS: NYSTATIN 100,000 UNITS/GM TOPICAL PWD 15 GM TOP SCH ×2 (09:10→21:31)
[2021-09-10] MEDS: ASPIRIN 81 MG CHEW TABLET PO SCH (09:10)
--- NOTE | 2021-09-10 11:50 | REP ---
INDICATION: edema?. COMPARISON: 09/04/2021. TECHNIQUE: Single portable AP view of the chest was performed. FINDINGS: Stable enlarged cardiac silhouette is noted as well as calcification and ectasia of the thoracic aorta. The mediastinal silhouette is unchanged. There are degenerative changes of the spine. There are stable scattered interstitial opacities bilaterally. There is a stable chronic consolidative opacity in the left lung base, and stable costophrenic angle blunting on the left. IMPRESSION: No significant change compared to the prior exam. <Electronically signed by Melchor De Jesus > 09/10/21 1146
[2021-09-10] MEDS: MAGNESIUM OXIDE 400MG TAB (MAG-OX) PO SCH (13:00)
[2021-09-10 14:00] VITALS: BP 160/88
[2021-09-10 14:09] VITALS: O2SAT 91
[2021-09-10] MEDS: ATORVASTATIN 20 MG TAB PO SCH (17:36)
--- NOTE | 2021-09-10 18:11 | IPNPDOC ---
Date Seen The patient was seen on 09/10/21. Progress Note SUBJECTIVE: Patient seen examined at bedside. On 4 L nasal cannula. Denies chest pain, palpitations, nausea, vomiting, diarrhea, fevers, chills. OBJECTIVE PHYSICAL EXAMINATION: VITAL SIGNS: please see below General: NAD, comfortable HEENT: PERRLA, EOMI, sclerae clear Neck: supple, normal ROM, no JVD Respiratory: fair inspiratory effort, no wheeze, no rales, no crackles CVS: RRR, normal S1, S2, no murmurs Abdo: soft, no masses, no hepatosplenomegaly, BS+, no rebound tenderness Extremities: no edema, pulses 2+ MSK: no joint deformities, normal ROM Neuro: no focal neuro deficits, moving all 4 extremities, CN2-12 intact. Strength 5/5 in all 4 extremities. No nystagmus. Psych: calm, cooperative, AAO x 3 LABORATORY DATA, IMAGING STUDIES, MICROBIOLOGY: Please see below. DVT prophylaxis ordered?: Heparin 5000 units every 8 subcu ASSESSMENT AND PLAN: Mrs. Hobbs is a 71 year old female with dementia, obesity, DM and ALVIN who is here for acute hypoxic respiratory failure secondary to Covid pneumonia. Procalcitonin was low at 0.09. CT of the head demonstrated sinusitis. Will start patient on doxycycline. Otherwise, patient will be on dexamethasone. Unable to do remdesivir as she keeps pulling out her peripheral line. PROBLEMS: # Covid pneumonia Continue supplemental oxygen as needed - patient keeps pulling out IV, unable to administer remdesevir. Dexamethasone Doxycycline day 6 # Sinusitis Doxycycline day 6 #. Mild kidney injury in the setting of CKD Baseline creatinine around 1.4-1.5 - avoid nephrotoxins #. Diastolic heart failure Stable Echo in 2019 demonstrated EF 75% with grade 1 diastolic dysfunction -give lasix 20 mg IV once. -repeat CXR. #. Diabetes mellitus Sliding scale insulin Consistent carbohydrate DIET - increased levemir to 20 units BID given persistent hyperglycemia to 400 in setting of dexamethasone use - BG improved slightly #. ALVIN Okay for nocturnal oxygen #. Dyslipidemia Continue atorvastatin #. DVT prophylaxis Due to renal dysfunction, patient will be on heparin Dispo: pending clinical improvement. PT cleared from skilled PT. VS, I&O, 24H, [facility] Vital Signs/I&O Vital Signs Date Time Temp Pulse Resp B/P (MAP) Pulse Ox O2 Delivery O2 Flow Rate FiO2 09/10/21 17:37 79 163/85 09/10/21 14:09 91 Nasal Cannula 4.0 09/10/21 14:00 98.5 22 I&O- Last 24 Hours up to 6 AM 09/10/21 06:00 Intake Total 2150 ml Output Total 1200 ml Balance 950 ml Laboratory Data 24H LABS Laboratory Tests 2 09/09/21 19:57: Bedside Glucose (Misc Panel) 525*H 09/09/21 23:21: Bedside Glucose (Misc Panel) 475H 09/10/21 01:30: Bedside Glucose (Misc Panel) 394H 09/10/21 05:20: Bedside Glucose (Misc Panel) 316H 09/10/21 05:44: Nucleated Red Blood Cells % (auto) 0.0, Prothrombin Time 14.2H, Prothromb Time International Ratio 1.06, Activated Partial Thromboplast Time 24.0L, Fibrinogen 438, Anion Gap 3L, Glomerular Filtration Rate 31.2L, Calcium Level 9.7, Ferritin 200, Total Bilirubin 0.4, Direct Bilirubin < 0.1, Aspartate Amino Transf (AST/SGOT) 16, Alanine Aminotransferase (ALT/SGPT) 44, Alkaline Phosphatase 92, Lactate Dehydrogenase 206, Total Creatine Kinase 49, Troponin I < 0.02, LQ-[id number]-T-Type Natriuretic Peptide 412H, Total Protein 6.9, Albumin 2.3L, Al bumin/Globulin Ratio 0.5L, Procalcitonin <0.05 09/10/21 12:00: Bedside Glucose (Misc Panel) 361H 09/10/21 17:04: Bedside Glucose (Misc Panel) 436H CBC/BMP Laboratory Tests 09/10/21 05:44 Microbiology Microbiology 09/04/21 Blood Culture - Final, Complete NO GROWTH AFTER 5 DAYS 09/04/21 Blood Culture - Final, Complete NO GROWTH AFTER 5 DAYS ANGELES ORTEGA MD Sep 10, 2021 18:11
[2021-09-10 18:24] VITALS: O2SAT 93
[2021-09-10 20:00] VITALS: BP 154/85
[2021-09-10] MEDS: ARIPiprazole 2 MG TAB PO SCH (21:32)
[2021-09-11] MEDS: COMBIVENT RESPIMAT 100-20MCG INHALER 4GM INH SCH ×4 (02:00→20:55)
[2021-09-11 04:00] VITALS: BP 148/91
[2021-09-11] MEDS: HEPARIN SOD (PORCINE) 5000UNITS/ML 1ML VIAL/SYRINGE SQ SCH ×3 (06:08→21:14)
[2021-09-11 06:19] LABS: HEMATOCRIT 38.8 % (36.0-47.0); HEMOGLOBIN 12.7 g/dl (12.0-15.5); MEAN CORPUSCULAR HEMOGLOBIN 28.5 pg (27.0-33.0); MEAN CORPUSCULAR HGB CONC 32.7 g/dl (32.0-36.5); PLATELET COUNT, AUTOMATED 336 10^3/uL (150-450); RED BLOOD COUNT 4.46 10^6/uL (4.00-5.40); WHITE BLOOD COUNT 18.4 10^3/uL (4.0-10.0)
[2021-09-11 06:41] LABS: BLOOD UREA NITROGEN 55 MG/DL (7-18); CALCIUM LEVEL 9.3 MG/DL (8.8-10.2); CARBON DIOXIDE LEVEL 31 MEQ/L (21-32); CHLORIDE LEVEL 104 MEQ/L (98-107); CREATININE FOR GFR 1.58 MG/DL (0.55-1.30); GLOMERULAR FILTRATION RATE 34.2 (>39); GLUCOSE, FASTING 289 MG/DL (70-100); POTASSIUM SERUM 3.8 MEQ/L (3.5-5.1); SODIUM LEVEL 139 MEQ/L (136-145)
[2021-09-11] MEDS: GABAPENTIN 100 MG CAP PO SCH ×2 (08:21→21:19)
[2021-09-11] MEDS: ASPIRIN 81 MG CHEW TABLET PO SCH (08:21)
[2021-09-11] MEDS: MEMANTINE 5MG TABLET (NAMENDA) PO SCH ×2 (08:22→21:16)
[2021-09-11] MEDS: CALCITRIOL 0.25 MCG CAP (S0169) PO SCH (08:22)
[2021-09-11] MEDS: DOXYCYCLINE HYCLATE 100MG TABLET PO SCH ×2 (08:22→21:16)
[2021-09-11] MEDS: SERTRALINE 100 MG TAB PO SCH (08:22)
[2021-09-11] MEDS: busPIRone 5 MG TAB PO SCH ×2 (08:22→21:16)
[2021-09-11] MEDS: LEVEMIR (INSULIN DETEMIR) 1 UNITS/0.01ML SC SCH ×2 (08:23→21:00)
[2021-09-11] MEDS: HumaLOG INSULIN (NovoLOG) PER UNIT SC SCH ×3 (08:23→17:38)
[2021-09-11] MEDS: NYSTATIN 100,000 UNITS/GM TOPICAL PWD 15 GM TOP SCH ×2 (08:24→21:16)
[2021-09-11 12:00] VITALS: BP 159/81
[2021-09-11] MEDS: MAGNESIUM OXIDE 400MG TAB (MAG-OX) PO SCH (12:46)
[2021-09-11 15:55] LABS: TROPONIN I < 0.02 NG/ML (< 0.10)
[2021-09-11 17:27] VITALS: BP 133/69
--- NOTE | 2021-09-11 20:54 | IPNPDOC ---
Date Seen The patient was seen on 09/11/21. Progress Note SUBJECTIVE: Patient seen examined at bedside. On 4 L nasal cannula. Denies chest pain palpitations nausea vomiting diarrhea fevers chills. OBJECTIVE PHYSICAL EXAMINATION: VITAL SIGNS: please see below General: NAD, comfortable HEENT: PERRLA, EOMI, sclerae clear Neck: supple, normal ROM, no JVD Respiratory: lungs CTAB, no wheeze, no rales, no crackles CVS: RRR, normal S1, S2, no murmurs Abdo: soft, no masses, no hepatosplenomegaly, BS+, no rebound tenderness Extremities: no edema, pulses 2+ MSK: no joint deformities, normal ROM Neuro: no focal neuro deficits, moving all 4 extremities, CN2-12 intact. Strength 5/5 in all 4 extremities. No nystagmus. Psych: calm, cooperative, AAO x 3 LABORATORY DATA, IMAGING STUDIES, MICROBIOLOGY: Please see below. CXR (09/10/21): FINDINGS: Stable enlarged cardiac silhouette is noted as well as calcification and ectasia of the thoracic aorta. The mediastinal silhouette is unchanged. There are degenerative changes of the spine. There are stable scattered interstitial opacities bilaterally. There is a stable chronic consolidative opacity in the left lung base, and stable costophrenic angle blunting on the left. DVT prophylaxis ordered?: Heparin 5000 units every 8 subcu ASSESSMENT AND PLAN: Mrs. Hobbs is a 71 year old female with dementia, obesity, DM and ALVIN who is here for acute hypoxic respiratory failure secondary to Covid pneumonia. Procalcitonin was low at 0.09. CT of the head demonstrated sinusitis. Will start patient on doxycycline. Otherwise, patient will be on dexamethasone. Unable to do remdesivir as she keeps pulling out her peripheral line. PROBLEMS: # Covid pneumonia Continue supplemental oxygen as needed - patient keeps pulling out IV, unable to administer remdesevir. Dexamethasone Doxycycline day 7 - stop abx # Sinusitis Doxycycline day 7 - stop abx #. Mild kidney injury in the setting of CKD Baseline creatinine around 1.4-1.5 - avoid nephrotoxins #. Diastolic heart failure Stable Echo in 2019 demonstrated EF 75% with grade 1 diastolic dysfunction -give lasix 20 mg IV once. -repeat CXR, no worsening edema. #. Diabetes mellitus Sliding scale insulin Consistent carbohydrate DIET - increased levemir to 20 units BID given persistent hyperglycemia to 400 in setting of dexamethasone use - BG improved slightly #. ALVIN Okay for nocturnal oxygen #. Dyslipidemia Continue atorvastatin #. DVT prophylaxis Due to renal dysfunction, patient will be on heparin Dispo: pending clinical improvement. PT cleared from skilled PT. ALC status. Awaiting swing bed due to covid. VS, I&O, 24H, Fishbone Vital Signs/I&O Vital Signs Date Time Temp Pulse Resp B/P (MAP) Pulse Ox O2 Delivery O2 Flow Rate FiO2 09/11/21 17:37 85 133/69 09/11/21 12:00 95.2 22 92 Nasal Cannula 3.0 I&O- Last 24 Hours up to 6 AM 09/11/21 06:00 Intake Total 1780 ml Output Total 1150 ml Balance 630 ml Laboratory Data 24H LABS Laboratory Tests 2 09/11/21 05:42: Nucleated Red Blood Cells % (auto) 0.1H 09/11/21 05:43: Anion Gap 4L, Glomerular Filtration Rate 34.2L, Calcium Level 9.3, Troponin I < 0.02 09/11/21 12:10: Bedside Glucose (Misc Panel) 461H 09/11/21 17:17: Bedside Glucose (Misc Panel) 458H 09/11/21 20:08: Bedside Glucose (Misc Panel) 383H CBC/BMP Laboratory Tests 09/11/21 05:42 09/11/21 05:43 Microbiology Microbiology 09/04/21 Blood Culture - Final, Complete NO GROWTH AFTER 5 DAYS 09/04/21 Blood Culture - Final, Complete NO GROWTH AFTER 5 DAYS ANGELES ORTEGA MD Sep 11, 2021 20:53
[2021-09-11] MEDS: ARIPiprazole 2 MG TAB PO SCH (21:16)
[2021-09-11] MEDS: NORCO, ANEXSIA 5/325MG TABLET (HYDROcodone/ACETAMINOPHEN) PO PRN (21:17)
[2021-09-11 22:00] VITALS: BP 134/67
[2021-09-12] MEDS: COMBIVENT RESPIMAT 100-20MCG INHALER 4GM INH SCH ×4 (02:00→20:08)
[2021-09-12 06:00] VITALS: BP 125/61
[2021-09-12 06:04] LABS: MEAN CORPUSCULAR HEMOGLOBIN 28.6 pg (27.0-33.0); MEAN CORPUSCULAR HGB CONC 32.5 g/dl (32.0-36.5); MEAN CORPUSCULAR VOLUME 87.9 fl (80.0-96.0); PLATELET COUNT, AUTOMATED 335 10^3/uL (150-450); RED BLOOD COUNT 4.55 10^6/uL (4.00-5.40); WHITE BLOOD COUNT 20.4 10^3/uL (4.0-10.0)
[2021-09-12] MEDS: HEPARIN SOD (PORCINE) 5000UNITS/ML 1ML VIAL/SYRINGE SQ SCH ×3 (06:12→22:34)
[2021-09-12 06:14] LABS: INR 1.08; PROTHROMBIN TIME 14.5 SECONDS (12.7-14.5)
[2021-09-12 06:15] LABS: PARTIAL THROMBOPLASTIN TIME 23.3 SECONDS (25.9-37.0)
[2021-09-12 06:18] LABS: D-DIMER QUANT 976.99 ng/ml (<500)
[2021-09-12 06:28] LABS: CALCIUM LEVEL 9.2 MG/DL (8.8-10.2); CREATININE FOR GFR 1.67 MG/DL (0.55-1.30); GLOMERULAR FILTRATION RATE 32.1 (>39); POTASSIUM SERUM 4.3 MEQ/L (3.5-5.1)
[2021-09-12 06:31] LABS: C REACTIVE PROTEIN QUANTITATIV 0.43 MG/DL (0.00-0.30); CPK CREATINE PHOSPHOKINASE 36 U/L (26-192); FERRITIN 209 NG/ML (8-252); LDH LACTATE DEHYDROGENASE 229 U/L (84-246); TROPONIN I < 0.02 NG/ML (< 0.10)
[2021-09-12 08:30] VITALS: O2SAT 92
[2021-09-12] MEDS: LEVEMIR (INSULIN DETEMIR) 1 UNITS/0.01ML SC SCH ×2 (09:36→22:40)
[2021-09-12] MEDS: NYSTATIN 100,000 UNITS/GM TOPICAL PWD 15 GM TOP SCH ×2 (09:36→22:40)
[2021-09-12] MEDS: busPIRone 5 MG TAB PO SCH ×2 (09:36→21:00)
[2021-09-12] MEDS: HumaLOG INSULIN (NovoLOG) PER UNIT SC SCH ×4 (09:36→22:40)
[2021-09-12] MEDS: MEMANTINE 5MG TABLET (NAMENDA) PO SCH ×2 (09:36→22:38)
[2021-09-12] MEDS: GABAPENTIN 100 MG CAP PO SCH ×2 (09:37→22:38)
[2021-09-12] MEDS: ASPIRIN 81 MG CHEW TABLET PO SCH (09:37)
[2021-09-12] MEDS: CALCITRIOL 0.25 MCG CAP (S0169) PO SCH (09:37)
[2021-09-12] MEDS: DOXYCYCLINE HYCLATE 100MG TABLET PO SCH ×2 (09:37→22:35)
[2021-09-12] MEDS: SERTRALINE 100 MG TAB PO SCH (09:39)
[2021-09-12] MEDS: MAGNESIUM OXIDE 400MG TAB (MAG-OX) PO SCH (12:12)
[2021-09-12] MEDS: ATORVASTATIN 20 MG TAB PO SCH (18:18)
[2021-09-12 19:30] VITALS: BP 143/63
[2021-09-12 22:30] VITALS: BP 130/68
[2021-09-12] MEDS: ARIPiprazole 2 MG TAB PO SCH (22:34)
[2021-09-13] MEDS: COMBIVENT RESPIMAT 100-20MCG INHALER 4GM INH SCH ×4 (01:25→19:56)
[2021-09-13 04:50] VITALS: BP 127/63
[2021-09-13] MEDS: HEPARIN SOD (PORCINE) 5000UNITS/ML 1ML VIAL/SYRINGE SQ SCH ×3 (05:37→21:44)
[2021-09-13 08:34] LABS: HEMATOCRIT 39.5 % (36.0-47.0); HEMOGLOBIN 12.7 g/dl (12.0-15.5); MEAN CORPUSCULAR HEMOGLOBIN 28.7 pg (27.0-33.0); MEAN CORPUSCULAR HGB CONC 32.2 g/dl (32.0-36.5); MEAN CORPUSCULAR VOLUME 89.2 fl (80.0-96.0); PLATELET COUNT, AUTOMATED 343 10^3/uL (150-450); RED BLOOD COUNT 4.43 10^6/uL (4.00-5.40); WHITE BLOOD COUNT 21.9 10^3/uL (4.0-10.0)
[2021-09-13] MEDS: busPIRone 5 MG TAB PO SCH ×2 (08:36→21:39)
[2021-09-13] MEDS: GABAPENTIN 100 MG CAP PO SCH ×2 (08:36→21:40)
[2021-09-13] MEDS: HumaLOG INSULIN (NovoLOG) PER UNIT SC SCH ×4 (08:36→21:43)
[2021-09-13] MEDS: ASPIRIN 81 MG CHEW TABLET PO SCH (08:37)
[2021-09-13] MEDS: MEMANTINE 5MG TABLET (NAMENDA) PO SCH ×2 (08:37→21:40)
[2021-09-13] MEDS: CALCITRIOL 0.25 MCG CAP (S0169) PO SCH (08:37)
[2021-09-13] MEDS: DOXYCYCLINE HYCLATE 100MG TABLET PO SCH (08:37)
[2021-09-13] MEDS: SERTRALINE 100 MG TAB PO SCH (08:38)
[2021-09-13] MEDS: NYSTATIN 100,000 UNITS/GM TOPICAL PWD 15 GM TOP SCH ×2 (08:38→21:44)
[2021-09-13] MEDS: LEVEMIR (INSULIN DETEMIR) 1 UNITS/0.01ML SC SCH ×2 (08:38→21:44)
[2021-09-13 08:40] VITALS: O2SAT 94
[2021-09-13 08:43] LABS: CALCIUM LEVEL 9.4 MG/DL (8.8-10.2); CREATININE FOR GFR 1.59 MG/DL (0.55-1.30); POTASSIUM SERUM 4.1 MEQ/L (3.5-5.1)
[2021-09-13 12:53] VITALS: BP 145/68
[2021-09-13] MEDS: MAGNESIUM OXIDE 400MG TAB (MAG-OX) PO SCH (12:56)
[2021-09-13 12:57] VITALS: O2SAT 93
[2021-09-13] MEDS: RAMELTEON 8 MG TAB (ROZEREM) PO PRN (21:40)
[2021-09-13 21:45] VITALS: BP 128/71
[2021-09-13] MEDS: ARIPiprazole 2 MG TAB PO SCH (22:14)
[2021-09-14] MEDS: COMBIVENT RESPIMAT 100-20MCG INHALER 4GM INH SCH ×4 (02:45→19:52)
[2021-09-14 04:50] VITALS: BP 122/72
[2021-09-14] MEDS: HEPARIN SOD (PORCINE) 5000UNITS/ML 1ML VIAL/SYRINGE SQ SCH ×3 (05:48→21:42)
[2021-09-14 05:59] LABS: HEMATOCRIT 39.4 % (36.0-47.0); HEMOGLOBIN 12.6 g/dl (12.0-15.5); MEAN CORPUSCULAR HEMOGLOBIN 28.7 pg (27.0-33.0); MEAN CORPUSCULAR VOLUME 89.7 fl (80.0-96.0); PLATELET COUNT, AUTOMATED 323 10^3/uL (150-450); RED BLOOD COUNT 4.39 10^6/uL (4.00-5.40); WHITE BLOOD COUNT 19.9 10^3/uL (4.0-10.0)
[2021-09-14 06:23] LABS: C REACTIVE PROTEIN QUANTITATIV 0.3 MG/DL (0.00-0.30); CALCIUM LEVEL 9.7 MG/DL (8.8-10.2); CREATININE FOR GFR 1.72 MG/DL (0.55-1.30); POTASSIUM SERUM 4.4 MEQ/L (3.5-5.1)
[2021-09-14 06:45] LABS: ERYTHROCYTE SEDIMENTATION RATE 35 mm/hr (0-30)
[2021-09-14] MEDS: LEVEMIR (INSULIN DETEMIR) 1 UNITS/0.01ML SC SCH ×2 (08:35→21:42)
[2021-09-14] MEDS: ASPIRIN 81 MG CHEW TABLET PO SCH (08:36)
[2021-09-14] MEDS: HumaLOG INSULIN (NovoLOG) PER UNIT SC SCH ×4 (08:36→21:42)
[2021-09-14] MEDS: CALCITRIOL 0.25 MCG CAP (S0169) PO SCH (08:36)
[2021-09-14] MEDS: GABAPENTIN 100 MG CAP PO SCH ×2 (08:36→21:43)
[2021-09-14] MEDS: predniSONE 10 MG TAB PO SCH (08:37)
[2021-09-14] MEDS: SERTRALINE 100 MG TAB PO SCH (08:37)
[2021-09-14] MEDS: busPIRone 5 MG TAB PO SCH ×2 (08:38→21:43)
[2021-09-14] MEDS: MEMANTINE 5MG TABLET (NAMENDA) PO SCH ×2 (08:38→21:43)
[2021-09-14] MEDS: NYSTATIN 100,000 UNITS/GM TOPICAL PWD 15 GM TOP SCH ×2 (08:39→21:49)
[2021-09-14 09:00] VITALS: O2SAT 94
[2021-09-14] MEDS: MAGNESIUM OXIDE 400MG TAB (MAG-OX) PO SCH (11:32)
[2021-09-14] MEDS: NORCO, ANEXSIA 5/325MG TABLET (HYDROcodone/ACETAMINOPHEN) PO PRN (11:33)
[2021-09-14 12:00] VITALS: BP 111/58
[2021-09-14 21:30] VITALS: BP 114/60
[2021-09-14] MEDS: RAMELTEON 8 MG TAB (ROZEREM) PO PRN (21:42)
[2021-09-14] MEDS: ARIPiprazole 2 MG TAB PO SCH (21:48)
[2021-09-14 23:22] VITALS: O2SAT 95
[2021-09-15] MEDS: COMBIVENT RESPIMAT 100-20MCG INHALER 4GM INH SCH ×4 (02:00→19:49)
[2021-09-15 03:38] VITALS: BP 108/67
[2021-09-15] MEDS: HEPARIN SOD (PORCINE) 5000UNITS/ML 1ML VIAL/SYRINGE SQ SCH ×3 (05:00→20:34)
[2021-09-15] MEDS: CALCITRIOL 0.25 MCG CAP (S0169) PO SCH (08:39)
[2021-09-15] MEDS: ASPIRIN 81 MG CHEW TABLET PO SCH (08:39)
[2021-09-15] MEDS: SERTRALINE 100 MG TAB PO SCH (08:39)
[2021-09-15] MEDS: MEMANTINE 5MG TABLET (NAMENDA) PO SCH ×2 (08:40→20:33)
[2021-09-15] MEDS: NYSTATIN 100,000 UNITS/GM TOPICAL PWD 15 GM TOP SCH ×2 (08:40→20:35)
[2021-09-15] MEDS: busPIRone 5 MG TAB PO SCH ×2 (08:40→20:33)
[2021-09-15] MEDS: GABAPENTIN 100 MG CAP PO SCH ×2 (08:40→20:33)
[2021-09-15] MEDS: LEVEMIR (INSULIN DETEMIR) 1 UNITS/0.01ML SC SCH ×2 (08:41→20:32)
[2021-09-15] MEDS: predniSONE 10 MG TAB PO SCH (08:41)
[2021-09-15] MEDS: HumaLOG INSULIN (NovoLOG) PER UNIT SC SCH ×4 (08:42→20:33)
[2021-09-15] MEDS: MAGNESIUM OXIDE 400MG TAB (MAG-OX) PO SCH (12:42)
[2021-09-15 14:06] VITALS: O2SAT 94
[2021-09-15] MEDS: ATORVASTATIN 20 MG TAB PO SCH (17:08)
[2021-09-15 19:49] VITALS: O2SAT 96
[2021-09-15] MEDS: ARIPiprazole 2 MG TAB PO SCH (20:33)
[2021-09-16] MEDS: COMBIVENT RESPIMAT 100-20MCG INHALER 4GM INH SCH ×4 (02:00→20:59)
[2021-09-16 06:00] VITALS: BP 125/66
[2021-09-16] MEDS: HEPARIN SOD (PORCINE) 5000UNITS/ML 1ML VIAL/SYRINGE SQ SCH ×3 (06:46→21:13)
[2021-09-16 08:29] VITALS: O2SAT 96
[2021-09-16] MEDS: HumaLOG INSULIN (NovoLOG) PER UNIT SC SCH ×4 (08:34→21:12)
[2021-09-16] MEDS: LEVEMIR (INSULIN DETEMIR) 1 UNITS/0.01ML SC SCH ×2 (08:34→21:13)
[2021-09-16] MEDS: ASPIRIN 81 MG CHEW TABLET PO SCH (08:34)
[2021-09-16] MEDS: GABAPENTIN 100 MG CAP PO SCH ×2 (08:35→21:14)
[2021-09-16] MEDS: NYSTATIN 100,000 UNITS/GM TOPICAL PWD 15 GM TOP SCH ×2 (08:35→21:12)
[2021-09-16] MEDS: predniSONE 10 MG TAB PO SCH (08:35)
[2021-09-16] MEDS: busPIRone 5 MG TAB PO SCH ×2 (08:36→21:14)
[2021-09-16] MEDS: MEMANTINE 5MG TABLET (NAMENDA) PO SCH ×2 (08:36→21:13)
[2021-09-16] MEDS: CALCITRIOL 0.25 MCG CAP (S0169) PO SCH (08:36)
[2021-09-16] MEDS: SERTRALINE 100 MG TAB PO SCH (08:36)
[2021-09-16] MEDS: MAGNESIUM OXIDE 400MG TAB (MAG-OX) PO SCH (12:58)
[2021-09-16] MEDS: ARIPiprazole 2 MG TAB PO SCH (21:13)
[2021-09-16] MEDS: NORCO, ANEXSIA 5/325MG TABLET (HYDROcodone/ACETAMINOPHEN) PO PRN (21:14)
[2021-09-17] MEDS: COMBIVENT RESPIMAT 100-20MCG INHALER 4GM INH SCH ×4 (01:24→20:26)
[2021-09-17] MEDS: HEPARIN SOD (PORCINE) 5000UNITS/ML 1ML VIAL/SYRINGE SQ SCH ×3 (05:59→20:56)
[2021-09-17 06:00] VITALS: BP 119/82
[2021-09-17] MEDS: ASPIRIN 81 MG CHEW TABLET PO SCH (07:57)
[2021-09-17] MEDS: SERTRALINE 100 MG TAB PO SCH (07:57)
[2021-09-17] MEDS: predniSONE 10 MG TAB PO SCH (07:58)
[2021-09-17] MEDS: GABAPENTIN 100 MG CAP PO SCH ×2 (07:58→21:00)
[2021-09-17] MEDS: CALCITRIOL 0.25 MCG CAP (S0169) PO SCH (07:58)
[2021-09-17] MEDS: busPIRone 5 MG TAB PO SCH ×2 (07:58→21:00)
[2021-09-17] MEDS: HumaLOG INSULIN (NovoLOG) PER UNIT SC SCH ×4 (07:59→20:57)
[2021-09-17] MEDS: LEVEMIR (INSULIN DETEMIR) 1 UNITS/0.01ML SC SCH ×2 (07:59→20:56)
[2021-09-17] MEDS: NYSTATIN 100,000 UNITS/GM TOPICAL PWD 15 GM TOP SCH ×2 (08:00→21:03)
[2021-09-17] MEDS: MAGNESIUM OXIDE 400MG TAB (MAG-OX) PO SCH (12:24)
[2021-09-17] MEDS: MEMANTINE 5MG TABLET (NAMENDA) PO SCH ×2 (12:24→21:00)
[2021-09-17] MEDS: ATORVASTATIN 20 MG TAB PO SCH (17:16)
[2021-09-17] MEDS: ARIPiprazole 2 MG TAB PO SCH (21:00)
[2021-09-17] MEDS: RAMELTEON 8 MG TAB (ROZEREM) PO PRN (21:00)
[2021-09-17] MEDS: NORCO, ANEXSIA 5/325MG TABLET (HYDROcodone/ACETAMINOPHEN) PO PRN (21:02)
[2021-09-18] MEDS: COMBIVENT RESPIMAT 100-20MCG INHALER 4GM INH SCH ×4 (01:32→21:00)
[2021-09-18 04:00] VITALS: BP 113/62
[2021-09-18] MEDS: HEPARIN SOD (PORCINE) 5000UNITS/ML 1ML VIAL/SYRINGE SQ SCH ×3 (06:30→21:44)
[2021-09-18] MEDS: HumaLOG INSULIN (NovoLOG) PER UNIT SC SCH ×4 (08:24→21:46)
[2021-09-18] MEDS: LEVEMIR (INSULIN DETEMIR) 1 UNITS/0.01ML SC SCH ×2 (08:24→21:45)
[2021-09-18] MEDS: MEMANTINE 5MG TABLET (NAMENDA) PO SCH ×2 (08:25→21:43)
[2021-09-18] MEDS: SERTRALINE 100 MG TAB PO SCH (08:25)
[2021-09-18] MEDS: busPIRone 5 MG TAB PO SCH ×2 (08:25→21:43)
[2021-09-18] MEDS: ASPIRIN 81 MG CHEW TABLET PO SCH (08:25)
[2021-09-18] MEDS: GABAPENTIN 100 MG CAP PO SCH ×2 (08:25→21:43)
[2021-09-18] MEDS: predniSONE 10 MG TAB PO SCH (08:25)
[2021-09-18] MEDS: CALCITRIOL 0.25 MCG CAP (S0169) PO SCH (08:25)
[2021-09-18] MEDS: NYSTATIN 100,000 UNITS/GM TOPICAL PWD 15 GM TOP SCH ×2 (08:26→21:44)
[2021-09-18] MEDS: MAGNESIUM OXIDE 400MG TAB (MAG-OX) PO SCH (13:16)
[2021-09-18] MEDS ORDERED: PRED10TA2 PO (13:29)
--- NOTE | 2021-09-18 13:51 | DS.PDOC ---
Discharge Summary General Date of Admission Sep 04, 2021 at 20:05 Date of Discharge 09/18/21 Discharge Summary dictated discharge summary pls call hypertype if needed urgently. Vital Signs/I&Os Vital Signs Date Time Temp Pulse Resp B/P (MAP) Pulse Ox O2 Delivery O2 Flow Rate FiO2 09/18/21 13:15 88 113/58 09/18/21 08:24 2.0 09/18/21 04:00 97.3 20 94 NIPPV (BIPAP/CPAP) I&O- Last 24 Hours up to 6 AM 09/18/21 06:00 Intake Total 1340 ml Balance 1340 ml Laboratory Data Labs 24H Laboratory Tests 2 09/17/21 16:52: Bedside Glucose (Misc Panel) 399H 09/17/21 20:05: Bedside Glucose (Misc Panel) 371H 09/18/21 06:27: Bedside Glucose (Misc Panel) 116H 09/18/21 11:57: Bedside Glucose (Misc Panel) 310H FSBS Laboratory Tests Test 09/17/21 16:52 09/17/21 20:05 09/18/21 06:27 09/18/21 11:57 Range/Units Bedside Glucose (Misc Panel) 399 371 116 310 83-110 MG/DL Discharge Medications Scheduled Albuterol Sulfate (Ventolin Hfa) 18 Gm Hfa.aer.ad, 2 PUFF INH TID, (Reported) Aripiprazole (Abilify) 2 Mg Tablet, 2 MG PO QHS, (Reported) Aspirin (Aspirin) 81 Mg Tab.chew, 81 MG PO DAILY, (Reported) Atorvastatin Calcium (Atorvastatin Calcium) 40 Mg Tab, 40 MG PO 3XW, (Reported) IN THE EVENING WEDNESDAY, WEDNESDAY, WEDNESDAY Buspirone HCl (Buspirone HCl) 5 Mg Tab, 5 MG PO BID, (Reported) Calcitriol (Rocaltrol) 0.25 Mcg Capsule, 0.25 MCG PO DAILY, (Reported) Dexamethasone (Dexamethasone) 2 Mg Tablet, 6 MG PO QPM, (Reported) ENDS 09/11/21 Diltiazem Hcl (Cardizem) 60 Mg Tablet, 60 MG PO QID, (Reported) Dulaglutide (Trulicity) 1.5 Mg/0.5 Ml Pen.injctr, 1.5 MG SC QWEEK, (Reported) SATURDAYS Enoxaparin Sodium (Enoxaparin Sodium) 30 Mg/0.3 Ml Syringe, 30 MG SC QPM, (Reported) Ergocalciferol (Vitamin D2) (Vitamin D2) 50,000 Units Cap, 50,000 UNITS PO QMONTH, (Reported) ON 1ST DAY OF MONTH Furosemide (Furosemide) 40 Mg Tablet, 40 MG PO DAILY, (Reported) Gabapentin (Gabapentin) 100 Mg Capsule, 100 MG PO BID, (Reported) Glimepiride (Glimepiride) 2 Mg Tab, 2 MG PO DAILY, (Reported) Hydrocodone/Acetaminophen (Hydrocodone-Acetamin 5-325 mg) 1 Each Tablet, 1 TAB PO QID, (Reported) Melatonin (Melatonin) 5 Mg Tablet, 5 MG PO QHS, (Reported) Memantine HCl (Namenda) 5 Mg Tablet, 5 MG PO BID, (Reported) Polyvinyl Alcohol/Povidone (Artificial Tears Drops) 15 Ml Drops, 1 DROP OU QID, (Reported) 0600, 1200, 1600, 2000 Prednisone (Prednisone) 10 Mg Tablet, 10 MG PO TAPER Take 4 tabs daily x 3 days, then 3 tabs daily x 3 days, then 2 tabs daily x 3 days, then 1 tab daily x 3 days and stop Sertraline Hcl (Zoloft) 100 Mg Tablet, 150 MG PO DAILY, (Reported) [Interdry Mis 10] , 1 APPLIC TOP BID, (Reported) APPLIES BELOW BREASTS AND ABDOMINAL FOLDS Scheduled PRN Acetaminophen (Tylenol) 325 Mg Tablet, 650 MG PO Q4H PRN for PAIN / FEVER, (Reported) Acetaminophen (Acetaminophen) 650 Mg Supp.rect, 650 MG MD DAILY PRN for PAIN / FEVER, (Reported) Albuterol Sulf (Albuterol Sulfate) 2.5 Mg/3 Ml Nebu, 2.5 MG INH Q4H PRN for COUGH/CONGESTION/WHEEZING, (Reported) Bisacodyl (Dulcolax) 10 Mg Sup, 10 MG MD DAILY PRN for CONSTIPATION, (Reported) Dextrose (Glucose) 4 Gm Chw, 16 GM PO ASDIRECTED PRN for LOW BLOOD SUGAR, (Reported) FOR BLOOD GLUCOSE LESS THAN 60MG/DL Fluticasone Propionate (Fluticasone Propionate 0.005%) 15 Gm Oint...g., 1 DOSE EXT BID PRN for DERMATITIS, (Reported) USES ON LOWER BACK Glucagon,Human Recombinant (Glucagon Emergency Kit) 1 Mg Vial, 1 MG SC ASDIRECTED PRN for LOW BLOOD SUGAR, (Reported) FOR FSBS<60 AND UNCONCIOUS Hydrocodone/Acetaminophen (Hydrocodone-Acetamin 5-325 mg) 1 Each Tablet, 1 TAB PO Q3HP PRN for PAIN LEVEL 6-10, (Reported) Magnesium Hydroxide (Milk of Magnesia) 400 Mg/5 Ml Oral.susp, 30 ML PO DAILY PRN for CONSTIPATION, (Reported) Methyl Salicylate/Menthol (Bengay Greaseless Cream) 57 Gm Cream..g., 1 DOSE EXT QID PRN for BACK PAIN, (Reported) APPLY TO LOWER BACK Nitroglycerin (Nitrostat) 0.4 Mg Tab.subl, 0.4 MG SL NITRO PRN for CHEST PAIN, (Reported) Polyethylene Glycol 3350 (Miralax) 17 Gm Powd.pack, 17 GM PO DAILY PRN for CONSTIPATION, (Reported) Prochlorperazine (Prochlorperazine) 25 Mg Supp.rect, 25 MG MD Q12H PRN for NAUSEA OR VOMITING, (Reported) Sennosides/Docusate Sodium (Senna-S Tablet) 1 Tab Tab, 1 TAB PO DAILY PRN for CONSTIPATION, (Reported) Sodium Phosphate,[place]-Dibasic (Fleet Enema) 133 Ml Enema, 1 RUBI MD DAILY PRN for CONSTIPATION, (Reported) Allergies Coded Allergies: pregabalin (Verified Adverse Reaction, Mild, ELEVATED LFTS, 03/31/21) metformin (Verified Adverse Reaction, Unknown, 03/25/21) morphine (Verified Adverse Reaction, Unknown, 03/25/21) PAULA MARTI MD Sep 18, 2021 13:50
--- NOTE | 2021-09-18 14:36 | DSES ---
DISCHARGE SUMMARY DATE OF ADMISSION: 09/04/2021 DATE OF DISCHARGE: 09/18/2021 Discharged to [facility]. Patient was changed to alternate level of care (ALC) status on 09/11/2021. DISCHARGE DIAGNOSES: 1. Coronavirus pneumonia. 2. Acute sinusitis. 3. Mild acute kidney injury in the setting of chronic kidney disease. 4. Congestive heart failure, diastolic dysfunction, compensated. 5. Type 2 diabetes. 6. Obstructive sleep apnea. 7. Dyslipidemia. DISCHARGE MEDICATIONS: - prednisone taper - acetaminophen 650 daily as needed - albuterol 2.5 every 4 hours as needed/two puffs inhaled three times a day - Abilify 2 mg at bedtime - aspirin 81 mg daily - atorvastatin 40 mg three times a week - bisacodyl 10 mg per rectum daily as needed - buspirone 5 mg twice a day - calcitriol 0.25 mcg daily - dexamethasone 6 mg every evening - diltiazem 60 mg four times a day - Trulicity 1.5 mg weekly - Lovenox 30 mg subcutaneous every evening - vitamin D 50,000 units monthly - fluticasone topically twice a day as needed - Lasix 40 mg daily - gabapentin 100 mg twice a day - glimepiride 2 mg daily - glucagon as needed - hydrocodone/acetaminophen one tablet three times a day as needed - melatonin 5 mg at bedtime - Milk of Magnesia 30 mL daily as needed - memantine 5 mg twice a day - Keron-Kelsey topically as needed - prochlorperazine 25 mg per rectum every 12 hours as needed - Senokot one tablet daily as needed - Zoloft 150 mg daily - Fleet enema daily as needed DISCHARGE INSTRUCTIONS: Primary care physician followup five days after discharge. HOSPITAL COURSE: This is a 71-year-old female admitted on 09/04/2021 with complaints of shortness of breath, found to be COVID-19 positive, hyperglycemia of 421 with elevated creatinine of 2 from previous of 1.4 baseline. Patient was admitted for coronavirus pneumonia, treated with Decadron and Remdesivir, Olumiant and resumed on all her home medications. Due to acute on chronic renal failure with creatinine 2.01 on admission, patient's Lasix was held. Chest x-ray showed no change, with calcification and ectasia of the thoracic aorta, stable scattered interstitial opacities bilaterally, stable chronic consolidation left base and blunting of the left base. CT of the head performed showed no acute intracranial pathology, moderate volume loss, mild vessel ischemic disease. Left maxillary sinusitis. Venous ultrasound of the lower extremities showed no evidence of deep venous thrombosis (DVT). Patient's creatinine improved from 2.01 to 1.59 and 1.7, remains at stage III chronic renal failure. She was changed to alternate level of care (ALC) status on 09/11/2021 and was kept on heparin subcutaneous for DVT prophylaxis. Patient was on doxycycline for seven days for sinusitis, continued on Decadron with tapering dose for the COVID pneumonia. She completed antibiotics, doxycycline. Her insulin was changed to 20 units subcutaneous of Levemir for better glycemic control. Patient had no other issues and was changed to ALC status with no other acute medical complaints. PHYSICAL EXAMINATION ON DISCHARGE: VITAL SIGNS: Temperature 97.3, pulse 65, respiratory rate 20, blood pressure 113/62, 94% on 2 liters nasal cannula. GENERAL: No distress. LUNGS: Clear to auscultation. No wheezing or rales. HEART: S1, S2. Sinus rhythm. ABDOMEN: Soft, nontender, nondistended. +bs [id number] EXTREMITIES: No cyanosis, clubbing or pitting edema. LABORATORY DATA/IMAGING STUDIES/MICROBIOLOGY: Please see the chart. TIME SPENT ON DISCHARGE: 30 minutes. MTDD
[2021-09-18 19:51] VITALS: BP 107/58
[2021-09-18] MEDS: ARIPiprazole 2 MG TAB PO SCH (21:43)
[2021-09-19] MEDS: COMBIVENT RESPIMAT 100-20MCG INHALER 4GM INH SCH ×2 (01:53→07:20)
[2021-09-19 05:40] VITALS: BP 119/58
[2021-09-19] MEDS: HEPARIN SOD (PORCINE) 5000UNITS/ML 1ML VIAL/SYRINGE SQ SCH (05:56)
[2021-09-19 09:17] VITALS: BP 119/58
[2021-09-19] MEDS: ASPIRIN 81 MG CHEW TABLET PO SCH (09:17)
[2021-09-19] MEDS: predniSONE 10 MG TAB PO SCH (09:18)
[2021-09-19] MEDS: SERTRALINE 100 MG TAB PO SCH (09:18)
[2021-09-19] MEDS: MEMANTINE 5MG TABLET (NAMENDA) PO SCH (09:18)
[2021-09-19] MEDS: busPIRone 5 MG TAB PO SCH (09:18)
[2021-09-19] MEDS: CALCITRIOL 0.25 MCG CAP (S0169) PO SCH (09:18)
[2021-09-19] MEDS: LEVEMIR (INSULIN DETEMIR) 1 UNITS/0.01ML SC SCH (09:19)
[2021-09-19] MEDS: GABAPENTIN 100 MG CAP PO SCH (09:19)
[2021-09-19] MEDS: NYSTATIN 100,000 UNITS/GM TOPICAL PWD 15 GM TOP SCH (09:20)
[2021-09-19] MEDS: HumaLOG INSULIN (NovoLOG) PER UNIT SC SCH (09:20)
--- NOTE | 2021-09-19 10:26 | DS.PDOC ---
Discharge Summary General Date of Admission Sep 04, 2021 at 20:05 Date of Discharge 09/19/21 Discharge Summary addendum to discharge summary dictated job #[id number] Vital Signs/I&Os Vital Signs Date Time Temp Pulse Resp B/P (MAP) Pulse Ox O2 Delivery O2 Flow Rate FiO2 09/19/21 09:17 63 119/58 09/19/21 09:00 2.0 09/19/21 05:40 95.8 16 95 Room Air I&O- Last 24 Hours up to 6 AM 09/19/21 06:00 Intake Total 780 ml Output Total 0 ml Balance 780 ml Laboratory Data Labs 24H Laboratory Tests 2 09/18/21 11:57: Bedside Glucose (Misc Panel) 310H 09/18/21 16:37: Bedside Glucose (Misc Panel) 370H 09/18/21 19:49: Bedside Glucose (Misc Panel) 375H 09/18/21 20:38: Bedside Glucose (Misc Panel) 356H 09/19/21 05:41: Bedside Glucose (Misc Panel) 118H FSBS Laboratory Tests Test 09/18/21 11:57 09/18/21 16:37 09/18/21 19:49 09/18/21 20:38 Range/Units Bedside Glucose (Misc Panel) 310 370 375 356 83-110 MG/DL Test 09/19/21 05:41 Range/Units Bedside Glucose (Misc Panel) 118 83-110 MG/DL Discharge Medications Scheduled Albuterol Sulfate (Ventolin Hfa) 18 Gm Hfa.aer.ad, 2 PUFF INH TID, (Reported) Aripiprazole (Abilify) 2 Mg Tablet, 2 MG PO QHS, (Reported) Aspirin (Aspirin) 81 Mg Tab.chew, 81 MG PO DAILY, (Reported) Atorvastatin Calcium (Atorvastatin Calcium) 40 Mg Tab, 40 MG PO 3XW, (Reported) IN THE EVENING WEDNESDAY, WEDNESDAY, WEDNESDAY Buspirone HCl (Buspirone HCl) 5 Mg Tab, 5 MG PO BID, (Reported) Calcitriol (Rocaltrol) 0.25 Mcg Capsule, 0.25 MCG PO DAILY, (Reported) Dexamethasone (Dexamethasone) 2 Mg Tablet, 6 MG PO QPM, (Reported) ENDS 09/11/21 Diltiazem Hcl (Cardizem) 60 Mg Tablet, 60 MG PO QID, (Reported) Dulaglutide (Trulicity) 1.5 Mg/0.5 Ml Pen.injctr, 1.5 MG SC QWEEK, (Reported) SATURDAYS Enoxaparin Sodium (Enoxaparin Sodium) 30 Mg/0.3 Ml Syringe, 30 MG SC QPM, (Reported) Ergocalciferol (Vitamin D2) (Vitamin D2) 50,000 Units Cap, 50,000 UNITS PO QMONTH, (Reported) ON 1ST DAY OF MONTH Furosemide (Furosemide) 40 Mg Tablet, 40 MG PO DAILY, (Reported) Gabapentin (Gabapentin) 100 Mg Capsule, 100 MG PO BID, (Reported) Glimepiride (Glimepiride) 2 Mg Tab, 2 MG PO DAILY, (Reported) Hydrocodone/Acetaminophen (Hydrocodone-Acetamin 5-325 mg) 1 Each Tablet, 1 TAB PO QID, (Reported) Melatonin (Melatonin) 5 Mg Tablet, 5 MG PO QHS, (Reported) Memantine HCl (Namenda) 5 Mg Tablet, 5 MG PO BID, (Reported) Polyvinyl Alcohol/Povidone (Artificial Tears Drops) 15 Ml Drops, 1 DROP OU QID, (Reported) 0600, 1200, 1600, 2000 Prednisone (Prednisone) 10 Mg Tablet, 10 MG PO TAPER Take 4 tabs daily x 3 days, then 3 tabs daily x 3 days, then 2 tabs daily x 3 days, then 1 tab daily x 3 days and stop Sertraline Hcl (Zoloft) 100 Mg Tablet, 150 MG PO DAILY, (Reported) [Interdry Mis 10] , 1 APPLIC TOP BID, (Reported) APPLIES BELOW BREASTS AND ABDOMINAL FOLDS Scheduled PRN Acetaminophen (Tylenol) 325 Mg Tablet, 650 MG PO Q4H PRN for PAIN / FEVER, (Reported) Acetaminophen (Acetaminophen) 650 Mg Supp.rect, 650 MG MI DAILY PRN for PAIN / FEVER, (Reported) Albuterol Sulf (Albuterol Sulfate) 2.5 Mg/3 Ml Nebu, 2.5 MG INH Q4H PRN for COUGH/CONGESTION/WHEEZING, (Reported) Bisacodyl (Dulcolax) 10 Mg Sup, 10 MG MI DAILY PRN for CONSTIPATION, (Reported) Dextrose (Glucose) 4 Gm Chw, 16 GM PO ASDIRECTED PRN for LOW BLOOD SUGAR, (Reported) FOR BLOOD GLUCOSE LESS THAN 60MG/DL Fluticasone Propionate (Fluticasone Propionate 0.005%) 15 Gm Oint...g., 1 DOSE EXT BID PRN for DERMATITIS, (Reported) USES ON LOWER BACK Glucagon,Human Recombinant (Glucagon Emergency Kit) 1 Mg Vial, 1 MG SC ASDIRECTED PRN for LOW BLOOD SUGAR, (Reported) FOR FSBS<60 AND UNCONCIOUS Hydrocodone/Acetaminophen (Hydrocodone-Acetamin 5-325 mg) 1 Each Tablet, 1 TAB P O Q3HP PRN for PAIN LEVEL 6-10, (Reported) Magnesium Hydroxide (Milk of Magnesia) 400 Mg/5 Ml Oral.susp, 30 ML PO DAILY PRN for CONSTIPATION, (Reported) Methyl Salicylate/Menthol (Bengay Greaseless Cream) 57 Gm Cream..g., 1 DOSE EXT QID PRN for BACK PAIN, (Reported) APPLY TO LOWER BACK Nitroglycerin (Nitrostat) 0.4 Mg Tab.subl, 0.4 MG SL NITRO PRN for CHEST PAIN, (Reported) Polyethylene Glycol 3350 (Miralax) 17 Gm Powd.pack, 17 GM PO DAILY PRN for CONSTIPATION, (Reported) Prochlorperazine (Prochlorperazine) 25 Mg Supp.rect, 25 MG MI Q12H PRN for NAUSEA OR VOMITING, (Reported) Sennosides/Docusate Sodium (Senna-S Tablet) 1 Tab Tab, 1 TAB PO DAILY PRN for CONSTIPATION, (Reported) Sodium Phosphate,Dale-Dibasic (Fleet Enema) 133 Ml Enema, 1 RUBI MI DAILY PRN for CONSTIPATION, (Reported) Allergies Coded Allergies: pregabalin (Verified Adverse Reaction, Mild, ELEVATED LFTS, 03/31/21) metformin (Verified Adverse Reaction, Unknown, 03/25/21) morphine (Verified Adverse Reaction, Unknown, 03/25/21) PAULA MARTI MD Sep 19, 2021 10:26
== END 2021-09-19 11:25 | DRG 177 ==
LOC: M ED 17:16 → EDBD 17:16 → M ED INP 20:05 → M 4MAIN 23:00
PROVIDERS: ADMIT Family Medicine; ATTEND Internal Medicine
DX: U07.1 COVID-19 (principal); J96.01 Acute respiratory failure with hypoxia; J12.82 Pneumonia due to coronavirus disease 2019; I69.354 Hemiplegia and hemiparesis following cerebral infarction affecting left non-dominant side; N25.81 Secondary hyperparathyroidism of renal origin; E66.2 Morbid (severe) obesity with alveolar hypoventilation; N17.9 Acute kidney failure, unspecified; I50.32 Chronic diastolic (congestive) heart failure; Z68.43 Body mass index [BMI] 50.0-59.9, adult; I13.0 Hypertensive heart and chronic kidney disease with heart failure and stage 1 through stage 4 chronic kidney disease, or unspecified chronic kidney disease; E87.2 Acidosis; Z66 Do not resuscitate; F03.90 Unspecified dementia, unspecified severity, without behavioral disturbance, psychotic disturbance, mood disturbance, and anxiety; E11.22 Type 2 diabetes mellitus with diabetic chronic kidney disease; Z98.41 Cataract extraction status, right eye; Z98.42 Cataract extraction status, left eye; N18.9 Chronic kidney disease, unspecified; Z79.82 Long term (current) use of aspirin; Z79.84 Long term (current) use of oral hypoglycemic drugs; Z79.899 Other long term (current) drug therapy; Z88.5 Allergy status to narcotic agent; Z88.8 Allergy status to other drugs, medicaments and biological substances; I69.320 Aphasia following cerebral infarction; D63.1 Anemia in chronic kidney disease; F41.9 Anxiety disorder, unspecified; E11.42 Type 2 diabetes mellitus with diabetic polyneuropathy; E26.1 Secondary hyperaldosteronism; E78.5 Hyperlipidemia, unspecified; H04.123 Dry eye syndrome of bilateral lacrimal glands; I20.9 Angina pectoris, unspecified; K21.9 Gastro-esophageal reflux disease without esophagitis; D50.9 Iron deficiency anemia, unspecified; F32.A Depression, unspecified; G40.909 Epilepsy, unspecified, not intractable, without status epilepticus; K59.09 Other constipation; Z96.659 Presence of unspecified artificial knee joint; J32.9 Chronic sinusitis, unspecified; Z91.19 Patient's noncompliance with other medical treatment and regimen

== ENCOUNTER → 2021-09-04 | Outpatient (REF) | payer MEDICARE, OTHER, MEDICAID ==
[2021-09-04 11:50] LABS: HEMATOCRIT 40.9 % (36.0-47.0); HEMOGLOBIN 12.9 g/dl (12.0-15.5); MEAN CORPUSCULAR HEMOGLOBIN 28.8 pg (27.0-33.0); MEAN CORPUSCULAR HGB CONC 31.5 g/dl (32.0-36.5); MEAN CORPUSCULAR VOLUME 91.3 fl (80.0-96.0); PLATELET COUNT, AUTOMATED 244 10^3/uL (150-450); RED BLOOD COUNT 4.48 10^6/uL (4.00-5.40); WHITE BLOOD COUNT 8.7 10^3/uL (4.0-10.0)
[2021-09-04 12:54] LABS: ALBUMIN 2.3 GM/DL (3.2-5.2); BILIRUBIN,TOTAL 0.5 MG/DL (0.2-1.0); CREATININE FOR GFR 1.89 MG/DL (0.55-1.30); GLOMERULAR FILTRATION RATE 27.8 (>39); POTASSIUM SERUM 4.3 MEQ/L (3.5-5.1); TOTAL PROTEIN 6.9 GM/DL (6.4-8.2)
== END ==
LOC: SKLAB2 07:09
PROVIDERS: ATTEND Neuromusculoskeletal Medicine & OMM
DX: U07.1 COVID-19 (principal)

== ENCOUNTER → 2021-09-23 | Outpatient (REF) | payer MEDICARE, OTHER, MEDICAID ==
[~2021-09-23] MED LIST changes: +ASPI81CH33 PO; +DEXA2TA PO; +ENOX30IN3 SC; +ERGO500029 PO; +FURO40TA2 PO; +MELA1TAB9 PO; +MILKSUS3 PO; +PRED10TA2 PO; +PROC25SU24 PR; +ZOLO100T PO; +[UNRECOGNIZED DRUG - SUPPLY] TOP
== END ==
LOC: SKLAB4 14:00
PROVIDERS: ATTEND Neuromusculoskeletal Medicine & OMM
DX: R73.09 Other abnormal glucose (principal)

== ENCOUNTER → 2021-09-23 | Outpatient (REF) | payer MEDICARE, OTHER, MEDICAID | LOC: M LAB 13:58 | PROVIDERS: ATTEND Nurse Practitioner Adult Health | DX: R73.9 Hyperglycemia, unspecified (principal) ==

== ENCOUNTER → 2021-09-25 | Outpatient (REF) | payer MEDICARE, OTHER, MEDICAID ==
[2021-09-25 13:50] LABS: BASO % 0.2 % (0.0-1.0); EOS # 0.1 10^3/uL (0.0-0.5); EOS % 0.5 % (0.0-3.0); HEMATOCRIT 34.5 % (36.0-47.0); HEMOGLOBIN 11.2 g/dl (12.0-15.5); LYMPH % 10.8 % (24.0-44.0); MEAN CORPUSCULAR HEMOGLOBIN 28.8 pg (27.0-33.0); MEAN CORPUSCULAR HGB CONC 32.5 g/dl (32.0-36.5); MEAN CORPUSCULAR VOLUME 88.7 fl (80.0-96.0); MONO # 0.3 10^3/uL (0.0-0.8); MONO % 3.1 % (2.0-8.0); NEUTROPHILS # 7.9 10^3/uL (1.5-8.5); NEUTROPHILS % 83.6 % (36.0-66.0); PLATELET COUNT, AUTOMATED 145 10^3/uL (150-450); RED BLOOD COUNT 3.89 10^6/uL (4.00-5.40); WHITE BLOOD COUNT 9.5 10^3/uL (4.0-10.0)
[2021-09-25 14:23] LABS: CREATININE FOR GFR 1.53 MG/DL (0.55-1.30); GLOMERULAR FILTRATION RATE 35.5 (>39)
[2021-09-25 14:24] LABS: CALCIUM LEVEL 8.8 MG/DL (8.8-10.2)
[2021-09-25 14:25] LABS: ALBUMIN 2.6 GM/DL (3.2-5.2); BILIRUBIN,TOTAL 0.5 MG/DL (0.2-1.0); TOTAL PROTEIN 5.6 GM/DL (6.4-8.2)
--- NOTE | 2021-09-25 15:50 | ECGEPIP ---
[facility] Test Date: 2021-09-25 Pat Name: ROBINA DYE Department: Room: - Gender: Female Application Assistant: : [id number] Requested By: ASIF VALLEJO Order Number: [id number] Reading MD: Martha Read Measurements Intervals [place] Rate: 99 P: 59 SD: 176 QRS: -9 QRSD: 76 T: 67 QT: 346 QTc: 444 Interpretive Statements Sinus rhythm with frequent premature ventricular complexes AND PACS LOW VOLTAGE PRWP V ECTOPY NEW [id number] Electronically Signed on 09-25-2021 15:50:50 EST by Martha Read
== END ==
LOC: SKLAB4 12:35
PROVIDERS: ATTEND Neuromusculoskeletal Medicine & OMM
DX: U07.1 COVID-19 (principal); R41.82 Altered mental status, unspecified

== ENCOUNTER → 2021-10-06 | Outpatient (REF) | payer MEDICARE, OTHER, MEDICAID ==
[2021-10-06 15:01] LABS: ABG BASE EXCESS 4.2 (-2.0-2.0); ABG HCO3 29.9 MEQ/L (22.0-26.0); ABG O2 SATURATION 94.2 % (95.0-99.0); ABG PARTIAL PRESSURE CO2 49.3 mmHg (35.0-45.0); ABG PARTIAL PRESSURE O2 73.7 mmHg (75.0-100.0); ABG STANDARD HCO3 28.2 MEQ/L (22.0-26.0); ABG TOTAL CO2 31.4 MEQ/L (23.0-31.0)
== END ==
LOC: SKLAB4 12:49
PROVIDERS: ATTEND Nurse Practitioner Adult Health
DX: R09.02 Hypoxemia (principal); R79.81 Abnormal blood-gas level

== ENCOUNTER → 2021-10-15 | Outpatient (REF) | payer MEDICARE, OTHER, MEDICAID ==
[~2021-10-15] MED LIST changes: -OMEP-221 PO; +OMEP40CA5 PO
[2021-10-15 12:41] LABS: HEMATOCRIT 33.2 % (36.0-47.0); HEMOGLOBIN 10.5 g/dl (12.0-15.5); MEAN CORPUSCULAR HGB CONC 31.6 g/dl (32.0-36.5); MEAN CORPUSCULAR VOLUME 94.9 fl (80.0-96.0); PLATELET COUNT, AUTOMATED 371 10^3/uL (150-450); WHITE BLOOD COUNT 8.9 10^3/uL (4.0-10.0)
[2021-10-15 13:13] LABS: CREATININE FOR GFR 1.44 MG/DL (0.55-1.30); GLOMERULAR FILTRATION RATE 38.1 (>39); POTASSIUM SERUM 4.6 MEQ/L (3.5-5.1)
== END ==
LOC: SKLAB7 11:23 → SKLAB4 11:55
PROVIDERS: ATTEND Neuromusculoskeletal Medicine & OMM
DX: I50.9 Heart failure, unspecified (principal)